=== PATIENT | female | born 1945 | race Caucasian/White ===

== ENCOUNTER 2017-01-30 13:19 | Inpatient (IN) | payer MEDICARE ==
[2017-01-30 13:38] LABS: Oxyhemoglobin 81.9 % (94.0-97.0); Sodium 141 mmol/L (135-148)
[2017-01-30 13:41] LABS: Modified Allen's Test POSITIVE
[2017-01-30 13:42] LABS: Mode 3 LPM N
[2017-01-30 13:54] LABS: #Lymphocytes 1.7 thou/uL (1.20-3.40); #Monocytes 1.7 thou/uL (0.11-0.59); #Neutrophils 11.9 thou/uL (1.40-6.50); %Basophils 0.3 % (0.0-1.0); %Eosinophils 0.1 % (0.0-10.0); %Lymphocytes 10.8 % (21.0-51.0); Hematocrit 39.3 % (36.0-47.0); Mean Platelet Volume 7.9 fL (7.4-10.4); Red Blood Cell (RBC) Count 4.09 mill/uL (4.20-5.40); White Blood Cell (WBC) Count 15.3 thou/uL (4.8-10.8)
[2017-01-30 14:02] LABS: Prothrombin Time 14.5 SEC (12.0-14.7)
[2017-01-30 14:03] LABS: PTT 38.5 SEC (22.9-36.1)
--- NOTE | 2017-01-30 14:06 | RAD ---
PORTABLE CHEST: Date: 01/30/17 HISTORY: Dyspnea. COMPARISON: 05/30/16. FINDINGS: Heart is upper normal size. There is vascular and interstitial prominence which could represent mild edema. No confluent consolidation. No significant effusion. Findings are very similar to 05/30/16 which might indicate some chronic interstitial change. IMPRESSION: Cardiomegaly with evidence of mild vascular and interstitial congestion. POS: [facility]
[2017-01-30] MEDS ORDERED: cefTRIAXone\\ROCEPHIN 2 GM VIAL ONE (14:16)
[2017-01-30] MEDS ORDERED: Sodium Chloride 0.9% 0 ML ONE (14:17)
[2017-01-30 14:19] LABS: ALT (SGPT) 35 U/L (8-55); AST (SGOT) 29 U/L (5-34); Alkaline Phosphatase 274 U/L (40-150); Anion Gap 17 mmol/L (10-20); BUN (Urea Nitrogen) 33 mg/dL (9.8-20.1); Calc. Creatinine Clearance 0 mL/min (70-130); Carbon Dioxide 15 mmol/L (23-31); Chloride 111 mmol/L (98-107); Estimated GFR-MDRD 49; Globulin 3.7 g/dL (2.4-3.5); Protein, Total 7.1 g/dL (6.0-8.3); Troponin I Less than 0.010 ng/mL (< 0.028)
[2017-01-30] MEDS ORDERED: Azithromycin 500 MG VIAL ONE (14:20)
[2017-01-30 14:30] LABS: Lactic Acid - Sepsis 1.4 mmol/L (0.5-2.2)
[2017-01-30] MEDS ORDERED: ISOVUE-370 76%-LOCM 1 ML ONE (14:40)
[2017-01-30] MEDS ORDERED: cefTRIAXone\\ROCEPHIN 2 GM, Admixture Fee 1 EACH in Sodium Chloride 0.9% 100 ML IVPB SCH (14:45)
--- NOTE | 2017-01-30 15:16 | CT ---
CT ANGIOGRAM OF THE CHEST: Date: 01/30/17 HISTORY: Shortness of breath. COPD. COMPARISON: None. CORRELATION: Chest CT dated 09/23/14. TECHNIQUE: CT angiogram of the chest performed in axial plane. Sagittal and coronal three-dimensional reformatt ed images are submitted for interpretation. FINDINGS: No mediastinal mass, lymphadenopathy, or hematoma. Heart size is within normal limits. No significan t pericardial fluid. Coronary artery calcifications are identified. Visualized aorta demonstrates at herosclerosis. There is mild prominence of the suprarenal aorta with peripheral atherosclerotic dise ase. No periaortic fat stranding. Visualized upper solid organs are unremarkable. Trachea and central bronchi are patent. There are ground-glass opacities involving both upper lobes, as well as both lower lobes. Emphysematous change in the right lower lobe is noted. Large calcifica tion in the right upper lobe. There is a focal area of nodularity involving the middle lobe, perihil ar in location, measuring 1.2 x 1.1 cm. No pleural effusion. No pneumothorax. Adequate contrast opacification of the pulmonary arterial system to the level of the segmental arter ies. No filling defect to suggest thromboembolism. There are no osteoblastic or osteolytic lesions. IMPRESSION: 1. Diffuse ground-glass opacities. Correlate for infiltrate or edema. 2. Emphysematous change right lower lobe. 3. Focal nodule in the middle lobe. Nodule is not appreciated on the previous examination. Consider short-term follow-up imaging once current ground-glass opacities resolve. 4. No evidence of pulmonary artery embolism to the level of the segmental arteries. CODE: KHOI POS: [facility]
[2017-01-30] MEDS ORDERED: Magnesium 2 GM/NS 0.9% 50 ML 2 GM in Premix Bag 1 BAG IVPB SCH (15:45)
[2017-01-30] MEDS ORDERED: methylPREDNISolone Sod Succ/PF 125 MG/2 ML VIAL ONE ×2 (16:00→16:15)
[2017-01-30] MEDS ORDERED: Eucerin (Mineral Oil/Petrolatum,White) 30 gm Jar TOP PRN (16:05)
[2017-01-30] MEDS ORDERED: Diabetic Tussin 200 MG/10 ML UDCUP PO PRN (16:05)
[2017-01-30] MEDS ORDERED: Milk Of Magnesia 30 ML UDCUP PO PRN (16:05)
[2017-01-30] MEDS ORDERED: hydrALAZINE 20 MG/ML VIAL SLOW IVP PRN (16:05)
[2017-01-30] MEDS ORDERED: Sodium Chloride 0.65% Nasal 44 ML BOT EA NARE PRN (16:05)
[2017-01-30] MEDS ORDERED: Calcium Carbonate 500 MG ChewTAB PO PRN (16:05)
[2017-01-30] MEDS ORDERED: hydrOXYzine 10 MG TAB PO PRN (16:05)
[2017-01-30] MEDS ORDERED: Senokot 8.6 MG TAB PO PRN (16:05)
[2017-01-30] MEDS ORDERED: Mag-Al 1200 mg/1200 mg/30 ML UDCUP PO PRN (16:05)
[2017-01-30] MEDS ORDERED: Loratadine 10 MG TAB PO PRN (16:05)
[2017-01-30] MEDS ORDERED: Artificial Tear Sol 15 ML BOT EA EYE PRN (16:05)
[2017-01-30] MEDS ORDERED: Ondansetron HCl/PF 4 MG/2 ML Vial IVP PRN (16:05)
[2017-01-30] MEDS ORDERED: Benzonatate 100 MG CAP PO PRN (16:05)
[2017-01-30] MEDS ORDERED: Cyclobenzaprine 10 MG TAB PO PRN (16:05)
[2017-01-30] MEDS ORDERED: Loperamide HCl 2 MG CAP PO PRN (16:05)
[2017-01-30] MEDS ORDERED: Chloraseptic Spray 180 ml Bottle PO PRN (16:05)
[2017-01-30] MEDS ORDERED: CeleCOXIB 100 MG CAP PO PRN (16:05)
[2017-01-30] MEDS ORDERED: Water For Inject, Bacteriostat 30 ML ONE (16:15)
--- NOTE | 2017-01-30 16:25 | HP ---
PRIMARY CARE PHYSICIAN: Jagdeep Palomo M.D. REASON FOR ADMISSION: Acute hypoxic respiratory failure and COPD exacerbation. HISTORY OF PRESENT ILLNESS: A 71-year-old female who has underlying history of COPD as well as ongo ing tobacco abuse disorder who was brought to emergency room by paramedics for evaluation of shortne ss of breath. Patient reports that for the last 2-3 days, she has increasing shortness of breath. Normally, she feels dyspnea on exertion, but for the last 2-3 days, she was getting more and more sh ortness of breath. Even after walking few steps, she was drinking huffy and puffy. During nighttim e, she was not able to sleep because of shortness of breath. She was also hearing her own wheezing. She was also having cough productive of greenish sputum. She denies any fever or chills. Even af ter that, she continued to smoke at home as the patient's condition gotten more worse today and she was not able to catch her breath and that is why she decided to call paramedics. Paramedics, when nataliya cartagena evaluated her at home, her oxygen saturation was 75% on room air. She was given 2 times DuoNeb therapy. After that saturation improved to 90%. Intermittently, her oxygen saturation was going lo w and when she arrived to emergency room, patient was in respiratory distress. She was only saturat ing 81% and that is why she required BiPAP therapy in the emergency room. After a while, BiPAP therapy was weaned off in the emergency room and she was maintaining saturation in the 90s with 2 liter nasal cannula. At this point, patient does not have any accessory muscles of respiration use and she is able to talk in full sentences. This patient reports that she does no t have any home oxygen. She denies any chest pain. She denies any palpitations. She denies any lo wer extremity edema. She denies any UTI symptoms. She denies any constipation, diarrhea, melena or hematochezia. She denies any cough, dizziness or syncope. REVIEW OF SYSTEMS: The following complete review of systems was negative, unless otherwise mentione d in the HPI or below: Constitutional: Weight loss or gain, ability to conduct usual activities. Skin: Rash, itching. Eyes: Double vision, pain. ENT/Mouth: Nose bleeding, neck stiffness, pain, tenderness. Cardiovascular: Palpitations, dyspnea on exertion, orthopnea. Respiratory: Shortness of breath, wheezing, cough, hemoptysis, fever or night sweats. Gastrointestinal: Poor appetite, abdominal pain, heartburn, nausea, vomiting, constipation, or diar rufino. Genitourinary: Urgency, frequency, dysuria, nocturia. Musculoskeletal: Pain, swelling. Neurologic/Psychiatric: Anxiety, depression. Allergy/Immunologic: Skin rash, bleeding tendency. Please see my HPI for pertinent positive and negative. All other review of systems reviewed and neg ative except as mentioned in the HPI. PAST MEDICAL HISTORY: Chronic diastolic heart failure with EF 60%-65%, COPD with active tobacco abu se, chronic pain disorder on chronic pain medication, hypertension, obesity, hypothyroidism, chronic kidney disease stage 2, gastroesophageal reflux disease, dyslipidemia. PAST PSYCHIATRIC HISTORY: Anxiety and depression. PAST SURGICAL HISTORY: Low back surgery, left ankle surgery, appendicectomy, cholecystectomy, parti al hysterectomy, laminectomy, and left hip replacement. ALLERGIES: CLONIDINE. FAMILY HISTORY: No strong family history of premature coronary artery disease, stroke or cancer. SOCIAL HISTORY: The patient lives in [place], [place]. She smokes about half pack per day for last 30 years. She tried to cutdown smoking, but she never able to do that. She denies any alcohol or o ther illicit drug abuse. The patient reports that her two children live in [facility]. CURRENT HOME MEDICATIONS: Gabapentin 100 mg 3 times daily, Flexeril 10 mg daily, Cymbalta 60 mg p.o . daily, Lasix 20 mg p.o. daily, amlodipine 10 mg p.o. daily, multivitamin 1 tablet p.o. daily, Atar ax 10 mg 3 times daily, lisinopril 5 mg p.o. daily, celecoxib 200 mg p.o. daily, Zoloft 50 mg p.o. d aily, Crestor 10 mg p.o. at bedtime, Symbicort 2 puff inhalation b.i.d., potassium chloride 10 mEq p .o. daily. FAMILY HISTORY: No strong family history of premature coronary artery disease, stroke or cancer. EMERGENCY ROOM COURSE: Patient has received magnesium sulfate 2 g, Rocephin 2 g, azithromycin 500 m g, IV fluids 500 mg, and DuoNeb therapy. PHYSICAL EXAMINATION: VITAL SIGNS: On arrival, blood pressure 132/69, pulse 110, respiratory rate 22, temperature 97.7, s aturation 91% on room air, weight 62.6 kilograms. GENERAL: Patient is currently alert, awake, no obvious acute distress, able to talk in full sentenc es. HEAD: Normocephalic, atraumatic. EYES: Pupils round, reactive to light. Extraocular muscle intact. ENT: Oropharynx within normal limits. Moist mucous membranes. No oral lesions. No pharyngeal lima thema, no exudate. NECK: Supple, no JVD, no thyromegaly, no carotid bruit, no meningeal signs of irritation. LUNGS: Air entry reduced both lung harper, but no obvious rhonchi or wheeze heard. No accessory mu scles of respiration in use. CARDIAC: S1 and S2 regular, tachycardia, no murmur, no gallop, no rub. ABDOMEN: Soft, bowel sounds present, nontender, nondistended. No organomegaly, no mass, no suprapu bic tenderness. BACK: Examination unremarkable, no CVA tenderness. EXTREMITIES: Upper extremity passive movements of all joints are normal. Lower extremities: No ed ernesto. Good peripheral pulsation. SKIN: No skin rash. HEMATOLOGICAL SYSTEM: No lymphadenopathy. PSYCHIATRIC: Normal affect. NEUROLOGIC: Nonfocal examination. She is able to move all four limbs. No focal neurological defic it noted. IMAGING AND SIGNIFICANT LABORATORY DATA: 1. EKG showing sinus tachycardia. CT angio reported as diffuse ground glass opacity, emphysematous changes in right lower lobe, focal nodule in the middle lobe. 2. CBC: WBC 15.3, hemoglobin 12.9, platelets 269. INR 1.1. D-dimer 2.22. 3. ABG; pH 7.32, CO2 31.6, O2 50.3, saturation 83.8, bicarbonate 15.9. 4. BMP: Sodium 139, potassium 3.5, chloride 111, carbon dioxide 15, BUN 33, creatinine 1.11, gluco se 131, calcium 10.0, lactic acid 1.4. 5. LFT: AST 29, ALT 35, alkaline phosphatase 274, albumin 3.4. BNP 182.5. CK-MB 10.3, troponin I less than 0.010. 6. Chest x-ray based on my review, cardiomegaly with interstitial congestion. ASSESSMENT AND PLAN/IMPRESSION: 1. Acute hypoxic respiratory failure. This patient has underlying predominantly chronic obstructiv e pulmonary disease exacerbation with ongoing tobacco abuse disorder. She is not using oxygen at [facility]. During this admission, we will assess her daily for requirement for home oxygen therapy. At th e same time, we will treat underlying problems, chronic obstructive pulmonary disease, and diastolic heart failure. 2. Chronic obstructive pulmonary disease exacerbation associated with acute hypoxic respiratory donna lure with ongoing tobacco abuse disorder. Patient is given counseling to avoid smoking. While in h ospital, we will continue to treat her with DuoNeb every 4 hourly and as needed basis, Solu-Medrol 4 0 mg IV q.6 hourly, Dulera 2 puffs inhalation b.i.d., Mucinex 600 mg 3 times daily as well as sympto matic treatment for cough with Tessalon and Robitussin. We will also consider adding empiric antibi otic therapy with Rocephin 1 gram q.24 hours and Levaquin 500 mg IV daily. 3. Tobacco abuse disorder. Smoking cessation counseling. We will offer nicotine patch if needed w hile in hospital. 4. Chronic diastolic heart failure. Currently, patient is euvolemic. We will continue patient's h ome dose of Lasix while in hospital. 5. Chronic pain disorder. Patient will continue gabapentin 100 mg 3 times daily and Flexeril 10 mg daily. Will avoid sedatives. 6. Hypertension. We will continue amlodipine 10 mg p.o. daily and lisinopril 5 mg p.o. daily. 7. Anxiety and depression. We will continue Cymbalta 60 mg p.o. daily and Zoloft 50 mg p.o. daily. 8. Dyslipidemia. We will continue Crestor 10 mg p.o. at bedtime. 9. Elevated CK-MB. We will check total CK to rule out any rhabdomyolysis. 10. Chronic kidney disease, stage III. We will avoid nephrotoxic agents and we will monitor renal function. 11. Deep venous thrombosis prophylaxis, Lovenox 40 mg subcu daily. 12. Gastrointestinal prophylaxis, Protonix 40 mg p.o. daily. CODE STATUS: The patient is FULL CODE. Patient does not have any surrogate decision maker. Disposition and plan based on clinical course. We are expecting patient's stay in hospital more tammy n 2 midnights. Plan of care discussed with the patient and family member at bedside in the emergenc y room.
[2017-01-30] MEDS ORDERED: FLU VACC TS2017-18 (>65YR) 0.5 ML SYRINGE IM ONE (18:00)
[2017-01-30] MEDS: Acetaminophen 325 MG TAB PO PRN (18:07)
[2017-01-30 19:28] LABS: Bilirubin Negative (Negative); Blood, Urine Negative (Negative); Glucose, Urine (Dipstick) Negative (Negative); Ketone, Urine Negative (Negative); Nitrite Negative (Negative); Protein, Urine (Dipstick) Negative (Neg-Trace)
[2017-01-30 19:30] LABS: Bacteria/HPF None Seen HPF (None Seen); Hyaline Casts/LPF 0-3 HYALINE CAST LPF (0-3 Hyaline); RBC/HPF 0-3 HPF (0-3); Squamous Epithelial 0-3 HPF (0-3); WBC/HPF 0-3 HPF (0-3)
[2017-01-30] MEDS: Mometasone/Formoterol 120 PUFF INHALER INH SCH (19:35)
[2017-01-30] MEDS: guaiFENesin ER 600 MG TAB PO SCH (20:36)
[2017-01-30] MEDS: Gabapentin 100 MG CAP PO SCH (20:36)
[2017-01-31] MEDS: Acetaminophen 325 MG TAB PO PRN ×4 (02:38→21:02)
[2017-01-31 05:35] LABS: ALT (SGPT) 41 U/L (8-55); AST (SGOT) 32 U/L (5-34); Alkaline Phosphatase 272 U/L (40-150); Anion Gap 16 mmol/L (10-20); BUN (Urea Nitrogen) 24 mg/dL (9.8-20.1); Bilirubin, Total 0.4 mg/dL (0.2-1.2); Calc. Creatinine Clearance 67 mL/min (70-130); Calcium 9.7 mg/dL (7.8-10.44); Carbon Dioxide 15 mmol/L (23-31); Chloride 113 mmol/L (98-107); Estimated GFR-MDRD 70; Globulin 3.5 g/dL (2.4-3.5); Protein, Total 6.7 g/dL (6.0-8.3)
[2017-01-31 05:43] LABS: Hematocrit 38.6 % (36.0-47.0); Mean Platelet Volume 7.7 fL (7.4-10.4); Red Blood Cell (RBC) Count 4.05 mill/uL (4.20-5.40); White Blood Cell (WBC) Count 13.8 thou/uL (4.8-10.8)
[2017-01-31 05:44] LABS: Band 6 % (5-11); Metamyelocyte 2 % (0-0); Neutrophil 83 % (42-75); Nucleated RBC 1 % (0)
[2017-01-31] MEDS: Mometasone/Formoterol 120 PUFF INHALER INH SCH ×2 (05:58→19:23)
[2017-01-31] MEDS: clonazePAM 0.5 MG TAB PO PRN ×2 (06:16→21:10)
[2017-01-31] MEDS: Nicotine 14 MG PATCH TOP SCH (06:16)
[2017-01-31] MEDS: Gabapentin 100 MG CAP PO SCH ×3 (08:19→21:02)
[2017-01-31] MEDS: guaiFENesin ER 600 MG TAB PO SCH ×3 (08:20→21:02)
[2017-01-31] MEDS: Furosemide 20 MG TAB PO SCH (08:20)
[2017-01-31] MEDS: Enoxaparin Sodium 40 MG/0.4 ML SYRINGE SC SCH (08:22)
[2017-01-31] MEDS: Amlodipine 10 MG TAB PO SCH (08:22)
--- NOTE | 2017-01-31 10:24 | PDOC.PN ---
- Subjective Encounter Start Date: 01/31/17 Encounter Start Time: 10:00 -: old records requested/rev Patient seen and examined. asking for her pain meds. did not require bipap during night, saturation is also stable. No new complaints. No overnight events - Objective MAR Reviewed: Yes Vital Signs & Weight: Vital Signs (12 hours) Temp Pulse Resp BP Pulse Ox 01/31/17 08:22 112 H 01/31/17 08:00 98.9 F 112 H 22 H 138/67 98 01/31/17 05:59 108 H 16 01/31/17 04:00 99.3 F 114 H 20 138/69 94 L 01/31/17 02:42 92 L 01/30/17 23:29 98.3 F 109 H 20 150/72 H 95 01/30/17 23:10 107 H 16 92 L Weight Weight 142 lb 12.8 oz I&O: 01/30/17 01/31/17 02/01/17 06:59 06:59 06:59 Intake Total 590 Output Total 960 Balance -370 Result Diagrams: 01/31/17 04:47 01/31/17 04:47 EKG Reviewed by me: Yes (nsr) Phys Exam - Physical Examination Constitutional: NAD HEENT: PERRLA, moist MMs, sclera anicteric Neck: no JVD, supple Respiratory: no wheezing, no rales, no rhonchi reduced air entry Cardiovascular: RRR, no significant murmur, no rub Gastrointestinal: soft, non-tender, no distention, positive bowel sounds Musculoskeletal: no edema, pulses present Neurological: non-focal, normal sensation, moves all 4 limbs Lymphatic: no nodes Psychiatric: normal affect, A&O x 3 Skin: no rash, normal turgor Dx/Plan (1) Acute respiratory failure with hypoxia Code(s): J96.01 - ACUTE RESPIRATORY FAILURE WITH HYPOXIA Status: Acute (2) COPD exacerbation Code(s): J44.1 - CHRONIC OBSTRUCTIVE PULMONARY DISEASE W (ACUTE) EXACERBATION Status: Acute (3) Anxiety and depression Code(s): F41.8 - OTHER SPECIFIED ANXIETY DISORDERS Status: Chronic (4) CKD (chronic kidney disease), stage III Code(s): N18.3 - CHRONIC KIDNEY DISEASE, STAGE 3 (MODERATE) Status: Chronic (5) Chronic diastolic (congestive) heart failure Code(s): I50.32 - CHRONIC DIASTOLIC (CONGESTIVE) HEART FAILURE Status: Chronic (6) Chronic pain disorder Code(s): G89.4 - CHRONIC PAIN SYNDROME Status: Chronic (7) Dyslipidemia Code(s): E78.5 - HYPERLIPIDEMIA, UNSPECIFIED Status: Chronic (8) HTN (hypertension) Code(s): I10 - ESSENTIAL (PRIMARY) HYPERTENSION Status: Chronic Qualifiers: Hypertension type: essential hypertension Qualified Code(s): I10 - Essential (primary) hypertension (9) Tobacco abuse Code(s): Z72.0 - TOBACCO USE Status: Chronic - Plan cont current plan of care, continue antibiotics, respiratory therapy * continue current optimum medical therapy for COPD * will avoid sedatives * monitor oxygen saturation and continue oxygen * medication reviewed as below * symptomatic treatment * will start PT. * continue rocephin, levaquin, solumedrol, duoneb, dulera Review of Systems - Review of Systems Constitutional: negative: Fever, Chills, Sweats, Weakness, Malaise, Other Eyes: negative: Pain, Vision Change, Conjunctivae Inflammation, Eyelid Inflammation, Redness, Other ENT: negative: Ear Pain, Ear Discharge, Nose Pain, Nose Discharge, Nose Congestion, Mouth Pain, Mouth Swelling, Throat Pain, Throat Swelling, Other Respiratory: Cough, Shortness of Breath. negative: Dry, Hemoptysis, SOB with Excertion, Pleuritic Pain, Sputum, Wheezing Cardiovascular: negative: Chest Pain, Palpitations, Orthopnea, Paroxysmal Noc. Dyspnea, Edema, Light Headedness, Other Gastrointestinal: negative: Nausea, Vomiting, Abdominal Pain, Diarrhea, Constipation, Melena, Hematochezia, Other Genitourinary: negative: Dysuria, Frequency, Incontinence, Hematuria, Retention , Other Musculoskeletal: negative: Neck Pain, Shoulder Pain, Arm Pain, Back Pain, Hand Pain, Leg Pain, Foot Pain, Other Skin: negative: Rash, Lesions, Don, Bruising, Other - Medications/Allergies Allergies/Adverse Reactions: Allergies Allergy/AdvReac Type Severity Reaction Status Date / Time clonidine Allergy Verified 06/04/16 22:10 hydromorphone HCl Allergy Verified 06/04/16 22:10 [From Dilaudid] morphine Allergy Verified 06/04/16 22:10 Medications: Current Medications Acetaminophen (Tylenol) 650 mg PO Q4H PRN PRN Reason: Headache/Fever or Pain Last Admin: 01/31/17 08:19 Dose: 650 mg Al Hydroxide/Mg Hydroxide (Maalox) 30 ml PO Q6H PRN PRN Reason: Heartburn or Indigestion Albuterol/Ipratropium (Duoneb) 3 ml NEB [id number] [facility] Last Admin: 01/31/17 10:26 Dose: 3 ml Albuterol/Ipratropium (Duoneb) 3 ml NEB [id number] PRN PRN Reason: SOB &/or Wheezing Amlodipine Besylate (Norvasc) 10 mg PO DAILY [facility] Last Admin: 01/31/17 08:22 Dose: 10 mg Artificial Tears (Tears Renewed 15ml Bottle) 0 drop EA EYE PRN PRN PRN Reason: Dry Eyes Benzonatate (Tessalon) 100 mg PO Q4H PRN PRN Reason: Cough Calcium Carbonate (Tums) 1,000 mg PO Q4H PRN PRN Reason: Heartburn or Indigestion Celecoxib (Celebrex) 100 mg PO BID PRN PRN Reason: Muscle Pain Clonazepam (Klonopin) 0.5 mg PO Q12H PRN PRN Reason: .ANXIETY Last Admin: 01/31/17 06:16 Dose: 0.5 mg Cyclobenzaprine HCl (Flexeril) 10 mg PO TID PRN PRN Reason: Muscle Spasm Duloxetine HCl (Cymbalta) 60 mg PO DAILY [facility] Last Admin: 01/31/17 08:20 Dose: 60 mg Enoxaparin Sodium (Lovenox) 40 mg SC 0900 [facility] Last Admin: 01/31/17 08:22 Dose: 40 mg Furosemide (Lasix) 20 mg PO DAILY [facility] Last Admin: 01/31/17 08:20 Dose: 20 mg Gabapentin (Neurontin) 100 mg PO TID [facility] Last Admin: 01/31/17 08:19 Dose: 100 mg Guaifenesin (Robitussin Sf) 200 mg PO Q4H PRN PRN Reason: Cough Last Admin: 01/30/17 18:07 Dose: 200 mg Guaifenesin (Mucinex) 600 mg PO TID [facility] Last Admin: 01/31/17 08:20 Dose: 600 mg Hydralazine HCl (Apresoline) 10 mg SLOW IVP Q4H PRN PRN Reason: Systolic BP > 180 Hydroxyzine HCl (Atarax) 10 mg PO Q8H PRN PRN Reason: Itching Levofloxacin 500 mg/ Device 100 mls @ 100 mls/hr IVPB Q24HR [facility] Last Admin: 01/30/17 18:03 Dose: 100 mls Ceftriaxone Sodium 2 gm/Miscellaneous Medication 1 each/ Sodium Chloride 100 mls @ 200 mls/hr IVPB Q24HR [facility] Loperamide HCl (Imodium) 2 mg PO PRN PRN PRN Reason: Diarrhea/Loose Stools Loratadine (Claritin) 10 mg PO DAILYPRN PRN PRN Reason: Sinus Symptoms Magnesium Hydroxide (Milk Of Magnesium) 30 ml PO DAILYPRN PRN PRN Reason: Constipation Methylprednisolone Sodium Succinate (Solu-Medrol) 40 mg IVP Q6HR [facility] Last Admin: 01/31/17 06:16 Dose: 40 mg Mineral Oil/White Petrolatum (Eucerin Cream) 0 gm TOP BIDPRN PRN PRN Reason: Dry Skin Mometasone Furoate/Formoterol Fumar (Dulera 200 Mcg/5 Mcg Inhaler) 2 puff INH BID-RT [facility] Last Admin: 01/31/17 05:58 Dose: 2 puff Nicotine (Nicoderm Patch) 14 mg TOP Q24HR [facility] Last Admin: 01/31/17 06:16 Dose: 14 mg Ondansetron HCl (Zofran Odt) 4 mg PO Q6H PRN PRN Reason: Nausea/Vomiting Ondansetron HCl (Zofran) 4 mg IVP Q6H PRN PRN Reason: Nausea/Vomiting Pantoprazole Sodium (Protonix) 40 mg PO DAILY [facility] Last Admin: 01/31/17 08:19 Dose: 40 mg Phenol (Chloraseptic [place] 180 Ml Bot) 0 ml PO PRN PRN PRN Reason: Sore Throat Rosuvastatin Calcium (Crestor) 10 mg PO HS [facility] Last Admin: 01/30/17 20:36 Dose: 10 mg Senna (Senokot) 2 tab PO HSPRN PRN PRN Reason: Constipation Sertraline HCl (Zoloft) 50 mg PO DAILY [facility] Last Admin: 01/31/17 08:19 Dose: Not Given Sodium Chloride (Gilliam Nasal [place] 0.65%) 0 ml EA NARE QIDPRN PRN PRN Reason: Nasal Congestion Sodium Chloride (Flush - Normal Saline) 10 ml IVF PRN PRN PRN Reason: Saline Flush Last Admin: 01/31/17 06:16 Dose: 10 ml
[2017-01-31] MEDS: cefTRIAXone\\ROCEPHIN 2 GM, Admixture Fee 1 EACH in Sodium Chloride 0.9% 100 ML IVPB SCH (14:43)
[2017-02-01] MEDS: Ketorolac Tromethamine 30 MG/ML VIAL IVP PRN ×3 (01:02→23:46)
[2017-02-01] MEDS: Acetaminophen 325 MG TAB PO PRN ×2 (02:08→16:16)
[2017-02-01 05:25] VITALS: BMI 26.4
[2017-02-01] MEDS: Mometasone/Formoterol 120 PUFF INHALER INH SCH ×2 (06:52→18:54)
[2017-02-01] MEDS: Gabapentin 100 MG CAP PO SCH ×3 (07:50→20:06)
[2017-02-01] MEDS: Amlodipine 10 MG TAB PO SCH (07:50)
[2017-02-01] MEDS: guaiFENesin ER 600 MG TAB PO SCH ×3 (07:51→20:05)
[2017-02-01] MEDS: Enoxaparin Sodium 40 MG/0.4 ML SYRINGE SC SCH (07:51)
[2017-02-01] MEDS: Furosemide 20 MG TAB PO SCH (07:51)
[2017-02-01] MEDS: Nicotine 14 MG PATCH TOP SCH (07:52)
[2017-02-01] MEDS: clonazePAM 0.5 MG TAB PO PRN ×2 (08:35→20:06)
[2017-02-01] MEDS: Acetaminophen/Codeine 30-300mg Tablet PO PRN ×3 (10:39→20:06)
--- NOTE | 2017-02-01 10:56 | PDOC.PN ---
- Subjective Encounter Start Date: 02/01/17 Encounter Start Time: 08:10 Patient seen and examined. c/o chronic pain. No new complaints. No overnight events - Objective MAR Reviewed: Yes Vital Signs & Weight: Vital Signs (12 hours) Temp Pulse Resp BP BP Pulse Ox 02/01/17 10:25 105 H 18 94 L 02/01/17 08:00 98.0 F 114 H 24 H 142/77 H 94 L 02/01/17 07:50 108 H 142/77 H 02/01/17 06:49 100 20 93 L 02/01/17 04:00 98.9 F 112 H 20 143/83 H 93 L 02/01/17 02:09 115 H 20 94 L 02/01/17 00:36 98.9 F 22 H 120/69 92 L Weight Weight 140 lb 1.6 oz I&O: 01/31/17 02/01/17 02/02/17 06:59 06:59 06:59 Intake Total 590 500 Output Total 960 Balance -370 500 Result Diagrams: 01/31/17 04:47 01/31/17 04:47 Phys Exam - Physical Examination Constitutional: NAD HEENT: PERRLA, moist MMs, sclera anicteric Neck: no JVD, supple Respiratory: no rales, wheezing present Cardiovascular: RRR, no significant murmur, no rub Gastrointestinal: soft, non-tender, no distention, positive bowel sounds Musculoskeletal: no edema, pulses present Neurological: non-focal, normal sensation, moves all 4 limbs Psychiatric: normal affect, A&O x 3 Skin: no rash, normal turgor Dx/Plan (1) Acute respiratory failure with hypoxia Code(s): J96.01 - ACUTE RESPIRATORY FAILURE WITH HYPOXIA Status: Acute (2) COPD exacerbation Code(s): J44.1 - CHRONIC OBSTRUCTIVE PULMONARY DISEASE W (ACUTE) EXACERBATION Status: Acute (3) Anxiety and depression Code(s): F41.8 - OTHER SPECIFIED ANXIETY DISORDERS Status: Chronic (4) CKD (chronic kidney disease), stage III Code(s): N18.3 - CHRONIC KIDNEY DISEASE, STAGE 3 (MODERATE) Status: Chronic (5) Chronic diastolic (congestive) heart failure Code(s): I50.32 - CHRONIC DIASTOLIC (CONGESTIVE) HEART FAILURE Status: Chronic (6) Chronic pain disorder Code(s): G89.4 - CHRONIC PAIN SYNDROME Status: Chronic (7) Dyslipidemia Code(s): E78.5 - HYPERLIPIDEMIA, UNSPECIFIED Status: Chronic (8) HTN (hypertension) Code(s): I10 - ESSENTIAL (PRIMARY) HYPERTENSION Status: Chronic Qualifiers: Hypertension type: essential hypertension Qualified Code(s): I10 - Essential (primary) hypertension (9) Tobacco abuse Code(s): Z72.0 - TOBACCO USE Status: Chronic - Plan cont current plan of care, continue antibiotics, respiratory therapy * add flonase nasal spray for nasal stuffiness * add T-3 for pain * medication reviewed as below * symptomatic treatment * continue current optimum medical therapy for COPD * will need home oxygen * not ready for discharge yet. Review of Systems - Review of Systems Constitutional: negative: Fever, Chills, Sweats, Weakness, Malaise, Other ENT: negative: Ear Pain, Ear Discharge, Nose Pain, Nose Discharge, Nose Congestion, Mouth Pain, Mouth Swelling, Throat Pain, Throat Swelling, Other Respiratory: negative: Cough, Dry, Shortness of Breath, Hemoptysis, SOB with Excertion, Pleuritic Pain, Sputum, Wheezing Cardiovascular: negative: Chest Pain, Palpitations, Orthopnea, Paroxysmal Noc. Dyspnea, Edema, Light Headedness, Other Gastrointestinal: negative: Nausea, Vomiting, Abdominal Pain, Diarrhea, Constipation, Melena, Hematochezia, Other Genitourinary: negative: Dysuria, Frequency, Incontinence, Hematuria, Retention , Other Skin: negative: Rash, Lesions, Don, Bruising, Other - Medications/Allergies Allergies/Adverse Reactions: Allergies Allergy/AdvReac Type Severity Reaction Status Date / Time clonidine Allergy Verified 06/04/16 22:10 hydromorphone HCl Allergy Verified 06/04/16 22:10 [From Dilaudid] morphine Allergy Verified 06/04/16 22:10 Medications: Current Medications Acetaminophen (Tylenol) 650 mg PO Q4H PRN PRN Reason: Headache/Fever or Pain Last Admin: 02/01/17 02:08 Dose: 650 mg Acetaminophen/Codeine Phosphate (Tylenol #3) 1 tab PO Q4H PRN PRN Reason: Moderate Pain (4-6) Last Admin: 02/01/17 10:39 Dose: 1 tab Al Hydroxide/Mg Hydroxide (Maalox) 30 ml PO Q6H PRN PRN Reason: Heartburn or Indigestion Albuterol/Ipratropium (Duoneb) 3 ml NEB [id number] [facility] Last Admin: 02/01/17 10:25 Dose: 3 ml Albuterol/Ipratropium (Duoneb) 3 ml NEB [id number] PRN PRN Reason: SOB &/or Wheezing Amlodipine Besylate (Norvasc) 10 mg PO DAILY [facility] Last Admin: 02/01/17 07:50 Dose: 10 mg Artificial Tears (Tears Renewed 15ml Bottle) 0 drop EA EYE PRN PRN PRN Reason: Dry Eyes Benzonatate (Tessalon) 100 mg PO Q4H PRN PRN Reason: Cough Calcium Carbonate (Tums) 1,000 mg PO Q4H PRN PRN Reason: Heartburn or Indigestion Celecoxib (Celebrex) 100 mg PO BID PRN PRN Reason: Muscle Pain Clonazepam (Klonopin) 0.5 mg PO Q12H PRN PRN Reason: .ANXIETY Last Admin: 02/01/17 08:35 Dose: 0.5 mg Cyclobenzaprine HCl (Flexeril) 10 mg PO TID PRN PRN Reason: Muscle Spasm Duloxetine HCl (Cymbalta) 60 mg PO DAILY [facility] Last Admin: 02/01/17 07:50 Dose: 60 mg Enoxaparin Sodium (Lovenox) 40 mg SC 0900 [facility] Last Admin: 02/01/17 07:51 Dose: 40 mg Fluticasone Propionate (Flonase Nasal Thomson) 0 gm NASAL BID [facility] Furosemide (Lasix) 20 mg PO DAILY [facility] Last Admin: 02/01/17 07:51 Dose: 20 mg Gabapentin (Neurontin) 100 mg PO TID [facility] Last Admin: 02/01/17 07:50 Dose: 100 mg Guaifenesin (Robitussin Sf) 200 mg PO Q4H PRN PRN Reason: Cough Last Admin: 01/30/17 18:07 Dose: 200 mg Guaifenesin (Mucinex) 600 mg PO TID [facility] Last Admin: 02/01/17 07:51 Dose: 600 mg Hydralazine HCl (Apresoline) 10 mg SLOW IVP Q4H PRN PRN Reason: Systolic BP > 180 Hydroxyzine HCl (Atarax) 10 mg PO Q8H PRN PRN Reason: Itching Levofloxacin 500 mg/ Device 100 mls @ 100 mls/hr IVPB Q24HR [facility] Last Admin: 01/31/17 15:59 Dose: 100 mls Ceftriaxone Sodium 2 gm/Miscellaneous Medication 1 each/ Sodium Chloride 100 mls @ 200 mls/hr IVPB Q24HR [facility] Last Admin: 01/31/17 14:43 Dose: 100 mls Ketorolac Tromethamine (Toradol) 15 mg IVP Q8H PRN PRN Reason: Headache Stop: 02/06/17 00:34 Last Admin: 02/01/17 01:02 Dose: 15 mg Loperamide HCl (Imodium) 2 mg PO PRN PRN PRN Reason: Diarrhea/Loose Stools Loratadine (Claritin) 10 mg PO DAILYPRN PRN PRN Reason: Sinus Symptoms Magnesium Hydroxide (Milk Of Magnesium) 30 ml PO DAILYPRN PRN PRN Reason: Constipation Methylprednisolone Sodium Succinate (Solu-Medrol) 40 mg IVP Q6HR [facility] Last Admin: 02/01/17 05:16 Dose: 40 mg Mineral Oil/White Petrolatum (Eucerin Cream) 0 gm TOP BIDPRN PRN PRN Reason: Dry Skin Mometasone Furoate/Formoterol Fumar (Dulera 200 Mcg/5 Mcg Inhaler) 2 puff INH BID-RT [facility] Last Admin: 02/01/17 06:52 Dose: 2 puff Nicotine (Nicoderm Patch) 14 mg TOP Q24HR [facility] Last Admin: 02/01/17 07:52 Dose: 14 mg Ondansetron HCl (Zofran Odt) 4 mg PO Q6H PRN PRN Reason: Nausea/Vomiting Ondansetron HCl (Zofran) 4 mg IVP Q6H PRN PRN Reason: Nausea/Vomiting Pantoprazole Sodium (Protonix) 40 mg PO DAILY [facility] Last Admin: 02/01/17 07:50 Dose: 40 mg Phenol (Chloraseptic Thomson 180 Ml Bot) 0 ml PO PRN PRN PRN Reason: Sore Throat Rosuvastatin Calcium (Crestor) 10 mg PO HS [facility] Last Admin: 01/31/17 21:02 Dose: 10 mg Senna (Senokot) 2 tab PO HSPRN PRN PRN Reason: Constipation Sertraline HCl (Zoloft) 50 mg PO DAILY [facility] Last Admin: 02/01/17 07:50 Dose: 50 mg Sodium Chloride ([place] Nasal Thomson 0.65%) 0 ml EA NARE QIDPRN PRN PRN Reason: Nasal Congestion Sodium Chloride (Flush - Normal Saline) 10 ml IVF PRN PRN PRN Reason: Saline Flush Last Admin: 01/31/17 06:16 Dose: 10 ml
[2017-02-01] MEDS: cefTRIAXone\\ROCEPHIN 2 GM, Admixture Fee 1 EACH in Sodium Chloride 0.9% 100 ML IVPB SCH (12:23)
[2017-02-01] MEDS: Ondansetron ODT 4 MG TAB PO PRN (16:16)
[2017-02-01] MEDS: Fluticasone Propionate Nasal Spray 16 gm Bottle NASAL SCH (20:05)
[2017-02-02] MEDS: Mometasone/Formoterol 120 PUFF INHALER INH SCH ×2 (05:52→19:08)
[2017-02-02] MEDS: Nicotine 14 MG PATCH TOP SCH (06:06)
[2017-02-02] MEDS: Acetaminophen/Codeine 30-300mg Tablet PO PRN ×4 (06:11→20:24)
[2017-02-02] MEDS: Furosemide 20 MG TAB PO SCH (07:53)
[2017-02-02] MEDS: Acetaminophen 325 MG TAB PO PRN (07:53)
[2017-02-02] MEDS: Gabapentin 100 MG CAP PO SCH ×3 (07:53→20:23)
[2017-02-02] MEDS: guaiFENesin ER 600 MG TAB PO SCH ×3 (07:53→20:23)
[2017-02-02] MEDS: clonazePAM 0.5 MG TAB PO PRN ×2 (07:54→22:42)
[2017-02-02] MEDS: Enoxaparin Sodium 40 MG/0.4 ML SYRINGE SC SCH (07:54)
[2017-02-02] MEDS: Amlodipine 10 MG TAB PO SCH (07:54)
[2017-02-02] MEDS: Fluticasone Propionate Nasal Spray 16 gm Bottle NASAL SCH ×2 (07:56→22:44)
[2017-02-02 08:10] LABS: Hematocrit 37.2 % (36.0-47.0); Mean Platelet Volume 7.7 fL (7.4-10.4); Red Blood Cell (RBC) Count 3.94 mill/uL (4.20-5.40); White Blood Cell (WBC) Count 14.5 thou/uL (4.8-10.8)
[2017-02-02 08:25] LABS: Anion Gap 15 mmol/L (10-20); BUN (Urea Nitrogen) 21 mg/dL (9.8-20.1); Calc. Creatinine Clearance 69 mL/min (70-130); Calcium 9.5 mg/dL (7.8-10.44); Carbon Dioxide 20 mmol/L (23-31); Chloride 109 mmol/L (98-107); Estimated GFR-MDRD 73
[2017-02-02 08:51] LABS: Band 5 % (5-11); Metamyelocyte 2 % (0-0); Neutrophil 77 % (42-75); Reactive Lymphocytes 1 % (0-10)
[2017-02-02 09:22] LABS: Magnesium 1.9 mg/dL (1.6-2.6); Phosphorus 3.2 mg/dL (2.3-4.7)
[2017-02-02] MEDS: cefTRIAXone\\ROCEPHIN 2 GM, Admixture Fee 1 EACH in Sodium Chloride 0.9% 100 ML IVPB SCH (14:00)
--- NOTE | 2017-02-02 14:21 | PDOC.PN ---
- Subjective Encounter Start Date: 02/02/17 Encounter Start Time: 08:15 Patient seen and examined. No new complaints. No overnight events - Objective MAR Reviewed: Yes Vital Signs & Weight: Vital Signs (12 hours) Temp Pulse Resp BP Pulse Ox 02/02/17 13:45 97 16 96 02/02/17 11:17 98.4 F 91 18 144/68 H 93 L 02/02/17 09:37 100 16 93 L 02/02/17 08:00 98.9 F 113 H 20 02/02/17 07:54 113 H 02/02/17 07:24 98.9 F 113 H 20 124/53 L 100 02/02/17 05:52 103 H 16 93 L 02/02/17 05:51 103 H 16 93 L 02/02/17 04:00 98.7 F 103 H 20 137/67 100 02/02/17 02:38 108 H 16 Weight Weight 142 lb 5.146 oz I&O: 02/01/17 02/02/17 02/03/17 06:59 06:59 06:59 Intake Total 500 Balance 500 Result Diagrams: 02/02/17 07:57 02/02/17 07:57 Phys Exam - Physical Examination Constitutional: NAD HEENT: PERRLA, moist MMs, sclera anicteric Neck: no JVD, supple Respiratory: no rales, wheezing present Cardiovascular: RRR, no significant murmur, no rub Gastrointestinal: soft, non-tender, no distention, positive bowel sounds Musculoskeletal: no edema, pulses present Neurological: non-focal, normal sensation Psychiatric: normal affect, A&O x 3 Skin: no rash, normal turgor Dx/Plan (1) Acute respiratory failure with hypoxia Code(s): J96.01 - ACUTE RESPIRATORY FAILURE WITH HYPOXIA Status: Acute (2) COPD exacerbation Code(s): J44.1 - CHRONIC OBSTRUCTIVE PULMONARY DISEASE W (ACUTE) EXACERBATION Status: Acute (3) Anxiety and depression Code(s): F41.8 - OTHER SPECIFIED ANXIETY DISORDERS Status: Chronic (4) CKD (chronic kidney disease), stage III Code(s): N18.3 - CHRONIC KIDNEY DISEASE, STAGE 3 (MODERATE) Status: Chronic (5) Chronic diastolic (congestive) heart failure Code(s): I50.32 - CHRONIC DIASTOLIC (CONGESTIVE) HEART FAILURE Status: Chronic (6) Chronic pain disorder Code(s): G89.4 - CHRONIC PAIN SYNDROME Status: Chronic (7) Dyslipidemia Code(s): E78.5 - HYPERLIPIDEMIA, UNSPECIFIED Status: Chronic (8) HTN (hypertension) Code(s): I10 - ESSENTIAL (PRIMARY) HYPERTENSION Status: Chronic Qualifiers: Hypertension type: essential hypertension Qualified Code(s): I10 - Essential (primary) hypertension (9) Tobacco abuse Code(s): Z72.0 - TOBACCO USE Status: Chronic - Plan cont current plan of care, continue antibiotics, respiratory therapy * will continue current optimum medical therapy for COPD * will reduce dose of IV steroid today * will need home oxygen on discharge * still not ready for discharge yet * medication reviewed as below * symptomatic treatment. Review of Systems - Review of Systems Constitutional: negative: Fever, Chills, Sweats, Weakness, Malaise, Other ENT: negative: Ear Pain, Ear Discharge, Nose Pain, Nose Discharge, Nose Congestion, Mouth Pain, Mouth Swelling, Throat Pain, Throat Swelling, Other Respiratory: Cough, Shortness of Breath, SOB with Excertion. negative: Dry, Hemoptysis, Pleuritic Pain, Sputum, Wheezing Cardiovascular: negative: Chest Pain, Palpitations, Orthopnea, Paroxysmal Noc. Dyspnea, Edema, Light Headedness, Other Gastrointestinal: negative: Nausea, Vomiting, Abdominal Pain, Diarrhea, Constipation, Melena, Hematochezia, Other Genitourinary: negative: Dysuria, Frequency, Incontinence, Hematuria, Retention , Other Musculoskeletal: negative: Neck Pain, Shoulder Pain, Arm Pain, Back Pain, Hand Pain, Leg Pain, Foot Pain, Other - Medications/Allergies Allergies/Adverse Reactions: Allergies Allergy/AdvReac Type Severity Reaction Status Date / Time clonidine Allergy Verified 06/04/16 22:10 hydromorphone HCl Allergy Verified 06/04/16 22:10 [From Dilaudid] morphine Allergy Verified 06/04/16 22:10 Medications: Current Medications Acetaminophen (Tylenol) 650 mg PO Q4H PRN PRN Reason: Headache/Fever or Pain Last Admin: 02/02/17 07:53 Dose: 650 mg Acetaminophen/Codeine Phosphate (Tylenol #3) 1 tab PO Q4H PRN PRN Reason: Moderate Pain (4-6) Last Admin: 02/02/17 10:45 Dose: 1 tab Al Hydroxide/Mg Hydroxide (Maalox) 30 ml PO Q6H PRN PRN Reason: Heartburn or Indigestion Albuterol/Ipratropium (Duoneb) 3 ml NEB [id number] [facility] Last Admin: 02/02/17 13:45 Dose: 3 ml Albuterol/Ipratropium (Duoneb) 3 ml NEB [id number] PRN PRN Reason: SOB &/or Wheezing Amlodipine Besylate (Norvasc) 10 mg PO DAILY [facility] Last Admin: 02/02/17 07:54 Dose: Not Given Artificial Tears (Tears Renewed 15ml Bottle) 0 drop EA EYE PRN PRN PRN Reason: Dry Eyes Benzonatate (Tessalon) 100 mg PO Q4H PRN PRN Reason: Cough Calcium Carbonate (Tums) 1,000 mg PO Q4H PRN PRN Reason: Heartburn or Indigestion Celecoxib (Celebrex) 100 mg PO BID PRN PRN Reason: Muscle Pain Clonazepam (Klonopin) 0.5 mg PO Q12H PRN PRN Reason: .ANXIETY Last Admin: 02/02/17 07:54 Dose: 0.5 mg Cyclobenzaprine HCl (Flexeril) 10 mg PO TID PRN PRN Reason: Muscle Spasm Duloxetine HCl (Cymbalta) 60 mg PO DAILY [facility] Last Admin: 02/02/17 07:53 Dose: 60 mg Enoxaparin Sodium (Lovenox) 40 mg SC 0900 [facility] Last Admin: 02/02/17 07:54 Dose: 40 mg Fluticasone Propionate (Flonase Nasal [place]) 0 gm NASAL BID [facility] Last Admin: 02/02/17 07:56 Dose: 2 spr Furosemide (Lasix) 20 mg PO DAILY [facility] Last Admin: 02/02/17 07:53 Dose: 20 mg Gabapentin (Neurontin) 100 mg PO TID [facility] Last Admin: 02/02/17 07:53 Dose: 100 mg Guaifenesin (Robitussin Sf) 200 mg PO Q4H PRN PRN Reason: Cough Last Admin: 01/30/17 18:07 Dose: 200 mg Guaifenesin (Mucinex) 600 mg PO TID [facility] Last Admin: 02/02/17 07:53 Dose: 600 mg Hydralazine HCl (Apresoline) 10 mg SLOW IVP Q4H PRN PRN Reason: Systolic BP > 180 Hydroxyzine HCl (Atarax) 10 mg PO Q8H PRN PRN Reason: Itching Levofloxacin 500 mg/ Device 100 mls @ 100 mls/hr IVPB Q24HR [facility] Last Admin: 02/01/17 16:14 Dose: 100 mls Ceftriaxone Sodium 2 gm/Miscellaneous Medication 1 each/ Sodium Chloride 100 mls @ 200 mls/hr IVPB Q24HR [facility] Last Admin: 02/02/17 14:00 Dose: 100 mls Ketorolac Tromethamine (Toradol) 15 mg IVP Q8H PRN PRN Reason: Headache Stop: 02/06/17 00:34 Last Admin: 02/01/17 23:46 Dose: 15 mg Loperamide HCl (Imodium) 2 mg PO PRN PRN PRN Reason: Diarrhea/Loose Stools Loratadine (Claritin) 10 mg PO DAILYPRN PRN PRN Reason: Sinus Symptoms Magnesium Hydroxide (Milk Of Magnesium) 30 ml PO DAILYPRN PRN PRN Reason: Constipation Methylprednisolone Sodium Succinate (Solu-Medrol) 20 mg IVP Q8HR [facility] Last Admin: 02/02/17 14:00 Dose: 20 mg Mineral Oil/White Petrolatum (Eucerin Cream) 0 gm TOP BIDPRN PRN PRN Reason: Dry Skin Mometasone Furoate/Formoterol Fumar (Dulera 200 Mcg/5 Mcg Inhaler) 2 puff INH BID-RT [facility] Last Admin: 02/02/17 05:52 Dose: 2 puff Nicotine (Nicoderm Patch) 14 mg TOP Q24HR [facility] Last Admin: 02/02/17 06:06 Dose: 14 mg Ondansetron HCl (Zofran Odt) 4 mg PO Q6H PRN PRN Reason: Nausea/Vomiting Last Admin: 02/01/17 16:16 Dose: 4 mg Ondansetron HCl (Zofran) 4 mg IVP Q6H PRN PRN Reason: Nausea/Vomiting Pantoprazole Sodium (Protonix) 40 mg PO DAILY [facility] Last Admin: 02/02/17 07:53 Dose: 40 mg Phenol (Chloraseptic [place] 180 Ml Bot) 0 ml PO PRN PRN PRN Reason: Sore Throat Potassium Chloride (K-Dur) 40 meq PO BID-WM [facility] Stop: 02/03/17 08:01 Rosuvastatin Calcium (Crestor) 10 mg PO HS [facility] Last Admin: 02/01/17 20:05 Dose: 10 mg Senna (Senokot) 2 tab PO HSPRN PRN PRN Reason: Constipation Sertraline HCl (Zoloft) 50 mg PO DAILY [facility] Last Admin: 02/02/17 07:53 Dose: 50 mg Sodium Chloride ([place] Nasal [place] 0.65%) 0 ml EA NARE QIDPRN PRN PRN Reason: Nasal Congestion Sodium Chloride (Flush - Normal Saline) 10 ml IVF PRN PRN PRN Reason: Saline Flush Last Admin: 01/31/17 06:16 Dose: 10 ml
[2017-02-02] MEDS: Potassium Chloride 20 MEQ TAB PO SCH (15:59)
[2017-02-02] MEDS: Ondansetron ODT 4 MG TAB PO PRN (22:42)
[2017-02-03] MEDS: Acetaminophen/Codeine 30-300mg Tablet PO PRN ×3 (01:43→10:39)
[2017-02-03] MEDS: Mometasone/Formoterol 120 PUFF INHALER INH SCH (05:50)
[2017-02-03] MEDS: Nicotine 14 MG PATCH TOP SCH (05:54)
[2017-02-03 06:00] LABS: Anion Gap 14 mmol/L (10-20); BUN (Urea Nitrogen) 20 mg/dL (9.8-20.1); Calc. Creatinine Clearance 76 mL/min (70-130); Calcium 9.1 mg/dL (7.8-10.44); Carbon Dioxide 20 mmol/L (23-31); Chloride 111 mmol/L (98-107); Estimated GFR-MDRD 82
[2017-02-03 06:40] LABS: Band 4 % (5-11); Hematocrit 38.1 % (36.0-47.0); Mean Platelet Volume 7.9 fL (7.4-10.4); Metamyelocyte 1 % (0-0); Myelocyte 4 % (0-0); Neutrophil 82 % (42-75); Red Blood Cell (RBC) Count 4.05 mill/uL (4.20-5.40); White Blood Cell (WBC) Count 15.8 thou/uL (4.8-10.8)
[2017-02-03] MEDS: Potassium Chloride 20 MEQ TAB PO SCH (09:12)
[2017-02-03] MEDS: Amlodipine 10 MG TAB PO SCH (09:13)
[2017-02-03] MEDS: Gabapentin 100 MG CAP PO SCH (09:13)
[2017-02-03] MEDS: Enoxaparin Sodium 40 MG/0.4 ML SYRINGE SC SCH (09:13)
[2017-02-03] MEDS: Furosemide 20 MG TAB PO SCH (09:13)
[2017-02-03] MEDS: guaiFENesin ER 600 MG TAB PO SCH (09:13)
[2017-02-03] MEDS: Fluticasone Propionate Nasal Spray 16 gm Bottle NASAL SCH (10:40)
--- NOTE | 2017-02-03 12:29 | DIS ---
PRIMARY CARE PHYSICIAN: Dr. Jagdeep Palomo DATE OF ADMISSION: 01/30/2017 DATE OF DISCHARGE: 02/03/2017 DISCHARGE DISPOSITION: Home with home oxygen. PRIMARY DISCHARGE DIAGNOSES: 1. Acute respiratory failure with hypoxia. 2. Chronic obstructive pulmonary disease exacerbation. SECONDARY DISCHARGE DIAGNOSES: Tobacco abuse disorder, hypertension, dyslipidemia, chronic kidney disease stage 3, chronic pain disorder, chronic diastolic heart failure, anxiety and depression, COPD. PRIMARY PROCEDURE/OPERATION: None. RADIOLOGICAL INVESTIGATION: CT angio was negative for PE. Chest x-ray was negative for any acute process. SIGNIFICANT LABORATORY DATA: WBC 15.8, hemoglobin 12.4, platelets 302. INR 1.1 , D-dimer 2.22, sodium 141, potassium 3.5, BUN 20, creatinine 0.71, calcium 9.1. LFT normal. Urinalysis normal. Blood culture negative. DISCHARGE MEDICATIONS: The patient will continue all her previous medications. The patient is on following medications: Tylenol No. 3 one to two tablets q.6 hourly p.r.n., amlodipine 10 mg p.o. daily, Tessalon 100 mg q.4 hourly p.r.n., Symbicort 2 puffs inhalation b.i.d., Omnicef 300 mg p.o. b.i.d. for 7 days, Celebrex 200 mg p.o. t.i.d. p.r.n., Flexeril 10 mg p.o. daily p.r.n., Cymbalta 40 mg p.o. daily, Nexium 40 mg p.o. daily, ferrous sulfate 324 mg p.o. b.i.d., Lasix 20 mg p.o. daily, gabapentin 200 mg p.o. t.i.d., DuoNeb q.6 hourly and p.r.n., lisinopril 5 mg p.o. daily, multivitamin 1 tablet p.o. daily , potassium chloride 10 mEq p.o. daily, Crestor 10 mg p.o. every day, clonazepam 1 mg p.o. t.i.d. p.r.n., prednisone 40 mg p.o. daily for 1 week, followed by 20 mg p.o. daily for 1 week, then 10 mg p.o. daily for 1 week, then stop, tramadol 100 mg q.6 hourly p.r.n. CONTRAINDICATIONS: None. CODE STATUS: Full code. INPATIENT CONSULTANTS: None. ALLERGIES: CLONIDINE, HYDROMORPHONE, MORPHINE. TEST RESULTS PENDING ON DISCHARGE: None. DISCHARGE PLAN: Post hospital, the patient is advised to follow up with Dr. Jagdeep Palomo in 1 week. The patient is also advised to follow up with vp packaging after discharge. HOSPITAL COURSE: A 71-year-old female with above-mentioned medical problem who was admitted by me on 01/30/2017. This patient has history of COPD and she has ongoing tobacco abuse disorder. She was having worsening shortness of breath. She was found with acute hypoxic respiratory failure and COPD exacerbation on admission. She initially required BiPAP, but subsequently BiPAP was weaned off. She was admitted initially to [facility] where she was continued with optimum treatment for chronic obstructive pulmonary disease with DuoNeb, Dulera, Solu- Medrol, and empiric antibiotic therapy and symptomatic treatment. This patient did not require any BiPAP and at that point, we transferred her to the medical floor where we continued optimal medical therapy for COPD. With that, the patient's condition significantly improved, but by the time of discharge, the patient was still requiring oxygen and that is why with help of trimming caser, we arranged home oxygen. During this admission, we provided patient education about smoking cessation, healthy lifestyle measures discussed with the patient. This patient has chronic pain disorder and that is why we advised to follow up with primary care physician and pain doctor. I prescribed Tylenol #3, 30 pills per her request. The patient is seen and examined at bedside today. VITAL SIGNS: Currently, temperature 99.1, pulse 89, respiratory rate 16, saturation 94% on 3 liters of oxygen, weight 142 pounds, blood pressure 144/83. GENERAL: The patient is currently alert, awake, no obvious acute distress. HEAD: Normocephalic, atraumatic. LUNGS: No rhonchi, no wheeze. Air entry is improving. CARDIAC: S1, S2 regular, tachycardia, no murmur, no gallop, no rub. ABDOMEN: Soft, benign without any tenderness. EXTREMITIES: No edema. NEUROLOGIC: Nonfocal examination. By the time of discharge, the patient was able to talk in full sentences. She was not having any respiratory distress. We are arranging home oxygen therapy before discharge with the help of trimming caser. Overall, the patient is medically stable for discharge with the above-mentioned medications. Smoking cessation counseling given while in hospital. Total time spent on discharge day 32 minutes MTDD
[2017-02-03 13:22] VITALS: BP 126/80; TEMP 98.5
== END 2017-02-03 14:09 | disposition home or self-care (01) | DRG 189 ==
LOC: ERS 13:19 → IMCU/EMU 16:11 → T4-A 01-31 11:11
PROVIDERS: ADMIT Internal Medicine; ATTEND Internal Medicine
DX: J96.01 Acute respiratory failure with hypoxia (principal); I13.0 Hypertensive heart and chronic kidney disease with heart failure and stage 1 through stage 4 chronic kidney disease, or unspecified chronic kidney disease; I50.32 Chronic diastolic (congestive) heart failure; N18.3 Chronic kidney disease, stage 3 (moderate); J44.1 Chronic obstructive pulmonary disease with (acute) exacerbation; E78.5 Hyperlipidemia, unspecified; E03.9 Hypothyroidism, unspecified; K21.9 Gastro-esophageal reflux disease without esophagitis; F41.9 Anxiety disorder, unspecified; F32.9 Major depressive disorder, single episode, unspecified; F17.210 Nicotine dependence, cigarettes, uncomplicated; G89.4 Chronic pain syndrome
CPT/HCPCS: 36415; 71010; 71275; 80048; 80053; 81001; 82553; 82805; 83605; 83735; 83880; 84100; 84484; 85025; 85379; 85610; 85730; 87040; 90471; 90682; 93005; 94640; 94660; 94664; 96361; 96365; 96367; 96375; G0008; J0456; J0696; J1650; J1885; J1956; J2920; J2930; J3475; J7050; J7620; Q0162; Q2036

== ENCOUNTER 2017-06-10 12:33 | Outpatient (CLI) | payer MEDICARE ==
--- NOTE | 2017-06-10 14:18 | RAD ---
PA AND LATERAL CHEST: HISTORY: Dyspnea. COMPARISON: 01/30/2017 FINDINGS: Heart size is within normal limits. There are atherosclerotic changes of the aorta. The lungs show some chronic interstitial change. The interstitial change is actually less prominent than on the anmol or examination, compatible with resolved edema. There is a granuloma in the right middle lobe. IMPRESSION: Mild chronic lung change. POS: [facility]
== END 2017-06-10 12:34 | disposition home or self-care (01) ==
LOC: RAD 12:33
PROVIDERS: ATTEND Internal Medicine
DX: R06.00 Dyspnea, unspecified (principal)
CPT/HCPCS: 71046

== ENCOUNTER 2017-07-23 13:36 | Outpatient (CLI) | payer MEDICARE ==
[~2017-07-23 13:36] MED LIST: Iopamidol 370 76% 100 ML VIAL ONE
--- NOTE | 2017-07-23 15:40 | CT ---
CHEST CT SCAN WITH IV CONTRAST: 07/23/17 HISTORY: 72-year-old female with history of followup pulmonary nodule. COMPARISON: 01/30/17 CT angiogram chest. The previously noted small soft tissue nodular focus in the right perihilar region has resolved and p robably represents an enlarged lymph node. There were several other enlarged right hilar lymph nodes which have also resolved. There is marked improvement/resolution in the extensive bilateral intersti tial opacity changes from the prior study. There are some persistent bilateral emphysema changes as w ell as some patchy interstitial and reticulonodular parenchymal changes in the right upper lobe and r ight lower lobe and right middle lobe with stable large right middle lobe calcified granuloma. There is some scarring in the right base with some associated bronchiectasis. IMPRESSION: Marked improvement in the previously noted interstitial and alveolar ground glass opacity changes thr oughout both lungs. There is some persistent bullous changes and some persistent interstitial and safia ear and reticulonodular parenchymal changes mostly in the right upper lobe which may well represent r esidual chronic disease. Stable scarring in the right base with some associated bronchiectasis. Stabl e emphysema changes. Resolution of the previously noted right hilar and perihilar nodular densities w hich probably represents some enlarged lymph nodes which are no longer demonstrated by CT. Small hia hortencia hernia. POS: [facility]
== END 2017-07-23 13:37 | disposition home or self-care (01) ==
LOC: CT 13:36
PROVIDERS: ATTEND Internal Medicine
DX: R91.1 Solitary pulmonary nodule (principal); J98.4 Other disorders of lung; J47.9 Bronchiectasis, uncomplicated
CPT/HCPCS: 71260; 82565; 94060; 94727

== ENCOUNTER 2017-12-22 14:42 | Inpatient (IN) | payer MEDICARE ==
[~2017-12-22 14:42] MED LIST changes: +Heparin 10,000 UNITS/ 10 ML VIAL ONE; +Iopamidol 370 76% 50 ML VIAL FS ONE
[2017-12-22] MEDS ORDERED: Nitroglycerin 2% Ointment 1 INCH/1 GM Packet ONE (15:03)
[2017-12-22 15:22] LABS: #Lymphocytes 1.8 thou/uL (1.20-3.40); #Monocytes 1.3 thou/uL (0.11-0.59); #Neutrophils 14.3 thou/uL (1.40-6.50); %Eosinophils 0.1 % (0.0-10.0); %Lymphocytes 10.1 % (21.0-51.0); %Monocytes 7.6 % (0.0-10.0); %Neutrophils 82.2 % (42.0-75.0); Hemoglobin 11.3 g/dL (12.0-16.0); Mean Corpuscular HGB CONC 31.4 g/dL (32.0-36.0); Mean Corpuscular Hemoglobin 29.3 pg (27.0-31.0); Mean Corpuscular Volume 93.5 fL (78.0-98.0); Platelet Count 279 thou/uL (130-400); RBC Distribution Width 15.7 % (11.5-14.5); Red Blood Cell (RBC) Count 3.85 mill/uL (4.20-5.40); White Blood Cell (WBC) Count 17.4 thou/uL (4.8-10.8)
[2017-12-22] MEDS ORDERED: Lidocaine 1% (PF) 30 ML VIAL ONE (15:30)
[2017-12-22 15:32] LABS: INR-International Normal Ratio 1.1; PTT 24.3 SEC (22.9-36.1); Prothrombin Time 14.6 SEC (12.0-14.7)
[2017-12-22 15:37] LABS: ALT (SGPT) 26 U/L (8-55); AST (SGOT) 67 U/L (5-34); Albumin 3.7 g/dL (3.4-4.8); Alkaline Phosphatase 176 U/L (40-150); Anion Gap 19 mmol/L (10-20); BUN (Urea Nitrogen) 39 mg/dL (9.8-20.1); Bilirubin, Total 0.5 mg/dL (0.2-1.2); CK (CPK) 699 U/L (29-168); Calc. Creatinine Clearance 0 mL/min (70-130); Calcium 9.3 mg/dL (7.8-10.44); Carbon Dioxide 12 mmol/L (23-31); Chloride 117 mmol/L (98-107); Estimated GFR-MDRD 61; Globulin 2.9 g/dL (2.4-3.5); Glucose 164 mg/dL (80-115); Potassium 3.8 mmol/L (3.5-5.1); Protein, Total 6.6 g/dL (6.0-8.3); Sodium 144 mmol/L (136-145)
[2017-12-22 15:42] LABS: CKMB 93.8 ng/mL (0-6.6); Troponin I 10.181 ng/mL (< 0.028)
[2017-12-22] MEDS ORDERED: Verapamil 5 MG/2 ML VIAL ONE (15:46)
[2017-12-22] MEDS ORDERED: Clopidogrel Bisulfate 300 MG TAB ONE (15:46)
[2017-12-22] MEDS ORDERED: Adenosine 6 MG/2 ML VIAL ONE (15:46)
[2017-12-22] MEDS ORDERED: Nitroglycerin 100MG/250ML BOT 250 ML ONE (15:46)
[2017-12-22] MEDS ORDERED: Heparin 10,000 UNITS/1 ML VIAL ONE (16:05)
[2017-12-22] MEDS ORDERED: Furosemide 40 MG/4 ML VIAL ONE (16:14)
[2017-12-22] MEDS ORDERED: Mag-Al 1200 mg/1200 mg/30 ML UDCUP PO PRN (16:18)
[2017-12-22] MEDS ORDERED: Zolpidem Tartrate 5 MG TAB PO PRN (16:18)
[2017-12-22] MEDS ORDERED: Milk Of Magnesia 30 ML UDCUP PO PRN (16:18)
[2017-12-22] MEDS ORDERED: Sodium Chloride 0.9% 1,000 ML IV SCH (16:30)
[2017-12-22] MEDS ORDERED: Amiodarone HCl 150 MG, Admixture Fee 1 EACH in Dextrose 5% in Water 100 ML IVPB SCH (18:00)
[2017-12-22] MEDS: Amiodarone HCl 450 MG, Admixture Fee 1 EACH in Dextrose 5% in Water 250 ML IVPB SCH (18:04)
[2017-12-22 19:07] VITALS: BMI 25.9
[2017-12-22] MEDS: Gabapentin 100 MG CAP PO SCH (21:28)
[2017-12-22] MEDS: HYDROcodone/Acetaminophen 10/325 mg Tablet PO PRN (21:28)
[2017-12-22] MEDS: Cyclobenzaprine 10 MG TAB PO SCH (21:28)
[2017-12-22] MEDS: Atorvastatin Calcium 40 MG TAB PO SCH (21:30)
[2017-12-22] MEDS: Carvedilol 3.125 MG TAB PO SCH (21:30)
[2017-12-23] MEDS: HYDROcodone/Acetaminophen 10/325 mg Tablet PO PRN ×3 (03:11→15:18)
[2017-12-23] MEDS: Amiodarone HCl 450 MG, Admixture Fee 1 EACH in Dextrose 5% in Water 250 ML IVPB SCH ×2 (03:11→19:28)
[2017-12-23 05:15] LABS: #Lymphocytes 1.2 thou/uL (1.20-3.40); #Monocytes 1.3 thou/uL (0.11-0.59); #Neutrophils 10.6 thou/uL (1.40-6.50); %Basophils 0.1 % (0.0-1.0); %Eosinophils 0.1 % (0.0-10.0); %Lymphocytes 8.8 % (21.0-51.0); Hemoglobin 10.3 g/dL (12.0-16.0); Mean Corpuscular HGB CONC 31.8 g/dL (32.0-36.0); Mean Corpuscular Hemoglobin 29.7 pg (27.0-31.0); Mean Corpuscular Volume 93.4 fL (78.0-98.0); Mean Platelet Volume 9.3 fL (7.4-10.4); Platelet Count 251 thou/uL (130-400); RBC Distribution Width 15.4 % (11.5-14.5); Red Blood Cell (RBC) Count 3.46 mill/uL (4.20-5.40)
[2017-12-23 05:27] LABS: ALT (SGPT) 26 U/L (8-55); AST (SGOT) 73 U/L (5-34); Albumin 3.3 g/dL (3.4-4.8); Alkaline Phosphatase 139 U/L (40-150); Anion Gap 14 mmol/L (10-20); BUN (Urea Nitrogen) 36 mg/dL (9.8-20.1); Bilirubin, Total 0.4 mg/dL (0.2-1.2); Calc. Creatinine Clearance 62 mL/min (70-130); Carbon Dioxide 17 mmol/L (23-31); Chloride 116 mmol/L (98-107); Estimated GFR-MDRD 68; Globulin 2.9 g/dL (2.4-3.5); Glucose 145 mg/dL (80-115); Potassium 3.5 mmol/L (3.5-5.1); Protein, Total 6.2 g/dL (6.0-8.3); Sodium 143 mmol/L (136-145)
--- NOTE | 2017-12-23 07:08 | HP ---
CHIEF COMPLAINT: Acute myocardial infarction. HISTORY OF PRESENT ILLNESS: Ms. Soria is a pleasant 72-year-old woman I have seen and evaluated in the past. She recently presented with shortness of breath, noted to the office. She underwent a noninvasive stress study that was felt to be negative for ischemia. She states she developed acute onset of chest pain several hours prior to presentation. She was foun d to have ST segment elevation IL. PAST MEDICAL HISTORY: Diastolic dysfunction, COPD with continued tobacco abuse, chronic back pain, c hronic kidney disease, acid reflux, hypothyroidism, obesity, hyperlipidemia. PAST SURGICAL HISTORY: Ankle surgery, appendectomy, hip surgery, back surgery, laminectomy, hysterec armand, cholecystectomy. ALLERGIES: CLONIDINE and MORPHINE. FAMILY HISTORY: Negative for CAD. SOCIAL HISTORY: Positive tobacco use. HOME MEDICATIONS: Gabapentin, amlodipine, multivitamin, Flexeril, Lasix, lisinopril, Crestor, Symbic ort, potassium, Zoloft, and Cymbalta. REVIEW OF SYSTEMS: Ten point review of systems is reviewed and as above, otherwise negative. PHYSICAL EXAMINATION: VITAL SIGNS: Blood pressure 102/86, pulse 84, respirations 20. GENERAL: Patient is a pleasant female who is in no acute distress. The patient appears her stated ag e. NEUROLOGIC: The patient is alert and oriented times 3 with no focal neurologic deficits. HEENT: Sclerae without icterus. Mouth has moist mucous membranes with normal pallor. NECK: No JVD. Carotid upstroke brisk. No bruits bilaterally. LUNGS: Clear to auscultation with unlabored respirations. BACK: No scoliosis or kyphosis. CARDIAC: Regular rate and rhythm with normal S1 and S2. No S3 or S4 noted. No significant rubs, mur murs, thrills, or gallops noted throughout the precordium. PMI is not displaced. There is no parast ernal heave. ABDOMEN: Soft, nontender, nondistended. No peritoneal signs present. No hepatosplenomegaly. No abn ormal striae. EXTREMITIES: 2+ femoral and 2+ dorsalis pedis pulses. No cyanosis, clubbing, or edema. SKIN: No gross abnormalities. PERTINENT LABS: Hemoglobin 11.3. Initial troponin 10. CK-MB of 93. EKG shows normal sinus rhythm and ST segment elevation inferiorly. IMPRESSION: Acute myocardial infarction. RECOMMENDATIONS: At this point, I recommend urgent coronary angiography with possible PCI. The vito ent continued to have chest pain with elevated troponin and CK-MB. At this point, she is unsure if s he can take Plavix long-term. I would therefore recommend a bare metal stent. I discussed the proce dure in full detail with Ms. Soria. The risks included, but not limited to the following: , stroke, IL, need for emergency surgery, loss of limb, bleeding, and infection, as well as a reactio n to the dye causing kidney failure and needing long-term dialysis. I also discussed the risks of PC I to include all of the above including coronary dissection and perforation in addition to acute sten t thrombosis and restenosis. All questions about the procedure were answered. Given the above, the patient agreed to proceed with coronary angiography and possible PCI. All questions were answered. Given the above, the patient agreed to proceed with the procedure.
[2017-12-23] MEDS: Cyclobenzaprine 10 MG TAB PO SCH ×3 (08:08→20:34)
[2017-12-23] MEDS: Gabapentin 100 MG CAP PO SCH ×3 (08:08→20:34)
[2017-12-23] MEDS: Clopidogrel Bisulfate 75 MG TAB PO SCH (08:08)
[2017-12-23] MEDS: Carvedilol 3.125 MG TAB PO SCH ×2 (08:08→20:33)
[2017-12-23] MEDS ORDERED: Furosemide 20 MG TAB PO SCH (09:00)
[2017-12-23] MEDS ORDERED: DULoxetine 60 MG CAP PO SCH (09:00)
--- NOTE | 2017-12-23 09:09 | PDOC.CTH ---
Cardiology Progress Note - Subjective PT complaining of pleuritic pain and back pain. No CP noted. Still inafib. - Objective Vital Signs Temp Pulse Ox 12/23/17 07:40 98 F 12/23/17 04:00 97.6 F 12/23/17 02:46 92 L 12/23/17 00:00 97.8 F Weight 137 lb 9.095 oz 12/22/17 12/23/17 12/24/17 06:59 06:59 06:59 Intake Total 2014 120 Output Total 1380 90 Balance 635 30 - Physical Examination Neck: carotid US brisk, no JVD present Lungs: unlabored respirations Heart: other: (IRR) - Labs Result Diagrams: 12/23/17 04:45 12/23/17 04:45 Troponin/CKMB CK-MB (CK-2) 93.8 ng/mL (0-6.6) H* 12/22/17 15:10 Troponin I 10.181 ng/mL (< 0.028) H* 12/22/17 15:10 - Assessment/Plan AMI COPD Afib Chronic back pain Doing well from CV standpoint EF on echo 40-45% Pt with PAF noted; on IV amiodarone Add lovenox for now in case she does not convert Pt in SR yesterday in er at 3:30 pulmonary consult
[2017-12-23] MEDS ORDERED: Potassium Chloride 10 MEQ TAB PO SCH (09:15)
[2017-12-23] MEDS ORDERED: Furosemide 40 MG/4 ML VIAL SLOW IVP SCH (09:15)
[2017-12-23] MEDS ORDERED: Ferrous Gluconate 324 MG TAB PO SCH (09:15)
[2017-12-23] MEDS: Multivitamin W/ Minerals 1 TAB PO SCH (09:31)
--- NOTE | 2017-12-23 10:37 | CON ---
DATE OF CONSULTATION: 12/23/2017 This encompassed 70 minutes of time, of that time, greater than 50% was spent with the patient and/or on the patient's unit in the hospital. REASON FOR CONSULTATION: ICU management. HISTORY OF PRESENT ILLNESS: Ms. Soria is a 72-year-old female who presented to the [facility] with shortness of breath and chest pain. She was found to have an acute ST segment elevation M I, was taken to the [facility] and had a stent placed in the RCA. She is a patient of Dr. Bardales an d has seen him in the past for chronic obstructive pulmonary disease. She smokes about 1.5 packs per day. She uses inhalers, nebulization therapy at home, but does not use oxygen. PAST MEDICAL HISTORY: 1. Diastolic cardiac dysfunction. 2. Chronic obstructive pulmonary disease. 3. Chronic back pain. 4. Chronic pleuritic chest pain. 5. Chronic kidney disease. 6. Gastroesophageal reflux. 7. Hypothyroidism. 8. Hyperlipidemia. PAST SURGICAL HISTORY: 1. Ankle surgery. 2. Appendectomy. 3. Hip surgery. 4. Back surgery. 5. Laminectomy. 6. Hysterectomy. 7. Cholecystectomy. ALLERGIES: CLONIDINE and MORPHINE. FAMILY MEDICAL HISTORY: Unremarkable. SOCIAL HISTORY: Smokes a pack and a half per day. Does not consume alcohol, does not use illicit dr uglove. OUTPATIENT MEDICATIONS: Gabapentin 100 mg t.i.d., Flexeril 10 mg t.i.d., duloxetine 60 mg daily, Las ix 20 mg daily, amlodipine 10 mg daily, multivitamin 1 daily, hydroxyzine 10 mg t.i.d., lisinopril 5 mg daily, Zoloft 50 mg daily, Crestor 10 mg daily, Symbicort 160/4.5 two puffs twice daily, potassium chloride 10 mEq daily, Tylenol #4 one daily, clonazepam 1 mg t.i.d., DuoNebs every 6 hours as needed , iron sulfate 324 mg b.i.d., Nexium 40 mg daily, Celebrex 200 mg t.i.d. and Tessalon Perles 100 mg e very 4 hours as needed for cough. REVIEW OF SYSTEMS: Twelve point review of systems otherwise negative. PHYSICAL EXAMINATION: VITAL SIGNS: Temperature 98, pulse 97, blood pressure 117/78. She is currently on an amiodarone dri p. Total intake since admission 2014, output 1380. HEENT: Pupils react. Sclerae icteric. Oropharynx clear. NECK: No adenopathy or JVD. LUNGS: She had inspiratory crackles bilaterally, more prominently on the left. CARDIOVASCULAR: S1, S2 irregularly irregular without murmur. ABDOMEN: Soft, obese, nontender, nondistended. EXTREMITIES: No clubbing, cyanosis, or edema. NEUROLOGIC: Moves all 4 extremities without difficulty. LABORATORY AND X-RAY FINDINGS: Sodium 143, potassium 3.5, chloride 116, CO2 17, BUN 36, creatinine 0 .8, glucose 145. Troponin 10.1. White blood cell count 13, hematocrit 32.3, platelet count 251. Chest x-ray shows perihilar edema, cephalization of flow consistent with congestive failure. ASSESSMENT: 1. Myocardial infarction. 2. Underlying chronic obstructive pulmonary disease. 3. Congestive heart failure with pulmonary edema. 4. Multiple other medical problems. PLAN: 1. The patient will be started back on her diuretic. 2. Restart her psychiatric medications. 3. Restart her inhalers. 4. Monitor in the ICU today.
--- NOTE | 2017-12-23 10:53 | RAD ---
CHEST ONE VIEW: HISTORY: Shortness of breath. COMPARISON: Multiple prior examinations, with most recent a CT chest from 07/23/2017. FINDINGS: There are abnormal increased interstitial markings, as well as alveolar opacities within the central aspect of the hilum, bilaterally, worse on the left. There is an abnormal nodule in the right lower lobe. No pneumothorax or large effusion. The cardiac silhouette and mediastinal contour are similar . IMPRESSION: 1. Interval increase in reticulonodular opacities along the hilum bilaterally. Findings are most king ggestive of an atypical viral infectious process, most likely a bacterial pneumonia. 2. Abnormal increase in size of nodule in right lung base. This can be seen with a malignant proces s. Nonemergent follow-up CT chest recommended. POS: [facility]
[2017-12-23] MEDS: Ferrous Gluconate 324 MG TAB PO SCH (18:15)
[2017-12-23] MEDS: Mometasone/Formoterol 120 PUFF INHALER INH SCH (18:28)
[2017-12-23] MEDS: Atorvastatin Calcium 40 MG TAB PO SCH (20:33)
[2017-12-24] MEDS: HYDROcodone/Acetaminophen 10/325 mg Tablet PO PRN ×4 (02:01→23:00)
[2017-12-24 04:54] LABS: Anion Gap 14 mmol/L (10-20); BUN (Urea Nitrogen) 31 mg/dL (9.8-20.1); Calc. Creatinine Clearance 71 mL/min (70-130); Calcium 8.9 mg/dL (7.8-10.44); Carbon Dioxide 17 mmol/L (23-31); Chloride 113 mmol/L (98-107); Estimated GFR-MDRD 79; Glucose 138 mg/dL (80-115); Potassium 3.4 mmol/L (3.5-5.1); Sodium 141 mmol/L (136-145)
[2017-12-24] MEDS: Mometasone/Formoterol 120 PUFF INHALER INH SCH ×2 (06:48→20:04)
[2017-12-24] MEDS ORDERED: Diltiazem HCl SR 60 mg Capsule PO SCH (08:45)
[2017-12-24] MEDS: Gabapentin 100 MG CAP PO SCH ×3 (08:58→20:12)
[2017-12-24] MEDS: Cyclobenzaprine 10 MG TAB PO SCH ×3 (08:58→20:12)
[2017-12-24] MEDS: Enoxaparin Sodium 60 MG/0.6 ML SYRINGE SC SCH ×2 (08:58→20:12)
[2017-12-24] MEDS: Clopidogrel Bisulfate 75 MG TAB PO SCH (08:59)
[2017-12-24] MEDS: Multivitamin W/ Minerals 1 TAB PO SCH (08:59)
[2017-12-24] MEDS: Ferrous Gluconate 324 MG TAB PO SCH ×2 (08:59→17:12)
[2017-12-24] MEDS: Carvedilol 3.125 MG TAB PO SCH (08:59)
[2017-12-24] MEDS: Potassium Chloride 10 MEQ TAB PO SCH (08:59)
--- NOTE | 2017-12-24 09:10 | PRG ---
DATE OF SERVICE: 12/24/2017. HISTORY OF PRESENT ILLNESS: Ms. Rothman is doing better today. She continues to complain of abdom inal pain. Overall, she has multiple complaints given back pain, pain worse with deep breath. No sp ecific angina. She continues to be in atrial fibrillation. She is currently on IV amiodarone. PHYSICAL EXAMINATION: VITAL SIGNS: 100/59, pulse 116, temperature 98.6. LUNGS: Clear to auscultation. CARDIAC: Irregularly irregular. ABDOMEN: Soft. Pain to palpation in the right upper quadrant. EXTREMITIES: No edema. PERTINENT LABORATORY DATA: Hemoglobin 10.3, creatinine 0.73. IMPRESSION AND PLAN: 1. Acute myocardial infarction. Continue aspirin and Plavix. She is also on low dose beta lenard therapy. 2. Abdominal pain. Etiology is currently unknown. She continues to complain of abdominal discomfor t. This may be pleuritic in nature. We will ask GI to consult. 3. Atrial fibrillation. Unsure whether this is paroxysmal atrial fibrillation or new onset. She di d have sinus rhythm upon admission, then converted to atrial fibrillation. She has had multiple epis odes of paroxysmal atrial fibrillation. At this point, I do not feel comfortable with cardioversion. She will need amiodarone therapy p.o. l oanick given recent MT. I would like to get her rate controlled and place her on anticoagulation the rapy. We will ask rehab to consult given the significant weakness.
[2017-12-24] MEDS ORDERED: Sodium Chloride 0.9% 500 ML IVPB SCH (13:45)
--- NOTE | 2017-12-24 15:48 | PRG ---
DATE OF SERVICE: 12/24/2017 SERVICE: Pulmonary Medicine. INTERVAL HISTORY: The patient is doing great from a respiratory standpoint. She continues to have t he right upper quadrant discomfort. Otherwise, there are no fevers, chills, shortness of breath, rodr[place] or vomiting. She has been out of bed today. She is tolerating p.o. and is requesting food. Oth erwise, there has been no interval change to her condition. PHYSICAL EXAMINATION: VITAL SIGNS: Afebrile, pulse 103, blood pressure 99/60, respirations 27, saturation 94% on 3 liters nasal cannula. GENERAL: The patient is awake, alert, no apparent distress. LUNGS: Decent air entry. There is no prolonged expiratory phase or wheezing present. HEART: Normal rate, regular. ABDOMEN: Soft, nontender, nondistended. Bowel sounds are positive. MUSCULOSKELETAL: No cyanosis or clubbing. There is no pitting in the bilateral lower extremities. NEUROLOGIC: Grossly nonfocal. IMAGING DATA: Echocardiogram demonstrates a 45% ejection fraction with moderate MR and AR. Atrial f ibrillation either diastolic dysfunction. ASSESSMENT: 1. Acute myocardial infarction, status post percutaneous coronary intervention to right coronary art lima. 2. Chronic systolic and diastolic heart failure. 3. Chronic obstructive pulmonary disease without acute exacerbation. DISCUSSION AND PLAN: The patient is doing fine from a respiratory standpoint. We will get LFTs, an ultrasound of the right upper quadrant to make certain that we do not have any issue there. We will get out of bed into a chair 3 times daily. I will give her some simethicone, sometimes passing gas, slightly improves her belly discomfort which is still present. I will continue to follow in this loc ation, but from my perspective, she is stable for transition to the telemetry unit.
[2017-12-24] MEDS ORDERED: Polyethylene Glycol 3350 17 GM Packet PO SCH (16:00)
[2017-12-24] MEDS: Potassium Chloride 20 MEQ TAB PO SCH ×2 (16:01→20:12)
[2017-12-24] MEDS ORDERED: Digoxin 0.5 MG/2 ML AMP SLOW IVP SCH (17:00)
--- NOTE | 2017-12-24 17:04 | ULT ---
RIGHT UPPER QUADRANT ULTRASOUND: 12/24/17 HISTORY: Right upper quadrant pain. The patient is status post cholecystectomy. The common bile duct is measured at 6 mm which is normal for post cholecystectomy status. Liver is unremarkable. The pancreas is mostly obscured but appears u nremarkable as visualized. The right kidney is imaged and appears unremarkable. IMPRESSION: Status post cholecystectomy. Right upper quadrant ultrasound is otherwise unremarkable. POS: [facility]
--- NOTE | 2017-12-24 17:08 | RAD ---
KUB: 12/24/17 HISTORY: Abdominal pain. The bowel gas pattern appears nonobstructed. Postop cholecystectomy changes are seen. Bilateral pedic le screws are seen at L5-S1. Left hip prosthesis is noted. Extensive vascular calcifications are pres ent. Chronic lung changes in the basis. IMPRESSION: No acute findings. POS: [facility]
[2017-12-24] MEDS: Simethicone Chewable 80 MG TAB PO SCH ×2 (18:21→23:01)
[2017-12-24] MEDS: Atorvastatin Calcium 40 MG TAB PO SCH (20:12)
--- NOTE | 2017-12-24 21:25 | CON ---
DATE OF CONSULTATION: 12/24/2017 GASTROENTEROLOGY CONSULTATION CHIEF COMPLAINT: Abdominal pain. HISTORY OF PRESENT ILLNESS: Ms. Soria is a 72-year-old woman who was admitted yesterday with ST elevation myocardial infarction. She underwent cardiac catheterization with a stent to the RCA. Thi s was apparently a bare metal stent. She also reports abdominal pain. She has had this same type of pain on and off over the last 10 years. The pain occurs about once per week and can last up to a da y at a time. She has felt nauseated with this episode, but has not been vomiting. She has had chron ic intermittent nausea in the past and underwent upper endoscopy by Dr. Alicia peña in 2012. A pyloric channel ulcer was noted at that time. She has had no vomiting. She has also had chronic back pain and takes Tylenol #4 for that. She has associated chronic constipation. Her last bowel movement was 3-4 days ago and she had 1 runny bowel movement at that time. Before that was about 6 days before. She has had no significant bowel movement in the last week and a half or so. She has had no blood i n the stool. She had a colonoscopy in 2002 with just a fair prep at that time that showed some sigmo id diverticulosis. She has no fever. PAST MEDICAL HISTORY: COPD, chronic back pain, chronic kidney disease, hypothyroidism, hyperlipidemi a, peptic ulcer by endoscopy in 2012, diastolic dysfunction, coronary artery disease with TN this adm ission. PAST SURGICAL HISTORY: Appendectomy, cholecystectomy, hysterectomy, hip surgery, back surgery. FAMILY HISTORY: Negative for GI malignancy. SOCIAL HISTORY: She smokes a pack and a half per day. No alcohol, no drugs. ALLERGIES: MORPHINE, HYDROMORPHONE, CLONIDINE. MEDICATIONS PRIOR TO ADMISSION: Acetaminophen with codeine, Tylenol #4, multiple inhalers, Nexium 40 mg daily, Celebrex, ferrous gluconate, multiple vitamin, sertraline, amlodipine, cyclobenzaprine, li sinopril, gabapentin, furosemide, Rosuvastatin, potassium. PHYSICAL EXAMINATION: VITAL SIGNS: Temperature 98.3, pulse 106, blood pressure 99/60, oxygen saturation 96% on 3 liters. GENERAL: She is in no acute distress, alert and oriented x3. HEENT: Eyes have no scleral icterus. Oropharynx is clear without lesions. NECK: No cervical or supraclavicular lymphadenopathy. LUNGS: Clear to auscultation bilaterally. HEART: Regular rate. Tachycardic S1, S2. ABDOMEN: Soft. She has mild tenderness in the right lower quadrant without guarding. She does not have significant right upper quadrant tenderness at this time. Bowel sounds are present. EXTREMITIES: No lower extremity edema. RECTAL: Just revealed a soft stool in the rectal vault. There is no impaction. LABORATORY DATA: White blood cell count 13.0 down from 17 yesterday, hemoglobin 10.3, MCV 93.4 and p latelets 251. INR 1.1. Creatinine 0.73, bilirubin 0.4, AST 73, ALT 26, alkaline phosphatase 139. IMPRESSION: 1. Abdominal pain. She has primarily right lower quadrant pain currently, but this is vague and she has had chronic atrial similar pain for 10 years. She gets similar exacerbations of this pain aroun d once per week. She states this pain again is same pain that has been going on in the past. She cortes s been nauseated with that. She underwent endoscopy for similar pain by Dr. Alicia peña in 2012 and wa s noted to have a pyloric channel ulcer at that time. She has been taking Celebrex, but also takes N exium and has had no signs of overt bleeding. She has had her gallbladder removed previously. Her l ast bowel movement was 3-4 days ago at which point she just passed some runny stool. Prior to that t he last bowel movement was 6 days ago. She takes codeine chronically and constipation might be the s ource of her current abdominal pain. 2. Anemia, normocytic. Again, no signs of overt bleeding. 3. Abnormal liver tests. Her AST is elevated with normal ALT, normal bilirubin and normal alkaline phosphatase. This could be related to the myocardial infarction. Her symptoms did not suggest casa docholithiasis at this point. RECOMMENDATIONS: 1. We will obtain an x-ray of her abdomen to evaluate for significant stool retention and constipati on. Given that she does not have an impaction by rectal exam. If she is constipated, there is highe r up. 2. Check iron studies, B12, folate. 3. Continue proton pump inhibitor. Given her history of peptic ulcer and now need for Plavix in the setting of acute TN and ongoing tobacco abuse, I will bump her proton pump inhibitor up to twice reji ly. Since she has had a prior peptic ulcer, we will also check an H. pylori stool antigen. 4. She did have extensive workup for elevated liver test back in 2014, at which point her viral hepa titis panel was negative. Her liver tests were significantly more elevated than they are now. We wi ll follow the trend of her liver tests at this time without further workup as these are likely second rashel to her myocardial infarction. 5. Start MiraLax daily.
[2017-12-25 03:47] LABS: #Eosinphils 0.1 thou/uL (0.0-0.7); #Lymphocytes 1.4 thou/uL (1.20-3.40); #Neutrophils 8.8 thou/uL (1.40-6.50); %Basophils 0.1 % (0.0-1.0); %Eosinophils 0.5 % (0.0-10.0); %Lymphocytes 12.3 % (21.0-51.0); %Monocytes 8.9 % (0.0-10.0); %Neutrophils 78.2 % (42.0-75.0); Hemoglobin 9.6 g/dL (12.0-16.0); Mean Corpuscular Hemoglobin 29.6 pg (27.0-31.0); Mean Corpuscular Volume 92.2 fL (78.0-98.0); Mean Platelet Volume 8.5 fL (7.4-10.4); Platelet Count 274 thou/uL (130-400); RBC Distribution Width 15.4 % (11.5-14.5); Red Blood Cell (RBC) Count 3.25 mill/uL (4.20-5.40); White Blood Cell (WBC) Count 11.3 thou/uL (4.8-10.8)
[2017-12-25 04:13] LABS: Iron 24 ug/dL (50-170); Iron Binding Capacity, Total 275 mcg/dL (265-497)
[2017-12-25] MEDS: Mometasone/Formoterol 120 PUFF INHALER INH SCH ×2 (06:38→18:32)
[2017-12-25 06:46] LABS: Folate (Folic Acid) 12.4 ng/mL (7.0-31.4)
[2017-12-25] MEDS: Cyclobenzaprine 10 MG TAB PO SCH ×3 (09:01→21:35)
[2017-12-25] MEDS: Clopidogrel Bisulfate 75 MG TAB PO SCH (09:02)
[2017-12-25] MEDS: Gabapentin 100 MG CAP PO SCH ×3 (09:02→21:35)
[2017-12-25] MEDS: Potassium Chloride 10 MEQ TAB PO SCH (09:02)
[2017-12-25] MEDS: Multivitamin W/ Minerals 1 TAB PO SCH (09:02)
[2017-12-25] MEDS: Enoxaparin Sodium 60 MG/0.6 ML SYRINGE SC SCH ×2 (09:03→21:35)
[2017-12-25] MEDS: Ferrous Gluconate 324 MG TAB PO SCH ×2 (09:03→16:22)
[2017-12-25] MEDS: Simethicone Chewable 80 MG TAB PO SCH ×3 (09:03→21:35)
[2017-12-25] MEDS: Polyethylene Glycol 3350 17 GM Packet PO SCH (09:03)
[2017-12-25 09:46] LABS: Bilirubin Negative (Negative); Blood, Urine Negative (Negative); Clarity CLOUDY (Clear); Glucose, Urine (Dipstick) Negative (Negative); Leukocyte Large (Negative); Nitrite Positive (Negative); Protein, Urine (Dipstick) Negative (Neg-Trace); Specific Gravity, Urine 1.016 (1.002-1.036); pH, Urine 6.5 (5.0-9.0)
[2017-12-25 09:48] LABS: Bacteria/HPF 4+ HPF (None Seen); Hyaline Casts/LPF 0-3 HYALINE CAST LPF (0-3 Hyaline); RBC/HPF 0-3 HPF (0-3); Squamous Epithelial None Seen HPF (0-3)
--- NOTE | 2017-12-25 10:26 | RAD ---
AP VIEW CHEST: HISTORY: Shortness of breath. FINDINGS: AP view chest is obtained on 12/25/17. Comparison is made to exam from 12/23/17. AP view chest demonstrates EKG leads seen over the chest. Calcification of the aorta is seen. Pulmo nary vascular congestion is seen. There are extensive diffuse interstitial markings throughout the lungs compatible with possible inter stitial fibrotic changes. No evidence of effusions seen. IMPRESSION: Diffuse interstitial changes most compatible with interstitial fibrosis or interstitial edema. Radio graphic appearance of the chest has not significantly changed since the exam from 2 days earlier. POS: [facility]
[2017-12-25] MEDS ORDERED: Furosemide 40 MG/4 ML VIAL SLOW IVP SCH (11:30)
--- NOTE | 2017-12-25 11:34 | PRG ---
DATE OF SERVICE: 12/25/2017 SERVICE: Pulmonary Medicine INTERVAL HISTORY: The patient is doing fine from a respiratory standpoint, breathing comfortably. S he has been working with physical therapy. She is short-winded when she moves around. She does not have any chest discomfort. She continues to have intermittent right upper quadrant discomfort. Othe rwise, there has been no change to her condition. PHYSICAL EXAMINATION: VITAL SIGNS: Afebrile, pulse 84, blood pressure 129/69, respirations 17, saturation 100% on 3 liters nasal cannula. GENERAL: The patient is awake, alert, in no apparent distress. LUNGS: Excellent air entry. There is no prolonged expiratory phase, wheezing, rhonchi or crackles. HEART: Normal rate, regular. ABDOMEN: Soft. Tender to palpation in the right upper quadrant without rebound or guarding. Bowel sounds are positive. MUSCULOSKELETAL: No cyanosis or clubbing. There is no pitting in the bilateral lower extremities. NEUROLOGIC: Grossly nonfocal. LABORATORY DATA: WBC 11.3, hemoglobin 9.6, platelets 274,000. Potassium 3.4. Basic metabolic profi le is otherwise unremarkable. Chloride is down trending to 113. BNP is down trending to 464. Vitam in B12 and folate fall within normal limits. IMAGIN. Chest x-ray demonstrates diffuse interstitial changes compatible with interstitial edema. 2. Ultrasound of the abdomen demonstrates no acute abnormality. 3. X-ray of the abdomen demonstrates no acute findings. There is a nonobstructive bowel gas pattern s. ASSESSMENT: 1. Acute myocardial infarction, status post percutaneous coronary intervention to the right coronary artery. 2. Acute on chronic systolic and diastolic heart failure. 3. Chronic obstructive pulmonary disease without acute exacerbation. PLAN: We will transition the patient to the ICU. Potassium will be replaced. We will give her a si ngle dose of Lasix. We will watch for increasing signs of systemic inflammatory response. If they a re present, empiric antibiotics and/or advanced imaging may be considered. Pulmonary Critical Care w ill continue to follow along while she remains in house for now.
[2017-12-25] MEDS ORDERED: Potassium Chloride 20 MEQ TAB PO SCH (12:00)
[2017-12-25] MEDS: HYDROcodone/Acetaminophen 10/325 mg Tablet PO PRN (12:50)
--- NOTE | 2017-12-25 15:24 | PRG ---
DATE OF SERVICE: 12/25/2017 SUBJECTIVE: Ms. Soria today appears better. She is requiring less oxygen. No current complaint s. She appears more lucid. Her daughter is present. She is now amenable to inpatient rehab or swin g bed. She did have fever overnight with highest of 100.5. She has no urinary or lung complaints pr esent. Her chest x-ray today suggested diffuse interstitial changes with interstitial fibrosis or ed ernesto. No significant traveler changer the last 2 days present. UA appears cloudy, negative for blood, pos itive for nitrites, large leukocyte esterase. OBJECTIVE: VITAL SIGNS: Blood pressure 115/58, pulse 83, temperature 99.8. LUNGS: Minimal rhonchi and rales. CARDIAC: Regular rate and rhythm. ABDOMEN: Soft, nontender, nondistended. EXTREMITIES: No edema. IMPRESSION: 1. Acute myocardial infarction. 2. Chronic obstructive pulmonary disease. 3. Recent fever. RECOMMENDATIONS: Fever, likely urinary tract infection related. We will add antibiotic treatment. I have involved social work, who will try and work on placement. Otherwise, I have no further recomm endations.
--- NOTE | 2017-12-25 17:38 | PRG ---
DATE OF SERVICE: 12/25/2017 SUBJECTIVE: Ms. Soria had a bowel movement a couple of hours ago and she feels much better from an abdominal pain standpoint. She has no nausea or vomiting. She is tolerating a solid diet. Still has some abdominal distention and discomfort. OBJECTIVE: VITAL SIGNS: Temperature 99.1, pulse 82, blood pressure 96/53. GENERAL: She is in no acute distress, awake and alert. Her daughter is at bedside with her. LUNGS: Clear to auscultation bilaterally. HEART: Regular rate and rhythm without murmur. ABDOMEN: Soft, minimal tenderness, without guarding. Bowel sounds are present. EXTREMITIES: No lower extremity edema. LABORATORY DATA: White blood cell count 11.3, hemoglobin 9.6, platelets 274. Creatinine 0.73. IMPRESSION: Chronic recurrent epigastric to right upper quadrant to right lower quadrant abdominal p ain. She feels better after having had a bowel movement this afternoon. She had had been a few days since last bowel movement prior to that. Her daughter reports that she has been treated for diverti culitis a few times over the last year. This appears to have been empiric treatment. The last abdom inal CT scan I can find was from 08/2015. Overall, this seems to be a chronic pain most likely funct ional in nature. She did previously have an ulcer which was identified by endoscopy in 2012 and she will be treated empirically for this with proton pump inhibitor. She had a CT scan back in 2015 that did show some thickening of the sigmoid colon around an area of diverticulosis. RECOMMENDATIONS: 1. MiraLax 17 grams daily. 2. Follow up EGD and colonoscopy should be considered as an outpatient in 4-6 weeks. Overall, the s ymptoms are chronic and there is no need to undergo more urgent endoscopy. We should allow her to co nvalesce from her acute myocardial infarction at this point. She does have COPD and significant hear t disease which potentially increase her risk for anesthesia. We can follow up in the office [facility] a [facility] and revaluate this. For now, we will start the MiraLax daily and continue proton pump inhibitor and follow clinically.
[2017-12-25] MEDS: Atorvastatin Calcium 40 MG TAB PO SCH (21:35)
[2017-12-26] MEDS: HYDROcodone/Acetaminophen 10/325 mg Tablet PO PRN ×2 (02:59→23:42)
[2017-12-26] MEDS: Mometasone/Formoterol 120 PUFF INHALER INH SCH ×2 (07:40→18:33)
[2017-12-26] MEDS: Potassium Chloride 10 MEQ TAB PO SCH (08:52)
[2017-12-26] MEDS: Clopidogrel Bisulfate 75 MG TAB PO SCH (08:53)
[2017-12-26] MEDS: Ferrous Gluconate 324 MG TAB PO SCH ×2 (08:53→17:09)
[2017-12-26] MEDS: Enoxaparin Sodium 60 MG/0.6 ML SYRINGE SC SCH ×2 (08:53→20:14)
[2017-12-26] MEDS: Polyethylene Glycol 3350 17 GM Packet PO SCH (08:53)
[2017-12-26] MEDS: Multivitamin W/ Minerals 1 TAB PO SCH (08:53)
[2017-12-26] MEDS: Gabapentin 100 MG CAP PO SCH ×3 (08:53→20:13)
[2017-12-26] MEDS: Cyclobenzaprine 10 MG TAB PO SCH ×3 (08:53→20:13)
[2017-12-26] MEDS: clonazePAM 1 MG TAB PO PRN ×2 (09:01→15:42)
--- NOTE | 2017-12-26 10:51 | PRG ---
DATE OF SERVICE: 12/26/2017 SUBJECTIVE: Ms. Soria continues to be weak. She is requiring less oxygen. No chest pain or pre ssure noted. She did have one blood culture positive for gram positive cocci in clusters. OBJECTIVE: VITAL SIGNS: Blood pressure , pulse 94, temperature 99. LUNGS: Clear to auscultation. HEART: Regular rate and rhythm. ABDOMEN: Soft, nontender, nondistended. EXTREMITIES: No edema. IMPRESSION: 1. Acute myocardial infarction. 2. Chronic obstructive pulmonary disease. 3. Sepsis. RECOMMENDATIONS: Ms. Soria has been accepted to a swing bed. Unfortunately, she had a positive blood culture for gram positive cocci. She is currently on Levaquin. We will ask Dr. Rebel Costa to rina bonds sure coverage is adequate. Plan on keeping until Thursday until she defervesces. Continue aspirin , Plavix, low-dose beta lenard therapy and statin therapy.
--- NOTE | 2017-12-26 11:21 | PRG ---
DATE OF SERVICE: 12/26/2017 SUBJECTIVE: Beth Soria is a 72-year-old female having difficulty breathing, cough, but n o fever or chills. PHYSICAL EXAMINATION: VITAL SIGNS: Temperature is 99, sat is 94% on 9.3 liters, blood pressure , respiratory rate 18. CHEST: Bilateral rhonchi and crackles. CARDIAC: Normal S1 and S2. No gallops. ABDOMEN: Soft. No masses. IMAGING DATA: Last chest x-ray shows diffuse pulmonary infiltrates. IMPRESSION: 1. Coronary artery disease, status post myocardial infarction. Abnormal x-ray. 2. Congestive heart failure versus pneumonia. 3. Gram positive cocci in blood culture. PLAN: Start Zyvox 600 twice a day until we have final identification. Otherwise, continue the treat ment and supportive care. I will follow.
--- NOTE | 2017-12-26 12:14 | PRG ---
DATE OF SERVICE: 12/26/2017 SUBJECTIVE: Ms. Soria has had some painful swallowing today. She was taking Klonopin from her p urse in her room, self-medicating. She has again had a bowel movement today. She has had some right upper quadrant pain today. OBJECTIVE: VITAL SIGNS: Temperature 98.4, pulse 92, blood pressure 129/62. GENERAL: She is in no acute distress. LUNGS: Clear to auscultation bilaterally. HEART: Regular rate and rhythm. ABDOMEN: Soft, mild tenderness in the upper abdomen without guarding. Bowel sounds are present. EXTREMITIES: No lower extremity edema. IMPRESSION: 1. Mild odynophagia. She has been taking potassium supplementation and has been lying in bed. I wo uld add a proton pump inhibitor daily. 2. Right upper quadrant to right lower quadrant to left upper quadrant abdominal pain intermittently . This appears to have been on long-term chronic symptom. We will continue to monitor this clinical ly. 3. Chronic constipation, on chronic opioid use. RECOMMENDATIONS: 1. Pantoprazole 40 mg daily. 2. MiraLax 17 grams daily. 3. I will sign off for now. Please call if GI can be of assistance.
[2017-12-26] MEDS: Linezolid 600 MG in Premix Bag 1 BAG IVPB SCH ×2 (12:18→23:43)
--- NOTE | 2017-12-26 13:27 | EKG ---
Test Reason : CHEST PAIN Blood Pressure : / mmHG Vent. Rate : 117 BPM Atrial Rate : 117 BPM P-R Int : 164 ms QRS Dur : 088 ms QT Int : 332 ms P-R-T Axes : 060 038 -70 degrees QTc Int : 463 ms Sinus tachycardia Low voltage QRS Cannot rule out Anterior infarct , age undetermined Inferior injury pattern ACUTE CT / STEMI Consider right ventricular involvement in acute inferior infarct Abnormal ECG ST elevation-myocardial infacrction activated at 2:58 Confirmed by ZA CRUZ ([id number]), deputy editor in chief PHIL SANCHEZ ([id number]) on 12/26/2017 1:26:38 PM Referred By: NANCY Confirmed By:ZA CRUZ
[2017-12-26] MEDS: Atorvastatin Calcium 40 MG TAB PO SCH (20:13)
[2017-12-27] MEDS: Mometasone/Formoterol 120 PUFF INHALER INH SCH (06:29)
[2017-12-27] MEDS ORDERED: Clopidogrel Bisulfate 75 MG TAB ONE (08:23)
[2017-12-27] MEDS: HYDROcodone/Acetaminophen 10/325 mg Tablet PO PRN (08:30)
[2017-12-27] MEDS: Ferrous Gluconate 324 MG TAB PO SCH (08:30)
[2017-12-27] MEDS: Cyclobenzaprine 10 MG TAB PO SCH ×2 (08:31→14:33)
[2017-12-27] MEDS: Clopidogrel Bisulfate 75 MG TAB PO SCH (08:31)
[2017-12-27] MEDS: Potassium Chloride 10 MEQ TAB PO SCH (08:31)
[2017-12-27] MEDS: Polyethylene Glycol 3350 17 GM Packet PO SCH (08:32)
[2017-12-27] MEDS: Gabapentin 100 MG CAP PO SCH ×2 (08:32→14:33)
[2017-12-27] MEDS: Multivitamin W/ Minerals 1 TAB PO SCH (08:32)
[2017-12-27] MEDS: Enoxaparin Sodium 60 MG/0.6 ML SYRINGE SC SCH (08:32)
[2017-12-27] MEDS: clonazePAM 1 MG TAB PO PRN (10:01)
--- NOTE | 2017-12-27 11:11 | PRG ---
DATE OF SERVICE: 12/27/2017 SUBJECTIVE: Derrek is a 72-year-old female who this morning she is having some vague chest pain. OBJECTIVE: VITAL SIGNS: Sats are 96 on 2 liters, temperature 99, blood pressure is 122/60. CHEST: Chest reveals bilateral rhonchi and crackles. CARDIAC: Normal S1, S2. No gallops. ABDOMEN: No masses. Urine is growing E. coli, sensitive to Levaquin. Blood cultures coagulase-negative Staph, which is c ontamination. I stopped the Zyvox. IMPRESSION: 1. Chronic obstructive pulmonary disease bronchitis. 2. Urinary tract infection. 3. Coronary artery disease. PLAN: Continue neb treatments, p.o. antibiotics, Dulera. May be brief course of prednisone would be appropriate.
[2017-12-27 11:31] VITALS: BP 133/66; TEMP 99.5
--- NOTE | 2017-12-27 16:54 | EKG ---
Test Reason : Blood Pressure : / mmHG Vent. Rate : 127 BPM Atrial Rate : 125 BPM P-R Int : 000 ms QRS Dur : 098 ms QT Int : 328 ms P-R-T Axes : 000 070 -85 degrees QTc Int : 476 ms Atrial fibrillation with rapid ventricular response with premature ventricular or aberrantly conducte d complexes Inferior infarct , possibly acute Cannot rule out Anterior infarct (cited on or before 30-JAN-2017) ACUTE HI / STEMI Consider right ventricular involvement in acute inferior infarct Abnormal ECG When compared with ECG of 30-JAN-2017 13:46, Atrial fibrillation has replaced Sinus rhythm Questionable change in initial forces of Anterior leads ST elevation now present in Inferior leads ST more depressed in Anterior leads Confirmed by DEE ALMAGUER ([id number]) on 12/27/2017 4:53:30 PM Referred By: Confirmed By:DEE ALMAGUER
--- NOTE | 2017-12-27 17:07 | EKG ---
Test Reason : Blood Pressure : / mmHG Vent. Rate : 091 BPM Atrial Rate : 107 BPM P-R Int : 000 ms QRS Dur : 100 ms QT Int : 388 ms P-R-T Axes : 000 056 -80 degrees QTc Int : 477 ms Atrial fibrillation Cannot rule out Inferior infarct (cited on or before 22-DEC-2017) Abnormal ECG When compared with ECG of 22-DEC-2017 16:51, (Unconfirmed) Serial changes of evolving Inferior infarct Present Confirmed by DEE ALMAGUER ([id number]) on 12/27/2017 5:07:28 PM Referred By: CRISTOFER Confirmed By:DEE ALMAGUER
--- NOTE | 2017-12-27 18:06 | DIS ---
DATE OF ADMISSION: 12/22/2017 DATE OF DISCHARGE: 12/27/2017 DISCHARGE DIAGNOSES: 1. Acute myocardial infarction. 2. Chronic obstructive pulmonary disease. 3. Urinary tract infection. PROCEDURES PERFORMED: Coronary angiography with stent placement to the right coronary artery. CONSULTATION: With Dr. Rebel Costa. HOSPITAL COURSE: Ms. Soria is a 72-year-old woman, who recently presented with right-sided chest pain. She was found to have ST-segment elevation myocardial infarction. She underwent urgent coron rashel angiography and underwent successful stent placement to the right coronary artery. She was place d in the ICU in stable condition. She continued to complain of chest pain after the procedure. This was felt to be pleuritic and may have been secondary to recent myocardial infarction. After one day , GI was consulted to assess for an abdominal source. This was negative. Also, consulted with pulmo clay[place] to assess her lung status. She continues to smoke and has underlying COPD. She also has a mild wheezing. Beta lenard therapy was contraindicated due to mild wheezing. She was placed on steroid therapy by Dr. Rebel Costa. She also had fever on day 4. Blood cultures x2 were drawn in addition to a chest x-ray and UA. Blood culture x1 was positive for coag-negative staph. She was placed on Lev aquin for UTI, positive for E. coli. She continued to be weak during her hospitalization and it was decided to transfer her to [facility]. She was transferred in stable condition. DISCHARGE MEDICATIONS: Lexapro 10 mg t.i.d., Nexium 40 q.a.m., lisinopril 5 daily, Lasix 20 daily, a mlodipine 10 mg daily, gabapentin 100 mg t.i.d., Crestor 10 mg daily, iron sulfate 324 b.i.d., multiv itamin, potassium. Discontinue Celebrex. Clonazepam 1 mg t.i.d., sertraline 50 mg daily, Plavix 75 daily, levofloxacin 500 mg daily x5 days, aspirin 81 q.a.m., prednisone 20 mg q.a.m., diltiazem 120 q .a.m. CONDITION AT DISCHARGE: Stable.
[2017-12-28] MEDS ORDERED: predniSONE 20 MG TAB PO SCH (08:00)
== END 2017-12-27 15:13 | disposition swing bed (61) | DRG 248 ==
LOC: ERS 14:42 → CCU 15:19 → IMCU/EMU 12-23 17:41
PROVIDERS: ADMIT Internal Medicine Cardiovascular Disease; ATTEND Internal Medicine Cardiovascular Disease
PROC: 02703DZ Dilation of Coronary Artery, One Artery with Intraluminal Device, Percutaneous Approach (ICD-10-PCS; principal; 2017-12-22)
PROC: 4A023N7 Measurement of Cardiac Sampling and Pressure, Left Heart, Percutaneous Approach (ICD-10-PCS; 2017-12-22)
PROC: B2111ZZ Fluoroscopy of Multiple Coronary Arteries using Low Osmolar Contrast (ICD-10-PCS; 2017-12-22)
PROC: B2151ZZ Fluoroscopy of Left Heart using Low Osmolar Contrast (ICD-10-PCS; 2017-12-22)
DX: I21.3 ST elevation (STEMI) myocardial infarction of unspecified site (principal); I50.23 Acute on chronic systolic (congestive) heart failure; I13.0 Hypertensive heart and chronic kidney disease with heart failure and stage 1 through stage 4 chronic kidney disease, or unspecified chronic kidney disease; N39.0 Urinary tract infection, site not specified; F17.210 Nicotine dependence, cigarettes, uncomplicated; J44.9 Chronic obstructive pulmonary disease, unspecified; G89.29 Other chronic pain; M54.9 Dorsalgia, unspecified; E66.9 Obesity, unspecified; E03.9 Hypothyroidism, unspecified; E78.5 Hyperlipidemia, unspecified; Z68.26 Body mass index [BMI] 26.0-26.9, adult; K21.9 Gastro-esophageal reflux disease without esophagitis; Z88.8 Allergy status to other drugs, medicaments and biological substances; Z88.5 Allergy status to narcotic agent; Z79.899 Other long term (current) drug therapy; B96.20 Unspecified Escherichia coli [E. coli] as the cause of diseases classified elsewhere; I25.10 Atherosclerotic heart disease of native coronary artery without angina pectoris; R13.10 Dysphagia, unspecified; K59.03 Drug induced constipation
CPT/HCPCS: 36415; 71045; 74018; 76705; 76942; 80048; 80053; 81001; 82553; 82607; 82728; 82746; 83540; 83550; 83880; 84484; 85025; 85347; 85610; 86850; 86900; 86901; 87040; 87077; 87086; 87149; 87186; 87338; 92928; 93005; 93010; 93306; 93458; 93798; 94640; 96374; C1725; C1769; C1876; C1887; G8978-GP-CM; G8979-GP-CK; G8987-GO-CJ; G8988-GO-CI; J0153; J0282; J1160; J1644; J1650; J1940; J2001; J2020; J7070; J7620

== ENCOUNTER 2018-01-04 11:39 | Emergency (ER) | payer MEDICARE, OTHER ==
[2018-01-04 12:05] LABS: Hemoglobin 11.8 g/dL (12.0-16.0); Mean Corpuscular HGB CONC 30.3 g/dL (32.0-36.0); Mean Corpuscular Hemoglobin 29.7 pg (27.0-31.0); Mean Corpuscular Volume 98.1 fL (78.0-98.0); Mean Platelet Volume 7.6 fL (7.4-10.4); Platelet Count 467 thou/uL (130-400); RBC Distribution Width 16.4 % (11.5-14.5); Red Blood Cell (RBC) Count 3.96 mill/uL (4.20-5.40); White Blood Cell (WBC) Count 29.4 thou/uL (4.8-10.8)
[2018-01-04 12:23] LABS: Band 30 % (5-11); Lymphocytes 5 % (21-51); MDiff Complete? YES; Metamyelocyte 1 % (0-0); Monocytes 3 % (0-10); Neutrophil 61 % (42-75); PLT Morphology Comment Appears Increased; RBC Morphology Normal; Troponin I 0.118 ng/mL (< 0.028); Vacuoles SLIGHT
[2018-01-04 12:25] LABS: CKMB 75.7 ng/mL (0-6.6)
[2018-01-04 12:34] LABS: ALT (SGPT) 90 U/L (8-55); AST (SGOT) 59 U/L (5-34); Albumin 3.4 g/dL (3.4-4.8); Alkaline Phosphatase 197 U/L (40-150); Anion Gap 22 mmol/L (10-20); BUN (Urea Nitrogen) 53 mg/dL (9.8-20.1); Bilirubin, Total 0.4 mg/dL (0.2-1.2); Calc. Creatinine Clearance 0 mL/min (70-130); Calcium 8.8 mg/dL (7.8-10.44); Carbon Dioxide 15 mmol/L (23-31); Chloride 101 mmol/L (98-107); Estimated GFR-MDRD 9; Globulin 3.3 g/dL (2.4-3.5); Glucose 114 mg/dL (80-115); Potassium 6.4 mmol/L (3.5-5.1); Protein, Total 6.7 g/dL (6.0-8.3); Sodium 132 mmol/L (136-145)
[2018-01-04] MEDS ORDERED: Lorazepam 2 MG/ML VIAL ONE (15:29)
[2018-01-04] MEDS ORDERED: Fentanyl 100 MCG/2 ML VIAL ONE (17:35)
== END 2018-01-04 20:08 | disposition home or self-care (01) ==
LOC: ERS 11:39
DX: I95.9 Hypotension, unspecified (principal); R09.02 Hypoxemia; R41.82 Altered mental status, unspecified; G43.909 Migraine, unspecified, not intractable, without status migrainosus; J44.9 Chronic obstructive pulmonary disease, unspecified; E78.5 Hyperlipidemia, unspecified; I10 Essential (primary) hypertension; E03.9 Hypothyroidism, unspecified; K21.9 Gastro-esophageal reflux disease without esophagitis; F41.9 Anxiety disorder, unspecified; F32.9 Major depressive disorder, single episode, unspecified; F17.210 Nicotine dependence, cigarettes, uncomplicated
CPT/HCPCS: 80053; 82553; 83605; 84484; 85025; 93005; 94660; J2060; J3010

== ENCOUNTER 2018-01-05 17:24 | Inpatient (IN) | payer MEDICARE ==
[2018-01-05] MEDS ORDERED: RENALLY ADJUST ABX IVPB PRN (17:51)
[2018-01-05] MEDS ORDERED: Sodium Chloride 0.9% 1,000 ML IV SCH ×2 (18:00→20:00)
[2018-01-05 18:54] LABS: Hemoglobin 9.4 g/dL (12.0-16.0); Mean Corpuscular HGB CONC 29.8 g/dL (32.0-36.0); Mean Corpuscular Hemoglobin 29.3 pg (27.0-31.0); Mean Corpuscular Volume 98.4 fL (78.0-98.0); Mean Platelet Volume 7.8 fL (7.4-10.4); Platelet Count 308 thou/uL (130-400); RBC Distribution Width 16.3 % (11.5-14.5); Red Blood Cell (RBC) Count 3.19 mill/uL (4.20-5.40)
[2018-01-05 18:57] LABS: Anisocytosis SLIGHT = 6-15 cells (100X) (0-5/hpf); Band 41 % (5-11); Hypochromia SLIGHT = 6-15 cells (100X) (0-5/hpf); Lymphocytes 12 % (21-51); MDiff Complete? YES; Metamyelocyte 1 % (0-0); Monocytes 5 % (0-10); Neutrophil 41 % (42-75); PLT Morphology Comment Appears Adequate; Poikilocytosis SLIGHT = 6-15 cells (100X) (0-5/hpf)
[2018-01-05 18:58] LABS: ALT (SGPT) 75 U/L (8-55); AST (SGOT) 70 U/L (5-34); Albumin 2.8 g/dL (3.4-4.8); Alkaline Phosphatase 162 U/L (40-150); Anion Gap 15 mmol/L (10-20); BUN (Urea Nitrogen) 62 mg/dL (9.8-20.1); Bilirubin, Total 0.3 mg/dL (0.2-1.2); CK (CPK) 1306 U/L (29-168); CRP (Inflammatory) Greater than 32.00 mg/dL (= or < 0.5); Calc. Creatinine Clearance 20 mL/min (70-130); Calcium 8.9 mg/dL (7.8-10.44); Carbon Dioxide 14 mmol/L (23-31); Chloride 111 mmol/L (98-107); Estimated GFR-MDRD 21; Globulin 2.9 g/dL (2.4-3.5); Glucose 112 mg/dL (80-115); Magnesium 2.3 mg/dL (1.6-2.6); Potassium 4.4 mmol/L (3.5-5.1); Protein, Total 5.7 g/dL (6.0-8.3); Sodium 136 mmol/L (136-145)
[2018-01-05 19:00] LABS: Troponin I 0.062 ng/mL (< 0.028)
[2018-01-05 19:03] LABS: CKMB 23.9 ng/mL (0-6.6)
[2018-01-05] MEDS ORDERED: Dextrose 5 % And 0.9 % NaCl 1,000 ML IV SCH (19:15)
--- NOTE | 2018-01-05 19:17 | RAD ---
ABDOMEN 1 VIEW: Date: 01/05/18 COMPARISON: 12/24/17. HISTORY: Pain. FINDINGS: Stable postoperative changes. Bowel gas pattern is nonspecific. No evidence of pneumoperitoneum on th is supine projection. IMPRESSION: Nonspecific bowel gas pattern. POS: MARISA
--- NOTE | 2018-01-05 19:18 | RAD ---
CHEST 1 VIEW: Date: 01/05/18 COMPARISON: 12/25/17. HISTORY: Shortness of breath. FINDINGS: There appears to be an infiltrate superimposed upon fibrotic/chronic changes of the lung parenchyma. Small right-sided pleural effusion. Stable cardiomegaly. No pneumothorax. IMPRESSION: Infiltrate superimposed upon chronic change. POS: MARISA
[2018-01-05 19:32] LABS: Analyzer IN Cardio OR; Base Excess (BEa) -9.6 mEq/L (-2.0 to +3.0); CO2 Tension 33.4 mmHg (35.0-45.0); Carboxyhemoglobin (COHb) 1.1 gm% (0.0-3.0); Hemoglobin (Hb) 9.7 g/dL (12.0-16.0); O2 Tension (PaO2) 94.8 mmHg (> 70.0); Potassium - ABG Lab 4.29 mmol/L (3.70-5.30)
[2018-01-05 19:33] LABS: Puncture Site RBA
[2018-01-05] MEDS ORDERED: Vancomycin HCl 1 GM in Premix Bag 1 BAG IVPB SCH (20:00)
[2018-01-05] MEDS ORDERED: Calcium Carbonate 500 MG ChewTAB PO PRN (20:46)
[2018-01-05] MEDS ORDERED: Acetaminophen 650 MG Suppository PR PRN (20:46)
--- NOTE | 2018-01-05 21:06 | HP ---
DATE OF ADMISSION: 01/05/2018 PRIMARY CARE PHYSICIAN: Jagdeep Palomo M.D. CHIEF COMPLAINT: Generalized weakness. HISTORY OF PRESENT ILLNESS: The patient is a 72-year-old female with COPD, recent ST-elevation myocardial infarction status post stent placement, congestive heart failure with ongoing tobacco abuse, who presented to the hospital yesterday with increasing respiratory distress. Her blood pressure was in systolic 40s to 60s. Her creatinine was 4.75 with a potassium of 6.4. Lactic acid was 2.7. She was discharged to Inpatient Hospice at [facility]. The patient was admitted as a direct admit from [facility]. She was sent to the hospital by Dr. Hanna. The patient's mentation improved at the [facility]. Her blood pressure was also slightly better. She was still hypoxic and was brought in on nonrebreather. She has been having diarrhea recently per family. Her mentation has been progressively getting worse. Note, she has not been eating and drinking well recently. She is compliant with all of her home medications. No fever or chills were reported. PAST MEDICAL HISTORY: 1. Hospitalization for ST-elevation [place] approximately 2 weeks ago. The patient underwent cardiac catheterization on 12/22/[address] Goodman with a bare- metal stent placement to the mid RCA. Echocardiogram showed ejection fraction of 45%-50% with moderate tricuspid regurgitation and moderately elevated pulmonary artery pressure. 2. Recent urinary tract infection, completed Levaquin. 3. Recent hospitalization at alf facility under Dr. Palomo from to 01/01/2018. She currently lives at home with her daughter who is visiting. 4. Chronic pain syndrome. 5. Hypertension. 6. Anxiety. 7. Chronic obstructive pulmonary disease. 8. Chronic respiratory failure, on home oxygen. 9. Chronic diastolic heart failure. 10. Chronic kidney disease stage 2. 11. Hypothyroidism. 12. Hyperlipidemia. 13. Coronary artery disease. PAST SURGICAL HISTORY: 1. Recent cardiac catheterization. 2. Appendectomy. 3. Cholecystectomy. 4. Hysterectomy. 5. Hip surgery. 6. Multiple back surgeries. ALLERGIES: The patient is allergic to MORPHINE, HYDROMORPHONE and CLONIDINE. CURRENT HOME MEDICATIONS: The patient does not recall any of her home medications. The family to get accurate list of medications. CODE STATUS: Do not resuscitate, confirmed with the patient and the family. She also has out of hospital DNR. Her DPOA is her son. SOCIAL HISTORY: She continues to smoke. She denies any alcohol or drug use. She is fairly independent of activities of daily living. REVIEW OF SYSTEMS: Cannot be reliably obtained from the patient due to current cognitive status. FAMILY HISTORY: Negative for heart disease. PHYSICAL EXAMINATION: CURRENT VITAL SIGNS: Temperature 100.3 with a heart rate of 114, respirations 16, blood pressure of 86/53 with O2 saturation of 95% on nonrebreather. GENERAL: A 72-year-old female with altered mentation. Feels generally weak. HEENT: Head, atraumatic, normocephalic. Sclerae are anicteric. Dry mucous membrane. No oral lesion. NECK: Supple, no JVD, no carotid bruit. LUNGS: Showed bibasilar rhonchi with scattered rales. Lungs were symmetrical. No wheezing appreciated. ABDOMEN: Soft, nontender. Bowel sounds present. HEART: S1, S2 present. Regular rate and rhythm. A 2/6 systolic murmur over the left lateral sternal border. No heaves or pulsation. EXTREMITIES: Trace edema in bilateral lower extremities. No calf tenderness. SKIN: Warm and dry. LYMPH NODES: No palpable lymph nodes in the neck. PERIPHERAL VASCULAR: Radial pulses palpable bilaterally. MUSCULOSKELETAL: No joint swelling or tenderness. NEUROLOGIC: Grossly nonfocal. Moves all four extremities. Power was 5/5 in all extremities. PSYCHIATRY: The patient is alert and awake with intermittent confusion. LABORATORY FINDINGS: 1. WBC 29.4 yesterday with 9.0 today. The patient has 41% bandemia compared to 30% bandemia yesterday. 2. Hemoglobin 9.4. 3. ABG showed pH 7.3 with bicarbonate 16, pCO2 33.4, pO2 94.8. Chemistry showed sodium 136, potassium 4.4, chloride 111, bicarbonate 14, BUN 62, creatinine 2.34. CK was 1306 with troponin of 0.062. Her CK-MB yesterday was 75.7. Troponin was 0.118. BNP 411. CRP 32. Cortisol 24, albumin 2.8. Beta hydroxybutyrate 0.3. IMAGING: Chest x-ray by my review showed infiltrate at bilateral bases. KUB by my review was negative. EKG by my review showed sinus tachycardia with nonspecific ST-T wave changes. IMPRESSION: 1. Severe sepsis with acute organ dysfunction secondary to Aspiration pneumonia , rule out Clostridium difficile colitis. 2. Acute kidney injury secondary to dehydration/sepsis. 3. Rhabdomyolysis. 4. Elevated troponins, probably secondary to demand ischemia. 5. Moderate protein calorie malnutrition. 6. Metabolic acidosis secondary to lactic acidosis as well as starvation ketosis. Her lactic acid yesterday was 2.7. 7. Chronic anemia with normal vitamin B12 and folic acid. 8. Chronic obstructive pulmonary disease with ongoing tobacco abuse. 9. Chronic respiratory failure on home oxygen. 10. Chronic pain syndrome. 11. Hypothyroidism. 12. Hyperlipidemia. 13. Coronary artery disease, status post recent ST-elevation myocardial infarction requiring RCA bare-metal stent. 14. Peptic ulcer disease. PLAN: The patient will be initially monitored on the telemetry unit. We will continue nonrebreather. We will start her on bicarbonate drip. We will start her on stress dose steroids. We will rule out Clostridium difficile. We will start her on vancomycin, Zosyn and Flagyl. Add probiotics. We will start clear liquid diet. Nephrology has already been consulted. We will get EKG. Repeat troponins in a.m. Continue aspirin and Plavix based on recent discharge summary. We will hold lisinopril and Lasix. Confirm other home medications. Repeat CK in a.m. Nebulizer treatment. Hold Statins due to Rhabdomyolysis. Plan of care was discussed with the patient and the family in detail. They stated understanding. MTDD
[2018-01-05] MEDS: Hydrocortisone Sod Succ/PF 100 mg/2 ml Vial IVP SCH (21:23)
[2018-01-05] MEDS ORDERED: metroNIDAZOLE 500 MG in Premix Bag 1 BAG IVPB SCH (22:00)
[2018-01-05] MEDS: Sodium Bicarbonate 150 MEQ in Dextrose 5% in Water 1,000 ML IV SCH (22:26)
[2018-01-05] MEDS: Heparin 5,000 UNITS/ML VIAL SC SCH (22:38)
[2018-01-05] MEDS: Famotidine 20 MG TAB PO SCH (22:38)
[2018-01-05] MEDS: Acetaminophen 325 MG TAB PO PRN (22:39)
[2018-01-06] MEDS: Piperacillin/Tazobactam 2.25 GM in Sodium Chloride 0.9% 100 ML IVPB SCH ×5 (00:07→21:06)
--- NOTE | 2018-01-06 02:52 | CON ---
DATE OF CONSULTATION: 01/05/2018 CONSULTING PHYSICIAN: . REASON FOR CONSULTATION: Acute kidney injury. REASON FOR ADMISSION: Altered mentation, weakness. HISTORY OF PRESENT ILLNESS: A 72-year-old female with history of COPD, CKD, hypothyroidism, hyperlip idemia, and coronary artery disease came to the hospital with above complaint. Nephrology consulted for acute kidney injury. Her creatinine was found to be 4.7 with a potassium of 6.4 yesterday and th is morning it was 4.4 and 2.3. The patient is not able to give a good history. No chest pain, no sh ortness of breath, no fever, no chills reported, but she does have fever. No skin rash. PAST MEDICAL HISTORY: Positive for COPD, chronic back pain, chronic kidney disease, hypothyroidism, hyperlipidemia, coronary artery disease, peptic ulcer disease. PAST SURGICAL HISTORY: Appendectomy, cholecystectomy, hysterectomy, hip surgery, multiple back surge janett. HOME MEDICATIONS: Codeine No. 4, Nexium, Celebrex, iron, multivitamin, sertraline, amlodipine, cyclo benzaprine, clonazepam, lisinopril, gabapentin, furosemide, Crestor, potassium. ALLERGIES: MORPHINE, HYDROMORPHONE, CLONIDINE. SOCIAL HISTORY: No smoking, alcohol, or illicit drug abuse. FAMILY HISTORY: No history of kidney disease. REVIEW OF SYSTEMS: Could not be obtained due to slight confusion. PHYSICAL EXAMINATION: GENERAL: This is a well-built female in no apparent distress. VITAL SIGNS: Temperature 100.3, pulse 114, respirations 16, blood pressure 86/53. HEENT: Atraumatic, normocephalic. Oral mucosa is moist. NECK: Supple. . CARDIOVASCULAR: S1, S2 heard. Rate and rhythm regular. RESPIRATORY: Clear. GASTROINTESTINAL: Abdomen is soft. MUSCULOSKELETAL: 1+ edema. DERMATOLOGIC: No skin rash. NEUROLOGIC: Alert, awake. PSYCHIATRIC: Mood and affect normal. LABORATORY DATA: Hemoglobin is 9.4, potassium is 4.4, BUN is 62, creatinine is 2.3. CK is 13. ASSESSMENT AND PLAN: 1. Acute kidney injury. Continue hydration as tolerated. 2. Elevated CK. Continue hydration. 3. Anemia, mild. 4. Edema, controlled. 5. Hypertension, stable. 6. Metabolic acidosis. Continue IV fluids. 7. Hypoalbuminemia. Increase protein intake. 8. Sepsis per primary team. 9. Hypotension. 10. Fever with leukocytosis. 11. Continue supportive care. We will continue to follow. Thank you for the consult. Avoid nephrotoxins. Renally dose all the medications.
[2018-01-06] MEDS: Hydrocortisone Sod Succ/PF 100 mg/2 ml Vial IVP SCH ×3 (03:56→21:06)
[2018-01-06 05:29] LABS: Anion Gap 13 mmol/L (10-20); BUN (Urea Nitrogen) 48 mg/dL (9.8-20.1); CK (CPK) 725 U/L (29-168); Calc. Creatinine Clearance 35 mL/min (70-130); Calcium 8.5 mg/dL (7.8-10.44); Carbon Dioxide 17 mmol/L (23-31); Chloride 113 mmol/L (98-107); Estimated GFR-MDRD 39; Glucose 207 mg/dL (80-115); Potassium 3.7 mmol/L (3.5-5.1); Sodium 139 mmol/L (136-145)
[2018-01-06 05:30] LABS: Troponin I 0.051 ng/mL (< 0.028)
[2018-01-06] MEDS: Heparin 5,000 UNITS/ML VIAL SC SCH ×2 (08:27→21:06)
[2018-01-06] MEDS: Clopidogrel Bisulfate 75 MG TAB PO SCH (08:27)
[2018-01-06] MEDS: Aspirin 81 mg Enteric Coated Tablet PO SCH (08:27)
[2018-01-06 09:13] LABS: Band 57 % (5-11); Hemoglobin 8.5 g/dL (12.0-16.0); Lymphocytes 4 % (21-51); MDiff Complete? YES; Mean Corpuscular HGB CONC 31.5 g/dL (32.0-36.0); Mean Corpuscular Hemoglobin 30.2 pg (27.0-31.0); Mean Corpuscular Volume 95.7 fL (78.0-98.0); Mean Platelet Volume 7.9 fL (7.4-10.4); Metamyelocyte 2 % (0-0); Monocytes 2 % (0-10); Neutrophil 35 % (42-75); Platelet Count 269 thou/uL (130-400); RBC Distribution Width 16.1 % (11.5-14.5); Red Blood Cell (RBC) Count 2.81 mill/uL (4.20-5.40); White Blood Cell (WBC) Count 9.2 thou/uL (4.8-10.8)
[2018-01-06] MEDS: Sodium Bicarbonate 150 MEQ in Dextrose 5% in Water 1,000 ML IV SCH ×3 (09:33→20:58)
[2018-01-06] MEDS: Nicotine 14 MG PATCH TD SCH (17:22)
[2018-01-06] MEDS: Acetaminophen 325 MG TAB PO PRN (18:07)
--- NOTE | 2018-01-06 18:24 | PRG ---
DATE OF SERVICE: 01/06/2018 SUBJECTIVE: Patient was seen and examined at bedside and overnight events noted. Patient denies any shortness of breath or chest pain or palpitation. No history of nausea or vomiting or diarrhea or f ever or chills or cramps. OBJECTIVE: GENERAL: This is an elderly female in no apparent distress. VITAL SIGNS: Temperature 98.1, pulse 100, respiratory rate 18, blood pressure 122/61. HEENT: Atraumatic, normocephalic. Oral mucosa is moist. NECK: Supple. CARDIOVASCULAR: S1, S2 heard. Rate and rhythm regular. RESPIRATORY: Clear to auscultation. GASTROINTESTINAL: Abdomen is soft. MUSCULOSKELETAL: No tenderness. No edema. DERMATOLOGIC: No skin rash. NEUROLOGIC: Alert and awake and oriented x3. No focal neurologic deficits. Moving all the extremiti es. PSYCHIATRIC: Mood and affect normal. LABORATORY DATA: Potassium is 3.7, BUN 40, creatinine is 1.3. ASSESSMENT AND PLAN: 1. Acute kidney injury, much better. 2. Elevated . 3. Hypertension. 4. Metabolic acidosis. 5. Hypotension. 6. Fever. Overall, labs are much better. No acute indication for dialysis. We will follow.
[2018-01-06] MEDS ORDERED: Acetaminophen/Codeine 30-300mg Tablet PO PRN (21:03)
[2018-01-06] MEDS: Ondansetron HCl/PF 4 MG/2 ML Vial IVP PRN (21:06)
[2018-01-06] MEDS: Famotidine 20 MG TAB PO SCH (21:06)
[2018-01-06] MEDS: Acetaminophen/Codeine 30-300mg Tablet PO PRN (21:20)
[2018-01-06 21:58] LABS: Vancomycin, Random 6.3 ug/mL (See Comment)
--- NOTE | 2018-01-06 22:36 | PDOC.PN ---
- Subjective Encounter Start Date: 01/06/18 Encounter Start Time: 08:30 Patient seen and examined for Sepsis. No significant change in mentation. No fever/chills. No new complaints. No overnight events - Objective Resuscitation Status: Resuscitation Status DNR:Do Not Resuscitate MAR Reviewed: Yes Vital Signs & Weight: Vital Signs (12 hours) Temp Pulse Pulse Pulse Resp BP BP 01/06/18 22:24 92 18 01/06/18 19:55 99.1 F 100 20 01/06/18 18:31 92 18 01/06/18 15:45 98.1 F 109 H 17 01/06/18 14:40 100 104 H 108/57 L 118/66 01/06/18 14:00 97 18 01/06/18 12:10 97.7 F 94 18 01/06/18 10:39 98 20 BP Pulse Ox Pulse Ox Pulse Ox 01/06/18 22:24 100 01/06/18 19:55 128/58 L 96 01/06/18 18:31 96 01/06/18 15:45 122/61 96 01/06/18 14:40 95 96 01/06/18 14:00 98 01/06/18 12:10 138/64 95 01/06/18 10:39 99 Weight Admit Weight 126 lb 2 oz Weight 128 lb 2 oz I&O: 01/05/18 01/06/18 01/07/18 06:59 06:59 06:59 Intake Total 990 2020 Output Total 900 800 Balance 90 1220 Result Diagrams: 01/06/18 05:00 01/06/18 05:00 Phys Exam - Physical Examination Constitutional: NAD Neck: no JVD Respiratory: no wheezing B/L rhonchi/ bibasilar rales, No accessory muscle use Cardiovascular: RRR, no rub No heaves/pulsations Gastrointestinal: soft, non-tender, no distention, positive bowel sounds Musculoskeletal: no edema, pulses present Neurological: non-focal, moves all 4 limbs Dx/Plan - Plan DVT proph w/heparin, DVT proph w/SCDs IMPRESSION: 1. Severe sepsis with acute organ dysfunction secondary to Aspiration pneumonia. 2. Acute kidney injury secondary to dehydration/sepsis. improving 3. Rhabdomyolysis. CK improving 4. Elevated troponins, probably secondary to demand ischemia. 5. Moderate protein calorie malnutrition. 6. Metabolic acidosis secondary to lactic acidosis as well as starvation ketosis. Her lactic acid yesterday was 2.7. 7. Chronic anemia with normal vitamin B12 and folic acid. 8. Chronic obstructive pulmonary disease with ongoing tobacco abuse. 9. Chronic respiratory failure on home oxygen. 10. Chronic pain syndrome. 11. Hypothyroidism. 12. Hyperlipidemia. 13. Coronary artery disease, status post recent ST-elevation myocardial infarction requiring RCA bare-metal stent. 14. Peptic ulcer disease. PLAN: Reduce IVF to 100 ml/hr Cont ASA/Plavix Cont Hydrocortisone Monitor Vancomycin level Cont Vancomycin and Zosyn Repeat CXR in AM Review of Systems - Review of Systems Respiratory: Cough, Dry. negative: Shortness of Breath, Hemoptysis, SOB with Excertion, Pleuritic Pain, Sputum, Wheezing Cardiovascular: negative: chest pain, palpitations, orthopnea, paroxysmal nocturnal dyspnea, edema, light headedness, other - Medications/Allergies Allergies/Adverse Reactions: Allergies Allergy/AdvReac Type Severity Reaction Status Date / Time clonidine Allergy Verified 06/04/16 22:10 hydromorphone HCl Allergy Verified 06/04/16 22:10 [From Dilaudid] morphine Allergy Verified 06/04/16 22:10 Medications: Current Medications Acetaminophen (Tylenol) 650 mg PO Q4H PRN PRN Reason: Headache/Fever/Mild Pain (1-3) Last Admin: 01/06/18 18:07 Dose: 650 mg Acetaminophen (Tylenol) 650 mg RI Q4H PRN PRN Reason: Headache/Fever/Mild Pain (1-3) Acetaminophen/Codeine Phosphate (Tylenol #3) 1 tab PO Q6H PRN PRN Reason: Moderate Pain (4-6) Last Admin: 01/06/18 21:20 Dose: 1 tab Acetaminophen/Codeine Phosphate (Tylenol #3) 2 tab PO Q6H PRN PRN Reason: Severe Pain (7-10) Albuterol/Ipratropium (Duoneb) 3 ml NEB [id number] [facility] Last Admin: 01/06/18 22:24 Dose: 3 ml Albuterol/Ipratropium (Duoneb) 3 ml NEB [id number] PRN PRN Reason: SOB &/or Wheezing Aspirin (Ecotrin) 81 mg PO DAILY [facility] Last Admin: 01/06/18 08:27 Dose: 81 mg Calcium Carbonate (Tums) 1,000 mg PO Q4H PRN PRN Reason: Heartburn or Indigestion Clopidogrel Bisulfate (Plavix) 75 mg PO DAILY [facility] Last Admin: 01/06/18 08:27 Dose: 75 mg Famotidine (Pepcid) 20 mg PO QPM [facility] Last Admin: 01/06/18 21:06 Dose: 20 mg Heparin Sodium (Porcine) (Heparin) 5,000 units SC BID [facility] Last Admin: 01/06/18 21:06 Dose: 5,000 units Hydrocortisone Sodium Succinate (Solu-Cortef) 100 mg IVP 0400,1200,2000 [facility] Last Admin: 01/06/18 21:06 Dose: 100 mg Piperacillin Sod/Tazobactam (Sod 2.25 gm/ Sodium Chloride) 100 mls @ 200 mls/ hr IVPB 0300,0900,1500,2100 [facility] Last Admin: 01/06/18 21:06 Dose: 100 mls Sodium Bicarbonate 150 meq/ (Dextrose/Water) 1,150 mls @ 100 mls/hr IV .[id number] [facility] Last Admin: 01/06/18 20:58 Dose: 1,150 mls Vancomycin HCl 1 gm/ Device 200 mls @ 200 mls/hr IVPB 2200 [facility] Miscellaneous Medication (Pharmacy To Dose) 1 each IVPB PRN PRN PRN Reason: Pharmacy to dose Nicotine (Nicoderm Patch) 14 mg TD Q24HR [facility] Last Admin: 01/06/18 17:22 Dose: 14 mg Ondansetron HCl (Zofran Odt) 4 mg PO Q6H PRN PRN Reason: Nausea/Vomiting Ondansetron HCl (Zofran) 4 mg IVP Q6H PRN PRN Reason: Nausea/Vomiting Last Admin: 01/06/18 21:06 Dose: 4 mg Sodium Chloride (Flush - Normal Saline) 10 ml IVF Q12HR [facility] Last Admin: 01/06/18 21:07 Dose: Not Given Sodium Chloride (Flush - Normal Saline) 10 ml IVF PRN PRN PRN Reason: Saline Flush
[2018-01-06] MEDS ORDERED: Vancomycin HCl 1 GM in Premix Bag 1 BAG IVPB SCH (23:59)
[2018-01-07] MEDS: Piperacillin/Tazobactam 2.25 GM in Sodium Chloride 0.9% 100 ML IVPB SCH ×2 (03:02→09:07)
[2018-01-07] MEDS: Hydrocortisone Sod Succ/PF 100 mg/2 ml Vial IVP SCH ×2 (03:02→12:02)
[2018-01-07 05:41] LABS: #Lymphocytes 0.6 thou/uL (1.20-3.40); #Monocytes 0.4 thou/uL (0.11-0.59); #Neutrophils 8.1 thou/uL (1.40-6.50); %Basophils 0.1 % (0.0-1.0); %Eosinophils 0.1 % (0.0-10.0); %Lymphocytes 6.7 % (21.0-51.0); %Monocytes 4.4 % (0.0-10.0); %Neutrophils 88.7 % (42.0-75.0); Hemoglobin 8.3 g/dL (12.0-16.0); Mean Corpuscular HGB CONC 32.1 g/dL (32.0-36.0); Mean Corpuscular Hemoglobin 30.4 pg (27.0-31.0); Mean Corpuscular Volume 94.8 fL (78.0-98.0); Platelet Count 260 thou/uL (130-400); RBC Distribution Width 15.9 % (11.5-14.5); Red Blood Cell (RBC) Count 2.73 mill/uL (4.20-5.40); White Blood Cell (WBC) Count 9.1 thou/uL (4.8-10.8)
[2018-01-07 05:49] LABS: Anion Gap 10 mmol/L (10-20); BUN (Urea Nitrogen) 29 mg/dL (9.8-20.1); CK (CPK) 223 U/L (29-168); Calc. Creatinine Clearance 61 mL/min (70-130); Calcium 8.5 mg/dL (7.8-10.44); Carbon Dioxide 27 mmol/L (23-31); Chloride 109 mmol/L (98-107); Estimated GFR-MDRD 72; Glucose 161 mg/dL (80-115); Magnesium 2.1 mg/dL (1.6-2.6); Sodium 143 mmol/L (136-145)
[2018-01-07 05:54] LABS: Phosphorus 1.8 mg/dL (2.3-4.7); Potassium 2.9 mmol/L (3.5-5.1)
[2018-01-07] MEDS ORDERED: D5 1/2 NS w/20 mEq KCL 1,000 ML IV SCH (06:45)
[2018-01-07] MEDS ORDERED: Potassium Phosphate 30 MMOL in Sodium Chloride 0.9% 500 ML IVPB SCH (07:00)
[2018-01-07] MEDS: Aspirin 81 mg Enteric Coated Tablet PO SCH (08:06)
[2018-01-07] MEDS: Heparin 5,000 UNITS/ML VIAL SC SCH (08:06)
[2018-01-07] MEDS: Clopidogrel Bisulfate 75 MG TAB PO SCH (08:07)
--- NOTE | 2018-01-07 08:52 | RAD ---
RADIOGRAPH CHEST 1 VIEW: Date: 01/07/2018. Time: 7:20 a.m. HISTORY: A 72-year-old female with dyspnea. COMPARISON: 01/05/2018. FINDINGS: Pulmonary vascular engorgement. Mild interstitial densities which may represent pulmonary interstiti al edema. No consolidation or pneumothorax. The cardiac size is slightly enlarged. No major interv al change. IMPRESSION: Probable congestive heart failure. MICHAELLE [] POS: ALLISON
[2018-01-07] MEDS: Azelastine 137 MCG/Spray 30 ML NS SCH (14:12)
[2018-01-07] MEDS: Ondansetron ODT 4 MG TAB PO PRN (14:12)
[2018-01-07] MEDS: Piperacillin/Tazobactam 3.375 GM in Sodium Chloride 0.9% 100 ML IVPB SCH ×2 (14:13→21:21)
[2018-01-07] MEDS ORDERED: Amoxicillin/Potassium Clav 600 mg/5 ml Oral Suspension PO SCH (15:00)
[2018-01-07] MEDS: Acetaminophen/Codeine 30-300mg Tablet PO PRN ×2 (15:00→21:22)
[2018-01-07] MEDS: clonazePAM 0.5 MG TAB PO PRN (16:18)
[2018-01-07] MEDS: predniSONE 20 MG TAB PO SCH (16:28)
[2018-01-07] MEDS: Nicotine 14 MG PATCH TD SCH (16:28)
[2018-01-07] MEDS: Acetaminophen 325 MG TAB PO PRN (17:55)
--- NOTE | 2018-01-07 18:39 | PRG ---
DATE OF SERVICE: 01/07/2019. OBJECTIVE: GENERAL: This is a well-built female in no apparent distress. VITAL SIGNS: Weight 98.2, pulse 87, respiratory rate 17, blood pressure 139/70. LABORATORY DATA: Potassium is 2.9, BUN is 29, creatinine 0.7. ASSESSMENT AND PLAN: 1. Acute kidney injury. Renal function is much better. 2. Hypokalemia, severe. Monitor. 3. Hypophosphatemia. Monitor and replace. 4. Hypertension. 5. Metabolic acidosis. Replace electrolytes and monitor closely. Increase p.o. intake if tolerated. MTDD
[2018-01-07] MEDS: Doxycycline 100 MG CAP PO SCH (21:21)
[2018-01-07] MEDS: Famotidine 20 MG TAB PO SCH (21:25)
[2018-01-07] MEDS: D5 1/2 NS w/20 mEq KCL 1,000 ML IV SCH (21:26)
--- NOTE | 2018-01-07 22:54 | PDOC.PN ---
- Subjective Encounter Start Date: 01/07/18 Encounter Start Time: 09:00 Patient seen and examined for Sepsis. No new complaints. No overnight events - Objective Resuscitation Status: Resuscitation Status DNR:Do Not Resuscitate MAR Reviewed: Yes Vital Signs & Weight: Vital Signs (12 hours) Temp Pulse Pulse Pulse Resp BP BP 01/07/18 22:32 93 18 01/07/18 21:10 98.4 F 96 16 01/07/18 18:27 88 20 01/07/18 15:05 98.2 F 87 17 01/07/18 13:12 92 96 141/76 H 143/68 H 01/07/18 12:05 98.0 F 87 16 BP Pulse Ox Pulse Ox Pulse Ox Pulse Ox 01/07/18 22:32 97 01/07/18 21:10 127/73 100 01/07/18 18:27 97 01/07/18 15:05 129/70 96 01/07/18 13:12 100 99 89 L 01/07/18 12:05 133/69 97 Weight Admit Weight 126 lb 2 oz Weight 128 lb 9 oz I&O: 01/06/18 01/07/18 01/08/18 06:59 06:59 06:59 Intake Total 990 3380 1300 Output Total 900 1225 300 Balance 90 2155 1000 Result Diagrams: 01/07/18 04:55 01/07/18 04:55 Radiology Reviewed by me: Yes (CXR - PV congestion, No new infiltrate) EKG Reviewed by me: Yes (Tele SR) Phys Exam - Physical Examination Constitutional: NAD Neck: no JVD Respiratory: no wheezing, no rhonchi Bibasilar rales, Symmetrical Cardiovascular: RRR, no rub No heaves/pulsations Gastrointestinal: soft, non-tender, no distention, positive bowel sounds Musculoskeletal: no edema Neurological: non-focal, normal sensation, moves all 4 limbs Psychiatric: normal affect, A&O x 3 Dx/Plan - Plan DVT proph w/heparin, DVT proph w/SCDs IMPRESSION: 1. Severe sepsis with acute organ dysfunction secondary to Aspiration pneumonia. 2. Acute kidney injury secondary to dehydration/sepsis. improving 3. Rhabdomyolysis. CK improving 4. Elevated troponins, probably secondary to demand ischemia. 5. Hypophosphatemia/Hypokalemia 6. Metabolic acidosis secondary to lactic acidosis as well as starvation ketosis. Her lactic acid yesterday was 2.7. 7. Chronic anemia with normal vitamin B12 and folic acid. 8. Chronic obstructive pulmonary disease with ongoing tobacco abuse. 9. Chronic respiratory failure on home oxygen. 10. Chronic pain syndrome. 11. Hypothyroidism. 12. Hyperlipidemia. 13. Coronary artery disease, status post recent ST-elevation myocardial infarction requiring RCA bare-metal stent. 14. Peptic ulcer disease/Moderate protein calorie malnutrition. PLAN: Reduce IVF to 50 ml/ hr - DC Bicarb drip Change IV Hydrocortisone to PO Prednisone Replace electrolytes DC Vancomycin Cont Zosyn Cont current meds Cont to monitor SNF eval AM labs Add PO Doxycycline Review of Systems - Review of Systems Respiratory: negative: Cough, Dry, Shortness of Breath, Hemoptysis, SOB with Excertion, Pleuritic Pain, Sputum, Wheezing Cardiovascular: negative: chest pain, palpitations, orthopnea, paroxysmal nocturnal dyspnea, edema, light headedness, other - Medications/Allergies Allergies/Adverse Reactions: Allergies Allergy/AdvReac Type Severity Reaction Status Date / Time clonidine Allergy Verified 06/04/16 22:10 hydromorphone HCl Allergy Verified 06/04/16 22:10 [From Dilaudid] morphine Allergy Verified 06/04/16 22:10 Medications: Current Medications Acetaminophen (Tylenol) 650 mg PO Q4H PRN PRN Reason: Headache/Fever/Mild Pain (1-3) Last Admin: 01/07/18 17:55 Dose: 650 mg Acetaminophen (Tylenol) 650 mg [place] Q4H PRN PRN Reason: Headache/Fever/Mild Pain (1-3) Acetaminophen/Codeine Phosphate (Tylenol #3) 1 tab PO Q6H PRN PRN Reason: Moderate Pain (4-6) Last Admin: 01/07/18 21:22 Dose: 1 tab Albuterol/Ipratropium (Duoneb) 3 ml NEB [id number] [facility] Last Admin: 01/07/18 22:32 Dose: 3 ml Albuterol/Ipratropium (Duoneb) 3 ml NEB [id number] PRN PRN Reason: SOB &/or Wheezing Aspirin (Ecotrin) 81 mg PO DAILY [facility] Last Admin: 01/07/18 08:06 Dose: 81 mg Azelastine HCl (Azelastine) 30 ml NS Q24H [facility] Last Admin: 01/07/18 14:12 Dose: 1 spray Calcium Carbonate (Tums) 1,000 mg PO Q4H PRN PRN Reason: Heartburn or Indigestion Clonazepam (Klonopin) 0.5 mg PO BIDPRN PRN PRN Reason: Anxiety/Agitation Last Admin: 01/07/18 16:18 Dose: 0.5 mg Clopidogrel Bisulfate (Plavix) 75 mg PO DAILY [facility] Last Admin: 01/07/18 08:07 Dose: 75 mg Doxycycline Hyclate (Vibramycin) 100 mg PO BID [facility] Last Admin: 01/07/18 21:21 Dose: 100 mg Famotidine (Pepcid) 20 mg PO QPM [facility] Last Admin: 01/07/18 21:25 Dose: 20 mg Potassium Chloride/Dextrose/Sod Cl (D5 1/2 Ns W/20 Meq Kcl) 1,000 mls @ 50 mls/ hr IV .Q20H [facility] Last Admin: 01/07/18 21:26 Dose: 1,000 mls Piperacillin Sod/Tazobactam (Sod 3.375 gm/ Sodium Chloride) 100 mls @ 200 mls/ hr IVPB 0200,0800,1400,2000 [facility] Last Admin: 01/07/18 21:21 Dose: 100 mls Miscellaneous Medication (Pharmacy To Dose) 1 each IVPB PRN PRN PRN Reason: Pharmacy to dose Multivitamins (Theragran) 1 tab PO DAILY [facility] Nicotine (Nicoderm Patch) 14 mg TD Q24HR [facility] Last Admin: 01/07/18 16:28 Dose: 14 mg Ondansetron HCl (Zofran Odt) 4 mg PO Q6H PRN PRN Reason: Nausea/Vomiting Last Admin: 01/07/18 14:12 Dose: 4 mg Ondansetron HCl (Zofran) 4 mg IVP Q6H PRN PRN Reason: Nausea/Vomiting Last Admin: 01/06/18 21:06 Dose: 4 mg Prednisone (Prednisone) 20 mg PO BID[facility] Last Admin: 01/07/18 16:28 Dose: 20 mg Sodium Chloride (Flush - Normal Saline) 10 ml IVF Q12HR [facility] Last Admin: 01/07/18 21:26 Dose: Not Given Sodium Chloride (Flush - Normal Saline) 10 ml IVF PRN PRN PRN Reason: Saline Flush
[2018-01-08] MEDS: Acetaminophen 325 MG TAB PO PRN ×2 (02:29→08:39)
[2018-01-08] MEDS: clonazePAM 0.5 MG TAB PO PRN ×2 (02:36→08:39)
[2018-01-08] MEDS: Ondansetron ODT 4 MG TAB PO PRN ×2 (02:46→08:38)
[2018-01-08] MEDS: Piperacillin/Tazobactam 3.375 GM in Sodium Chloride 0.9% 100 ML IVPB SCH ×4 (02:49→20:40)
[2018-01-08] MEDS: Acetaminophen/Codeine 30-300mg Tablet PO PRN ×3 (04:49→20:44)
[2018-01-08 05:48] LABS: Anion Gap 12 mmol/L (10-20); BUN (Urea Nitrogen) 23 mg/dL (9.8-20.1); Calc. Creatinine Clearance 67 mL/min (70-130); Calcium 8.4 mg/dL (7.8-10.44); Carbon Dioxide 26 mmol/L (23-31); Chloride 107 mmol/L (98-107); Estimated GFR-MDRD 80; Glucose 148 mg/dL (80-115); Magnesium 1.9 mg/dL (1.6-2.6); Phosphorus 2.2 mg/dL (2.3-4.7); Sodium 142 mmol/L (136-145)
[2018-01-08 05:50] LABS: Potassium 2.7 mmol/L (3.5-5.1)
[2018-01-08] MEDS ORDERED: Magnesium 2 GM/50 ML 2 GM in Premix Bag 1 BAG IVPB SCH (06:00)
[2018-01-08 06:06] LABS: Band 1 % (5-11); Hemoglobin 8.2 g/dL (12.0-16.0); Hypochromia SLIGHT = 6-15 cells (100X) (0-5/hpf); Lymphocytes 8 % (21-51); MDiff Complete? YES; Mean Corpuscular HGB CONC 31.9 g/dL (32.0-36.0); Mean Corpuscular Hemoglobin 30.2 pg (27.0-31.0); Mean Corpuscular Volume 94.8 fL (78.0-98.0); Monocytes 4 % (0-10); Neutrophil 87 % (42-75); PLT Morphology Comment Appears Adequate; Platelet Count 248 thou/uL (130-400); RBC Distribution Width 16.2 % (11.5-14.5); Red Blood Cell (RBC) Count 2.71 mill/uL (4.20-5.40); White Blood Cell (WBC) Count 8.7 thou/uL (4.8-10.8)
[2018-01-08] MEDS ORDERED: Potassium Chloride 40 MEQ in Sodium Chloride 0.9% 250 ML 250 ML IVPB SCH (07:00)
[2018-01-08] MEDS: Doxycycline 100 MG CAP PO SCH ×2 (08:41→20:40)
[2018-01-08] MEDS: Clopidogrel Bisulfate 75 MG TAB PO SCH (08:41)
[2018-01-08] MEDS: Multivit, Therapeutic 1 TAB PO SCH (08:41)
[2018-01-08] MEDS: Aspirin 81 mg Enteric Coated Tablet PO SCH (08:41)
[2018-01-08] MEDS: predniSONE 20 MG TAB PO SCH ×2 (08:41→17:30)
[2018-01-08] MEDS: D5 1/2 NS w/20 mEq KCL 1,000 ML IV SCH (08:44)
[2018-01-08] MEDS: Magnesium Chloride 64 MG TAB PO SCH ×2 (12:08→20:40)
[2018-01-08 12:59] VITALS: BMI 24.9
[2018-01-08] MEDS: Azelastine 137 MCG/Spray 30 ML NS SCH (13:38)
--- NOTE | 2018-01-08 17:29 | PRG ---
DATE OF SERVICE: 01/08/2018 SUBJECTIVE: Patient was seen and examined at bedside and overnight events noted. Patient denies any shortness of breath or chest pain or palpitation. No history of nausea or vomiting or diarrhea or f ever or chills or cramps. OBJECTIVE: GENERAL: Well-developed female in no apparent distress. VITAL SIGNS: Temperature 97.2, pulse 90, respiratory rate 18, blood pressure 116/77. HEENT: Atraumatic, normocephalic. Oral mucosa is moist. NECK: Supple. CARDIOVASCULAR: S1, S2 heard. Rate and rhythm regular. RESPIRATORY: Clear to auscultation. GASTROINTESTINAL: Abdomen is soft. MUSCULOSKELETAL: No tenderness. No edema. DERMATOLOGIC: No skin rash. NEUROLOGIC: Alert and awake and oriented x3. No focal neurologic deficits. Moving all the extremiti es. PSYCHIATRIC: Mood and affect normal. LABORATORY DATA: Potassium is 2.7, BUN 23, creatinine 0.7. ASSESSMENT AND PLAN: 1. Acute kidney injury on chronic kidney disease. Renal function is stable. 2. Cardiorenal syndrome. 3. Edema, controlled. 4. Hypokalemia, replace and monitor. 5. Metabolic acidosis and renal function is stable. I will sign off. Please call back with any questions.
[2018-01-08] MEDS: Nicotine 14 MG PATCH TD SCH (17:52)
[2018-01-08] MEDS: Famotidine 20 MG TAB PO SCH (20:40)
--- NOTE | 2018-01-08 20:40 | PDOC.PN ---
- Subjective Encounter Start Date: 01/08/18 Encounter Start Time: 09:00 Patient seen and examined for Sepsis. Feels better. No new complaints. No overnight events - Objective Resuscitation Status: Resuscitation Status DNR:Do Not Resuscitate MAR Reviewed: Yes Vital Signs & Weight: Vital Signs (12 hours) Temp Pulse Pulse Pulse Resp BP BP 01/08/18 19:26 01/08/18 19:24 01/08/18 15:23 97.2 F L 98 18 01/08/18 14:15 87 18 01/08/18 13:46 99 100 161/77 H 135/86 01/08/18 12:00 97.8 F 100 19 01/08/18 09:48 95 18 BP Pulse Ox Pulse Ox Pulse Ox 01/08/18 19:26 94 L 01/08/18 19:24 94 L 01/08/18 15:23 161/77 H 96 01/08/18 14:15 93 L 01/08/18 13:46 98 96 01/08/18 12:00 132/76 94 L 01/08/18 09:48 93 L Weight Admit Weight 126 lb 2 oz Weight 127 lb 10 oz I&O: 01/07/18 01/08/18 01/09/18 06:59 06:59 06:59 Intake Total 3380 3290 1030 Output Total 1225 825 650 Balance 2155 2465 380 Result Diagrams: 01/08/18 05:06 01/08/18 20:54 Additional Labs: Laboratory Tests 01/06/18 01/06/18 01/07/18 05:00 05:00 04:55 Potassium Phosphorus Creatine Kinase 725 H 223 H Troponin I 0.051 H 01/08/18 05:06 Potassium 2.7 L* Phosphorus 2.2 L Creatine Kinase Troponin I EKG Reviewed by me: Yes (Tele SR) Phys Exam - Physical Examination Constitutional: NAD Respiratory: no wheezing, no rhonchi Bibasilar rales Cardiovascular: RRR, no rub Gastrointestinal: soft, positive bowel sounds Musculoskeletal: no edema Neurological: moves all 4 limbs Dx/Plan - Plan DVT proph w/SCDs IMPRESSION: 1. Severe sepsis with acute organ dysfunction secondary to Aspiration pneumonia. 2. Acute kidney injury secondary to dehydration/sepsis. improving 3. Rhabdomyolysis. CK improving 4. Elevated troponins, probably secondary to demand ischemia. 5. Hypophosphatemia/Hypokalemia 6. Metabolic acidosis secondary to lactic acidosis as well as starvation ketosis. Her lactic acid yesterday was 2.7. 7. Chronic anemia with normal vitamin B12 and folic acid. 8. Chronic obstructive pulmonary disease with ongoing tobacco abuse. 9. Chronic respiratory failure on home oxygen. 10. Chronic pain syndrome. 11. Hypothyroidism. 12. Hyperlipidemia. 13. Coronary artery disease, status post recent ST-elevation myocardial infarction requiring RCA bare-metal stent. 14. Peptic ulcer disease/Moderate protein calorie malnutrition. PLAN: Cont IVF to 50 ml/ hr Cont PO Prednisone - reduce to daily - taper over next 4-6 days Replace electrolytes Change Zosyn to Augmentin Cont current meds Cont to monitor SNF eval - accepted - can take in AM if electrolytes are normal Repeat Potassium later today Cont Doxycycline Review of Systems - Review of Systems Respiratory: negative: Cough, Dry, Shortness of Breath, Hemoptysis, SOB with Excertion, Pleuritic Pain, Sputum, Wheezing Cardiovascular: negative: chest pain, palpitations, orthopnea, paroxysmal nocturnal dyspnea, edema, light headedness, other - Medications/Allergies Allergies/Adverse Reactions: Allergies Allergy/AdvReac Type Severity Reaction Status Date / Time clonidine Allergy Verified 06/04/16 22:10 hydromorphone HCl Allergy Verified 06/04/16 22:10 [From Dilaudid] morphine Allergy Verified 06/04/16 22:10 Medications: Current Medications Acetaminophen (Tylenol) 650 mg PO Q4H PRN PRN Reason: Headache/Fever/Mild Pain (1-3) Last Admin: 01/08/18 08:39 Dose: 650 mg Acetaminophen (Tylenol) 650 mg [place] Q4H PRN PRN Reason: Headache/Fever/Mild Pain (1-3) Acetaminophen/Codeine Phosphate (Tylenol #3) 1 tab PO Q6H PRN PRN Reason: Moderate Pain (4-6) Last Admin: 01/08/18 13:39 Dose: 1 tab Albuterol/Ipratropium (Duoneb) 3 ml NEB [id number] [facility] Last Admin: 01/08/18 19:24 Dose: 3 ml Albuterol/Ipratropium (Duoneb) 3 ml NEB [id number] PRN PRN Reason: SOB &/or Wheezing Aspirin (Ecotrin) 81 mg PO DAILY [facility] Last Admin: 01/08/18 08:41 Dose: 81 mg Azelastine HCl (Azelastine) 30 ml NS Q24H [facility] Last Admin: 01/08/18 13:38 Dose: 1 spray Calcium Carbonate (Tums) 1,000 mg PO Q4H PRN PRN Reason: Heartburn or Indigestion Clonazepam (Klonopin) 0.5 mg PO BIDPRN PRN PRN Reason: Anxiety/Agitation Last Admin: 01/08/18 08:39 Dose: 0.5 mg Clopidogrel Bisulfate (Plavix) 75 mg PO DAILY [facility] Last Admin: 01/08/18 08:41 Dose: 75 mg Doxycycline Hyclate (Vibramycin) 100 mg PO BID [facility] Last Admin: 01/08/18 08:41 Dose: 100 mg Famotidine (Pepcid) 20 mg PO QPM [facility] Last Admin: 01/07/18 21:25 Dose: 20 mg Potassium Chloride/Dextrose/Sod Cl (D5 1/2 Ns W/20 Meq Kcl) 1,000 mls @ 50 mls/ hr IV .Q20H [facility] Last Admin: 01/08/18 08:44 Dose: 1,000 mls Piperacillin Sod/Tazobactam (Sod 3.375 gm/ Sodium Chloride) 100 mls @ 200 mls/ hr IVPB 0200,0800,1400,2000 [facility] Last Admin: 01/08/18 13:38 Dose: 100 mls Magnesium Chloride (Slow-Mag) 64 mg PO BID [facility] Last Admin: 01/08/18 12:08 Dose: 64 mg Miscellaneous Medication (Pharmacy To Dose) 1 each IVPB PRN PRN PRN Reason: Pharmacy to dose Multivitamins (Theragran) 1 tab PO DAILY [facility] Last Admin: 01/08/18 08:41 Dose: 1 tab Nicotine (Nicoderm Patch) 14 mg TD Q24HR [facility] Last Admin: 01/08/18 17:52 Dose: 14 mg Ondansetron HCl (Zofran Odt) 4 mg PO Q6H PRN PRN Reason: Nausea/Vomiting Last Admin: 01/08/18 08:38 Dose: 4 mg Ondansetron HCl (Zofran) 4 mg IVP Q6H PRN PRN Reason: Nausea/Vomiting Last Admin: 01/06/18 21:06 Dose: 4 mg Potassium Chloride (Klor-Con) 20 meq PO TID-WM [facility] Last Admin: 01/08/18 17:30 Dose: 20 meq Prednisone (Prednisone) 20 mg PO BID-WM [facility] Last Admin: 01/08/18 17:30 Dose: 20 mg Sodium Chloride (Flush - Normal Saline) 10 ml IVF Q12HR [facility] Last Admin: 01/08/18 08:42 Dose: Not Given Sodium Chloride (Flush - Normal Saline) 10 ml IVF PRN PRN PRN Reason: Saline Flush
[2018-01-08 21:19] LABS: Potassium 3.9 mmol/L (3.5-5.1)
[2018-01-09] MEDS: clonazePAM 0.5 MG TAB PO PRN ×3 (00:09→19:02)
[2018-01-09] MEDS: D5 1/2 NS w/20 mEq KCL 1,000 ML IV SCH ×2 (00:09→04:07)
[2018-01-09] MEDS: Acetaminophen/Codeine 30-300mg Tablet PO PRN ×2 (02:33→11:55)
[2018-01-09] MEDS ORDERED: Furosemide 40 MG/4 ML VIAL SLOW IVP SCH ×2 (03:45→15:30)
[2018-01-09 08:52] LABS: Potassium 3.5 mmol/L (3.5-5.1)
[2018-01-09] MEDS: predniSONE 20 MG TAB PO SCH (09:17)
[2018-01-09] MEDS: Clopidogrel Bisulfate 75 MG TAB PO SCH (09:17)
[2018-01-09] MEDS: Multivit, Therapeutic 1 TAB PO SCH (09:17)
[2018-01-09] MEDS: Doxycycline 100 MG CAP PO SCH (09:17)
[2018-01-09] MEDS: Aspirin 81 mg Enteric Coated Tablet PO SCH (09:17)
[2018-01-09] MEDS: Saccharomyces boulardii 250 MG CAP PO SCH (09:17)
[2018-01-09] MEDS: Amoxicillin/Potassium Clav 400 mg/5 ml Oral Suspension PO SCH ×3 (10:07→20:49)
[2018-01-09] MEDS: Magnesium Chloride 64 MG TAB PO SCH ×2 (10:07→20:49)
[2018-01-09] MEDS ORDERED: Furosemide 40 MG/4 ML VIAL ONE (13:28)
--- NOTE | 2018-01-09 13:35 | PDOC.PN ---
- Subjective Encounter Start Date: 01/09/18 Encounter Start Time: 13:33 Ms. Soria was seen today in follow-up of acute respiratory failure. She says that she "can't breath". She appears anxious. Her oxygen saturations are 95 % on 2 Liters. She also complains of some chest pain as well. - Objective Resuscitation Status: Resuscitation Status DNR:Do Not Resuscitate MAR Reviewed: Yes Vital Signs & Weight: Vital Signs (12 hours) Temp Pulse Resp BP Pulse Ox 01/09/18 11:52 98.5 F 112 H 24 H 160/91 H 98 01/09/18 11:15 120 H 38 H 99 01/09/18 07:13 98.2 F 98 24 H 166/82 H 98 01/09/18 06:49 90 L 01/09/18 06:46 90 24 H 01/09/18 06:15 98.3 F 97 14 166/83 H 93 L 01/09/18 04:25 98.3 F 102 H 27 H 161/86 H 89 L 01/09/18 03:44 92 L 01/09/18 03:43 93 L Weight Admit Weight 126 lb 2 oz Weight 150 lb I&O: 01/08/18 01/09/18 01/10/18 06:59 06:59 06:59 Intake Total 3290 1030 1030 Output Total 825 650 950 Balance 2465 380 80 Result Diagrams: 01/08/18 05:06 01/09/18 08:13 Phys Exam - Physical Examination HEENT: PERRLA Respiratory: no wheezing, no rhonchi + rales at both bases, good air movement Cardiovascular: RRR, no significant murmur, no rub tachycardic Gastrointestinal: soft, non-tender, no distention, positive bowel sounds Musculoskeletal: edema present + non-pitting edema Neurological: non-focal Dx/Plan (1) Aspiration pneumonia Code(s): J69.0 - PNEUMONITIS DUE TO INHALATION OF FOOD AND VOMIT Status: Acute (2) Acute respiratory failure with hypoxia Code(s): J96.01 - ACUTE RESPIRATORY FAILURE WITH HYPOXIA Status: Acute (3) CAD (coronary artery disease) Code(s): I25.10 - ATHSCL HEART DISEASE OF [place] CORONARY ARTERY W/O ANG PCTRS Status: Acute (4) COPD (chronic obstructive pulmonary disease) Status: Chronic (5) HTN (hypertension) Code(s): I10 - ESSENTIAL (PRIMARY) HYPERTENSION Status: Chronic Qualifiers: Hypertension type: essential hypertension Qualified Code(s): I10 - Essential (primary) hypertension - Plan * Ms. Soria has become acutely short of breath- I suspect this may be due to volume overload- will give a dose of Lasix now, and re-assess * Chest pain- it is reproducible, and I doubt this is related to an acute coronary event- will check a serial troponins * Aspiration pneumonia- continue Augmentin * Acute renal failure- resolved * Hypokalemia, and hypophosphatemia- improved.
[2018-01-09] MEDS: Nitroglycerin 2% Ointment 1 INCH/1 GM Packet TOP SCH ×2 (15:22→22:00)
[2018-01-09 15:49] LABS: Troponin I 0.032 ng/mL (< 0.028)
[2018-01-09] MEDS ORDERED: Metoprolol Tartrate 5 MG/5 ML VIAL IVP SCH (16:45)
[2018-01-09] MEDS: Azelastine 137 MCG/Spray 30 ML NS SCH (16:55)
[2018-01-09] MEDS: Nicotine 14 MG PATCH TD SCH (16:56)
[2018-01-09] MEDS: Nystatin 500,000 UNITS/5 ML UDCUP SSW SCH ×2 (17:00→20:55)
[2018-01-09 18:31] LABS: Troponin I 0.081 ng/mL (< 0.028)
--- NOTE | 2018-01-09 18:50 | PDOC.EVN ---
Event Note - Event Note Event Note: Patient was re-assessed, and is breathing much easier. She feels less short of breath. Lungs are clear. will re-start her long acting beta-agonist, and cardizem. Re-check her electrolytes in the AM.
[2018-01-09] MEDS ORDERED: Non-Formulary Item 1 EACH (Budesonide-Formoterol [Symbicort 160-4.5] 2 PUFF) INH SCH (20:30)
[2018-01-09] MEDS ORDERED: Mometasone/Formoterol 120 PUFF INHALER INH SCH (20:30)
[2018-01-09] MEDS: Famotidine 20 MG TAB PO SCH (20:49)
[2018-01-09] MEDS ORDERED: clonazePAM 1 MG TAB PO SCH (21:00)
[2018-01-09] MEDS: Ondansetron HCl/PF 4 MG/2 ML Vial IVP PRN (23:23)
[2018-01-10] MEDS: Nitroglycerin 2% Ointment 1 INCH/1 GM Packet TOP SCH (05:53)
[2018-01-10 05:54] LABS: Anion Gap 13 mmol/L (10-20); BUN (Urea Nitrogen) 13 mg/dL (9.8-20.1); Calc. Creatinine Clearance 90 mL/min (70-130); Calcium 8.5 mg/dL (7.8-10.44); Carbon Dioxide 21 mmol/L (23-31); Chloride 106 mmol/L (98-107); Estimated GFR-MDRD Greater than 90; Glucose 85 mg/dL (80-115); Sodium 136 mmol/L (136-145)
[2018-01-10] MEDS ORDERED: Mometasone/Formoterol 120 PUFF INHALER INH SCH (06:30)
[2018-01-10] MEDS ORDERED: Ferrous Gluconate 324 MG TAB PO SCH (08:00)
[2018-01-10] MEDS: Clopidogrel Bisulfate 75 MG TAB PO SCH (08:13)
[2018-01-10] MEDS: predniSONE 20 MG TAB PO SCH (08:13)
[2018-01-10] MEDS: Aspirin 81 mg Enteric Coated Tablet PO SCH (08:13)
[2018-01-10] MEDS: Nystatin 500,000 UNITS/5 ML UDCUP SSW SCH ×2 (08:14→13:59)
[2018-01-10] MEDS: Saccharomyces boulardii 250 MG CAP PO SCH (08:14)
[2018-01-10] MEDS: Multivit, Therapeutic 1 TAB PO SCH (08:14)
[2018-01-10] MEDS: clonazePAM 0.5 MG TAB PO PRN (08:16)
[2018-01-10] MEDS ORDERED: Potassium Chloride 10 MEQ TAB PO SCH (09:00)
[2018-01-10] MEDS ORDERED: Fluticasone Propionate Nasal Spray 16 gm Bottle NASAL SCH (09:00)
[2018-01-10] MEDS ORDERED: Rosuvastatin 10 MG TAB PO SCH (09:00)
[2018-01-10] MEDS ORDERED: Amlodipine 10 MG TAB PO SCH (09:00)
[2018-01-10] MEDS ORDERED: Lisinopril 5 MG TAB PO SCH (09:00)
[2018-01-10] MEDS ORDERED: Furosemide 20 MG TAB PO SCH (09:00)
--- NOTE | 2018-01-10 10:55 | PDOC.PN ---
- Subjective Encounter Start Date: 01/10/18 Encounter Start Time: 10:53 Ms. Soria was seen today in follow-up of acute respiratory failure. She is doing better this morning. She is breathing easier, and denies any chest pain. She is still very anxious, and is requesting " her Klonopin". She had just received a dose this morning. She is not complaining of pain this morning. - Objective Resuscitation Status: Resuscitation Status DNR:Do Not Resuscitate MAR Reviewed: Yes Vital Signs & Weight: Vital Signs (12 hours) Temp Pulse Resp BP Pulse Ox 01/10/18 08:16 106 H 01/10/18 08:14 106 H 01/10/18 08:13 106 H 01/10/18 08:09 98.0 F 106 H 19 138/84 92 L 01/10/18 07:30 90 L 01/10/18 07:24 93 18 90 L 01/10/18 04:00 98.1 F 102 H 19 138/83 92 L 01/10/18 03:00 98 01/10/18 00:00 98.0 F 103 H 20 138/77 92 L 01/09/18 23:00 98 Weight Admit Weight 126 lb 2 oz Weight 139 lb I&O: 01/09/18 01/10/18 01/11/18 06:59 06:59 06:59 Intake Total 1030 1270 Output Total 650 2250 Balance 380 -980 Result Diagrams: 01/08/18 05:06 01/10/18 05:13 Phys Exam - Physical Examination HEENT: PERRLA Respiratory: no rales, no rhonchi, wheezing present, clear to auscultation bilateral + occasional wheeze, no rales Cardiovascular: RRR, no significant murmur, no rub no gallop, heart rate is slightly tachycardic Gastrointestinal: soft, non-tender, no distention, positive bowel sounds Musculoskeletal: edema present + generalized edema Psychiatric: A&O x 3 Deviation from normal: anxious Skin: no rash Deviation from normal: + bruising on both upper and lower extremities Dx/Plan (1) Aspiration pneumonia Code(s): J69.0 - PNEUMONITIS DUE TO INHALATION OF FOOD AND VOMIT Status: Acute (2) Acute and chronic respiratory failure with hypoxia Code(s): J96.21 - ACUTE AND CHRONIC RESPIRATORY FAILURE WITH HYPOXIA Status: Acute (3) CAD (coronary artery disease) Code(s): I25.10 - ATHSCL HEART DISEASE OF [place] CORONARY ARTERY W/O ANG PCTRS Status: Acute (4) COPD (chronic obstructive pulmonary disease) Status: Chronic (5) HTN (hypertension) Code(s): I10 - ESSENTIAL (PRIMARY) HYPERTENSION Status: Chronic Qualifiers: Hypertension type: essential hypertension Qualified Code(s): I10 - Essential (primary) hypertension - Plan * Aspiration pneumonia- slowly improving, continue Augmentin * COPD with exacerbation- Dulera was started, and continue Duonebs as needed * HTN- blood pressure is better * CAD- stable.
[2018-01-10] MEDS: Magnesium Chloride 64 MG TAB PO SCH (11:22)
[2018-01-10] MEDS: Amoxicillin/Potassium Clav 400 mg/5 ml Oral Suspension PO SCH (11:22)
[2018-01-10 14:57] VITALS: BP 132/81; TEMP 99.1
--- NOTE | 2018-01-10 19:43 | DIS ---
PRIMARY CARE PROVIDER: Jagdeep Palomo MD DATE OF AMDISSION: 01/05/2018 DATE OF DISCHARGE: 01/10/2018 DISCHARGE DISPOSITION: To the [facility] in [place], [place]. DISCHARGE DIAGNOSES: 1. Aspiration pneumonia. 2. Acute on chronic respiratory failure with hypoxemia. 3. Chronic obstructive pulmonary disease with exacerbation. 4. Hypertension. 5. Chronic respiratory failure on home oxygen. 6. Coronary artery disease. 7. Chronic kidney disease stage 2. 8. Hypothyroidism. DISCHARGE MEDICATIONS: Please note that some of her medications were held due to the sedating effect s and there was some concern that these medications may have contributed to some of her respiratory d epression. Therefore, gabapentin was held, Tylenol No. 4 was held, and hydroxyzine was held. During this hospital course, these can be restarted at the discretion of her at the accepting physician. S he was also placed on Augmentin 400 mg per 5 mL t.i.d. for 5 more days, aspirin 81 mg daily, Tessalon Perles 100 mg q.4 hours as needed, Symbicort 160/4.5 two puffs twice a day, Klonopin was reduced to 0.5 mg q.8 hours as needed, Plavix 75 mg daily, Fergon 324 mg twice a day, Flonase nasal spray daily, Theragran once a day, potassium chloride 20 mEq daily, Florastor 250 mg daily, Zoloft 50 mg daily, C restor 10 mg daily, lisinopril 5 mg daily, Lasix 20 mg daily, Nexium 40 mg daily, Cardizem 120 mg reji ly, and amlodipine 10 mg a day. CODE STATUS: DNR. ALLERGIES: CLONIDINE, HYDROMORPHONE, and MORPHINE. HOSPITAL COURSE: Ms. Soria is a pleasant 72-year-old female, who was recently admitted to our [facility] for a ST segment elevated OR. She was treated, had a stent placed and then was discharged to the swing bed in [place] and transition to home. During her time at home, she apparently had been t o the emergency room and had been placed on hospice; however, she revoked hospice on this admission a nd was admitted due to complaints of shortness of breath. She was found to have probable aspiration pneumonia. She also was found to have hypokalemia and hypophosphatemia. These were corrected and he r aspiration pneumonia was treated. Please note, once again some of the sedating medications were he ld, which could possibly contribute to some of the risk for aspiration. She improved over the course of the next couple of days will be transitioned back to the swing bed in [place] for further treat ment of the aspiration pneumonia and also for continued physical therapy. The patient is at high ris k for readmission due to her multiple chronic medical conditions.
--- NOTE | 2018-01-10 20:21 | EKG ---
Test Reason : Blood Pressure : / mmHG Vent. Rate : 114 BPM Atrial Rate : 114 BPM P-R Int : 160 ms QRS Dur : 090 ms QT Int : 314 ms P-R-T Axes : 041 000 -80 degrees QTc Int : 432 ms Sinus tachycardia Inferior infarct (cited on or before 22-DEC-2017) Anterior infarct , age undetermined Abnormal ECG When compared with ECG of 04-JAN-2018 11:46, (Unconfirmed) Anterior infarct is now Present T wave inversion less evident in Inferior leads Confirmed by Jose De Jesus MEYER ([id number]) on 01/10/2018 8:21:15 PM Referred By: NATALIE Confirmed By:Jose De Jesus MEYER
== END 2018-01-10 15:02 | DRG 871 ==
LOC: 2NO 17:24 → CCU 01-07 08:00 → 2NO 01-07 08:05 → 2SW 01-09 05:57 → 2NO 01-09 16:46
PROVIDERS: ADMIT Internal Medicine; ATTEND Internal Medicine
DX: A41.9 Sepsis, unspecified organism (principal); J69.0 Pneumonitis due to inhalation of food and vomit; J96.21 Acute and chronic respiratory failure with hypoxia; N17.9 Acute kidney failure, unspecified; M62.82 Rhabdomyolysis; I24.8 Other forms of acute ischemic heart disease; E44.0 Moderate protein-calorie malnutrition; E87.2 Acidosis; I50.32 Chronic diastolic (congestive) heart failure; I13.0 Hypertensive heart and chronic kidney disease with heart failure and stage 1 through stage 4 chronic kidney disease, or unspecified chronic kidney disease; Z68.25 Body mass index [BMI] 25.0-25.9, adult; N18.2 Chronic kidney disease, stage 2 (mild); R65.20 Severe sepsis without septic shock; J44.9 Chronic obstructive pulmonary disease, unspecified; I25.10 Atherosclerotic heart disease of native coronary artery without angina pectoris; Z95.5 Presence of coronary angioplasty implant and graft; F17.210 Nicotine dependence, cigarettes, uncomplicated; E78.5 Hyperlipidemia, unspecified; I25.2 Old myocardial infarction; G89.4 Chronic pain syndrome; Z99.81 Dependence on supplemental oxygen; E03.9 Hypothyroidism, unspecified; Z88.5 Allergy status to narcotic agent; Z88.8 Allergy status to other drugs, medicaments and biological substances; Z79.899 Other long term (current) drug therapy; Z66 Do not resuscitate; E86.0 Dehydration; D64.9 Anemia, unspecified; K27.9 Peptic ulcer, site unspecified, unspecified as acute or chronic, without hemorrhage or perforation; E87.6 Hypokalemia; E83.39 Other disorders of phosphorus metabolism
CPT/HCPCS: 36415; 51702; 71045; 74018; 80048; 80053; 80202; 82010; 82533; 82550; 82553; 82805; 83605; 83735; 83880; 84100; 84132; 84484; 85025; 86140; 87040; 87077; 87086; 87186; 87324; 87449; 93005; 93010; 94640; 94660; 94664; 94760; 96374; 96375; A4216; G8978-GP-CM; G8979-GP-CK; G8987-GO-CM; G8988-GO-CJ; G8996-GN-CL; G8997-GN-CJ; J1644; J1720; J1940; J2060; J2405; J2543; J3010; J3370; J3480; J7050; J7070; J7506; J7620; Q0162

== ENCOUNTER 2018-09-16 09:42 | Outpatient (CLI) | payer MEDICARE, OTHER ==
--- NOTE | 2018-09-16 10:32 | MMO ---
Bilateral MAMMO Bilat Screen [facility]. CLINICAL HISTORY: Patient is 73 years old and is seen for screening. The patient has no family history of breast cancer. The patient has no personal history of cancer. VIEWS: The views performed were: bilateral craniocaudal with tomosynthesis and bilateral mediolateral oblique with tomosynthesis. FILMS COMPARED: The present examination has been compared to prior imaging studies performed at [facility] on 05/03/2010 and 05/05/2011. MAMMOGRAM FINDINGS: There are scattered fibroglandular densities. There are no suspicious masses, suspicious calcifications, or new areas of architectural distortion. IMPRESSION: THERE IS NO MAMMOGRAPHIC EVIDENCE OF MALIGNANCY. A ROUTINE FOLLOW-UP MAMMOGRAM IN 1 YEAR IS RECOMMENDED. THE RESULTS OF THIS EXAM WERE SENT TO THE PATIENT. ACR BI-RADS Category 1 - Negative MAMMOGRAPHY NOTE: 1. A negative mammogram report should not delay a biopsy if a dominant of clinically suspicious mass is present. 2. Approximately 10% to 15% of breast cancers are not detected by mammography. 3. Adenosis and dense breasts may obscure an underlying neoplasm.
== END 2018-09-16 09:43 | disposition home or self-care (01) ==
LOC: BICMAMMO 09:42
PROVIDERS: ATTEND Family Medicine
DX: Z12.31 Encounter for screening mammogram for malignant neoplasm of breast (principal)
CPT/HCPCS: 77063; 77067

== ENCOUNTER 2018-10-26 14:04 | Observation (INO) | payer MEDICARE ==
[2018-10-26 15:14] LABS: #Eosinphils 0.1 thou/uL (0.0-0.7); #Monocytes 0.5 thou/uL (0.11-0.59); #Neutrophils 3.7 thou/uL (1.40-6.50); %Basophils 0.4 % (0.0-1.0); %Eosinophils 1.4 % (0.0-10.0); %Lymphocytes 31.3 % (21.0-51.0); %Monocytes 7.7 % (0.0-10.0); %Neutrophils 59.3 % (42.0-75.0); Hemoglobin 13.5 g/dL (12.0-16.0); Mean Corpuscular HGB CONC 33.1 g/dL (32.0-36.0); Mean Corpuscular Hemoglobin 32.1 pg (27.0-31.0); Mean Corpuscular Volume 96.9 fL (78.0-98.0); Mean Platelet Volume 9.6 fL (7.4-10.4); Platelet Count 162 thou/uL (130-400); RBC Distribution Width 12.5 % (11.5-14.5); White Blood Cell (WBC) Count 6.2 thou/uL (4.8-10.8)
[2018-10-26] MEDS ORDERED: Fentanyl 100 MCG/2 ML VIAL ONE ×3 (15:18→16:49)
[2018-10-26 15:37] LABS: ALT (SGPT) 170 U/L (8-55); AST (SGOT) 280 U/L (5-34); Albumin 4.2 g/dL (3.4-4.8); Alkaline Phosphatase 194 U/L (40-150); Anion Gap 12 mmol/L (10-20); BUN (Urea Nitrogen) 18 mg/dL (9.8-20.1); Bilirubin, Total 0.4 mg/dL (0.2-1.2); Calc. Creatinine Clearance 0 mL/min (70-130); Calcium 9.9 mg/dL (7.8-10.44); Carbon Dioxide 22 mmol/L (23-31); Chloride 101 mmol/L (98-107); Estimated GFR-MDRD 66; Globulin 3.4 g/dL (2.4-3.5); Glucose 96 mg/dL (83-110); Potassium 5.2 mmol/L (3.5-5.1); Protein, Total 7.6 g/dL (6.0-8.3); Sodium 130 mmol/L (136-145)
--- NOTE | 2018-10-26 15:41 | RAD ---
EXAM: LEFT KNEE TWO VIEWS: 10/26/18 HISTORY: Trip and fall in hospital with injury. Irregular, possibly slightly comminuted mostly transverse fracture of the patella with evidence for j oint effusion. IMPRESSION: Patellar fracture, minimally displaced without significant malalignment. Evidence for knee joint effu laura. POS: RRE
--- NOTE | 2018-10-26 15:42 | RAD ---
LEFT KNEE TWO VIEWS: 10/26/18 HISTORY: Injury following a fall. Comminuted fracture of the patella with minimal displacement but without significant malalignment. De generative and osteoarthrosis changes. IMPRESSION: Comminuted fracture of the patella. POS: RRE
--- NOTE | 2018-10-26 15:45 | RAD ---
RADIOGRAPH LEFT HIP TWO VIEWS: 10/26/18 HISTORY: 73-year-old female with acute traumatic left hip pain due to fall. FINDINGS: Metallic acetabular cup articulates with metallic femoral head prosthesis with stem that reaches junc tion between the proximal and middle thirds of proximal femoral diaphysis. No hardware loosening. No dislocation. No acute fracture identified. IMPRESSION: 1. Status post total left hip replacement arthroplasty. 2. No evidence of acute complications. POS: CET
--- NOTE | 2018-10-26 15:46 | RAD ---
AP PELVIS ONE VIEW: 10/26/18 HISTORY: Injury following a trip and fall. Left total hip replacement. No evidence for acute fracture or dislocation. Postop changes at L5-S1. B one demineralization. IMPRESSION: No evidence for acute pelvic fracture. Total left hip replacement. Postop changes at L5-S1. No acute pelvic fracture. POS: RRE
[2018-10-26 17:05] LABS: Bilirubin Negative (Negative); Blood, Urine Negative (Negative); Clarity Clear (Clear); Glucose, Urine (Dipstick) Normal (Negative); Leukocyte Negative Leu/uL (Negative); Nitrite Negative (Negative); Protein, Urine (Dipstick) Negative (Neg-Trace); Urobilinogen Normal mg/dL (Less than 2)
[2018-10-26] MEDS ORDERED: HYDROcodone/Acetaminophen 10/325 mg Tablet ONE (18:22)
--- NOTE | 2018-10-26 18:30 | RAD ---
PORTABLE CHEST: 10/26/18 HISTORY: Fall. Chest pain. COMPARISON: 01/07/18. Lungs show no evidence of infiltrate or effusion. Large calcified nodule in the right mid lung again noted. Heart size is upper normal and stable. Vascular markings are within normal limits. Osseous st ructures appear intact. IMPRESSION: No acute process. POS: H
[2018-10-26] MEDS ORDERED: clonazePAM 1 MG TAB ONE (19:32)
[2018-10-26] MEDS ORDERED: Nicotine 14 MG PATCH TOP SCH (21:00)
[2018-10-26] MEDS ORDERED: Ketorolac Tromethamine 30 MG/ML VIAL ONE (21:39)
[2018-10-26] MEDS ORDERED: Dextrose 50% Abboject 50 ML SYRINGE SLOW IVP PRN (22:53)
[2018-10-26] MEDS ORDERED: Ondansetron ODT 4 MG TAB PO PRN (22:53)
[2018-10-26] MEDS ORDERED: Ondansetron PF 4 MG/2 ML Vial IVP PRN (22:53)
[2018-10-26] MEDS ORDERED: Cyclobenzaprine 10 MG TAB PO PRN (22:53)
[2018-10-26] MEDS ORDERED: hydrALAZINE 20 MG/ML VIAL SLOW IVP PRN (22:53)
[2018-10-26] MEDS ORDERED: Dextrose 5% in Water 1,000 ML IV PRN (22:53)
[2018-10-26] MEDS ORDERED: Sodium Chloride 0.9% 1,000 ML IV SCH (22:53)
[2018-10-26] MEDS ORDERED: traMADol HCl 50 MG TAB PO PRN ×2 (22:53)
[2018-10-26] MEDS ORDERED: Famotidine 20 MG TAB PO SCH (23:00)
[2018-10-26] MEDS ORDERED: Acetaminophen/Codeine 30-300mg Tablet PO PRN ×2 (23:10→23:33)
[2018-10-26] MEDS ORDERED: Furosemide 20 MG TAB PO PRN (23:10)
[2018-10-26] MEDS ORDERED: ACETAMINOPHEN WITH CODEINE PO PRN (23:20)
[2018-10-26] MEDS: Ibuprofen 200 MG TAB PO SCH (23:38)
--- NOTE | 2018-10-26 23:50 | HP ---
REQUESTING PHYSICIAN: Dr. De Anda. CONSULTATIONS: Orthopedics, Dr. Carnes. HISTORY OF PRESENT ILLNESS: The patient is a 73-year-old woman, who was here in the hospital visiting her son when she tripped, which she believed over her own shoe causing a fall, landing on both of her knees. She was brought to the emergency room, where she underwent evaluation and examination and was noted to have bilateral patella fractures. The patient denied any syncopal episodes before or after her fall. Denies any loss of consciousness. This was a witnessed fall and this was confirmed. The patient's case was discussed with Orthopedics, who stated that these will be treated nonoperatively. The patient was admitted for pain control and placement for ambulation. The patient desires to go to [facility] bed where she has been previously after hip surgery and ankle surgery. ALLERGIES: CLONIDINE, DILAUDID, AND MORPHINE. THE PATIENT DOES NOT REMEMBER WHAT HAPPENS WITH THE CLONIDINE, STATES THAT DILAUDID AND MORPHINE MAKE HER "CRAZY". CURRENT MEDICATIONS: 1. Tylenol #4. 2. Lisinopril. 3. Amlodipine. 4. Crestor. 5. Zoloft. 6. Klonopin. PAST MEDICAL HISTORY: Migraine headaches, COPD, hyperlipidemia, hypertension, diverticulosis, dyspepsia, anxiety, depression, chronic pain. PAST SURGICAL HISTORY: Left hip replacement, left ankle surgery, lower back surgery, appendectomy, cholecystectomy, partial hysterectomy. SOCIAL HISTORY: The patient smokes approximately half pack to a pack of cigarettes per day. She states that she is continuing to cut down. Denies drug or alcohol abuse. She lives independently at home alone. REVIEW OF SYSTEMS: A 10-point review of systems is negative as otherwise stated. PHYSICAL EXAMINATION: VITAL SIGNS: Blood pressure 161/90, heart rate 84, respirations 20, oxygen saturation 97% on room air, and temperature is 97.6. GENERAL: The patient is resting comfortably in the ER bed. She is awake, alert, and oriented x3. Andrei Coma Scale is 15. HEENT. Head is normocephalic, atraumatic. Eyes, extraocular motion intact. PERRLA bilaterally. Ears are atraumatic without discharge. Nose atraumatic without discharge. Oropharynx is clear. NECK: Nontender. Trachea is midline. There is no JVD. CHEST: Clear to auscultation with good inspiratory and expiratory efforts. HEART: Regular rate and rhythm. ABDOMEN: Soft, flat, nontender with active bowel sounds. PELVIS: Stable. EXTREMITIES: Bilateral lower extremities are neurovascularly intact. Both anterior patella show moderate amount of swelling and contusion. Bilateral upper extremities are neurovascularly intact. Left upper extremity has contusion to the olecranon process, but has full range of motion. Strength in all extremities is 5/5. BACK: Atraumatic. LABORATORY FINDINGS: White blood cell count 6.2, hemoglobin 13.5, hematocrit 40.6, platelets 162. Sodium 130, potassium 5.2, chloride 101, CO2 22, BUN 18, creatinine 0.85, glucose 96, total bilirubin 0.4, AST 280, ALT 170, alkaline phosphatase 194. Urinalysis is unremarkable. RADIOGRAPHIC REPORTS: AP chest x-ray shows no acute process. AP pelvis shows no evidence for acute pelvic fractures. Two views of the left knee show patellar fracture minimally displaced without significant malalignment. There is evidence for knee effusion. Two views of the right patella show a comminuted fracture of the patella. Views of the left hip show no evidence of acute fracture or complications, status post left hip replacement. ASSESSMENT: 1. Status post ground level fall. 2. Bilateral patella fractures. 3. Acute on chronic pain. 4. Hyponatremia. 5. History of chronic obstructive pulmonary disease, not oxygen-dependent, rarely uses inhaler. 6. History of hypertension. PLAN: Plan will be to admit the patient to the surgical floor for pain control, physical therapy and occupational therapy, and discussed with Case Management placement to [facility] to continue her care. We will have Orthopedics also see her tomorrow to ensure that the plan has not changed. We will resume her home medications. We will work on pain control in light of her chronic narcotic use. We will work towards getting her comfortable to work with therapy. Evaluation, examination, laboratory, and radiographic findings were discussed with Dr. Nance prior to this dictation. Job ID: [id number]
[2018-10-26] MEDS: Acetaminophen/Codeine 30-300mg Tablet PO PRN (23:52)
[2018-10-26] MEDS ORDERED: Ibuprofen 600 MG TAB PO SCH (23:59)
[2018-10-26] MEDS ORDERED: Acetaminophen 500 MG TAB PO SCH (23:59)
[2018-10-27 00:15] VITALS: BMI 25.1
[2018-10-27 05:22] LABS: #Eosinphils 0.1 thou/uL (0.0-0.7); #Lymphocytes 1.4 thou/uL (1.20-3.40); #Monocytes 0.5 thou/uL (0.11-0.59); #Neutrophils 2.1 thou/uL (1.40-6.50); %Basophils 0.1 % (0.0-1.0); %Eosinophils 2.1 % (0.0-10.0); %Lymphocytes 34.2 % (21.0-51.0); %Monocytes 11.5 % (0.0-10.0); %Neutrophils 52.1 % (42.0-75.0); Hemoglobin 11.5 g/dL (12.0-16.0); Mean Corpuscular HGB CONC 32.7 g/dL (32.0-36.0); Mean Corpuscular Hemoglobin 31.9 pg (27.0-31.0); Mean Corpuscular Volume 97.7 fL (78.0-98.0); Mean Platelet Volume 9.3 fL (7.4-10.4); Platelet Count 134 thou/uL (130-400); RBC Distribution Width 12.4 % (11.5-14.5); Red Blood Cell (RBC) Count 3.61 mill/uL (4.20-5.40)
[2018-10-27] MEDS: Acetaminophen/Codeine 30-300mg Tablet PO PRN (05:34)
[2018-10-27 05:41] LABS: Anion Gap 10 mmol/L (10-20); BUN (Urea Nitrogen) 14 mg/dL (9.8-20.1); Calc. Creatinine Clearance 73 mL/min (70-130); Calcium 8.6 mg/dL (7.8-10.44); Carbon Dioxide 21 mmol/L (23-31); Chloride 109 mmol/L (98-107); Estimated GFR-MDRD 87; Glucose 83 mg/dL (83-110); Magnesium 1.9 mg/dL (1.6-2.6); Potassium 4.3 mmol/L (3.5-5.1); Sodium 136 mmol/L (136-145)
[2018-10-27 05:43] LABS: Phosphorus 4.3 mg/dL (2.3-4.7)
[2018-10-27] MEDS ORDERED: Non-Formulary Item 1 EACH (Budesonide-Formoterol [Symbicort 160-4.5] 2 PUFF) INH SCH (06:30)
[2018-10-27] MEDS: Mometasone/Formoterol 120 PUFF INHALER INH SCH ×2 (07:38→18:43)
[2018-10-27] MEDS ORDERED: Ibuprofen 600 MG TAB PO SCH (07:45)
[2018-10-27] MEDS ORDERED: Acetaminophen/Codeine 30-300mg Tablet PO PRN ×2 (08:06→08:08)
[2018-10-27] MEDS: Aspirin Chewable 81 MG TAB PO SCH ×2 (08:22→21:09)
[2018-10-27] MEDS: Potassium Chloride 10 MEQ TAB PO SCH (08:22)
[2018-10-27] MEDS: Ibuprofen 200 MG TAB PO SCH ×2 (08:22→15:40)
[2018-10-27] MEDS: Famotidine 20 MG TAB PO SCH ×2 (08:22→21:09)
[2018-10-27] MEDS: Amlodipine 10 MG TAB PO SCH (08:23)
[2018-10-27] MEDS: Ferrous Gluconate 324 MG TAB PO SCH ×2 (08:23→18:49)
[2018-10-27] MEDS: Gabapentin 100 MG CAP PO SCH ×3 (08:23→21:09)
[2018-10-27] MEDS: clonazePAM 1 MG TAB PO PRN ×2 (08:29→22:09)
[2018-10-27 08:34] LABS: ALT (SGPT) 443 U/L (8-55); AST (SGOT) 554 U/L (5-34); Albumin 3.3 g/dL (3.4-4.8); Alkaline Phosphatase 222 U/L (40-150); Bilirubin, Direct 0.4 mg/dL (0.1-0.3); Bilirubin, Total 0.7 mg/dL (0.2-1.2); Protein, Total 5.7 g/dL (6.0-8.3)
[2018-10-27] MEDS ORDERED: Acetaminophen/Codeine 30-300mg Tablet PO SCH ×2 (08:45)
[2018-10-27] MEDS ORDERED: Aspirin Chewable 81 MG TAB PO SCH (09:00)
[2018-10-27] MEDS ORDERED: Clopidogrel Bisulfate 75 MG TAB PO SCH (09:00)
[2018-10-27] MEDS ORDERED: oxyCODONE 5 MG TAB PO SCH (10:45)
[2018-10-27] MEDS: oxyCODONE 5 MG TAB PO SCH ×3 (13:44→21:10)
[2018-10-27] MEDS: Fluticasone Propionate Nasal Spray 16 gm Bottle NASAL SCH (15:34)
--- NOTE | 2018-10-27 15:58 | PRG ---
DATE OF SERVICE: 10/27/2018 SUBJECTIVE: This is a 73-year-old female, who came in for evaluation of bilateral knee pain after ground level fall. The patient was diagnosed with bilateral patella fracture. Orthopedic saw her yesterday and decided nonoperative treatment. The patient has a history of chronic jaw pain, back pain, hip pain, knee pain, and chronic Tylenol No. 3 using. On her labs, LFT was elevated. Repeat LFT this morning is fine. Dr. Bauer decided to stop Tylenol and rosuvastatin and replace pain medication by oxycodone and tramadol p.r.n. The patient requests [place] swing bed due to her previous hip and ankle surgery. 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 OBJECTIVE: GENERAL: The patient is alert and oriented x3, in mild distress due to pain. She reports pain during round this morning. VITAL SIGNS: Temperature 97, heart rate is 74, respiratory rate 16, O2 saturations are 97% on room air, blood pressure is 137/76. LUNGS: Clear bilaterally. CARDIAC: Regular rate and rhythm. ABDOMEN: Soft and nondistended. Bowel sounds are normal. EXTREMITIES: Neurovascularly intact. Limited range of motion due to pain to lower extremities. Upper extremities, normal range of motion. ASSESSMENT: 1. Status post ground level fall. 2. Bilateral patella fracture, on nonoperative treatment. 3. Elevated LFT, possibly due to chronic Tylenol use and rosuvastatin. PLAN: Continue to monitor her pain level and pain control. Continue to stop acetaminophen and rosuvastatin. Monitor LFT. ornamental iron worker is working on placement for the patient in [facility] bed. She will be able to discharge after pain was controlled and stable liver function. She is to work with PT/OT. We will continue DVT and gastritis prophylaxis. Job ID: [id number] [facility]
[2018-10-27] MEDS ORDERED: Nicotine 14 MG PATCH TOP SCH (21:00)
[2018-10-27] MEDS ORDERED: Lisinopril 5 MG TAB PO SCH (21:00)
[2018-10-27] MEDS ORDERED: Rosuvastatin 10 MG TAB PO SCH (21:00)
[2018-10-28] MEDS: Ibuprofen 200 MG TAB PO SCH ×3 (00:05→16:38)
[2018-10-28] MEDS: oxyCODONE 5 MG TAB PO SCH ×5 (00:05→16:38)
--- NOTE | 2018-10-28 00:14 | PRG ---
DATE OF SERVICE: 10/27/2018 SUBJECTIVE: The patient remains on the surgical floor. She is hospital day 2, status post ground level fall when she was here in the hospital visiting her son when she fell landing on her both knees and sustained nonoperative patella fractures. Today, she was worked with Physical and Occupational Therapy. She was able to ambulate approximately 75 feet. Her pain is controlled. She is tolerating a diet and she is awaiting placement decision. The patient's preference is to go to swing bed in [place]. OBJECTIVE: VITAL SIGNS: Stable. The patient is afebrile. GENERAL: She is resting comfortably in bed. She appears in no distress and has no complaints. EXTREMITIES: Her exam is unchanged. She has been fitted with hinged knee braces and her knee immobilizers have been removed. ASSESSMENT AND PLAN: 1. Status post ground level fall. 2. Status post bilateral patella fractures, nonoperative management. PLAN: Plan will be to continue physical and occupational therapies and await placement decision along with her supportive care. Job ID: [id number]
[2018-10-28 05:12] LABS: ALT (SGPT) 301 U/L (8-55); AST (SGOT) 181 U/L (5-34); Albumin 3.4 g/dL (3.4-4.8); Alkaline Phosphatase 236 U/L (40-150); Bilirubin, Direct 0.2 mg/dL (0.1-0.3); Bilirubin, Total 0.6 mg/dL (0.2-1.2); Protein, Total 5.9 g/dL (6.0-8.3)
[2018-10-28 05:34] LABS: HBCM Index 0.05 S/CO (0-0.79); HBSAg Index 0.26 S/CO (0-0.99); Hep A IgM AB Non-Reactive (NonReactive); Hep A IgM S/CO 0.25 S/CO (0-0.79); Hep B Surf Ag Non-Reactive S/CO (NonReactive); Hep C IgG Ab Non-Reactive (NonReactive); Hep C Index 0.24 S/CO (0-0.79); Hepatitis B Core IgM Abs Non-Reactive (NonReactive)
[2018-10-28] MEDS: Mometasone/Formoterol 120 PUFF INHALER INH SCH (08:09)
[2018-10-28] MEDS: Aspirin Chewable 81 MG TAB PO SCH (08:42)
[2018-10-28] MEDS: Ferrous Gluconate 324 MG TAB PO SCH ×2 (08:42→16:38)
[2018-10-28] MEDS: Famotidine 20 MG TAB PO SCH (08:43)
[2018-10-28] MEDS: Potassium Chloride 10 MEQ TAB PO SCH (08:43)
[2018-10-28] MEDS: Gabapentin 100 MG CAP PO SCH ×2 (08:43→14:46)
[2018-10-28] MEDS: Amlodipine 10 MG TAB PO SCH (08:43)
[2018-10-28] MEDS: clonazePAM 1 MG TAB PO PRN ×2 (08:51→16:38)
[2018-10-28] MEDS: Fluticasone Propionate Nasal Spray 16 gm Bottle NASAL SCH (08:52)
[2018-10-28] MEDS ORDERED: SUMAtriptan Succinate 50 MG TAB PO PRN (11:00)
[2018-10-28 15:28] VITALS: BP 151/83; TEMP 98.2
[2018-10-29] MEDS ORDERED: Furosemide 20 MG TAB PO SCH (09:00)
--- NOTE | 2018-10-29 14:47 | DIS ---
DATE OF ADMISSION: 10/26/2018 DATE OF DISCHARGE: 10/28/2018 ADMISSION DIAGNOSES: 1. Status post ground-level fall. 2. Bilateral patella fracture. 3. Acute on chronic pain. 4. Hyponatremia. 5. History of chronic obstructive pulmonary disease, not oxygen dependent. 6. History of hypertension. DISCHARGE DIAGNOSES: 1. Status post ground-level fall. 2. Bilateral patella fracture, nonoperation treatment. 3. Acute on chronic pain, stable. 4. Hyponatremia, resolved. 5. History of chronic obstructive pulmonary disease, stable. 6. History of hypertension. HOSPITAL COURSE: This is a 73-year-old female who comes in to the evaluation of bilateral knee pain after ground-level fall. The patient was diagnosed with bilateral patella fracture and history of chronic pain and hypertension, COPD. The patient is treating, supportive care. Bilateral patella fracture, is on nonoperative management. Pain is well controlled. While staying in the hospital, we found that her LFT elevated tremendously. Tylenol and rosuvastatin were discontinued. After discontinuation of Tylenol and rosuvastatin, her LFT decreased, trending down. The patient's status is stable. She developed no respiratory distress. Her pain was well controlled. She is able to tolerate regular diet. She is able to walk in short distance with PT/OT. The patient requests placement with swing bed in [place]. DISCHARGE DISPOSITION: [place] [facility] facility. DISCHARGE CONDITION: Satisfactory. PHYSICAL EXAMINATION: GENERAL: The patient is alert and awake, oriented x3. VITAL SIGNS: Blood pressure 110/60, O2 saturation 96% on room air, respiratory rate 20, heart rate 66, temperature 98. LUNGS: Clear bilaterally. HEART: Regular rate and rhythm. ABDOMEN: Soft, nondistended. Normal bowel sounds. EXTREMITIES: Upper extremity, normal range of motion. Neurovascularly intact. Lower extremity, below knee, mild tender to touch. Limited range of motion due to pain. INSTRUCTIONS DISCHARGE PLAN: The patient to continue to work with PT/OT. The patient to continue to take pain medication as directed. The patient needs to follow up with Dr. Robbie Bauer as needed. The patient needs to follow up with Dr. Ming Brown in 10 days. DISCHARGE MEDICATIONS: 1. Amlodipine. 2. Clonazepam. 3. Furosemide. 4. Lisinopril. 5. Sertraline. 6. Sumatriptan. 7. Aspirin. 8. Symbicort. 9. Flexeril. 10. Famotidine. 11. Ferrous gluconate. 12. Flonase. 13. Gabapentin. 14. Glucagon. 15. Ibuprofen. 16. Nicotine patch. 17. Oxycodone. 18. Tramadol p.r.n. Job ID: [id number] [facility]
--- NOTE | 2018-10-30 10:26 | CON ---
DATE OF CONSULTATION: 10/27/2018 CHIEF COMPLAINT: Bilateral knee pain. HISTORY OF PRESENT ILLNESS: Ms. Soria is a 73-year-old female, who was visiting her son in the hospital. She lost her balance and fell. She landed on a hard floor. She injured both of her knees. X-rays in the Emergency Department demonstrated nondisplaced bilateral patella fractures. She has been admitted to the hospital for placement because she is having great difficulty with mobilization. She has chronic back pain as well. She has been in the immobilizers. She is currently resting comfortably. No loss of consciousness. ALLERGIES: TO CLONIDINE, DILAUDID, AND MORPHINE. MEDICATIONS: Include; 1. Tylenol No. 4. 2. Lisinopril. 3. Amlodipine. 4. Crestor. 5. Zoloft. 6. Klonopin. PAST MEDICAL HISTORY: Includes migraine headaches, COPD, hyperlipidemia, hypertension, diverticulosis, dyspepsia, anxiety, depression, and chronic back pain. PAST SURGICAL HISTORY: Left hip arthroplasty, left ankle fracture surgery, lumbar back surgery, appendectomy, cholecystectomy, and hysterectomy. SOCIAL HISTORY: The patient smokes cigarettes. She denies alcohol or drug use. REVIEW OF SYSTEMS: Positive for bilateral knee pain. IMAGES: X-rays demonstrate bilateral patella fractures. These are minimally displaced, but do have comminution. There is no distraction of the fracture fragments. She has mild osteoarthritis. PHYSICAL EXAMINATION: VITAL SIGNS: Stable. The patient is afebrile. GENERAL: She is alert and oriented, lying supine, in no apparent distress. HEENT: Normocephalic and atraumatic. RESPIRATORY: Breathing comfortably. ABDOMEN: Soft, nontender, and nondistended. CARDIOVASCULAR: Pulses palpable and regular. MUSCULOSKELETAL: The bilateral legs are in lower extremity knee immobilizers. Her skin is intact anteriorly. She is able to flex and extend the feet and ankles. She has palpable dorsalis pedis pulses. Sensation is intact. IMPRESSION: Bilateral patella fractures, nondisplaced. PLAN: At this point, I will order hinged knee braces for the patient. She can be 0 to 30 degrees of range of motion. She can weightbear as tolerated, but will need assistance. She will likely need placement to rehab or a SNF. She will need physical therapy. She will need pain control. I would like to see her back in the clinic in 2 to 3 weeks for repeat x-rays. Job ID: [id number]
== END 2018-10-28 17:04 ==
LOC: ERS 14:04 → SURG A 20:13 → ERS 22:22
PROVIDERS: ADMIT Surgery; ATTEND Surgery
DX: S82.044A Nondisplaced comminuted fracture of right patella, initial encounter for closed fracture (principal); S82.045A Nondisplaced comminuted fracture of left patella, initial encounter for closed fracture; G43.909 Migraine, unspecified, not intractable, without status migrainosus; J44.9 Chronic obstructive pulmonary disease, unspecified; E78.5 Hyperlipidemia, unspecified; I10 Essential (primary) hypertension; F41.9 Anxiety disorder, unspecified; F32.9 Major depressive disorder, single episode, unspecified; G89.29 Other chronic pain; F17.210 Nicotine dependence, cigarettes, uncomplicated; E87.1 Hypo-osmolality and hyponatremia; R79.89 Other specified abnormal findings of blood chemistry; Z79.899 Other long term (current) drug therapy; Z88.5 Allergy status to narcotic agent; Z88.8 Allergy status to other drugs, medicaments and biological substances; Z96.642 Presence of left artificial hip joint; Z98.890 Other specified postprocedural states; W01.0XXA Fall on same level from slipping, tripping and stumbling without subsequent striking against object, initial encounter
CPT/HCPCS: 71045; 72170; 73502; 73560 ×2; 80048; 80053; 80074; 80076 ×2; 81003; 83735; 84100; 85025 ×2; 93005; 94640 ×2; 94664; 96360; 96361 ×2; 96374; 96375; 96376; 97110; 97116 ×2; 97139 ×4; 97535; 99285; G0378 ×3; 36415; G0390; J1885; J3010

== ENCOUNTER 2019-09-19 09:54 | Observation (INO) | payer MEDICARE, OTHER ==
[2019-09-19] MEDS ORDERED: Mag-Al 1200 mg/1200 mg/30 ML UDCUP ONE (10:15)
[2019-09-19] MEDS ORDERED: Lidocaine Viscous Sol 2% 15 ml UD Cup ONE (10:15)
[2019-09-19] MEDS ORDERED: Senokot S 8.6-50 MG TAB PO PRN (11:54)
[2019-09-19] MEDS ORDERED: Ondansetron ODT 4 MG TAB PO PRN (11:54)
[2019-09-19] MEDS ORDERED: Furosemide 20 MG TAB PO PRN (11:56)
[2019-09-19] MEDS ORDERED: Acetaminophen With Codeine [Tylenol With Codeine #4] 1 TABLET PO PRN (12:15)
[2019-09-19 12:50] LABS: Cardiac Risk 3.8 (Less than 4.5)
[2019-09-19 12:53] LABS: Troponin I Less than 0.010 ng/mL (< 0.028)
[2019-09-19 12:59] LABS: Hemoglobin A1c 5.4 % (4.0-6.0)
[2019-09-19 14:04] VITALS: BMI 25.9
[2019-09-19] MEDS: Gabapentin 100 MG CAP PO SCH ×2 (14:21→21:03)
[2019-09-19] MEDS: clonazePAM 1 MG TAB PO SCH ×2 (14:21→21:02)
[2019-09-19] MEDS ORDERED: cefTRIAXone Sodium 1,000 MG in Syringe 0 ML IVPB SCH (14:30)
[2019-09-19 14:38] LABS: INR-International Normal Ratio 0.9; PTT 24.3 sec (22.9-36.1); Prothrombin Time 12.2 sec (12.0-14.7)
[2019-09-19 14:39] LABS: D-Dimer Test 3.01 *mcg/mL (0.27-0.43)
[2019-09-19 14:51] LABS: ALT (SGPT) 35 U/L (8-55); AST (SGOT) 29 U/L (5-34); Albumin 4.1 g/dL (3.4-4.8); Alkaline Phosphatase 228 U/L (40-110); Bilirubin, Direct 0.2 mg/dL (0.1-0.3); Bilirubin, Total 0.4 mg/dL (0.2-1.2); CRP (Inflammatory) Less than 0.50 mg/dL (= or < 0.5)
--- NOTE | 2019-09-19 15:09 | HP ---
CHIEF COMPLAINT: Chest pain. HISTORY OF PRESENT ILLNESS: A 74-year-old female with a history of coronary artery disease, status post stent roughly 3 years ago; hypertension; and hyperlipidemia , presenting with 2-week history of intermittent chest pain. The patient states it is mostly burning sensation. When I stressed again, she said it is ongoing for a month, and she also has a history of anxiety and she needs to know whether she can get some sedative pills and her home regimen includes Klonopin. The patient is not diabetic. No previous history of stroke. She also feels nauseated since . Initial evaluation showed T inversions in lead III and AVF, and troponin was negative. The patient will be brought in for rule out acute coronary syndrome and possible risk stratification. REVIEW OF SYSTEMS: The patient denied any recent fever, night sweats, or chills. She denies any vomiting episode. No abdominal pain, constipation, or diarrhea. Denies any headache, tingling, or numbness in her extremities. No polyuria or polydipsia. Denies any rash in her bodies. She is quite anxious. ALLERGIES: SHE IS ALLERGIC TO CLONIDINE, HYDROMORPHONE, AND MORPHINE. PAST MEDICAL HISTORY: Coronary artery disease, hypertension, anxiety, chronic pain syndrome, chronic diastolic heart failure, and COPD. MEDICATIONS: 1. Home regimen of Tylenol 3. 2. DuoNeb. 3. Norvasc 10 mg daily. 4. Aspirin 81 mg daily. 5. Klonopin 1 mg every 8 hours. 6. Flexeril 5 mg t.i.d. p.r.n. 7. Pepcid 20 mg twice a day. 8. Ferrous sulfate 324 mg twice a day. 9. Lasix 20 mg as needed. 10. Gabapentin 100 mg three times a day. 11. Lisinopril 5 mg bedtime. 12. Dulera two puffs b.i.d. 13. Potassium chloride 20 mEq daily. 14. Crestor 40 mg nightly. 15. Zoloft 50 mg at bedtime. SOCIAL HISTORY: She does smoke half a pack a day. No alcohol use. FAMILY HISTORY: Significant for cardiovascular disease. PHYSICAL EXAMINATION: VITAL SIGNS: Temperature 99.6, pulse 61, blood pressure 163/75, and saturating 94% on room air. GENERAL: She is alert, oriented, but she is quite anxious. She says the chest pain is mostly on the right side and it is burning in quality. CARDIOVASCULAR: Regular rate and rhythm without murmurs, rubs, or gallops. LUNGS: Clear to auscultation bilaterally without wheezing, rales, or rhonchi. ABDOMEN: Soft, nontender, nondistended. Good bowel sounds. EXTREMITIES: Without any pitting edema. No rash in the torso or extremities. LABORATORY DATA: Initial troponin was negative. EKG showed T inversions in the lead II and AVF. LDL 89, triglycerides 119, cholesterol 153. TSH in the normal range. Her A1c is 5.4. Troponin x2 were negative. IMPRESSION AND PLAN: A 74-year-old female with a history of coronary artery disease, presented with intermittent ongoing chest pain. From the history, it sounds like a noncardiac as it is a burning sensation quality, coupled with anxiety. We will switch from her home regimen to IV PPI for now. Next, plan for a stress test tomorrow; however, lately, the floor called concern for COVID. She expressed that she has a loss of taste in her mouth and her temperature came back as low-grade with 99. Concern for possible COVID. Her sats were good. The chest x-ray without any infiltrate. Given her low-grade temp and loss of taste, need to rule out COVID. So, we will wait for the test result. Then, if test negative, we will continue with stress test for risk stratification. Hypertensive urgency. We will continue her home medication, increase her lisinopril dose and hydralazine p.r.n. Rest of the management based on the clinical course. Job ID: [id number] [facility]
[2019-09-19 15:17] LABS: Troponin I Less than 0.010 ng/mL (< 0.028)
[2019-09-19] MEDS ORDERED: Mag-Al Plus 1200 MG/1200 MG/120 MG/30 ML UDCUP PO PRN (16:30)
[2019-09-19] MEDS: cefTRIAXone\\ROCEPHIN 1 GM in Sodium Chloride 0.9% 100 ML IVPB SCH (17:16)
[2019-09-19] MEDS: Mometasone 200 MCG/Formoterol 5 MCG 120 PUFF INHALER INH SCH (18:15)
[2019-09-19 18:21] LABS: Troponin I Less than 0.010 ng/mL (< 0.028)
[2019-09-19] MEDS ORDERED: Lisinopril 5 MG TAB PO SCH (21:00)
[2019-09-19] MEDS ORDERED: Rosuvastatin 20 MG TAB PO SCH (21:00)
[2019-09-19] MEDS ORDERED: Famotidine 20 MG TAB PO SCH (21:00)
[2019-09-19] MEDS: Enoxaparin Sodium 40 MG/0.4 ML SYRINGE SC SCH (21:02)
[2019-09-19] MEDS: Ferrous Gluconate 324 MG TAB PO SCH (21:03)
[2019-09-19] MEDS: Lisinopril 20 MG TAB PO SCH (21:03)
[2019-09-19] MEDS ORDERED: ACETAMINOPHEN WITH CODEINE PO PRN (21:42)
[2019-09-19] MEDS: Nicotine 7 MG PATCH TD SCH (23:32)
[2019-09-20] MEDS: Mometasone 200 MCG/Formoterol 5 MCG 120 PUFF INHALER INH SCH ×2 (05:28→18:56)
[2019-09-20] MEDS: hydrALAZINE 20 MG/ML VIAL SLOW IVP PRN ×2 (05:28→12:31)
[2019-09-20] MEDS: clonazePAM 1 MG TAB PO SCH ×3 (05:28→20:53)
[2019-09-20] MEDS ORDERED: Potassium Chloride 20 MEQ TAB PO SCH (08:00)
[2019-09-20] MEDS: Amlodipine 10 MG TAB PO SCH (08:01)
[2019-09-20] MEDS: Aspirin Chewable 81 MG TAB PO SCH (08:02)
[2019-09-20] MEDS: Gabapentin 100 MG CAP PO SCH ×2 (08:02→14:56)
[2019-09-20] MEDS: Enoxaparin Sodium 40 MG/0.4 ML SYRINGE SC SCH ×2 (08:02→20:30)
[2019-09-20] MEDS: Ferrous Gluconate 324 MG TAB PO SCH ×2 (08:02→20:08)
[2019-09-20] MEDS: Fluticasone Propionate Nasal Spray 16 gm Bottle NASAL SCH (08:02)
[2019-09-20 08:36] LABS: #Basophils 0.1 thou/uL (0.0-0.2); #Eosinphils 0.1 thou/uL (0.0-0.7); #Lymphocytes 1.4 thou/uL (1.20-3.40); #Monocytes 0.7 thou/uL (0.11-0.59); #Neutrophils 4.1 thou/uL (1.40-6.50); %Basophils 1.6 % (0.0-1.0); %Eosinophils 0.8 % (0.0-10.0); %Monocytes 11.4 % (0.0-10.0); %Neutrophils 64.2 % (42.0-75.0); Hemoglobin 14.5 g/dL (12.0-16.0); Mean Corpuscular HGB CONC 34.4 g/dL (32.0-36.0); Mean Corpuscular Hemoglobin 32.4 pg (27.0-31.0); Mean Platelet Volume 9.6 fL (7.4-10.4); Platelet Count 192 thou/uL (130-400); RBC Distribution Width 13.4 % (11.5-14.5); Red Blood Cell (RBC) Count 4.47 mill/uL (4.20-5.40); White Blood Cell (WBC) Count 6.4 thou/uL (4.8-10.8)
[2019-09-20] MEDS: Acetaminophen 325 MG TAB PO PRN ×2 (08:51→20:08)
[2019-09-20 08:55] LABS: Anion Gap 12 mmol/L (10-20); BUN (Urea Nitrogen) 6 mg/dL (9.8-20.1); Calc. Creatinine Clearance 85 mL/min (70-130); Calcium 9.5 mg/dL (7.8-10.44); Carbon Dioxide 22 mmol/L (23-31); Chloride 104 mmol/L (98-107); Estimated GFR-MDRD Greater than 90; Glucose 100 mg/dL (83-110); Potassium 3.6 mmol/L (3.5-5.1); Sodium 134 mmol/L (136-145)
[2019-09-20] MEDS ORDERED: Pantoprazole 40 MG VIAL IVP SCH (09:00)
[2019-09-20] MEDS ORDERED: Prevnar 13-Val Conj/PF 0.5 ML SYRINGE IM ONE (09:00)
[2019-09-20] MEDS ORDERED: Fioricet 325/50/40 mg Tablet PO PRN (09:34)
[2019-09-20] MEDS ORDERED: SUMAtriptan Succinate 50 MG TAB PO PRN (09:34)
[2019-09-20 11:30] LABS: Bacteria/HPF None Seen HPF (None Seen); Bilirubin Negative (Negative); Blood, Urine Negative (Negative); Clarity Clear (Clear); Glucose, Urine (Dipstick) Normal (Negative); Leukocyte Negative Leu/uL (Negative); Nitrite Negative (Negative); Protein, Urine (Dipstick) Negative (Neg-Trace); RBC/HPF 0-3 HPF (0-3); Squamous Epithelial 0-3 HPF (0-3); Urobilinogen Normal mg/dL (Less than 2); WBC/HPF 0-3 HPF (0-3)
[2019-09-20 11:31] LABS: Urine Culture Reflex No No
[2019-09-20 13:15] LABS: SARS-CoV-2 MS2 Positive; SARS-CoV-2 N Gene Negative; SARS-CoV-2 S Gene Negative; SARS-CoV-2 orf1ab Negative
[2019-09-20] MEDS: cefTRIAXone\\ROCEPHIN 1 GM in Sodium Chloride 0.9% 100 ML IVPB SCH (14:55)
[2019-09-20] MEDS: Cyclobenzaprine 10 MG TAB PO PRN (16:31)
--- NOTE | 2019-09-20 16:51 | PDOC.HOSPP ---
- Subjective Encounter Date: 09/20/19 Encounter Time: 13:40 Subjective: pt quite anxious, feels she needs more anxiety pills, says some chest pain but intense as before. - Objective Vital Signs & Weight: Vital Signs (12 hours) Temp Pulse Resp BP Pulse Ox 09/20/19 15:00 97.7 F 73 18 160/69 H 97 09/20/19 13:47 135/79 09/20/19 12:45 179/69 H 09/20/19 12:31 88 09/20/19 12:22 98.4 F 92 18 195/91 H 98 09/20/19 10:34 169/84 H 09/20/19 08:05 98.8 F 88 20 191/93 H 96 09/20/19 05:28 84 Weight Admit Weight 137 lb 4.8 oz Weight 137 lb 4.8 oz I&O: 09/19/19 09/20/19 09/21/19 06:59 06:59 06:59 Intake Total 925 10 Output Total 1300 400 Balance -375 -390 Result Diagrams: 09/20/19 08:05 09/20/19 08:05 Hospitalist ROS - Medication Medications: Active Medications Generic Name Dose Route Start Last Admin Trade Name Freq PRN Reason Stop Dose Admin Acetaminophen 650 mg 09/19/19 11:54 09/20/19 08:51 Tylenol PO 650 mg Q4H PRN Administration Headache/Fever/Mild Pain (1-3) Acetaminophen/Butalbital/Caffeine 1 tab 09/20/19 09:34 09/20/19 12:21 Fioricet PO 09/25/19 09:35 1 tab BID PRN Administration Migraine Headache Amlodipine Besylate 10 mg 09/20/19 09:00 09/20/19 08:01 Norvasc PO 10 mg DAILY NAZARIO Administration Aspirin 81 mg 09/20/19 09:00 09/20/19 08:02 Aspirin Chewable PO 81 mg DAILY NAZARIO Administration Clonazepam 1 mg 09/19/19 14:00 09/20/19 14:55 Klonopin PO 1 mg Q8HR NAZARIO Administration Cyclobenzaprine HCl 5 mg 09/19/19 11:56 09/20/19 16:31 Flexeril PO 5 mg TIDPRN PRN Administration Muscle Spasm Enoxaparin Sodium 40 mg 09/19/19 21:00 09/20/19 08:02 Lovenox SC 40 mg 0900,2100 NAZARIO Administration Ferrous Gluconate 324 mg 09/19/19 21:00 09/20/19 08:02 Fergon PO 324 mg BID NAZARIO Administration Fluticasone Propionate 0 gm 09/20/19 09:00 09/20/19 08:02 Flonase Nasal Brant NASAL Not Given DAILY NAZARIO Gabapentin 100 mg 09/19/19 15:00 09/20/19 14:56 Neurontin PO 100 mg TID NAZARIO Administration Hydralazine HCl 10 mg 09/19/19 14:21 09/20/19 12:31 Apresoline SLOW IVP 10 mg Q4H PRN Administration Blood Pressure Ceftriaxone Sodium 1 gm/ 100 mls @ 200 mls/hr 09/19/19 15:00 09/20/19 14:55 Sodium Chloride IVPB 100 mls 1500 NAZARIO Administration Lisinopril 40 mg 09/19/19 21:00 09/19/19 21:03 Zestril PO 40 mg HS NAZARIO Administration Mometasone Furoate/Formoterol Fumar 2 puff 09/19/19 18:30 09/20/19 05:28 Dulera 200 Mcg/5 Mcg Inhaler INH 2 puff BID-RT NAZARIO Administration Nicotine 7 mg 09/19/19 22:00 09/19/19 23:32 Nicoderm Patch TD 7 mg Q24HR NAAZRIO Administration Sertraline HCl 50 mg 09/19/19 21:00 09/19/19 21:03 Zoloft PO 50 mg HS NAZARIO Administration Sumatriptan Succinate 50 mg 09/20/19 09:34 09/20/19 16:32 Imitrex PO 50 mg BID PRN Administration Migraine Headache - Exam General Appearance: NAD, awake alert, ill appearing Eye: PERRL ENT: normocephalic atraumatic Neck: supple Heart: RRR Respiratory: CTAB, normal chest expansion Gastrointestinal: soft, normal bowel sounds Neurological: no focal deficits Hosp A/P - Plan Intermittent chest pain hx of CAD w.. stent placed 3 yrs ago [completed taking plavix] -asa, toprol and ACEI Nasuea, bodyache -cxr neg --covid rule out pending -seems high likelihood clinically for COVID being +ve HTN urgency - on BB, ACEI and norvasc --still > [id number] --will use prn hydralazine plan for stress test after COVID ruled out.
[2019-09-20] MEDS: Gabapentin 300 MG CAP PO SCH (20:08)
[2019-09-20] MEDS: Lisinopril 20 MG TAB PO SCH (20:09)
[2019-09-20] MEDS: Nicotine 7 MG PATCH TD SCH (20:53)
[2019-09-20] MEDS ORDERED: Gabapentin 400 MG CAP PO SCH (21:00)
[2019-09-21] MEDS: Acetaminophen 325 MG TAB PO PRN (02:19)
[2019-09-21] MEDS: Cyclobenzaprine 10 MG TAB PO PRN ×2 (02:20→09:12)
[2019-09-21] MEDS: clonazePAM 1 MG TAB PO SCH ×2 (05:50→15:51)
[2019-09-21] MEDS: Mometasone 200 MCG/Formoterol 5 MCG 120 PUFF INHALER INH SCH (05:54)
[2019-09-21] MEDS ORDERED: ESOMEPRAZOLE MAGNESIUM 40 MG PO SCH (09:00)
[2019-09-21] MEDS ORDERED: Non-Formulary Item 1 EACH (Potassium Chloride [Potassium Chloride] 20 MEQ) PO SCH (09:00)
[2019-09-21] MEDS ORDERED: Non-Formulary Item 1 EACH (Celecoxib [Celebrex] 200 MG) PO SCH (09:00)
[2019-09-21] MEDS ORDERED: Rosuvastatin 10 MG TAB PO SCH (09:00)
[2019-09-21] MEDS ORDERED: CeleCOXIB 100 MG CAP PO SCH (09:00)
[2019-09-21] MEDS ORDERED: Potassium Chloride 20 MEQ TAB PO SCH (09:00)
[2019-09-21] MEDS: Amlodipine 10 MG TAB PO SCH (09:13)
[2019-09-21] MEDS: Enoxaparin Sodium 40 MG/0.4 ML SYRINGE SC SCH (09:13)
[2019-09-21] MEDS: Ferrous Gluconate 324 MG TAB PO SCH (09:14)
[2019-09-21] MEDS: Aspirin Chewable 81 MG TAB PO SCH (09:14)
[2019-09-21] MEDS: Gabapentin 300 MG CAP PO SCH ×2 (09:14→15:51)
[2019-09-21] MEDS: Fluticasone Propionate Nasal Spray 16 gm Bottle NASAL SCH (09:15)
[2019-09-21 09:48] VITALS: BP 118/69; TEMP 98.5
--- NOTE | 2019-09-21 10:10 | RAD ---
EXAM: Single view of the chest HISTORY: Shortness of breath and chest pain COMPARISON: 09/19/2019 FINDINGS: Single view of the chest shows a normal sized cardiomediastinal silhouette. A calcified gr anuloma projects over the right lung base. There is no evidence of consolidation or pleural effusion. The bones are unremarkable. IMPRESSION: No evidence of acute cardiopulmonary disease
[2019-09-21 12:48] LABS: SARS-CoV-2 MS2 Positive; SARS-CoV-2 N Gene Negative; SARS-CoV-2 S Gene Negative; SARS-CoV-2 orf1ab Negative
[2019-09-21] MEDS: cefTRIAXone\\ROCEPHIN 1 GM in Sodium Chloride 0.9% 100 ML IVPB SCH (15:51)
[2019-09-21] MEDS ORDERED: SUMAtriptan Succinate 25 MG TAB PO SCH (16:00)
--- NOTE | 2019-09-21 16:10 | PDOC.FMACP ---
Advance Care Planning - Problem (1) Palliative care encounter Status: Acute Code(s): Z51.5 - ENCOUNTER FOR PALLIATIVE CARE (2) COPD exacerbation Status: Acute Code(s): J44.1 - CHRONIC OBSTRUCTIVE PULMONARY DISEASE W (ACUTE ) EXACERBATION (3) Chronic diastolic (congestive) heart failure Status: Chronic Code(s): I50.32 - CHRONIC DIASTOLIC (CONGESTIVE) HEART FAILURE (4) Chronic pain disorder Status: Chronic Code(s): G89.4 - CHRONIC PAIN SYNDROME - Note Participants: patient, palliative care Summary: Palliative Care introduced Advanced Care Planning, Mrs Soria was given an opportunity to decline. The diagnosis, prognosis and goals of care were discussed. Confirmed that current MPOA is still accurate, wishes to remain with full resuscitation measures. All questions were answered. The Palliative Care Team will be engaged to assist with completion of any outstanding forms that are needed. Time Spent (mins): 30
--- NOTE | 2019-09-21 17:22 | DIS ---
DATE OF ADMISSION: 09/19/2019 DATE OF DISCHARGE: 09/21/2019 DISCHARGE MEDICATIONS: 1. Toprol-XL 25 mg daily. 2. Fioricet 1 tablet twice a day p.r.n. 3. Nexium 40 mg daily. 4. Celebrex 20 mg daily as needed. 5. Imitrex 50 mg b.i.d. p.r.n. 6. Amlodipine 10 mg daily. 7. Zanaflex 4 mg p.r.n. 8. Symbicort 2 puffs b.i.d. 9. Aspirin 81 mg daily. 10. Gabapentin 400 mg twice a day. 11. Potassium chloride 20 mEq daily. 12. Lasix 20 mg daily as needed. 13. Lisinopril 20 mg daily. 14. Zoloft 50 mg bedtime. 15. Crestor 40 mg daily. 16. Klonopin 1 mg twice a day. DISCHARGE DIAGNOSES: 1. Noncardiac chest pain. 2. Generalized body ache, nausea, concern for COVID and it was ruled out x2. 3. Hypertensive urgency, resolved after initiating her home medications. PHYSICAL EXAMINATION: VITAL SIGNS: On the day of discharge, temperature 98.5, pulse 82, blood pressure 118/69, and saturating 98% on room air. GENERAL: She is alert and oriented. I discussed with her about possible stress test as she had ongoing intermittent chest pain of 2-week duration. The patient wants to do at [place] through her primary care physician and she prefers to go home today. She is quite anxious. CARDIOVASCULAR: Regular rate and rhythm without murmurs, rubs or gallops. LUNGS: Clear to auscultation bilaterally without wheezing, rales or rhonchi. ABDOMEN: Soft, nontender, and nondistended. Good bowel sounds. EXTREMITIES: Without any pitting edema. HOSPITAL COURSE: This 74-year-old female presented with chest pain, intermittent in nature of 2 weeks, but states on further questioning of 2 months duration. It is mostly exertional chest pain. She does have a history of coronary artery disease and status post stent placement roughly [address] Goodman. On further evaluation, she expressed that she had nausea, generalized body ache, so she was isolated for COVID rule out. The test came back negative. A chest x-ray also negative for any infiltrate. Her saturations are good. Her D-dimer is 1.23, yes it was elevated at 3 and it came down to 1.23. Creatinine 0.59. Her troponin x3 were negative. Her LDL level is 89. A1c of 5.4. The patient remained stable during her stay other than occasional headache, which is relieved with the p.r.n. medications. Please note that the patient is on several home medications and she is quite particular about continuing all those medications even though I addressed that she would be at risk for sedation, especially with Fioricet, , , Klonopin, tizanidine, as well as Zoloft. The patient states that she is on this for a quite a bit of time and she prefers to continue that. I suggested that talk to primary doctor primary care physician and see whether it can be weaned off some of these medications over the course of the time. She expressed her understanding. She is also being informed that if she has any recurrent chest pain, she needs to come back to the ER for further evaluation. Otherwise, she needs to follow up with primary care physician to arrange for outpatient stress test, for which she agreed. DISCHARGE INSTRUCTIONS: Activity as tolerated. Healthy heart diet. Follow up with PCP in 1 week. TIME SPENT: Discharge time took over 35 minutes. Job ID: [id number]
--- NOTE | 2019-09-24 12:30 | EKG ---
Test Reason : CHEST PAIN Blood Pressure : / mmHG Vent. Rate : 058 BPM Atrial Rate : 058 BPM P-R Int : 174 ms QRS Dur : 084 ms QT Int : 398 ms P-R-T Axes : 038 008 -09 degrees QTc Int : 390 ms Sinus bradycardia T wave abnormality, consider inferior ischemia Abnormal ECG Confirmed by YEVGENIY CALLAWAY DO ([id number]), editor [employer] photograph PHIL SANCHEZ ([id number]) on 09/24/2019 12:29:27 PM Referred By: Confirmed By:YEVGENIY CALLAWAY DO
== END 2019-09-21 16:59 | disposition home or self-care (01) ==
LOC: ERS 09:54 → 2NO 11:35 → 2SW 15:13
PROVIDERS: ADMIT Internal Medicine; ATTEND Internal Medicine
DX: R07.89 Other chest pain (principal); I25.10 Atherosclerotic heart disease of native coronary artery without angina pectoris; I16.0 Hypertensive urgency; I10 Essential (primary) hypertension; E78.5 Hyperlipidemia, unspecified; F41.9 Anxiety disorder, unspecified; F17.210 Nicotine dependence, cigarettes, uncomplicated; Z79.82 Long term (current) use of aspirin; Z79.899 Other long term (current) drug therapy; Z88.5 Allergy status to narcotic agent; Z95.5 Presence of coronary angioplasty implant and graft
CPT/HCPCS: 71045; 80048; 80061; 80076; 81001; 82728; 83036; 83690; 84443; 84484; 85025; 85379 ×2; 85610; 85730; 86140; 93005; 94640; 96365; 96366; 96372 ×3; 96375; 96376; 99285; G0378 ×4; U0003 ×2; 36415; 87635; C9113; J0360; J0696; J1650; J3490

== ENCOUNTER 2021-07-01 23:58 | Inpatient (IN) | payer MEDICARE, OTHER ==
[2021-07-02] MEDS ORDERED: Sodium Chloride 0.9% 1,000 ML IV SCH ×2 (01:45→04:15)
[2021-07-02] MEDS ORDERED: Acetaminophen 650 MG Suppository PR PRN (03:54)
[2021-07-02] MEDS: Acetaminophen 325 MG TAB PO PRN ×2 (04:18→20:43)
[2021-07-02] MEDS: Ondansetron ODT 4 MG TAB PO PRN (04:19)
[2021-07-02 05:10] LABS: #Eosinphils 0.1 thou/uL (0.0-0.7); #Lymphocytes 1.5 thou/uL (1.20-3.40); #Monocytes 0.7 thou/uL (0.11-0.59); #Neutrophils 4.1 thou/uL (1.40-6.50); %Basophils 0.1 % (0.0-1.0); %Eosinophils 1.6 % (0.0-10.0); %Lymphocytes 23.5 % (21.0-51.0); %Monocytes 10.3 % (0.0-10.0); %Neutrophils 64.4 % (42.0-75.0); Hemoglobin 11.4 g/dL (12.0-16.0); Mean Corpuscular HGB CONC 32.7 g/dL (32.0-36.0); Mean Corpuscular Hemoglobin 34.5 pg (27.0-31.0); Mean Platelet Volume 8.7 fL (7.4-10.4); Platelet Count 172 thou/uL (130-400); RBC Distribution Width 14.1 % (11.5-14.5); White Blood Cell (WBC) Count 6.3 thou/uL (4.8-10.8)
[2021-07-02] MEDS ORDERED: Piperacillin/Tazobactam 3.375 GM in Sodium Chloride 0.9% 100 ML IVPB SCH ×2 (05:15→06:30)
[2021-07-02 05:35] LABS: Anion Gap 12 mmol/L (10-20); BUN (Urea Nitrogen) 7 mg/dL (9.8-20.1); Calc. Creatinine Clearance 0 mL/min (70-130); Calcium 8.6 mg/dL (7.8-10.44); Carbon Dioxide 24 mmol/L (23-31); Chloride 107 mmol/L (98-107); Glucose 90 mg/dL (83-110); Potassium 3.9 mmol/L (3.5-5.1); Sodium 139 mmol/L (136-145)
[2021-07-02 06:14] VITALS: BMI 24.3
[2021-07-02] MEDS: Enoxaparin Sodium 40 MG/0.4 ML SYRINGE SC SCH (07:58)
[2021-07-02] MEDS ORDERED: Sucralfate 1 GM TAB PO SCH (09:00)
[2021-07-02] MEDS ORDERED: Pantoprazole 40 MG VIAL IVP SCH (09:00)
[2021-07-02] MEDS ORDERED: hydrALAZINE 20 MG/ML VIAL SLOW IVP PRN (10:15)
[2021-07-02 11:53] LABS: SARS-CoV-2 PCR by NAA Not Detected (NotDetected)
[2021-07-02] MEDS: Piperacillin/Tazobactam 3.375 GM in Sodium Chloride 0.9% 100 ML IVPB SCH ×2 (12:45→20:44)
[2021-07-02] MEDS: Ondansetron PF 4 MG/2 ML Vial IVP PRN (14:55)
[2021-07-02] MEDS: Sodium Chloride 0.9% 1,000 ML IV SCH ×2 (14:59→20:45)
[2021-07-03] MEDS ORDERED: Ketorolac Tromethamine 30 MG/ML VIAL IVP SCH (00:15)
[2021-07-03] MEDS: Piperacillin/Tazobactam 3.375 GM in Sodium Chloride 0.9% 100 ML IVPB SCH ×3 (04:50→21:20)
[2021-07-03 05:38] LABS: #Eosinphils 0.2 thou/uL (0.0-0.7); #Lymphocytes 1.1 thou/uL (1.20-3.40); #Monocytes 0.5 thou/uL (0.11-0.59); #Neutrophils 2.6 thou/uL (1.40-6.50); %Basophils 0.7 % (0.0-1.0); %Eosinophils 4.3 % (0.0-10.0); %Lymphocytes 24.7 % (21.0-51.0); %Monocytes 11.8 % (0.0-10.0); %Neutrophils 58.5 % (42.0-75.0); Hemoglobin 11.4 g/dL (12.0-16.0); Mean Corpuscular HGB CONC 32.2 g/dL (32.0-36.0); Mean Corpuscular Hemoglobin 33.7 pg (27.0-31.0); Mean Platelet Volume 8.4 fL (7.4-10.4); Platelet Count 196 thou/uL (130-400); RBC Distribution Width 13.9 % (11.5-14.5); Red Blood Cell (RBC) Count 3.38 mill/uL (4.20-5.40); White Blood Cell (WBC) Count 4.4 thou/uL (4.8-10.8)
[2021-07-03 06:01] LABS: ALT (SGPT) 67 U/L (8-55); AST (SGOT) 42 U/L (5-34); Albumin 2.9 g/dL (3.4-4.8); Alkaline Phosphatase 388 U/L (40-110); Anion Gap 16 mmol/L (10-20); BUN (Urea Nitrogen) 5 mg/dL (9.8-20.1); Bilirubin, Total 0.5 mg/dL (0.2-1.2); Calc. Creatinine Clearance 74 mL/min (70-130); Calcium 8.3 mg/dL (7.8-10.44); Carbon Dioxide 20 mmol/L (23-31); Chloride 107 mmol/L (98-107); Globulin 2.4 g/dL (2.4-3.5); Glucose 64 mg/dL (83-110); Iron 50 ug/dL (50-170); Iron Binding Capacity, Total 168 mcg/dL (265-497); Lipase 36 U/L (8-78); Potassium 3.7 mmol/L (3.5-5.1); Protein, Total 5.3 g/dL (5.8-8.1); Sodium 139 mmol/L (136-145)
[2021-07-03 06:02] LABS: ALT (SGPT) 67 U/L (8-55); AST (SGOT) 40 U/L (5-34); Albumin 2.9 g/dL (3.4-4.8); Alkaline Phosphatase 388 U/L (40-110); Bilirubin, Direct 0.3 mg/dL (0.1-0.3); Bilirubin, Total 0.5 mg/dL (0.2-1.2); Protein, Total 5.2 g/dL (5.8-8.1)
[2021-07-03] MEDS: Acetaminophen 325 MG TAB PO PRN ×2 (11:17→23:18)
[2021-07-03] MEDS: Enoxaparin Sodium 40 MG/0.4 ML SYRINGE SC SCH (11:18)
[2021-07-03] MEDS: Pantoprazole 40 MG VIAL IVP SCH ×2 (11:19→21:20)
[2021-07-03] MEDS ORDERED: Nicotine 14 MG PATCH TD SCH (13:00)
[2021-07-03] MEDS: Ondansetron ODT 4 MG TAB PO PRN (15:06)
[2021-07-03] MEDS: traMADol HCl 50 MG TAB PO PRN ×2 (15:06→21:20)
[2021-07-03] MEDS ORDERED: Nicotine 14 MG PATCH TD PRN (15:12)
[2021-07-03] MEDS: Sodium Chloride 0.9% 1,000 ML IV SCH (21:20)
[2021-07-03] MEDS: Ondansetron PF 4 MG/2 ML Vial IVP PRN (21:20)
[2021-07-04] MEDS: Ondansetron PF 4 MG/2 ML Vial IVP PRN ×2 (04:44→11:01)
[2021-07-04] MEDS: Piperacillin/Tazobactam 3.375 GM in Sodium Chloride 0.9% 100 ML IVPB SCH ×3 (04:44→20:12)
[2021-07-04] MEDS: traMADol HCl 50 MG TAB PO PRN ×2 (04:44→16:12)
[2021-07-04 06:23] LABS: #Eosinphils 0.2 thou/uL (0.0-0.7); #Lymphocytes 1.1 thou/uL (1.20-3.40); #Monocytes 0.5 thou/uL (0.11-0.59); #Neutrophils 2.4 thou/uL (1.40-6.50); %Basophils 0.5 % (0.0-1.0); %Eosinophils 3.6 % (0.0-10.0); %Lymphocytes 27.4 % (21.0-51.0); %Neutrophils 56.5 % (42.0-75.0); Mean Corpuscular HGB CONC 32.2 g/dL (32.0-36.0); Mean Corpuscular Hemoglobin 33.7 pg (27.0-31.0); Mean Platelet Volume 7.9 fL (7.4-10.4); Platelet Count 206 thou/uL (130-400); RBC Distribution Width 13.7 % (11.5-14.5); Red Blood Cell (RBC) Count 3.28 mill/uL (4.20-5.40); White Blood Cell (WBC) Count 4.2 thou/uL (4.8-10.8)
[2021-07-04 06:44] LABS: Anion Gap 17 mmol/L (10-20); BUN (Urea Nitrogen) Less than 4 mg/dL (9.8-20.1); Calc. Creatinine Clearance 74 mL/min (70-130); Calcium 8.1 mg/dL (7.8-10.44); Carbon Dioxide 17 mmol/L (23-31); Chloride 108 mmol/L (98-107); Glucose 63 mg/dL (83-110); Potassium 3.1 mmol/L (3.5-5.1); Sodium 139 mmol/L (136-145)
[2021-07-04] MEDS: Folic Acid 1 MG TAB PO SCH (08:32)
[2021-07-04] MEDS: Pantoprazole 40 MG VIAL IVP SCH ×2 (08:32→20:12)
[2021-07-04] MEDS: Enoxaparin Sodium 40 MG/0.4 ML SYRINGE SC SCH (08:33)
[2021-07-04] MEDS: Acetaminophen 325 MG TAB PO PRN (08:37)
[2021-07-04] MEDS ORDERED: tiZANidine HCl 4 MG TAB PO PRN (10:53)
[2021-07-04] MEDS: Sodium Chloride 0.9% 1,000 ML IV SCH (11:30)
[2021-07-04] MEDS: HYDROcodone/Acetaminophen 7.5/325 mg Tablet PO PRN ×2 (13:34→20:12)
[2021-07-04 14:39] LABS: ANA Symphony (Qualitative) Negative (Negative); ANA Symphony (Quantitative) 0.1 Ratio (< 0.7 Negative); EliA Vaculitis New Method **** NEW METHOD ****; Mitochondrial Ab 1.2 U/mL (<4 Negative); dsDNA IgG Antibody 0.6 IU/mL (<10 Negative)
[2021-07-04] MEDS: chlordiazePOXIDE HCl 25 MG CAP PO SCH ×2 (15:09→20:12)
[2021-07-04] MEDS: Mometasone 200 MCG/Formoterol 5 MCG 120 PUFF INHALER INH SCH (18:41)
[2021-07-04] MEDS: buPROPion HCl 100 MG TAB PO SCH (20:12)
[2021-07-04] MEDS: Gabapentin 400 MG CAP PO SCH (20:12)
[2021-07-05] MEDS: Sodium Chloride 0.9% 1,000 ML IV SCH ×2 (01:57→16:35)
[2021-07-05] MEDS ORDERED: Calcium Carbonate 500 MG ChewTAB PO PRN (03:01)
[2021-07-05] MEDS: HYDROcodone/Acetaminophen 7.5/325 mg Tablet PO PRN ×3 (03:28→22:31)
[2021-07-05] MEDS: Piperacillin/Tazobactam 3.375 GM in Sodium Chloride 0.9% 100 ML IVPB SCH ×3 (03:29→20:27)
[2021-07-05] MEDS: Mometasone 200 MCG/Formoterol 5 MCG 120 PUFF INHALER INH SCH ×2 (05:32→19:43)
[2021-07-05] MEDS: Pantoprazole 40 MG VIAL IVP SCH ×2 (09:42→20:27)
[2021-07-05] MEDS: DULoxetine 60 MG CAP PO SCH (09:42)
[2021-07-05] MEDS: Enoxaparin Sodium 40 MG/0.4 ML SYRINGE SC SCH (09:42)
[2021-07-05] MEDS: Gabapentin 400 MG CAP PO SCH ×2 (09:42→20:28)
[2021-07-05] MEDS: chlordiazePOXIDE HCl 25 MG CAP PO SCH ×3 (09:44→20:28)
[2021-07-05] MEDS: Folic Acid 1 MG TAB PO SCH (09:44)
[2021-07-05] MEDS: buPROPion HCl 100 MG TAB PO SCH ×2 (10:05→20:28)
[2021-07-05] MEDS ORDERED: Iopamidol-370 76% 500 ML 1 ML ONE (12:23)
[2021-07-05] MEDS: traMADol HCl 50 MG TAB PO PRN (12:35)
[2021-07-06] MEDS: Piperacillin/Tazobactam 3.375 GM in Sodium Chloride 0.9% 100 ML IVPB SCH ×3 (04:35→20:16)
[2021-07-06] MEDS: Sodium Chloride 0.9% 1,000 ML IV SCH ×2 (04:51→20:18)
[2021-07-06] MEDS: HYDROcodone/Acetaminophen 7.5/325 mg Tablet PO PRN ×2 (05:03→20:15)
[2021-07-06] MEDS: Mometasone 200 MCG/Formoterol 5 MCG 120 PUFF INHALER INH SCH ×2 (07:33→19:21)
[2021-07-06 08:09] LABS: #Eosinphils 0.1 thou/uL (0.0-0.7); #Lymphocytes 1.3 thou/uL (1.20-3.40); #Monocytes 0.6 thou/uL (0.11-0.59); #Neutrophils 2.6 thou/uL (1.40-6.50); %Basophils 0.5 % (0.0-1.0); %Eosinophils 2.7 % (0.0-10.0); %Lymphocytes 28.1 % (21.0-51.0); %Monocytes 12.3 % (0.0-10.0); %Neutrophils 56.5 % (42.0-75.0); Hemoglobin 12.6 g/dL (12.0-16.0); Mean Corpuscular HGB CONC 33.9 g/dL (32.0-36.0); Mean Corpuscular Hemoglobin 35.1 pg (27.0-31.0); Mean Platelet Volume 7.6 fL (7.4-10.4); Platelet Count 224 thou/uL (130-400); RBC Distribution Width 13.5 % (11.5-14.5); Red Blood Cell (RBC) Count 3.58 mill/uL (4.20-5.40); White Blood Cell (WBC) Count 4.5 thou/uL (4.8-10.8)
[2021-07-06] MEDS: Gabapentin 400 MG CAP PO SCH ×2 (08:34→20:17)
[2021-07-06] MEDS: Folic Acid 1 MG TAB PO SCH (08:34)
[2021-07-06] MEDS: Loratadine 10 MG TAB PO SCH (08:34)
[2021-07-06] MEDS: DULoxetine 60 MG CAP PO SCH (08:34)
[2021-07-06] MEDS: buPROPion HCl 100 MG TAB PO SCH ×2 (08:34→20:17)
[2021-07-06] MEDS: chlordiazePOXIDE HCl 25 MG CAP PO SCH ×3 (08:34→20:17)
[2021-07-06] MEDS: Enoxaparin Sodium 40 MG/0.4 ML SYRINGE SC SCH (08:35)
[2021-07-06 08:37] LABS: Anion Gap 15 mmol/L (10-20); BUN (Urea Nitrogen) Less than 4 mg/dL (9.8-20.1); Calc. Creatinine Clearance 75 mL/min (70-130); Calcium 8.4 mg/dL (7.8-10.44); Carbon Dioxide 18 mmol/L (23-31); Chloride 107 mmol/L (98-107); Glucose 76 mg/dL (83-110); Magnesium 1.5 mg/dL (1.6-2.6); Potassium 3.1 mmol/L (3.5-5.1); Sodium 137 mmol/L (136-145)
[2021-07-06] MEDS: Pantoprazole 40 MG VIAL IVP SCH ×2 (08:38→20:17)
[2021-07-06] MEDS: traMADol HCl 50 MG TAB PO PRN ×2 (08:47→23:55)
[2021-07-06] MEDS ORDERED: Potassium Chloride 20 MEQ TAB PO SCH (10:30)
[2021-07-06] MEDS ORDERED: Magnesium Sulfate In Water 4 GM in Premix Bag 1 BAG IVPB SCH (10:30)
[2021-07-06] MEDS: Ondansetron ODT 4 MG TAB PO PRN (20:21)
[2021-07-06] MEDS ORDERED: Rosuvastatin 10 MG TAB PO SCH (21:00)
[2021-07-07 07:26] LABS: Anion Gap 15 mmol/L (10-20); BUN (Urea Nitrogen) Less than 4 mg/dL (9.8-20.1); Calc. Creatinine Clearance 79 mL/min (70-130); Calcium 8.2 mg/dL (7.8-10.44); Carbon Dioxide 18 mmol/L (23-31); Chloride 108 mmol/L (98-107); Glucose 86 mg/dL (83-110); Magnesium 1.6 mg/dL (1.6-2.6); Potassium 3.2 mmol/L (3.5-5.1); Sodium 138 mmol/L (136-145)
[2021-07-07] MEDS ORDERED: Potassium Chloride 20 MEQ TAB PO SCH (08:00)
[2021-07-07] MEDS ORDERED: Magnesium 2 GM/50 ML(in water) 2 GM in Premix Bag 1 BAG IVPB SCH (08:00)
[2021-07-07] MEDS: chlordiazePOXIDE HCl 25 MG CAP PO SCH (08:07)
[2021-07-07] MEDS: buPROPion HCl 100 MG TAB PO SCH (08:07)
[2021-07-07] MEDS: Loratadine 10 MG TAB PO SCH (08:08)
[2021-07-07] MEDS: DULoxetine 60 MG CAP PO SCH (08:08)
[2021-07-07] MEDS: HYDROcodone/Acetaminophen 7.5/325 mg Tablet PO PRN (08:08)
[2021-07-07] MEDS: Folic Acid 1 MG TAB PO SCH (08:08)
[2021-07-07] MEDS: Gabapentin 400 MG CAP PO SCH (08:08)
[2021-07-07] MEDS: Pantoprazole 40 MG VIAL IVP SCH (08:10)
[2021-07-07] MEDS: Mometasone 200 MCG/Formoterol 5 MCG 120 PUFF INHALER INH SCH (08:12)
[2021-07-07] MEDS: Enoxaparin Sodium 40 MG/0.4 ML SYRINGE SC SCH (08:29)
[2021-07-07 12:47] VITALS: BP 138/88; TEMP 97.8
[2021-07-07 15:12] LABS: Smooth Muscle Total ABS 5 Units (0-19)
[2021-07-09 16:16] LABS: Alpha-1-Antitrypsin 200 mg/dL (101-187)
== END 2021-07-07 12:58 | disposition home or self-care (01) | DRG 382 ==
LOC: MSONC 23:58 → OBSVTOIN 07-02 14:30 → T4-B 07-03 21:11
PROVIDERS: ADMIT Student in an Organized Health Care Education/Training Program; ATTEND Family Medicine
DX: K25.5 Chronic or unspecified gastric ulcer with perforation (principal); Z20.822 Contact with and (suspected) exposure to COVID-19; E03.9 Hypothyroidism, unspecified; J44.9 Chronic obstructive pulmonary disease, unspecified; F17.210 Nicotine dependence, cigarettes, uncomplicated; I77.810 Thoracic aortic ectasia; G89.29 Other chronic pain; M54.9 Dorsalgia, unspecified; D52.9 Folate deficiency anemia, unspecified; E87.6 Hypokalemia; N18.30 Chronic kidney disease, stage 3 unspecified; I12.9 Hypertensive chronic kidney disease with stage 1 through stage 4 chronic kidney disease, or unspecified chronic kidney disease; R79.89 Other specified abnormal findings of blood chemistry; E78.5 Hyperlipidemia, unspecified; K29.60 Other gastritis without bleeding; B96.81 Helicobacter pylori [H. pylori] as the cause of diseases classified elsewhere; Z88.5 Allergy status to narcotic agent; Z88.8 Allergy status to other drugs, medicaments and biological substances; Z79.899 Other long term (current) drug therapy; Z79.51 Long term (current) use of inhaled steroids; Z90.49 Acquired absence of other specified parts of digestive tract; Z90.710 Acquired absence of both cervix and uterus; Z71.6 Tobacco abuse counseling; Z79.1 Long term (current) use of non-steroidal anti-inflammatories (NSAID)
CPT/HCPCS: 36415; 74177; 74181; 76705; 80048; 80053; 82103; 82104; 82105; 82390; 82607; 82728; 82746; 83516; 83540; 83550; 83690; 83735; 85025; 86015; 86038; 86225; 87324; 87338; 87449; 96372; 96374; 96375; 96376; C9113; G0378; J1650; J1885; J2405; J2543; J3475; J3490; J7050; Q0162; Q9967; U0003; U0005

== ENCOUNTER 2022-01-10 20:40 | Inpatient (IN) | payer MEDICARE ==
[~2022-01-10 20:40] MED LIST changes: -Heparin 10,000 UNITS/ 10 ML VIAL ONE; -Iopamidol 370 76% 100 ML VIAL ONE; -Iopamidol 370 76% 50 ML VIAL FS ONE; +Iopamidol-370 76% 500 ML 1 ML ONE
[2022-01-10 21:18] LABS: #Lymphocytes 2.6 thou/uL (1.20-3.40); #Monocytes 0.6 thou/uL (0.11-0.59); %Basophils 0.3 % (0.0-1.0); %Eosinophils 0.4 % (0.0-10.0); %Lymphocytes 36.2 % (21.0-51.0); %Neutrophils 55.1 % (42.0-75.0); Hemoglobin 15.7 g/dL (12.0-16.0); Mean Corpuscular HGB CONC 31.7 g/dL (32.0-36.0); Mean Corpuscular Hemoglobin 32.9 pg (27.0-31.0); Mean Platelet Volume 10.3 fL (7.4-10.4); Platelet Count 267 thou/uL (130-400); RBC Distribution Width 13.8 % (11.5-14.5); Red Blood Cell (RBC) Count 4.75 mill/uL (4.20-5.40); White Blood Cell (WBC) Count 7.3 thou/uL (4.8-10.8)
[2022-01-10] MEDS ORDERED: Nitroglycerin 2% Ointment 1 INCH/1 GM Packet ONE (22:07)
[2022-01-10 22:08] LABS: ALT (SGPT) 18 U/L (8-55); AST (SGOT) 20 U/L (5-34); Albumin 4.1 g/dL (3.4-4.8); Alkaline Phosphatase 147 U/L (40-110); Anion Gap 14 mmol/L (10-20); BUN (Urea Nitrogen) 11 mg/dL (9.8-20.1); Bilirubin, Total 0.5 mg/dL (0.2-1.2); Calc. Creatinine Clearance 0 mL/min (70-130); Calcium 11.2 mg/dL (7.8-10.44); Carbon Dioxide 23 mmol/L (23-31); Chloride 96 mmol/L (98-107); Estimated GFR 68; Globulin 3.2 g/dL (2.4-3.5); Glucose 122 mg/dL (83-110); Lipase 43 U/L (8-78); Potassium 3.8 mmol/L (3.5-5.1); Protein, Total 7.3 g/dL (5.8-8.1); Sodium 129 mmol/L (136-145)
[2022-01-10] MEDS ORDERED: Acetaminophen 325 MG TAB PO PRN (22:55)
[2022-01-10] MEDS ORDERED: Zolpidem Tartrate 5 MG TAB PO PRN (22:55)
[2022-01-10] MEDS ORDERED: Sodium Chloride 0.9% 1,000 ML IV SCH (23:00)
[2022-01-10] MEDS ORDERED: Clopidogrel Bisulfate 75 MG TAB PO SCH (23:15)
[2022-01-10] MEDS ORDERED: Enoxaparin Sodium 60 MG/0.6 ML SYRINGE SC SCH (23:59)
[2022-01-11] MEDS: Fentanyl 100 MCG/2 ML VIAL SLOW IVP PRN ×3 (00:10→08:41)
[2022-01-11] MEDS: Nicotine 21 MG PATCH TD SCH (00:12)
[2022-01-11] MEDS ORDERED: Pantoprazole 40 MG VIAL IVP SCH (00:15)
[2022-01-11] MEDS: Ondansetron ODT 8 MG TAB SL PRN (00:20)
[2022-01-11] MEDS: Sodium Chloride 0.9% 1,000 ML IV SCH ×3 (00:21→22:19)
[2022-01-11] MEDS: HYDROcodone/Acetaminophen 5/325 mg Tablet PO PRN ×3 (00:52→10:04)
[2022-01-11 02:35] LABS: Troponin I 0.016 ng/mL (< 0.028)
[2022-01-11] MEDS ORDERED: tiZANidine HCl 4 MG TAB PO SCH (04:15)
[2022-01-11 04:50] LABS: Anion Gap 13 mmol/L (10-20); BUN (Urea Nitrogen) 12 mg/dL (9.8-20.1); Calc. Creatinine Clearance 52 mL/min (70-130); Calcium 10.4 mg/dL (7.8-10.44); Carbon Dioxide 18 mmol/L (23-31); Cardiac Risk 3.1 (Less than 4.5); Chloride 102 mmol/L (98-107); Cholesterol 202 mg/dl (< 200 Desired); Estimated GFR 78; Glucose 155 mg/dL (83-110); HDL Cholesterol 66 mg/dL (>60 Neg Risk); LDL Cholesterol, Calculated 123 mg/dL; Potassium 3.6 mmol/L (3.5-5.1); Sodium 129 mmol/L (136-145); Triglycerides 67 mg/dL (Less than 150)
[2022-01-11 04:55] LABS: Troponin I Less than 0.010 ng/mL (< 0.028)
[2022-01-11 05:02] LABS: Band 28 % (5-11); Hemoglobin 15.6 g/dL (12.0-16.0); Lymphocytes 11 % (21-51); MDiff Complete? YES; Mean Corpuscular HGB CONC 32.3 g/dL (32.0-36.0); Mean Corpuscular Hemoglobin 33.7 pg (27.0-31.0); Mean Platelet Volume 9.9 fL (7.4-10.4); Metamyelocyte 2 % (0-0); Monocytes 6 % (0-10); Neutrophil 53 % (42-75); Platelet Count 304 thou/uL (130-400); RBC Distribution Width 13.9 % (11.5-14.5); Red Blood Cell (RBC) Count 4.62 mill/uL (4.20-5.40); White Blood Cell (WBC) Count 8.4 thou/uL (4.8-10.8)
[2022-01-11] MEDS: Nitroglycerin 2% Ointment 1 INCH/1 GM Packet TOP SCH ×3 (05:46→21:38)
[2022-01-11] MEDS: Ondansetron PF 4 MG/2 ML Vial IVP PRN ×2 (08:33→13:33)
[2022-01-11] MEDS: DULoxetine 30 MG CAP PO SCH (08:34)
[2022-01-11] MEDS ORDERED: Clopidogrel Bisulfate 75 MG TAB PO SCH (09:00)
[2022-01-11] MEDS ORDERED: Aspirin Chewable 81 MG TAB PO SCH (09:00)
[2022-01-11] MEDS ORDERED: FLU VACC QS2022-23(65YR UP)/PF 240 MCG/0.7 ML SYRINGE IM ONE (09:00)
[2022-01-11] MEDS: Enoxaparin Sodium 40 MG/0.4 ML SYRINGE SC SCH (09:06)
[2022-01-11] MEDS ORDERED: Iopamidol-370 76% 500 ML 1 ML ONE (09:57)
[2022-01-11] MEDS ORDERED: GASTROGRAFIN 30 ML BOT ONE (09:57)
[2022-01-11] MEDS ORDERED: Morphine 2 MG/ML VIAL SLOW IVP PRN (12:44)
[2022-01-11] MEDS ORDERED: Ketorolac Tromethamine 30 MG/ML VIAL IVP PRN (13:09)
[2022-01-11] MEDS ORDERED: Fentanyl 100 MCG/2 ML VIAL SLOW IVP PRN ×3 (13:10→13:15)
[2022-01-11] MEDS ORDERED: metroNIDAZOLE 500 MG in Premix Bag 1 BAG IVPB SCH (14:00)
[2022-01-11] MEDS ORDERED: Fentanyl 100 MCG/2 ML VIAL ONE ×2 (16:04→19:04)
[2022-01-11] MEDS ORDERED: metroNIDAZOLE 500 MG/100 ML BAG ONE (16:04)
[2022-01-11] MEDS ORDERED: EPINEPHrine 1 MG/ML AMP ONE (16:26)
[2022-01-11] MEDS ORDERED: Bupivacaine 0.25% HCL 30 ML VIAL ONE (16:26)
[2022-01-11] MEDS ORDERED: fentaNYL PF 100 MCG/2 ML SYRINGE ONE (16:50)
[2022-01-11] MEDS ORDERED: Ondansetron HCl/PF 4 MG/2 ML Vial IVP PRN ×2 (16:51→18:58)
[2022-01-11] MEDS ORDERED: Promethazine HCl 25 MG/ML VIAL IVPB PRN ×2 (16:51→18:58)
[2022-01-11] MEDS ORDERED: Promethazine HCl 25 MG/ML VIAL IM PRN ×3 (16:51→18:58)
[2022-01-11] MEDS ORDERED: Dexamethasone 20 MG/5 ML VIAL ONE (16:56)
[2022-01-11] MEDS ORDERED: Glycopyrrolate 0.2 MG/ML 5 ML SYRINGE ONE (16:56)
[2022-01-11] MEDS ORDERED: PROPOFOL 200 MG/20 ML VIAL ONE (16:56)
[2022-01-11] MEDS ORDERED: ePHEDrine 50 MG/ML VIAL ONE (16:56)
[2022-01-11] MEDS ORDERED: Ondansetron PF 4 MG/2 ML Vial ONE (16:56)
[2022-01-11] MEDS ORDERED: NEOSTIGMINE 3 MG/3 ML SYR 3 MG/3 ML SYRINGE ONE (16:56)
[2022-01-11] MEDS ORDERED: Rocuronium Bromide 10 MG/ML (10ML VIAL) ONE (16:56)
[2022-01-11] MEDS ORDERED: PHENYLEPHRINE-NS 100 MCG/ML 10 ML SYRINGE ONE (16:56)
[2022-01-11] MEDS ORDERED: Metoclopramide HCl 10 MG/2 ML VIAL ONE (16:56)
[2022-01-11] MEDS ORDERED: Piperacillin/Tazobactam 3.375 GM VIAL ONE (17:04)
[2022-01-11] MEDS ORDERED: Naloxone HCl 0.4 mg/ml Vial IV PRN (18:58)
[2022-01-11] MEDS ORDERED: Zolpidem Tartrate 5 MG TAB PO PRN (18:58)
[2022-01-11] MEDS ORDERED: diphenhydrAMINE 50 MG/ML VIAL IM PRN (18:58)
[2022-01-11] MEDS ORDERED: Communication Order-Pharmacy FS SCH (19:00)
[2022-01-11] MEDS ORDERED: Promethazine HCl 25 MG/ML VIAL ONE (19:23)
[2022-01-11] MEDS ORDERED: Piperacillin/Tazobactam 3.375 GM in Sodium Chloride 0.9% 100 ML IVPB SCH (20:00)
[2022-01-11] MEDS: Atorvastatin Calcium 40 MG TAB PO SCH (21:38)
[2022-01-11] MEDS: Pantoprazole 80 MG, Admixture Fee 1 EACH in Sodium Chloride 0.9% 100 ML IVPB SCH (22:18)
[2022-01-12] MEDS: Piperacillin/Tazobactam 3.375 GM in Sodium Chloride 0.9% 100 ML IVPB SCH ×4 (00:10→23:37)
[2022-01-12] MEDS: Nicotine 21 MG PATCH TD SCH ×2 (00:11→23:38)
[2022-01-12] MEDS: Sodium Chloride 0.9% 1,000 ML IV SCH (03:33)
[2022-01-12] MEDS: Nitroglycerin 2% Ointment 1 INCH/1 GM Packet TOP SCH ×3 (05:53→21:14)
[2022-01-12] MEDS: Enoxaparin Sodium 40 MG/0.4 ML SYRINGE SC SCH (09:46)
[2022-01-12] MEDS: Pantoprazole 80 MG, Admixture Fee 1 EACH in Sodium Chloride 0.9% 100 ML IVPB SCH ×2 (09:48→18:32)
[2022-01-12 11:27] LABS: #Lymphocytes 1.1 thou/uL (1.20-3.40); #Monocytes 1.2 thou/uL (0.11-0.59); #Neutrophils 9.3 thou/uL (1.40-6.50); %Basophils 0.2 % (0.0-1.0); %Eosinophils 0.3 % (0.0-10.0); %Lymphocytes 9.3 % (21.0-51.0); %Monocytes 10.4 % (0.0-10.0); %Neutrophils 79.9 % (42.0-75.0); Hemoglobin 12.4 g/dL (12.0-16.0); Mean Corpuscular HGB CONC 28.9 g/dL (32.0-36.0); Mean Corpuscular Hemoglobin 31.4 pg (27.0-31.0); Mean Platelet Volume 10.3 fL (7.4-10.4); Platelet Count 179 thou/uL (130-400); Red Blood Cell (RBC) Count 3.94 mill/uL (4.20-5.40); White Blood Cell (WBC) Count 11.7 thou/uL (4.8-10.8)
[2022-01-12 11:38] LABS: Anion Gap 16 mmol/L (10-20); BUN (Urea Nitrogen) 12 mg/dL (9.8-20.1); Calc. Creatinine Clearance 58 mL/min (70-130); Calcium 8.4 mg/dL (7.8-10.44); Carbon Dioxide 12 mmol/L (23-31); Chloride 110 mmol/L (98-107); Estimated GFR 85; Glucose 80 mg/dL (83-110); Potassium 3.7 mmol/L (3.5-5.1); Sodium 134 mmol/L (136-145)
[2022-01-12] MEDS ORDERED: Dextrose 50% Abboject 50 ML SYRINGE SLOW IVP PRN (13:08)
[2022-01-12] MEDS: DULoxetine 30 MG CAP PO SCH (13:18)
[2022-01-12] MEDS ORDERED: Sodium Bicarbonate 150 MEQ in Dextrose 5% in Water 1,000 ML IV SCH (13:30)
[2022-01-12] MEDS: hydrALAZINE 20 MG/ML VIAL SLOW IVP PRN (15:44)
[2022-01-12] MEDS: Ondansetron PF 4 MG/2 ML Vial IVP PRN (16:08)
[2022-01-12] MEDS: Atorvastatin Calcium 40 MG TAB PO SCH (19:45)
[2022-01-12] MEDS: Labetalol HCl 100 MG/20 ML VIAL SLOW IVP PRN (20:12)
[2022-01-12] MEDS: diphenhydrAMINE 50 MG/ML VIAL IVP PRN (20:12)
[2022-01-12] MEDS: FENTANYL 500 MCG/10 ML VIAL 2,000 MCG in Sodium Chloride 0.9% 60 ML IV PRN (22:52)
[2022-01-13] MEDS: diphenhydrAMINE 50 MG/ML VIAL IVP PRN ×3 (00:54→09:17)
[2022-01-13] MEDS: Labetalol HCl 100 MG/20 ML VIAL SLOW IVP PRN (00:55)
[2022-01-13] MEDS: hydrALAZINE 20 MG/ML VIAL SLOW IVP PRN (05:36)
[2022-01-13] MEDS: Nitroglycerin 2% Ointment 1 INCH/1 GM Packet TOP SCH ×3 (07:35→20:49)
[2022-01-13] MEDS: Piperacillin/Tazobactam 3.375 GM in Sodium Chloride 0.9% 100 ML IVPB SCH ×3 (09:15→23:39)
[2022-01-13] MEDS: Enoxaparin Sodium 40 MG/0.4 ML SYRINGE SC SCH (09:17)
[2022-01-13] MEDS: DULoxetine 30 MG CAP PO SCH (09:17)
[2022-01-13 09:31] LABS: #Eosinphils 0.1 thou/uL (0.0-0.7); #Lymphocytes 1.1 thou/uL (1.20-3.40); #Neutrophils 9.4 thou/uL (1.40-6.50); %Basophils 0.1 % (0.0-1.0); %Eosinophils 0.5 % (0.0-10.0); %Lymphocytes 9.2 % (21.0-51.0); %Monocytes 8.6 % (0.0-10.0); %Neutrophils 81.7 % (42.0-75.0); Hemoglobin 12.4 g/dL (12.0-16.0); Mean Corpuscular HGB CONC 32.2 g/dL (32.0-36.0); Mean Corpuscular Hemoglobin 33.3 pg (27.0-31.0); Mean Platelet Volume 10.2 fL (7.4-10.4); Platelet Count 198 thou/uL (130-400); RBC Distribution Width 13.9 % (11.5-14.5); Red Blood Cell (RBC) Count 3.72 mill/uL (4.20-5.40); White Blood Cell (WBC) Count 11.5 thou/uL (4.8-10.8)
[2022-01-13 09:46] LABS: Anion Gap 16 mmol/L (10-20); BUN (Urea Nitrogen) 8 mg/dL (9.8-20.1); Calc. Creatinine Clearance 73 mL/min (70-130); Calcium 8.7 mg/dL (7.8-10.44); Carbon Dioxide 20 mmol/L (23-31); Chloride 102 mmol/L (98-107); Estimated GFR 95; Glucose 89 mg/dL (83-110); Sodium 135 mmol/L (136-145)
[2022-01-13] MEDS ORDERED: chlordiazePOXIDE HCl 5 MG CAP PO SCH (12:00)
[2022-01-13] MEDS ORDERED: Amino Acids 4.25 %/Dextrose 5% 2,000 ML BAG IV SCH (12:45)
[2022-01-13] MEDS: Acetaminophen 650 MG/20.3 ML UDCUP PER TUBE SCH ×2 (14:54→20:47)
[2022-01-13] MEDS ORDERED: chlordiazePOXIDE HCl 25 MG CAP PO SCH (15:00)
[2022-01-13] MEDS ORDERED: Potassium Chloride 10 MEQ in Premix Bag 1 BAG IVPB SCH (15:15)
[2022-01-13] MEDS: Amino Acids 4.25 %/Dextrose 5% 1,000 ML IV SCH (15:54)
[2022-01-13] MEDS: Losartan 25 MG TAB PO SCH (16:18)
[2022-01-13] MEDS: Pantoprazole 80 MG, Admixture Fee 1 EACH in Sodium Chloride 0.9% 100 ML IVPB SCH (17:40)
[2022-01-13] MEDS: chlordiazePOXIDE HCl 25 MG CAP PO SCH (20:49)
[2022-01-13] MEDS: Atorvastatin Calcium 40 MG TAB PO SCH (20:49)
[2022-01-13] MEDS: FENTANYL 500 MCG/10 ML VIAL 2,000 MCG in Sodium Chloride 0.9% 60 ML IV PRN (21:48)
[2022-01-13] MEDS: Nicotine 21 MG PATCH TD SCH (23:39)
[2022-01-14] MEDS: Ondansetron PF 4 MG/2 ML Vial IVP PRN (01:35)
[2022-01-14] MEDS: Amino Acids 4.25 %/Dextrose 5% 1,000 ML IV SCH ×2 (03:17→15:56)
[2022-01-14] MEDS: Pantoprazole 80 MG, Admixture Fee 1 EACH in Sodium Chloride 0.9% 100 ML IVPB SCH ×3 (03:25→21:51)
[2022-01-14] MEDS: Nitroglycerin 2% Ointment 1 INCH/1 GM Packet TOP SCH ×3 (05:22→23:05)
[2022-01-14 06:13] LABS: Anion Gap 11 mmol/L (10-20); BUN (Urea Nitrogen) 13 mg/dL (9.8-20.1); Calc. Creatinine Clearance 75 mL/min (70-130); Calcium 8.4 mg/dL (7.8-10.44); Carbon Dioxide 24 mmol/L (23-31); Chloride 101 mmol/L (98-107); Estimated GFR 95; Glucose 131 mg/dL (83-110); Sodium 134 mmol/L (136-145)
[2022-01-14 06:16] LABS: Potassium 2.4 mmol/L (3.5-5.1)
[2022-01-14 06:33] LABS: Band 3 % (5-11); Eosinophils 1 % (0-10); Hemoglobin 11.9 g/dL (12.0-16.0); Lymphocytes 6 % (21-51); MDiff Complete? YES; Mean Corpuscular HGB CONC 32.9 g/dL (32.0-36.0); Mean Corpuscular Hemoglobin 34.2 pg (27.0-31.0); Mean Platelet Volume 9.5 fL (7.4-10.4); Monocytes 11 % (0-10); Neutrophil 79 % (42-75); Platelet Count 207 thou/uL (130-400); RBC Distribution Width 13.7 % (11.5-14.5); Red Blood Cell (RBC) Count 3.47 mill/uL (4.20-5.40); White Blood Cell (WBC) Count 10.8 thou/uL (4.8-10.8)
[2022-01-14] MEDS ORDERED: Electrolyte Replacement Protocol FS PRN (06:45)
[2022-01-14 07:47] LABS: Magnesium 1.3 mg/dL (1.6-2.6)
[2022-01-14] MEDS ORDERED: Potassium Chloride 10 MEQ in Premix Bag 1 BAG IVPB SCH (08:00)
[2022-01-14] MEDS ORDERED: Potassium Chloride 20 MEQ in Premix Bag 1 BAG IVPB SCH (09:00)
[2022-01-14] MEDS: DULoxetine 30 MG CAP PO SCH (09:52)
[2022-01-14] MEDS: chlordiazePOXIDE HCl 25 MG CAP PO SCH ×3 (09:52→21:29)
[2022-01-14] MEDS: Enoxaparin Sodium 40 MG/0.4 ML SYRINGE SC SCH (09:53)
[2022-01-14] MEDS: Potassium Bicarbonate/Cit Ac 20 MEQ TAB PO SCH ×3 (09:54→19:48)
[2022-01-14] MEDS: Acetaminophen 650 MG/20.3 ML UDCUP PER TUBE SCH ×4 (09:58→22:29)
[2022-01-14] MEDS: Piperacillin/Tazobactam 3.375 GM in Sodium Chloride 0.9% 100 ML IVPB SCH ×2 (10:10→17:02)
[2022-01-14] MEDS ORDERED: Fluconazole In NaCl,Iso-Osm 200 MG in Premix Bag 1 BAG IVPB SCH (11:00)
[2022-01-14] MEDS: Magnesium 2 GM/50 ML(in water) 2 GM in Premix Bag 1 BAG IVPB SCH ×3 (13:48→15:00)
[2022-01-14] MEDS: Micafungin 100 MG in Sodium Chloride 0.9% 100 ML IVPB SCH (13:55)
[2022-01-14] MEDS: Losartan 25 MG TAB PO SCH (17:14)
[2022-01-14 18:38] LABS: Magnesium 2.4 mg/dL (1.6-2.6)
[2022-01-14 18:53] LABS: Potassium 2.6 mmol/L (3.5-5.1)
[2022-01-14] MEDS: Potassium Chloride 20 MEQ in Premix Bag 1 BAG IVPB SCH ×2 (21:29→23:45)
[2022-01-14] MEDS: Atorvastatin Calcium 40 MG TAB PO SCH (21:29)
[2022-01-14] MEDS: Potassium Chloride 40 MEQ in Dextrose 5%-Lactated Ringers 1,000 ML IV SCH (21:30)
[2022-01-14] MEDS: Nicotine 21 MG PATCH TD SCH (23:06)
[2022-01-15] MEDS: Piperacillin/Tazobactam 3.375 GM in Sodium Chloride 0.9% 100 ML IVPB SCH ×3 (01:21→20:34)
[2022-01-15] MEDS: Amino Acids 4.25 %/Dextrose 5% 1,000 ML IV SCH ×2 (04:12→20:35)
[2022-01-15] MEDS: Ondansetron PF 4 MG/2 ML Vial IVP PRN (04:42)
[2022-01-15 05:26] LABS: #Eosinphils 0.2 thou/uL (0.0-0.7); #Lymphocytes 0.9 thou/uL (1.20-3.40); #Monocytes 0.8 thou/uL (0.11-0.59); #Neutrophils 5.2 thou/uL (1.40-6.50); %Basophils 0.2 % (0.0-1.0); %Eosinophils 2.3 % (0.0-10.0); %Lymphocytes 12.6 % (21.0-51.0); %Monocytes 10.9 % (0.0-10.0); %Neutrophils 73.9 % (42.0-75.0); Hemoglobin 11.4 g/dL (12.0-16.0); Mean Corpuscular Hemoglobin 33.4 pg (27.0-31.0); Mean Platelet Volume 9.5 fL (7.4-10.4); Platelet Count 192 thou/uL (130-400); RBC Distribution Width 13.8 % (11.5-14.5)
[2022-01-15] MEDS: Nitroglycerin 2% Ointment 1 INCH/1 GM Packet TOP SCH ×2 (05:40→15:22)
[2022-01-15 05:42] LABS: Anion Gap 11 mmol/L (10-20); BUN (Urea Nitrogen) 16 mg/dL (9.8-20.1); Calc. Creatinine Clearance 84 mL/min (70-130); Calcium 8.2 mg/dL (7.8-10.44); Carbon Dioxide 21 mmol/L (23-31); Chloride 104 mmol/L (98-107); Estimated GFR 98; Glucose 112 mg/dL (83-110); Potassium 3.4 mmol/L (3.5-5.1); Sodium 133 mmol/L (136-145)
[2022-01-15] MEDS ORDERED: Potassium Chloride 20 MEQ TAB PO SCH (08:00)
[2022-01-15] MEDS: Acetaminophen 650 MG/20.3 ML UDCUP PER TUBE SCH ×3 (11:16→22:14)
[2022-01-15] MEDS: Enoxaparin Sodium 40 MG/0.4 ML SYRINGE SC SCH (11:17)
[2022-01-15] MEDS: chlordiazePOXIDE HCl 25 MG CAP PO SCH ×3 (11:17→22:14)
[2022-01-15] MEDS: DULoxetine 30 MG CAP PO SCH (11:17)
[2022-01-15] MEDS: FENTANYL 500 MCG/10 ML VIAL 2,000 MCG in Sodium Chloride 0.9% 60 ML IV PRN (11:51)
[2022-01-15] MEDS: Potassium Chloride 40 MEQ in Dextrose 5%-Lactated Ringers 1,000 ML IV SCH (13:53)
[2022-01-15] MEDS: Pantoprazole 80 MG, Admixture Fee 1 EACH in Sodium Chloride 0.9% 100 ML IVPB SCH (13:54)
[2022-01-15] MEDS ORDERED: MD-Gastroview 120 ML BOT ONE (14:46)
[2022-01-15] MEDS: Micafungin 100 MG in Sodium Chloride 0.9% 100 ML IVPB SCH (15:06)
[2022-01-15] MEDS: Losartan 25 MG TAB PO SCH (17:20)
[2022-01-15] MEDS: Ondansetron ODT 8 MG TAB SL PRN ×2 (17:55→22:14)
[2022-01-15 19:32] LABS: Potassium 3.1 mmol/L (3.5-5.1)
[2022-01-15] MEDS: Atorvastatin Calcium 40 MG TAB PO SCH (22:14)
[2022-01-15] MEDS: Nicotine 21 MG PATCH TD SCH (22:15)
[2022-01-16] MEDS ORDERED: Potassium Chloride 20 MEQ TAB PO SCH (01:30)
[2022-01-16] MEDS: Pantoprazole 80 MG, Admixture Fee 1 EACH in Sodium Chloride 0.9% 100 ML IVPB SCH ×2 (02:44→15:03)
[2022-01-16] MEDS: Ondansetron PF 4 MG/2 ML Vial IVP PRN ×2 (02:44→16:02)
[2022-01-16] MEDS: Piperacillin/Tazobactam 3.375 GM in Sodium Chloride 0.9% 100 ML IVPB SCH ×3 (04:56→20:09)
[2022-01-16] MEDS: Potassium Chloride 40 MEQ in Dextrose 5%-Lactated Ringers 1,000 ML IV SCH ×3 (05:52→20:04)
[2022-01-16 06:22] LABS: Anion Gap 11 mmol/L (10-20); BUN (Urea Nitrogen) 13 mg/dL (9.8-20.1); Calc. Creatinine Clearance 89 mL/min (70-130); Calcium 8.2 mg/dL (7.8-10.44); Carbon Dioxide 20 mmol/L (23-31); Chloride 105 mmol/L (98-107); Estimated GFR 99; Glucose 131 mg/dL (83-110); Potassium 3.8 mmol/L (3.5-5.1); Sodium 132 mmol/L (136-145)
[2022-01-16 06:53] LABS: Band 3 % (5-11); Hemoglobin 11.3 g/dL (12.0-16.0); Lymphocytes 12 % (21-51); MDiff Complete? YES; Mean Corpuscular HGB CONC 32.1 g/dL (32.0-36.0); Mean Corpuscular Hemoglobin 33.5 pg (27.0-31.0); Mean Platelet Volume 9.3 fL (7.4-10.4); Monocytes 16 % (0-10); Neutrophil 69 % (42-75); Platelet Count 180 thou/uL (130-400); RBC Distribution Width 13.6 % (11.5-14.5); Red Blood Cell (RBC) Count 3.38 mill/uL (4.20-5.40); White Blood Cell (WBC) Count 7.7 thou/uL (4.8-10.8)
[2022-01-16] MEDS: Fluconazole In NaCl,Iso-Osm 400 MG in Premix Bag 1 BAG IVPB SCH (09:37)
[2022-01-16] MEDS: Acetaminophen 650 MG/20.3 ML UDCUP PER TUBE SCH ×3 (09:37→20:09)
[2022-01-16] MEDS: DULoxetine 30 MG CAP PO SCH (09:38)
[2022-01-16] MEDS: Enoxaparin Sodium 40 MG/0.4 ML SYRINGE SC SCH (09:38)
[2022-01-16] MEDS: chlordiazePOXIDE HCl 25 MG CAP PO SCH ×3 (09:38→20:15)
[2022-01-16] MEDS: Losartan 25 MG TAB PO SCH (16:02)
[2022-01-16] MEDS: FENTANYL 500 MCG/10 ML VIAL 2,000 MCG in Sodium Chloride 0.9% 60 ML IV PRN (17:54)
[2022-01-16] MEDS: Amino Acids 4.25 %/Dextrose 5% 1,000 ML IV SCH (20:08)
[2022-01-16] MEDS: Atorvastatin Calcium 40 MG TAB PO SCH (20:10)
[2022-01-16] MEDS: Ondansetron ODT 8 MG TAB SL PRN (20:15)
[2022-01-16] MEDS: Nicotine 21 MG PATCH TD SCH (23:54)
[2022-01-17] MEDS: hydrALAZINE 20 MG/ML VIAL SLOW IVP PRN (00:01)
[2022-01-17] MEDS: Pantoprazole 80 MG, Admixture Fee 1 EACH in Sodium Chloride 0.9% 100 ML IVPB SCH ×3 (00:48→21:25)
[2022-01-17] MEDS ORDERED: Acetaminophen 650 MG Suppository PR PRN (02:33)
[2022-01-17] MEDS: Acetaminophen 325 MG TAB PO PRN ×2 (03:32→21:15)
[2022-01-17] MEDS: Piperacillin/Tazobactam 3.375 GM in Sodium Chloride 0.9% 100 ML IVPB SCH ×3 (03:33→20:21)
[2022-01-17 06:05] LABS: Anion Gap 12 mmol/L (10-20); BUN (Urea Nitrogen) 14 mg/dL (9.8-20.1); Calc. Creatinine Clearance 86 mL/min (70-130); Calcium 8.4 mg/dL (7.8-10.44); Carbon Dioxide 18 mmol/L (23-31); Chloride 104 mmol/L (98-107); Estimated GFR 98; Glucose 157 mg/dL (83-110); Potassium 3.6 mmol/L (3.5-5.1); Sodium 130 mmol/L (136-145)
[2022-01-17 06:36] LABS: Band 4 % (5-11); Hemoglobin 12.1 g/dL (12.0-16.0); Lymphocytes 4 % (21-51); MDiff Complete? YES; Mean Corpuscular HGB CONC 31.6 g/dL (32.0-36.0); Mean Corpuscular Hemoglobin 33.1 pg (27.0-31.0); Mean Platelet Volume 9.4 fL (7.4-10.4); Monocytes 8 % (0-10); Neutrophil 84 % (42-75); Platelet Count 186 thou/uL (130-400); Platelet Morphology Comment Appears Adequate; RBC Distribution Width 13.7 % (11.5-14.5); RBC Morphology Normal; Red Blood Cell (RBC) Count 3.65 mill/uL (4.20-5.40); White Blood Cell (WBC) Count 9.1 thou/uL (4.8-10.8)
[2022-01-17] MEDS: Acetaminophen 650 MG/20.3 ML UDCUP PER TUBE SCH (08:22)
[2022-01-17] MEDS: Amino Acids 4.25 %/Dextrose 5% 1,000 ML IV SCH ×2 (08:22→20:13)
[2022-01-17] MEDS: Enoxaparin Sodium 40 MG/0.4 ML SYRINGE SC SCH (08:23)
[2022-01-17] MEDS: Fluconazole In NaCl,Iso-Osm 400 MG in Premix Bag 1 BAG IVPB SCH (08:23)
[2022-01-17] MEDS: chlordiazePOXIDE HCl 25 MG CAP PO SCH ×3 (08:23→21:07)
[2022-01-17] MEDS: DULoxetine 30 MG CAP PO SCH (08:23)
[2022-01-17] MEDS: Potassium Chloride 40 MEQ in Dextrose 5%-Lactated Ringers 1,000 ML IV SCH ×2 (10:35→23:48)
[2022-01-17] MEDS: Ondansetron PF 4 MG/2 ML Vial IVP PRN (10:40)
[2022-01-17] MEDS: Ondansetron ODT 8 MG TAB SL PRN (16:06)
[2022-01-17] MEDS: HYDROcodone/Acetaminophen 5/325 mg Tablet PO PRN (16:06)
[2022-01-17] MEDS: Losartan 25 MG TAB PO SCH (16:07)
[2022-01-17] MEDS: Atorvastatin Calcium 40 MG TAB PO SCH (20:21)
[2022-01-17] MEDS: Nicotine 21 MG PATCH TD SCH (23:40)
[2022-01-18] MEDS: Acetaminophen 325 MG TAB PO PRN ×2 (02:41→13:26)
[2022-01-18] MEDS: Piperacillin/Tazobactam 3.375 GM in Sodium Chloride 0.9% 100 ML IVPB SCH ×3 (05:15→21:00)
[2022-01-18 05:30] LABS: #Eosinphils 0.1 thou/uL (0.0-0.7); #Lymphocytes 0.9 thou/uL (1.20-3.40); #Monocytes 0.8 thou/uL (0.11-0.59); #Neutrophils 6.9 thou/uL (1.40-6.50); %Basophils 0.3 % (0.0-1.0); %Eosinophils 1.2 % (0.0-10.0); %Lymphocytes 10.1 % (21.0-51.0); %Monocytes 8.9 % (0.0-10.0); %Neutrophils 79.5 % (42.0-75.0); Hemoglobin 11.5 g/dL (12.0-16.0); Mean Corpuscular HGB CONC 32.9 g/dL (32.0-36.0); Mean Corpuscular Hemoglobin 33.9 pg (27.0-31.0); Platelet Count 188 thou/uL (130-400); RBC Distribution Width 13.7 % (11.5-14.5); Red Blood Cell (RBC) Count 3.39 mill/uL (4.20-5.40); White Blood Cell (WBC) Count 8.7 thou/uL (4.8-10.8)
[2022-01-18] MEDS: Ondansetron PF 4 MG/2 ML Vial IVP PRN ×2 (05:39→21:20)
[2022-01-18 05:48] LABS: ALT (SGPT) 35 U/L (8-55); AST (SGOT) 38 U/L (5-34); Albumin 2.8 g/dL (3.4-4.8); Alkaline Phosphatase 269 U/L (40-110); Anion Gap 11 mmol/L (10-20); BUN (Urea Nitrogen) 13 mg/dL (9.8-20.1); Bilirubin, Total 0.6 mg/dL (0.2-1.2); Calc. Creatinine Clearance 91 mL/min (70-130); Calcium 8.1 mg/dL (7.8-10.44); Carbon Dioxide 20 mmol/L (23-31); Chloride 100 mmol/L (98-107); Estimated GFR 100; Globulin 2.4 g/dL (2.4-3.5); Glucose 151 mg/dL (83-110); Potassium 3.7 mmol/L (3.5-5.1); Protein, Total 5.2 g/dL (5.8-8.1); Sodium 127 mmol/L (136-145)
[2022-01-18 05:49] LABS: Phosphorus Less than 1.0 mg/dL (2.3-4.7)
[2022-01-18 05:50] LABS: Magnesium 0.9 mg/dL (1.6-2.6)
[2022-01-18] MEDS ORDERED: Potassium Phosphate 30 MMOL in Sodium Chloride 0.9% 250 ML 250 ML IVPB SCH ×2 (06:45→22:00)
[2022-01-18] MEDS ORDERED: Magnesium Sulfate In Water 4 GM in Premix Bag 1 BAG IVPB SCH (07:00)
[2022-01-18] MEDS ORDERED: Sodium Phosphate 15 MMOL in Sodium Chloride 0.9% 250 ML 250 ML IVPB STA (07:27)
[2022-01-18] MEDS ORDERED: Electrolyte Replacement Protocol 1 EACH FS ONE ×2 (07:28→14:06)
[2022-01-18] MEDS ORDERED: Magnesium Sulfate 4 GM in Sodium Chloride 0.9% 250 ML 250 ML IVPB SCH (07:30)
[2022-01-18] MEDS: Potassium Chloride 40 MEQ in Dextrose 5%-Lactated Ringers 1,000 ML IV SCH (07:35)
[2022-01-18] MEDS: Pantoprazole 80 MG, Admixture Fee 1 EACH in Sodium Chloride 0.9% 100 ML IVPB SCH (07:46)
[2022-01-18] MEDS: Fluconazole In NaCl,Iso-Osm 400 MG in Premix Bag 1 BAG IVPB SCH (07:58)
[2022-01-18] MEDS: Enoxaparin Sodium 40 MG/0.4 ML SYRINGE SC SCH (07:58)
[2022-01-18] MEDS: HYDROcodone/Acetaminophen 5/325 mg Tablet PO PRN ×3 (07:59→21:17)
[2022-01-18] MEDS: chlordiazePOXIDE HCl 25 MG CAP PO SCH ×3 (07:59→21:14)
[2022-01-18] MEDS: DULoxetine 30 MG CAP PO SCH (08:00)
[2022-01-18] MEDS: Amino Acids 4.25 %/Dextrose 5% 1,000 ML IV SCH (09:25)
[2022-01-18] MEDS: Losartan 25 MG TAB PO SCH (16:14)
[2022-01-18] MEDS ORDERED: Sodium Phosphate 30 MMOL in Sodium Chloride 0.9% 250 ML 250 ML IVPB SCH (20:15)
[2022-01-18] MEDS: Atorvastatin Calcium 40 MG TAB PO SCH (21:14)
[2022-01-18] MEDS: Pantoprazole 40 MG VIAL IVP SCH (21:15)
[2022-01-18 21:30] LABS: Anion Gap 13 mmol/L (10-20); BUN (Urea Nitrogen) 15 mg/dL (9.8-20.1); Calc. Creatinine Clearance 89 mL/min (70-130); Calcium 7.8 mg/dL (7.8-10.44); Carbon Dioxide 16 mmol/L (23-31); Chloride 99 mmol/L (98-107); Estimated GFR 99; Glucose 117 mg/dL (83-110); Phosphorus 1.4 mg/dL (2.3-4.7); Potassium 3.9 mmol/L (3.5-5.1); Sodium 124 mmol/L (136-145)
[2022-01-18 21:31] LABS: Magnesium 1.7 mg/dL (1.6-2.6)
[2022-01-18] MEDS ORDERED: Magnesium 2 GM/50 ML(in water) 2 GM in Premix Bag 1 BAG IVPB SCH (22:00)
[2022-01-18] MEDS: Nicotine 21 MG PATCH TD SCH (23:50)
[2022-01-19] MEDS: Amino Acids 4.25 %/Dextrose 5% 1,000 ML IV SCH ×2 (01:00→14:07)
[2022-01-19] MEDS: Piperacillin/Tazobactam 3.375 GM in Sodium Chloride 0.9% 100 ML IVPB SCH ×3 (03:29→20:45)
[2022-01-19 04:07] LABS: #Eosinphils 0.1 thou/uL (0.0-0.7); #Lymphocytes 1.1 thou/uL (1.20-3.40); #Monocytes 0.7 thou/uL (0.11-0.59); #Neutrophils 4.9 thou/uL (1.40-6.50); %Basophils 0.2 % (0.0-1.0); %Eosinophils 1.2 % (0.0-10.0); %Lymphocytes 16.5 % (21.0-51.0); %Monocytes 10.7 % (0.0-10.0); %Neutrophils 71.3 % (42.0-75.0); Hemoglobin 10.6 g/dL (12.0-16.0); Mean Corpuscular Hemoglobin 33.9 pg (27.0-31.0); Mean Platelet Volume 8.7 fL (7.4-10.4); Platelet Count 198 thou/uL (130-400); Red Blood Cell (RBC) Count 3.11 mill/uL (4.20-5.40); White Blood Cell (WBC) Count 6.8 thou/uL (4.8-10.8)
[2022-01-19 04:22] LABS: Anion Gap 14 mmol/L (10-20); BUN (Urea Nitrogen) 14 mg/dL (9.8-20.1); Calc. Creatinine Clearance 86 mL/min (70-130); Calcium 7.7 mg/dL (7.8-10.44); Carbon Dioxide 19 mmol/L (23-31); Chloride 99 mmol/L (98-107); Estimated GFR 98; Glucose 115 mg/dL (83-110); Potassium 3.6 mmol/L (3.5-5.1); Sodium 128 mmol/L (136-145)
[2022-01-19] MEDS ORDERED: PHOS-NAK 1 PKT PACK PO SCH (09:00)
[2022-01-19 09:08] LABS: Magnesium 2.2 mg/dL (1.6-2.6); Phosphorus 4.4 mg/dL (2.3-4.7)
[2022-01-19] MEDS: HYDROcodone/Acetaminophen 5/325 mg Tablet PO PRN ×3 (09:20→20:49)
[2022-01-19] MEDS: Enoxaparin Sodium 40 MG/0.4 ML SYRINGE SC SCH (09:20)
[2022-01-19] MEDS: DULoxetine 30 MG CAP PO SCH (09:20)
[2022-01-19] MEDS: Fluconazole In NaCl,Iso-Osm 400 MG in Premix Bag 1 BAG IVPB SCH (09:20)
[2022-01-19] MEDS: chlordiazePOXIDE HCl 25 MG CAP PO SCH ×3 (09:20→20:45)
[2022-01-19] MEDS: Pantoprazole 40 MG VIAL IVP SCH ×2 (09:21→20:46)
[2022-01-19] MEDS: Losartan 25 MG TAB PO SCH (15:49)
[2022-01-19] MEDS: Atorvastatin Calcium 40 MG TAB PO SCH (20:45)
[2022-01-19] MEDS: Ondansetron ODT 8 MG TAB SL PRN (21:24)
[2022-01-20] MEDS: Nicotine 21 MG PATCH TD SCH ×2 (00:37→20:39)
[2022-01-20] MEDS: Acetaminophen 325 MG TAB PO PRN (00:51)
[2022-01-20] MEDS: Amino Acids 4.25 %/Dextrose 5% 1,000 ML IV SCH ×2 (02:00→21:27)
[2022-01-20 05:26] LABS: Platelet Count 196 thou/uL (130-400)
[2022-01-20 05:27] LABS: #Eosinphils 0.1 thou/uL (0.0-0.7); #Lymphocytes 0.8 thou/uL (1.20-3.40); #Monocytes 0.7 thou/uL (0.11-0.59); #Neutrophils 4.3 thou/uL (1.40-6.50); %Basophils 0.6 % (0.0-1.0); %Lymphocytes 14.1 % (21.0-51.0); %Monocytes 11.7 % (0.0-10.0); %Neutrophils 72.6 % (42.0-75.0); Hemoglobin 9.7 g/dL (12.0-16.0); Mean Corpuscular HGB CONC 33.1 g/dL (32.0-36.0); Mean Corpuscular Hemoglobin 34.3 pg (27.0-31.0); Mean Platelet Volume 8.1 fL (7.4-10.4); RBC Distribution Width 13.9 % (11.5-14.5); Red Blood Cell (RBC) Count 2.82 mill/uL (4.20-5.40); White Blood Cell (WBC) Count 5.9 thou/uL (4.8-10.8)
[2022-01-20 05:39] LABS: ALT (SGPT) 30 U/L (8-55); AST (SGOT) 29 U/L (5-34); Albumin 2.6 g/dL (3.4-4.8); Alkaline Phosphatase 272 U/L (40-110); Anion Gap 8 mmol/L (10-20); BUN (Urea Nitrogen) 18 mg/dL (9.8-20.1); Bilirubin, Total 0.5 mg/dL (0.2-1.2); Calc. Creatinine Clearance 81 mL/min (70-130); Calcium 8.4 mg/dL (7.8-10.44); Carbon Dioxide 22 mmol/L (23-31); Chloride 103 mmol/L (98-107); Estimated GFR 97; Globulin 2.9 g/dL (2.4-3.5); Glucose 121 mg/dL (83-110); Magnesium 1.6 mg/dL (1.6-2.6); Potassium 3.8 mmol/L (3.5-5.1); Protein, Total 5.5 g/dL (5.8-8.1); Sodium 129 mmol/L (136-145)
[2022-01-20 05:43] LABS: Phosphorus 1.5 mg/dL (2.3-4.7)
[2022-01-20] MEDS ORDERED: PHOS-NAK 1 PKT PACK PO SCH ×2 (06:00→08:00)
[2022-01-20] MEDS: HYDROcodone/Acetaminophen 5/325 mg Tablet PO PRN ×3 (06:03→17:07)
[2022-01-20] MEDS: Piperacillin/Tazobactam 3.375 GM in Sodium Chloride 0.9% 100 ML IVPB SCH ×3 (06:17→20:39)
[2022-01-20] MEDS ORDERED: Potassium Phosphate 22 MMOL in Sodium Chloride 0.9% 250 ML 250 ML IVPB SCH (07:30)
[2022-01-20] MEDS ORDERED: Magnesium 2 GM/50 ML(in water) 2 GM in Premix Bag 1 BAG IVPB SCH (08:00)
[2022-01-20] MEDS: Pantoprazole 40 MG VIAL IVP SCH ×2 (08:32→20:39)
[2022-01-20] MEDS: Enoxaparin Sodium 40 MG/0.4 ML SYRINGE SC SCH (08:33)
[2022-01-20] MEDS: chlordiazePOXIDE HCl 25 MG CAP PO SCH ×3 (08:33→20:38)
[2022-01-20] MEDS: DULoxetine 30 MG CAP PO SCH (08:33)
[2022-01-20] MEDS: Fluconazole In NaCl,Iso-Osm 400 MG in Premix Bag 1 BAG IVPB SCH (10:10)
[2022-01-20] MEDS: Losartan 25 MG TAB PO SCH (16:22)
[2022-01-20] MEDS: Atorvastatin Calcium 40 MG TAB PO SCH (20:38)
[2022-01-21] MEDS: HYDROcodone/Acetaminophen 5/325 mg Tablet PO PRN ×3 (00:09→15:53)
[2022-01-21] MEDS: Piperacillin/Tazobactam 3.375 GM in Sodium Chloride 0.9% 100 ML IVPB SCH ×3 (04:05→21:25)
[2022-01-21 06:13] LABS: #Eosinphils 0.1 thou/uL (0.0-0.7); #Monocytes 0.7 thou/uL (0.11-0.59); #Neutrophils 4.6 thou/uL (1.40-6.50); %Basophils 0.4 % (0.0-1.0); %Eosinophils 1.2 % (0.0-10.0); %Lymphocytes 16.1 % (21.0-51.0); %Monocytes 10.4 % (0.0-10.0); %Neutrophils 71.9 % (42.0-75.0); Hemoglobin 9.8 g/dL (12.0-16.0); Mean Corpuscular HGB CONC 31.9 g/dL (32.0-36.0); Mean Corpuscular Hemoglobin 33.4 pg (27.0-31.0); Mean Platelet Volume 8.1 fL (7.4-10.4); Platelet Count 251 thou/uL (130-400); RBC Distribution Width 13.9 % (11.5-14.5); Red Blood Cell (RBC) Count 2.94 mill/uL (4.20-5.40); White Blood Cell (WBC) Count 6.4 thou/uL (4.8-10.8)
[2022-01-21 06:18] LABS: ALT (SGPT) 27 U/L (8-55); AST (SGOT) 29 U/L (5-34); Albumin 2.7 g/dL (3.4-4.8); Alkaline Phosphatase 326 U/L (40-110); Anion Gap 12 mmol/L (10-20); BUN (Urea Nitrogen) 13 mg/dL (9.8-20.1); Bilirubin, Total 0.6 mg/dL (0.2-1.2); Calc. Creatinine Clearance 82 mL/min (70-130); Calcium 8.4 mg/dL (7.8-10.44); Carbon Dioxide 19 mmol/L (23-31); Chloride 103 mmol/L (98-107); Estimated GFR 97; Globulin 3.1 g/dL (2.4-3.5); Glucose 117 mg/dL (83-110); Magnesium 1.5 mg/dL (1.6-2.6); Potassium 4.2 mmol/L (3.5-5.1); Protein, Total 5.8 g/dL (5.8-8.1); Sodium 130 mmol/L (136-145)
[2022-01-21 06:43] LABS: Phosphorus 2.1 mg/dL (2.3-4.7)
[2022-01-21] MEDS ORDERED: Magnesium 2 GM/50 ML(in water) 2 GM in Premix Bag 1 BAG IVPB SCH (08:00)
[2022-01-21] MEDS ORDERED: Magnesium Sulfate 3 GM in Sodium Chloride 0.9% 100 ML IVPB SCH (08:30)
[2022-01-21] MEDS: DULoxetine 30 MG CAP PO SCH (08:50)
[2022-01-21] MEDS: Enoxaparin Sodium 40 MG/0.4 ML SYRINGE SC SCH (08:50)
[2022-01-21] MEDS: chlordiazePOXIDE HCl 25 MG CAP PO SCH ×3 (08:50→21:27)
[2022-01-21] MEDS: Pantoprazole 40 MG VIAL IVP SCH (08:53)
[2022-01-21] MEDS: Amino Acids 4.25 %/Dextrose 5% 1,000 ML IV SCH ×2 (09:25→21:20)
[2022-01-21] MEDS: Fluconazole In NaCl,Iso-Osm 400 MG in Premix Bag 1 BAG IVPB SCH (11:35)
[2022-01-21 13:24] LABS: #Eosinphils 0.1 thou/uL (0.0-0.7); #Lymphocytes 0.8 thou/uL (1.20-3.40); #Monocytes 0.7 thou/uL (0.11-0.59); #Neutrophils 5.2 thou/uL (1.40-6.50); %Basophils 0.2 % (0.0-1.0); %Eosinophils 0.8 % (0.0-10.0); %Lymphocytes 11.7 % (21.0-51.0); %Neutrophils 77.3 % (42.0-75.0); Hemoglobin 10.3 g/dL (12.0-16.0); Mean Corpuscular HGB CONC 32.4 g/dL (32.0-36.0); Mean Corpuscular Hemoglobin 33.7 pg (27.0-31.0); Mean Platelet Volume 7.8 fL (7.4-10.4); Platelet Count 268 thou/uL (130-400); RBC Distribution Width 13.9 % (11.5-14.5); Red Blood Cell (RBC) Count 3.07 mill/uL (4.20-5.40); White Blood Cell (WBC) Count 6.7 thou/uL (4.8-10.8)
[2022-01-21 13:42] LABS: Anion Gap 11 mmol/L (10-20); BUN (Urea Nitrogen) 16 mg/dL (9.8-20.1); Calc. Creatinine Clearance 82 mL/min (70-130); Calcium 8.7 mg/dL (7.8-10.44); Carbon Dioxide 20 mmol/L (23-31); Chloride 102 mmol/L (98-107); Estimated GFR 97; Glucose 131 mg/dL (83-110); Potassium 3.8 mmol/L (3.5-5.1); Sodium 129 mmol/L (136-145)
[2022-01-21] MEDS: Losartan 25 MG TAB PO SCH (17:01)
[2022-01-21] MEDS: Atorvastatin Calcium 40 MG TAB PO SCH (21:26)
[2022-01-21] MEDS: Acetaminophen 325 MG TAB PO PRN (21:27)
[2022-01-21] MEDS: Nicotine 21 MG PATCH TD SCH (21:33)
[2022-01-22] MEDS: HYDROcodone/Acetaminophen 5/325 mg Tablet PO PRN ×2 (02:27→13:56)
[2022-01-22] MEDS: Piperacillin/Tazobactam 3.375 GM in Sodium Chloride 0.9% 100 ML IVPB SCH ×2 (04:45→14:18)
[2022-01-22 06:15] LABS: #Lymphocytes 0.9 thou/uL (1.20-3.40); #Monocytes 0.7 thou/uL (0.11-0.59); %Basophils 0.1 % (0.0-1.0); %Eosinophils 0.6 % (0.0-10.0); %Lymphocytes 11.5 % (21.0-51.0); %Monocytes 9.4 % (0.0-10.0); %Neutrophils 78.4 % (42.0-75.0); Hemoglobin 10.2 g/dL (12.0-16.0); Mean Corpuscular HGB CONC 32.4 g/dL (32.0-36.0); Mean Corpuscular Hemoglobin 33.4 pg (27.0-31.0); Mean Platelet Volume 7.8 fL (7.4-10.4); Platelet Count 299 thou/uL (130-400); RBC Distribution Width 13.8 % (11.5-14.5); Red Blood Cell (RBC) Count 3.05 mill/uL (4.20-5.40); White Blood Cell (WBC) Count 7.7 thou/uL (4.8-10.8)
[2022-01-22 06:53] LABS: ALT (SGPT) 22 U/L (8-55); AST (SGOT) 23 U/L (5-34); Albumin 2.9 g/dL (3.4-4.8); Alkaline Phosphatase 332 U/L (40-110); Anion Gap 12 mmol/L (10-20); BUN (Urea Nitrogen) 15 mg/dL (9.8-20.1); Bilirubin, Total 0.5 mg/dL (0.2-1.2); Calc. Creatinine Clearance 86 mL/min (70-130); Calcium 9.1 mg/dL (7.8-10.44); Carbon Dioxide 20 mmol/L (23-31); Chloride 102 mmol/L (98-107); Estimated GFR 98; Globulin 3.4 g/dL (2.4-3.5); Glucose 141 mg/dL (83-110); Magnesium 1.5 mg/dL (1.6-2.6); Potassium 3.5 mmol/L (3.5-5.1); Protein, Total 6.3 g/dL (5.8-8.1); Sodium 130 mmol/L (136-145)
[2022-01-22 06:54] LABS: Phosphorus 1.9 mg/dL (2.3-4.7)
[2022-01-22] MEDS ORDERED: Magnesium 2 GM/50 ML(in water) 2 GM in Premix Bag 1 BAG IVPB SCH (08:00)
[2022-01-22] MEDS ORDERED: Potassium Chloride 20 MEQ TAB PO SCH (08:00)
[2022-01-22] MEDS: hydrALAZINE 20 MG/ML VIAL SLOW IVP PRN (10:06)
[2022-01-22] MEDS: PHOS-NAK 1 PKT PACK PO SCH ×2 (10:13→14:19)
[2022-01-22] MEDS: chlordiazePOXIDE HCl 25 MG CAP PO SCH ×3 (10:13→20:10)
[2022-01-22] MEDS: DULoxetine 30 MG CAP PO SCH (10:14)
[2022-01-22] MEDS: Fluconazole In NaCl,Iso-Osm 400 MG in Premix Bag 1 BAG IVPB SCH (10:14)
[2022-01-22] MEDS: Enoxaparin Sodium 40 MG/0.4 ML SYRINGE SC SCH (10:14)
[2022-01-22] MEDS: Ondansetron PF 4 MG/2 ML Vial IVP PRN (13:56)
[2022-01-22] MEDS: Losartan 25 MG TAB PO SCH (17:20)
[2022-01-22] MEDS: Atorvastatin Calcium 40 MG TAB PO SCH (20:10)
[2022-01-22] MEDS: Nicotine 21 MG PATCH TD SCH (20:10)
[2022-01-22] MEDS: Acetaminophen 325 MG TAB PO PRN (20:14)
[2022-01-22] MEDS: Amino Acids 4.25 %/Dextrose 5% 1,000 ML IV SCH (22:34)
[2022-01-23] MEDS: HYDROcodone/Acetaminophen 5/325 mg Tablet PO PRN (03:11)
[2022-01-23 07:00] LABS: #Eosinphils 0.1 thou/uL (0.0-0.7); #Monocytes 0.7 thou/uL (0.11-0.59); #Neutrophils 4.1 thou/uL (1.40-6.50); %Basophils 0.3 % (0.0-1.0); %Eosinophils 2.1 % (0.0-10.0); %Lymphocytes 17.4 % (21.0-51.0); %Monocytes 11.9 % (0.0-10.0); %Neutrophils 68.3 % (42.0-75.0); Hemoglobin 9.9 g/dL (12.0-16.0); Mean Corpuscular HGB CONC 33.7 g/dL (32.0-36.0); Mean Corpuscular Hemoglobin 34.9 pg (27.0-31.0); Mean Platelet Volume 7.5 fL (7.4-10.4); Platelet Count 314 thou/uL (130-400); RBC Distribution Width 13.7 % (11.5-14.5); Red Blood Cell (RBC) Count 2.84 mill/uL (4.20-5.40); White Blood Cell (WBC) Count 5.9 thou/uL (4.8-10.8)
[2022-01-23 07:29] LABS: ALT (SGPT) 29 U/L (8-55); AST (SGOT) 30 U/L (5-34); Albumin 2.9 g/dL (3.4-4.8); Alkaline Phosphatase 293 U/L (40-110); Anion Gap 12 mmol/L (10-20); BUN (Urea Nitrogen) 17 mg/dL (9.8-20.1); Bilirubin, Total 0.4 mg/dL (0.2-1.2); Calc. Creatinine Clearance 86 mL/min (70-130); Calcium 9.2 mg/dL (7.8-10.44); Carbon Dioxide 21 mmol/L (23-31); Chloride 101 mmol/L (98-107); Estimated GFR 98; Globulin 3.3 g/dL (2.4-3.5); Glucose 128 mg/dL (83-110); Magnesium 1.5 mg/dL (1.6-2.6); Phosphorus 3.2 mg/dL (2.3-4.7); Potassium 3.6 mmol/L (3.5-5.1); Protein, Total 6.2 g/dL (5.8-8.1); Sodium 130 mmol/L (136-145)
[2022-01-23] MEDS ORDERED: Magnesium 2 GM/50 ML(in water) 2 GM in Premix Bag 1 BAG IVPB SCH (08:00)
[2022-01-23] MEDS: chlordiazePOXIDE HCl 25 MG CAP PO SCH ×3 (08:58→20:43)
[2022-01-23] MEDS: Enoxaparin Sodium 40 MG/0.4 ML SYRINGE SC SCH (08:58)
[2022-01-23] MEDS: DULoxetine 30 MG CAP PO SCH (08:59)
[2022-01-23] MEDS: Losartan 25 MG TAB PO SCH (16:05)
[2022-01-23] MEDS: Atorvastatin Calcium 40 MG TAB PO SCH (20:43)
[2022-01-23] MEDS: Nicotine 21 MG PATCH TD SCH (20:43)
[2022-01-23] MEDS: Amino Acids 4.25 %/Dextrose 5% 1,000 ML IV SCH (23:52)
[2022-01-24] MEDS: HYDROcodone/Acetaminophen 5/325 mg Tablet PO PRN (03:53)
[2022-01-24 07:13] LABS: Anion Gap 13 mmol/L (10-20); BUN (Urea Nitrogen) 17 mg/dL (9.8-20.1); Calc. Creatinine Clearance 81 mL/min (70-130); Calcium 9.2 mg/dL (7.8-10.44); Carbon Dioxide 20 mmol/L (23-31); Chloride 99 mmol/L (98-107); Estimated GFR 97; Glucose 135 mg/dL (83-110); Potassium 3.6 mmol/L (3.5-5.1); Sodium 128 mmol/L (136-145)
[2022-01-24] MEDS: DULoxetine 30 MG CAP PO SCH (09:19)
[2022-01-24] MEDS: Enoxaparin Sodium 40 MG/0.4 ML SYRINGE SC SCH (09:19)
[2022-01-24] MEDS: chlordiazePOXIDE HCl 25 MG CAP PO SCH ×3 (09:20→20:50)
[2022-01-24] MEDS: Ondansetron PF 4 MG/2 ML Vial IVP PRN (16:17)
[2022-01-24] MEDS: Losartan 25 MG TAB PO SCH (16:18)
[2022-01-24] MEDS: Nicotine 21 MG PATCH TD SCH (20:50)
[2022-01-24] MEDS: diphenhydrAMINE 25 MG CAP PO PRN (20:50)
[2022-01-24] MEDS: Atorvastatin Calcium 40 MG TAB PO SCH (20:50)
[2022-01-25] MEDS: Amino Acids 4.25 %/Dextrose 5% 1,000 ML IV SCH (02:04)
[2022-01-25] MEDS: HYDROcodone/Acetaminophen 5/325 mg Tablet PO PRN ×4 (04:27→20:53)
[2022-01-25] MEDS: DULoxetine 30 MG CAP PO SCH (08:41)
[2022-01-25] MEDS: chlordiazePOXIDE HCl 25 MG CAP PO SCH (08:41)
[2022-01-25] MEDS: Enoxaparin Sodium 40 MG/0.4 ML SYRINGE SC SCH (08:42)
[2022-01-25] MEDS: Ondansetron PF 4 MG/2 ML Vial IVP PRN (08:53)
[2022-01-25] MEDS ORDERED: Furosemide 20 MG/2 ML VIAL SLOW IVP SCH (10:30)
[2022-01-25] MEDS: D5W-AA 4.25% with LYTES 1,000 ML IV SCH ×2 (11:15→20:54)
[2022-01-25] MEDS: Losartan 25 MG TAB PO SCH (17:25)
[2022-01-25] MEDS: Mometasone 200 MCG/Formoterol 5 MCG 120 PUFF INHALER INH SCH (19:29)
[2022-01-25] MEDS: Atorvastatin Calcium 40 MG TAB PO SCH (20:53)
[2022-01-25] MEDS: diphenhydrAMINE 25 MG CAP PO PRN (20:53)
[2022-01-25] MEDS: Nicotine 21 MG PATCH TD SCH (20:54)
[2022-01-26] MEDS: Mometasone 200 MCG/Formoterol 5 MCG 120 PUFF INHALER INH SCH ×2 (06:49→18:43)
[2022-01-26 07:46] LABS: Anion Gap 16 mmol/L (10-20); BUN (Urea Nitrogen) 19 mg/dL (9.8-20.1); Calc. Creatinine Clearance 80 mL/min (70-130); Carbon Dioxide 16 mmol/L (23-31); Chloride 99 mmol/L (98-107); Estimated GFR 96; Glucose 146 mg/dL (83-110); Potassium 4.2 mmol/L (3.5-5.1); Sodium 127 mmol/L (136-145)
[2022-01-26 08:09] LABS: Band 9 % (5-11); Hemoglobin 10.6 g/dL (12.0-16.0); Lymphocytes 1 % (21-51); MDiff Complete? YES; Macrocytosis SLIGHT = 6-15 cells (100X) (0-5/hpf); Mean Corpuscular Hemoglobin 32.8 pg (27.0-31.0); Mean Platelet Volume 8.9 fL (7.4-10.4); Monocytes 5 % (0-10); Neutrophil 85 % (42-75); Platelet Count 250 thou/uL (130-400); Platelet Morphology Comment Appears Adequate; RBC Distribution Width 13.9 % (11.5-14.5); Red Blood Cell (RBC) Count 3.23 mill/uL (4.20-5.40); White Blood Cell (WBC) Count 17.2 thou/uL (4.8-10.8)
[2022-01-26] MEDS: DULoxetine 30 MG CAP PO SCH ×2 (08:28→08:51)
[2022-01-26] MEDS: Enoxaparin Sodium 40 MG/0.4 ML SYRINGE SC SCH (08:28)
[2022-01-26] MEDS: Furosemide 20 MG TAB PO SCH ×2 (08:28→08:51)
[2022-01-26] MEDS: Acetaminophen 325 MG TAB PO PRN ×2 (08:28→20:56)
[2022-01-26 08:51] LABS: Actual Bicarbonate (HCO3a) 21.2 mEq/L (22-28); Base Excess (BEa) -2.1 mEq/L (-2.0 to +3.0); CO2 Tension 31.5 mmHg (35.0-45.0); Calcium, Ionized (arterial) 1.31 mmol/L (1.12-1.30); Carboxyhemoglobin (COHb) 0.5 gm% (0.0-3.0); Hemoglobin (Hb) 11.5 g/dL (12.0-16.0); O2 Tension (PaO2), arterial 73.9 mmHg (> 70.0); Potassium - ABG Lab 4.01 mmol/L (3.70-5.30); pH, Arterial 7.45 (7.35-7.45)
[2022-01-26 08:52] LABS: Puncture Site RRA
[2022-01-26] MEDS: Vancomycin 1 GM in Premix Bag 1 BAG IVPB SCH ×2 (09:04→20:58)
[2022-01-26] MEDS: D5W-AA 4.25% with LYTES 1,000 ML IV SCH (10:08)
[2022-01-26] MEDS ORDERED: VANC IVPB PRN (12:13)
[2022-01-26] MEDS ORDERED: Meropenem 1 GM in Sodium Chloride 0.9% 100 ML IVPB SCH (14:00)
[2022-01-26] MEDS: Diltiazem HCl 125 MG, Admixture Fee 1 EACH in Sodium Chloride 0.9% 100 ML IVPB SCH (16:57)
[2022-01-26] MEDS: Losartan 25 MG TAB PO SCH (17:06)
[2022-01-26 19:40] LABS: Bacteria/HPF None Seen HPF (None Seen); Bilirubin Negative (Negative); Blood, Urine Negative (Negative); Clarity Clear (Clear); Glucose, Urine (Dipstick) Normal (Negative); Ketone, Urine Negative (Negative); Leukocyte Negative Leu/uL (Negative); Nitrite Negative (Negative); Protein, Urine (Dipstick) 30 mg/dL (Neg-Trace); RBC/HPF 0-3 HPF (0-3); Specific Gravity, Urine 1.017 (1.002-1.036); Squamous Epithelial 0-3 HPF (0-3); WBC/HPF 0-3 HPF (0-3)
[2022-01-26 19:42] LABS: Urine Culture Reflex No No
[2022-01-26] MEDS: Atorvastatin Calcium 40 MG TAB PO SCH (20:56)
[2022-01-26] MEDS: Ondansetron PF 4 MG/2 ML Vial IVP PRN (21:02)
[2022-01-26] MEDS: Meropenem 1 GM in Sodium Chloride 0.9% 100 ML IVPB SCH (23:34)
[2022-01-27] MEDS: D5W-AA 4.25% with LYTES 1,000 ML IV SCH ×2 (00:08→09:07)
[2022-01-27] MEDS: Nicotine 21 MG PATCH TD SCH ×2 (00:10→23:00)
[2022-01-27 04:49] LABS: #Lymphocytes 0.8 thou/uL (1.20-3.40); #Monocytes 1.2 thou/uL (0.11-0.59); #Neutrophils 9.6 thou/uL (1.40-6.50); %Basophils 0.2 % (0.0-1.0); %Eosinophils 0.2 % (0.0-10.0); %Lymphocytes 6.7 % (21.0-51.0); %Monocytes 10.7 % (0.0-10.0); %Neutrophils 82.2 % (42.0-75.0); Hemoglobin 10.2 g/dL (12.0-16.0); Mean Corpuscular HGB CONC 33.8 g/dL (32.0-36.0); Mean Corpuscular Hemoglobin 34.7 pg (27.0-31.0); Mean Platelet Volume 8.4 fL (7.4-10.4); Platelet Count 204 thou/uL (130-400); RBC Distribution Width 13.7 % (11.5-14.5); Red Blood Cell (RBC) Count 2.94 mill/uL (4.20-5.40); White Blood Cell (WBC) Count 11.7 thou/uL (4.8-10.8)
[2022-01-27 05:12] LABS: Anion Gap 13 mmol/L (10-20); BUN (Urea Nitrogen) 25 mg/dL (9.8-20.1); Calc. Creatinine Clearance 81 mL/min (70-130); Calcium 10.3 mg/dL (7.8-10.44); Carbon Dioxide 21 mmol/L (23-31); Chloride 99 mmol/L (98-107); Estimated GFR 97; Glucose 132 mg/dL (83-110); Potassium 4.5 mmol/L (3.5-5.1); Sodium 128 mmol/L (136-145)
[2022-01-27] MEDS: Meropenem 1 GM in Sodium Chloride 0.9% 100 ML IVPB SCH ×3 (06:16→23:00)
[2022-01-27] MEDS: Mometasone 200 MCG/Formoterol 5 MCG 120 PUFF INHALER INH SCH ×2 (07:05→18:58)
[2022-01-27] MEDS: DULoxetine 30 MG CAP PO SCH ×2 (08:27→09:38)
[2022-01-27] MEDS: Enoxaparin Sodium 40 MG/0.4 ML SYRINGE SC SCH (09:07)
[2022-01-27 09:15] LABS: Vancomycin, Trough 9.6 ug/mL
[2022-01-27] MEDS: Vancomycin 1 GM in Premix Bag 1 BAG IVPB SCH (09:41)
[2022-01-27] MEDS ORDERED: Vancomycin HCl 500 MG in Sodium Chloride 0.9% 100 ML IVPB SCH ×2 (11:00→15:00)
[2022-01-27] MEDS: chlordiazePOXIDE HCl 25 MG CAP PO SCH ×2 (14:10→21:04)
[2022-01-27] MEDS: Losartan 25 MG TAB PO SCH (17:39)
[2022-01-27] MEDS: Diltiazem HCl 125 MG, Admixture Fee 1 EACH in Sodium Chloride 0.9% 100 ML IVPB SCH (19:46)
[2022-01-27] MEDS: Enoxaparin Sodium 60 MG/0.6 ML SYRINGE SC SCH (21:04)
[2022-01-27] MEDS: Atorvastatin Calcium 40 MG TAB PO SCH (21:04)
[2022-01-27] MEDS: Vancomycin 1.5 GRAM/300 ML BAG 1.5 GM in Premix Bag 1 BAG IVPB SCH (21:05)
[2022-01-27] MEDS: Acetaminophen 325 MG TAB PO PRN (21:11)
[2022-01-28] MEDS: Meropenem 1 GM in Sodium Chloride 0.9% 100 ML IVPB SCH ×2 (05:56→15:03)
[2022-01-28] MEDS: D5W-AA 4.25% with LYTES 1,000 ML IV SCH ×2 (05:57→17:12)
[2022-01-28 07:06] LABS: Anion Gap 12 mmol/L (10-20); BUN (Urea Nitrogen) 31 mg/dL (9.8-20.1); Calc. Creatinine Clearance 79 mL/min (70-130); Calcium 9.5 mg/dL (7.8-10.44); Carbon Dioxide 21 mmol/L (23-31); Chloride 101 mmol/L (98-107); Estimated GFR 95; Glucose 136 mg/dL (83-110); Potassium 5.5 mmol/L (3.5-5.1); Sodium 128 mmol/L (136-145)
[2022-01-28] MEDS: Mometasone 200 MCG/Formoterol 5 MCG 120 PUFF INHALER INH SCH ×2 (08:01→19:16)
[2022-01-28 08:25] LABS: #Eosinphils 0.1 thou/uL (0.0-0.7); #Lymphocytes 0.5 thou/uL (1.20-3.40); #Monocytes 0.8 thou/uL (0.11-0.59); #Neutrophils 6.4 thou/uL (1.40-6.50); %Eosinophils 1.6 % (0.0-10.0); %Lymphocytes 6.8 % (21.0-51.0); %Monocytes 10.2 % (0.0-10.0); %Neutrophils 81.5 % (42.0-75.0); Hemoglobin 8.8 g/dL (12.0-16.0); Mean Corpuscular HGB CONC 32.5 g/dL (32.0-36.0); Mean Corpuscular Hemoglobin 33.4 pg (27.0-31.0); Mean Platelet Volume 9.2 fL (7.4-10.4); Platelet Count 181 thou/uL (130-400); RBC Distribution Width 13.9 % (11.5-14.5); Red Blood Cell (RBC) Count 2.63 mill/uL (4.20-5.40); White Blood Cell (WBC) Count 7.9 thou/uL (4.8-10.8)
[2022-01-28] MEDS: chlordiazePOXIDE HCl 25 MG CAP PO SCH ×3 (09:24→20:37)
[2022-01-28] MEDS: DULoxetine 30 MG CAP PO SCH (09:24)
[2022-01-28] MEDS: Enoxaparin Sodium 60 MG/0.6 ML SYRINGE SC SCH ×2 (09:24→20:37)
[2022-01-28] MEDS: Vancomycin 1.5 GRAM/300 ML BAG 1.5 GM in Premix Bag 1 BAG IVPB SCH (09:27)
[2022-01-28] MEDS: Acetaminophen 325 MG TAB PO PRN ×2 (09:29→18:17)
[2022-01-28] MEDS: HYDROcodone/Acetaminophen 5/325 mg Tablet PO PRN ×2 (11:56→20:38)
[2022-01-28] MEDS ORDERED: Ketorolac Tromethamine 30 MG/ML VIAL IVP PRN (16:07)
[2022-01-28] MEDS ORDERED: Lidocaine 5% Patch TD SCH (16:15)
[2022-01-28] MEDS: Lidocaine 5% Patch TD SCH (17:12)
[2022-01-28 20:37] LABS: Vancomycin, Trough 25.5 ug/mL
[2022-01-28] MEDS: Amoxicillin/Potassium Clav 875 MG TAB PO SCH (20:37)
[2022-01-28] MEDS: Atorvastatin Calcium 40 MG TAB PO SCH (20:37)
[2022-01-28] MEDS: Nicotine 21 MG PATCH TD SCH (22:56)
[2022-01-29] MEDS: Acetaminophen 325 MG TAB PO PRN (03:40)
[2022-01-29 04:53] LABS: #Lymphocytes 0.7 thou/uL (1.20-3.40); #Monocytes 0.7 thou/uL (0.11-0.59); #Neutrophils 3.4 thou/uL (1.40-6.50); %Basophils 0.3 % (0.0-1.0); %Eosinophils 0.8 % (0.0-10.0); %Lymphocytes 13.8 % (21.0-51.0); %Monocytes 14.8 % (0.0-10.0); %Neutrophils 70.2 % (42.0-75.0); Hemoglobin 9.7 g/dL (12.0-16.0); Mean Corpuscular HGB CONC 32.9 g/dL (32.0-36.0); Mean Corpuscular Hemoglobin 34.1 pg (27.0-31.0); Mean Platelet Volume 8.6 fL (7.4-10.4); Platelet Count 191 thou/uL (130-400); RBC Distribution Width 13.9 % (11.5-14.5); Red Blood Cell (RBC) Count 2.84 mill/uL (4.20-5.40); White Blood Cell (WBC) Count 4.9 thou/uL (4.8-10.8)
[2022-01-29 06:05] LABS: Anion Gap 10 mmol/L (10-20); BUN (Urea Nitrogen) 25 mg/dL (9.8-20.1); Calc. Creatinine Clearance 83 mL/min (70-130); Carbon Dioxide 23 mmol/L (23-31); Chloride 102 mmol/L (98-107); Estimated GFR 97; Glucose 113 mg/dL (83-110); Potassium 4.2 mmol/L (3.5-5.1); Sodium 131 mmol/L (136-145)
[2022-01-29] MEDS: Mometasone 200 MCG/Formoterol 5 MCG 120 PUFF INHALER INH SCH ×2 (07:16→18:54)
[2022-01-29] MEDS: Amoxicillin/Potassium Clav 875 MG TAB PO SCH ×2 (10:09→20:16)
[2022-01-29] MEDS: DULoxetine 30 MG CAP PO SCH (10:09)
[2022-01-29] MEDS: chlordiazePOXIDE HCl 25 MG CAP PO SCH ×3 (10:09→20:17)
[2022-01-29] MEDS: Enoxaparin Sodium 60 MG/0.6 ML SYRINGE SC SCH ×2 (10:10→20:33)
[2022-01-29] MEDS: HYDROcodone/Acetaminophen 5/325 mg Tablet PO PRN (10:10)
[2022-01-29] MEDS: Ondansetron PF 4 MG/2 ML Vial IVP PRN (12:08)
[2022-01-29] MEDS: D5W-AA 4.25% with LYTES 1,000 ML IV SCH (15:16)
[2022-01-29] MEDS: Lidocaine 5% Patch TD SCH (17:13)
[2022-01-29] MEDS: Atorvastatin Calcium 40 MG TAB PO SCH (20:16)
[2022-01-29] MEDS: Nicotine 21 MG PATCH TD SCH (23:41)
[2022-01-30 04:09] LABS: #Eosinphils 0.1 thou/uL (0.0-0.7); #Lymphocytes 0.7 thou/uL (1.20-3.40); #Monocytes 0.7 thou/uL (0.11-0.59); #Neutrophils 3.2 thou/uL (1.40-6.50); %Basophils 0.4 % (0.0-1.0); %Eosinophils 1.2 % (0.0-10.0); %Monocytes 14.1 % (0.0-10.0); %Neutrophils 69.3 % (42.0-75.0); Hemoglobin 8.8 g/dL (12.0-16.0); Mean Corpuscular HGB CONC 32.8 g/dL (32.0-36.0); Mean Platelet Volume 8.8 fL (7.4-10.4); Platelet Count 223 thou/uL (130-400); RBC Distribution Width 13.7 % (11.5-14.5); White Blood Cell (WBC) Count 4.7 thou/uL (4.8-10.8)
[2022-01-30 04:21] LABS: Anion Gap 10 mmol/L (10-20); BUN (Urea Nitrogen) 21 mg/dL (9.8-20.1); Calc. Creatinine Clearance 84 mL/min (70-130); Calcium 9.7 mg/dL (7.8-10.44); Carbon Dioxide 26 mmol/L (23-31); Chloride 99 mmol/L (98-107); Estimated GFR 97; Glucose 125 mg/dL (83-110); Potassium 4.4 mmol/L (3.5-5.1); Sodium 131 mmol/L (136-145)
[2022-01-30] MEDS: Mometasone 200 MCG/Formoterol 5 MCG 120 PUFF INHALER INH SCH ×2 (07:00→19:37)
[2022-01-30] MEDS: Amoxicillin/Potassium Clav 875 MG TAB PO SCH ×2 (09:30→20:58)
[2022-01-30] MEDS: D5W-AA 4.25% with LYTES 1,000 ML IV SCH (09:30)
[2022-01-30] MEDS: DULoxetine 30 MG CAP PO SCH (09:30)
[2022-01-30] MEDS: Enoxaparin Sodium 60 MG/0.6 ML SYRINGE SC SCH ×2 (09:30→21:00)
[2022-01-30] MEDS: chlordiazePOXIDE HCl 25 MG CAP PO SCH ×3 (09:30→20:58)
[2022-01-30] MEDS: Lidocaine 5% Patch TD SCH (16:17)
[2022-01-30] MEDS: Atorvastatin Calcium 40 MG TAB PO SCH (20:58)
[2022-01-30] MEDS: Acetaminophen 325 MG TAB PO PRN (20:59)
[2022-01-30] MEDS: Nicotine 21 MG PATCH TD SCH (21:00)
[2022-01-30] MEDS: HYDROcodone/Acetaminophen 5/325 mg Tablet PO PRN (23:24)
[2022-01-31] MEDS: HYDROcodone/Acetaminophen 5/325 mg Tablet PO PRN (03:08)
[2022-01-31] MEDS: D5W-AA 4.25% with LYTES 1,000 ML IV SCH ×2 (03:31→21:40)
[2022-01-31 04:28] LABS: Anion Gap 13 mmol/L (10-20); BUN (Urea Nitrogen) 23 mg/dL (9.8-20.1); Calc. Creatinine Clearance 83 mL/min (70-130); Calcium 9.8 mg/dL (7.8-10.44); Carbon Dioxide 24 mmol/L (23-31); Chloride 98 mmol/L (98-107); Estimated GFR 97; Glucose 115 mg/dL (83-110); Sodium 131 mmol/L (136-145)
[2022-01-31] MEDS: Ondansetron PF 4 MG/2 ML Vial IVP PRN ×2 (05:23→16:51)
[2022-01-31 05:25] LABS: Hemoglobin 8.9 g/dL (12.0-16.0); Lymphocytes 13 % (21-51); MDiff Complete? YES; Macrocytosis SLIGHT = 6-15 cells (100X) (0-5/hpf); Mean Corpuscular HGB CONC 33.2 g/dL (32.0-36.0); Mean Corpuscular Hemoglobin 33.9 pg (27.0-31.0); Mean Platelet Volume 8.6 fL (7.4-10.4); Monocytes 13 % (0-10); Neutrophil 74 % (42-75); Ovalocytes SLIGHT = 2-5 cells (100X) (0-1/hpf); Platelet Count 222 thou/uL (130-400); Platelet Morphology Comment Appears Adequate; RBC Distribution Width 13.8 % (11.5-14.5); Red Blood Cell (RBC) Count 2.63 mill/uL (4.20-5.40); White Blood Cell (WBC) Count 3.8 thou/uL (4.8-10.8)
[2022-01-31] MEDS: Mometasone 200 MCG/Formoterol 5 MCG 120 PUFF INHALER INH SCH ×2 (06:44→18:29)
[2022-01-31] MEDS: DULoxetine 30 MG CAP PO SCH (09:05)
[2022-01-31] MEDS: chlordiazePOXIDE HCl 25 MG CAP PO SCH ×3 (09:05→20:42)
[2022-01-31] MEDS: Amoxicillin/Potassium Clav 875 MG TAB PO SCH ×2 (09:05→20:42)
[2022-01-31] MEDS: Enoxaparin Sodium 60 MG/0.6 ML SYRINGE SC SCH ×2 (09:05→20:42)
[2022-01-31] MEDS: Lidocaine 5% Patch TD SCH (16:37)
[2022-01-31] MEDS: Nicotine 21 MG PATCH TD SCH (20:42)
[2022-01-31] MEDS: Atorvastatin Calcium 40 MG TAB PO SCH (20:42)
[2022-01-31 21:06] VITALS: BMI 23.4
[2022-02-01] MEDS: Mometasone 200 MCG/Formoterol 5 MCG 120 PUFF INHALER INH SCH ×2 (07:12→19:58)
[2022-02-01] MEDS: Acetaminophen 325 MG TAB PO PRN ×2 (07:45→21:08)
[2022-02-01] MEDS: chlordiazePOXIDE HCl 25 MG CAP PO SCH ×3 (10:01→21:08)
[2022-02-01] MEDS: Enoxaparin Sodium 60 MG/0.6 ML SYRINGE SC SCH ×2 (10:01→21:08)
[2022-02-01] MEDS: DULoxetine 30 MG CAP PO SCH (10:01)
[2022-02-01] MEDS: Amoxicillin/Potassium Clav 875 MG TAB PO SCH ×2 (10:02→21:08)
[2022-02-01] MEDS: HYDROcodone/Acetaminophen 5/325 mg Tablet PO PRN ×3 (12:55→22:58)
[2022-02-01] MEDS: D5W-AA 4.25% with LYTES 1,000 ML IV SCH (16:24)
[2022-02-01] MEDS: Lidocaine 5% Patch TD SCH (16:24)
[2022-02-01] MEDS: Nicotine 21 MG PATCH TD SCH (21:08)
[2022-02-01] MEDS: Atorvastatin Calcium 40 MG TAB PO SCH (21:08)
[2022-02-01] MEDS: Ondansetron PF 4 MG/2 ML Vial IVP PRN (23:00)
[2022-02-02] MEDS ORDERED: Melatonin 3 MG TAB PO PRN ×2 (00:39→00:47)
[2022-02-02] MEDS ORDERED: Morphine 4 MG/ML VIAL SLOW IVP PRN (00:50)
[2022-02-02] MEDS: Amoxicillin/Potassium Clav 875 MG TAB PO SCH (10:30)
[2022-02-02] MEDS: DULoxetine 30 MG CAP PO SCH (10:31)
[2022-02-02] MEDS: chlordiazePOXIDE HCl 25 MG CAP PO SCH ×2 (10:32→15:00)
[2022-02-02] MEDS: Enoxaparin Sodium 60 MG/0.6 ML SYRINGE SC SCH (10:32)
[2022-02-02] MEDS: Mometasone 200 MCG/Formoterol 5 MCG 120 PUFF INHALER INH SCH ×2 (10:33→19:17)
[2022-02-02] MEDS: D5W-AA 4.25% with LYTES 1,000 ML IV SCH (11:00)
[2022-02-02] MEDS: HYDROcodone/Acetaminophen 5/325 mg Tablet PO PRN (15:03)
[2022-02-02 16:43] VITALS: BP 118/72; TEMP 98.4
[2022-02-02] MEDS: Lidocaine 5% Patch TD SCH (16:47)
[2022-02-02 16:49] LABS: Campy jejuni + coli by PCR Negative (Negative); STEC Shiga Toxin 1+2 Negative (Negative); Salmonella spp. by PCR Negative (Negative); Shigella spp + EIEC by PCR Negative (Negative)
[2022-02-02] MEDS: Ondansetron PF 4 MG/2 ML Vial IVP PRN (16:59)
== END 2022-02-02 20:10 | disposition swing bed (61) | DRG 326 ==
LOC: ERS 20:40 → 2SW 22:32 → OBSVTOIN 01-11 16:28 → SURG A 01-15 20:10 → IMCU/EMU 01-18 10:57 → T4-A 01-20 16:51 → CCU 01-26 09:30 → IMCU/EMU 01-27 01:42 → 2NO 01-28 15:06
PROVIDERS: ADMIT Internal Medicine; ATTEND Internal Medicine
PROC: 0DU647Z Supplement Stomach with Autologous Tissue Substitute, Percutaneous Endoscopic Approach (ICD-10-PCS; principal; 2022-01-11)
PROC: 0D9670Z Drainage of Stomach with Drainage Device, Via Natural or Artificial Opening (ICD-10-PCS; 2022-01-12)
PROC: 02HV33Z Insertion of Infusion Device into Superior Vena Cava, Percutaneous Approach (ICD-10-PCS; 2022-01-12)
PROC: B5181ZA Fluoroscopy of Superior Vena Cava using Low Osmolar Contrast, Guidance (ICD-10-PCS; 2022-01-12)
DX: K25.5 Chronic or unspecified gastric ulcer with perforation (principal); A41.9 Sepsis, unspecified organism; J69.0 Pneumonitis due to inhalation of food and vomit; K65.8 Other peritonitis; J96.01 Acute respiratory failure with hypoxia; J18.9 Pneumonia, unspecified organism; J44.0 Chronic obstructive pulmonary disease with (acute) lower respiratory infection; E87.1 Hypo-osmolality and hyponatremia; B37.89 Other sites of candidiasis; J98.11 Atelectasis; I48.92 Unspecified atrial flutter; E87.20 Acidosis, unspecified; Z20.822 Contact with and (suspected) exposure to COVID-19; B96.20 Unspecified Escherichia coli [E. coli] as the cause of diseases classified elsewhere; I25.10 Atherosclerotic heart disease of native coronary artery without angina pectoris; J44.9 Chronic obstructive pulmonary disease, unspecified; E03.9 Hypothyroidism, unspecified; F41.9 Anxiety disorder, unspecified; F32.A Depression, unspecified; I48.0 Paroxysmal atrial fibrillation; Z60.2 Problems related to living alone; F17.210 Nicotine dependence, cigarettes, uncomplicated; F12.10 Cannabis abuse, uncomplicated; I71.23 Aneurysm of the descending thoracic aorta, without rupture; M79.7 Fibromyalgia; R07.89 Other chest pain; K21.9 Gastro-esophageal reflux disease without esophagitis; G89.29 Other chronic pain; K76.0 Fatty (change of) liver, not elsewhere classified; N18.9 Chronic kidney disease, unspecified; I12.9 Hypertensive chronic kidney disease with stage 1 through stage 4 chronic kidney disease, or unspecified chronic kidney disease; Y95 Nosocomial condition; R19.7 Diarrhea, unspecified; E87.6 Hypokalemia; E87.8 Other disorders of electrolyte and fluid balance, not elsewhere classified; E87.5 Hyperkalemia; R00.1 Bradycardia, unspecified; Z88.5 Allergy status to narcotic agent; Z95.5 Presence of coronary angioplasty implant and graft; Z88.8 Allergy status to other drugs, medicaments and biological substances; Z79.899 Other long term (current) drug therapy; Z28.21 Immunization not carried out because of patient refusal; Z87.11 Personal history of peptic ulcer disease; Z79.51 Long term (current) use of inhaled steroids; Z90.49 Acquired absence of other specified parts of digestive tract; Z90.710 Acquired absence of both cervix and uterus; I25.2 Old myocardial infarction; Z71.6 Tobacco abuse counseling
CPT/HCPCS: 36415; 36416; 36569; 36600; 71045; 71275; 74174; 74176; 74177; 74230; 74240; 80048; 80053; 80061; 80202; 81001; 82805; 83690; 83735; 84100; 84145; 84484; 85025; 87040; 87070; 87077; 87186; 87205; 87324; 87449; 87505; 87811; 93005; 93010; 94640; 94760; 96372; 96374; 96375; 96376; C1751; C9113; G0378; J0171; J0360; J1100; J1200; J1450; J1650; J1940; J2185; J2248; J2270; J2405; J2543; J2550; J2704; J2765; J3010; J3370; J3475; J3480; J3490; J7050; J7070; J7620; Q0162; Q9963; Q9967; S0020; U0003; U0005

== ENCOUNTER 2022-06-17 08:35 | Outpatient (CLI) | payer MEDICARE | END 2022-06-17 08:36 | disposition home or self-care (01) | LOC: BICCT 08:35 | PROVIDERS: ATTEND Physician Assistant Medical | DX: K59.00 Constipation, unspecified (principal); R10.32 Left lower quadrant pain; B02.9 Zoster without complications; I71.40 Abdominal aortic aneurysm, without rupture, unspecified; Z90.49 Acquired absence of other specified parts of digestive tract | CPT/HCPCS: 74177; 82565 ==

== ENCOUNTER 2022-10-28 16:43 | Observation (INO) | payer MEDICARE ==
[2022-10-28] MEDS ORDERED: Ipratropium/Albuterol 3 ML NEB NEB PRN (22:16)
[2022-10-28 22:20] VITALS: BMI 18.4
[2022-10-28] MEDS ORDERED: Acetaminophen/Codeine 30-300mg Tablet PO PRN (22:27)
[2022-10-28] MEDS ORDERED: Ondansetron ODT 8 MG TAB PO PRN (23:09)
[2022-10-28] MEDS ORDERED: DULoxetine 20 MG CAP PO SCH (23:15)
[2022-10-28] MEDS ORDERED: Acetaminophen/Codeine 30-300mg Tablet PO SCH (23:15)
[2022-10-28] MEDS ORDERED: Cyclobenzaprine 10 MG TAB PO SCH (23:15)
[2022-10-28] MEDS ORDERED: busPIRone HCl 5 MG TAB PO SCH (23:16)
[2022-10-29 06:12] LABS: #Monocytes 0.7 thou/uL (0.11-0.59); %Basophils 0.3 % (0.0-1.0); %Eosinophils 0.3 % (0.0-10.0); %Lymphocytes 34.7 % (21.0-51.0); %Monocytes 12.5 % (0.0-10.0); %Neutrophils 50.7 % (42.0-75.0); Hemoglobin 11.7 g/dL (12.0-16.0); Mean Corpuscular HGB CONC 32.3 g/dL (32.0-36.0); Mean Platelet Volume 10.6 fL (7.4-10.4); Platelet Count 234 10x3/uL (130-400); RBC Distribution Width 15.9 % (11.5-14.5); Red Blood Cell (RBC) Count 3.55 mill/uL (4.20-5.40); White Blood Cell (WBC) Count 5.9 10x3/uL (4.8-10.8)
[2022-10-29] MEDS: Cyclobenzaprine 10 MG TAB PO SCH ×2 (06:12→14:54)
[2022-10-29 06:41] LABS: ALT (SGPT) 13 U/L (8-55); AST (SGOT) 21 U/L (5-34); Albumin 3.3 g/dL (3.4-4.8); Alkaline Phosphatase 214 U/L (40-110); Anion Gap 12 mmol/L (10-20); BUN (Urea Nitrogen) 12 mg/dL (9.8-20.1); Bilirubin, Total 0.3 mg/dL (0.2-1.2); Calc. Creatinine Clearance 46 mL/min (70-130); Calcium 8.9 mg/dL (7.8-10.44); Carbon Dioxide 24 mmol/L (23-31); Chloride 106 mmol/L (98-107); Estimated GFR 89; Globulin 3.3 g/dL (2.4-3.5); Glucose 88 mg/dL (83-110); Potassium 3.4 mmol/L (3.5-5.1); Protein, Total 6.6 g/dL (5.8-8.1); Sodium 139 mmol/L (136-145)
[2022-10-29] MEDS ORDERED: DULoxetine 20 MG CAP PO SCH (09:00)
[2022-10-29] MEDS ORDERED: Lorazepam 0.5 MG TAB PO SCH ×4 (09:00→23:16)
[2022-10-29] MEDS ORDERED: Famotidine 20 MG TAB PO SCH (09:00)
[2022-10-29] MEDS ORDERED: hydrOXYzine 25 MG TAB PO SCH ×4 (09:00→23:16)
[2022-10-29] MEDS ORDERED: Apixaban 5 MG TAB PO SCH (09:00)
[2022-10-29] MEDS ORDERED: dilTIAZem CD 300 MG CAP PO SCH (09:00)
[2022-10-29] MEDS ORDERED: Metoprolol Tartrate 50 MG TAB PO SCH (09:00)
[2022-10-29] MEDS ORDERED: busPIRone HCl 5 MG TAB PO SCH (09:00)
[2022-10-29 12:20] VITALS: TEMP 97.8
[2022-10-29 15:25] VITALS: BP 105/57
[2022-10-29] MEDS ORDERED: Rosuvastatin 10 MG TAB PO SCH (21:00)
== END 2022-10-29 15:45 | disposition home or self-care (01) ==
LOC: 2SW 16:43
PROVIDERS: ADMIT Emergency Medicine; ATTEND Emergency Medicine
DX: I11.0 Hypertensive heart disease with heart failure (principal); I50.9 Heart failure, unspecified; R07.9 Chest pain, unspecified; R00.2 Palpitations; H53.9 Unspecified visual disturbance; I48.91 Unspecified atrial fibrillation; I08.8 Other rheumatic multiple valve diseases; E03.9 Hypothyroidism, unspecified; F41.9 Anxiety disorder, unspecified; M79.10 Myalgia, unspecified site; G89.29 Other chronic pain; J44.9 Chronic obstructive pulmonary disease, unspecified; I25.10 Atherosclerotic heart disease of native coronary artery without angina pectoris; F17.200 Nicotine dependence, unspecified, uncomplicated; Z79.899 Other long term (current) drug therapy; Z79.01 Long term (current) use of anticoagulants; Z88.6 Allergy status to analgesic agent
CPT/HCPCS: 93306; G0378 ×2; 36415; 80053; 84443; 85025

== ENCOUNTER 2022-11-25 13:49 | Observation (INO) | payer MEDICARE ==
[2022-11-25 14:48] LABS: #Monocytes 0.7 thou/uL (0.11-0.59); #Neutrophils 3.5 thou/uL (1.40-6.50); %Basophils 0.4 % (0.0-1.0); %Eosinophils 0.2 % (0.0-10.0); %Lymphocytes 16.6 % (21.0-51.0); %Monocytes 13.5 % (0.0-10.0); %Neutrophils 68.3 % (42.0-75.0); Hematocrit 36.4 % (36.0-47.0); Hemoglobin 12.2 g/dL (12.0-16.0); Mean Corpuscular HGB CONC 33.5 g/dL (32.0-36.0); Mean Corpuscular Hemoglobin 33.7 pg (27.0-31.0); Mean Corpuscular Volume 100.6 fl (78.0-98.0); Mean Platelet Volume 12.2 fL (7.4-10.4); Platelet Count 142 10x3/uL (130-400); RBC Distribution Width 17.7 % (11.5-14.5); Red Blood Cell (RBC) Count 3.62 mill/uL (4.20-5.40); White Blood Cell (WBC) Count 5.1 10x3/uL (4.8-10.8)
[2022-11-25] MEDS ORDERED: Lorazepam 1 MG TAB ONE (15:02)
[2022-11-25 15:14] LABS: Troponin I Less than 0.010 ng/mL (< 0.028)
[2022-11-25 15:15] LABS: Anion Gap 16 mmol/L (10-20); BUN (Urea Nitrogen) 10 mg/dL (9.8-20.1); Calc. Creatinine Clearance 0 mL/min (70-130); Carbon Dioxide 22 mmol/L (23-31); Chloride 103 mmol/L (98-107); Estimated GFR 83; Potassium 4.5 mmol/L (3.5-5.1); Sodium 136 mmol/L (136-145)
[2022-11-25 15:16] LABS: ALT (SGPT) 55 U/L (8-55); AST (SGOT) 78 U/L (5-34); Albumin 3.8 g/dL (3.4-4.8); Alkaline Phosphatase 368 U/L (40-110); Bilirubin, Total 0.8 mg/dL (0.2-1.2); Calcium 9.6 mg/dL (7.6-10.4); Globulin 3.2 g/dL (2.4-3.5); Glucose 105 mg/dL (83-110); Lipase 23 U/L (8-78)
[2022-11-25] MEDS ORDERED: Famotidine 20 MG TAB ONE (16:08)
[2022-11-25 16:21] LABS: Bacteria/HPF None Seen HPF (None Seen); Bilirubin Negative (Negative); Blood, Urine Negative (Negative); CAUTI Indications for Culture Dysuria,urgency,freq; Clarity Clear (Clear); Glucose, Urine (Dipstick) Normal (Negative); Ketone, Urine Negative (Negative); Leukocyte Negative Leu/uL (Negative); Nitrite Negative (Negative); Protein, Urine (Dipstick) Negative (Neg-Trace); RBC/HPF 0-3 HPF (0-3); Squamous Epithelial None Seen HPF (0-3); Urobilinogen Normal mg/dL (Less than 2); WBC/HPF 0-3 HPF (0-3)
[2022-11-25 16:23] LABS: Urine Culture Reflex No No
[2022-11-25 19:54] LABS: Troponin I Less than 0.010 ng/mL (< 0.028)
[2022-11-25] MEDS ORDERED: Ondansetron ODT 4 MG TAB SL PRN (20:45)
[2022-11-25] MEDS ORDERED: Ondansetron PF 4 MG/2 ML Vial IVP PRN (20:45)
[2022-11-25] MEDS ORDERED: Acetaminophen 325 MG TAB PO PRN (20:45)
[2022-11-25] MEDS ORDERED: Nicotine 14 MG PATCH TD SCH (21:30)
[2022-11-25 22:09] VITALS: BMI 2792.3
[2022-11-25] MEDS ORDERED: Ipratropium/Albuterol 3 ML NEB NEB PRN (22:30)
[2022-11-25] MEDS ORDERED: Lidocaine 2% Viscous Solution 20 ML, Aluminum & Magnesium Hydroxide 30 ML, Donnatal Eli... SSW SCH (22:45)
[2022-11-25] MEDS ORDERED: Furosemide 40 MG/4 ML VIAL SLOW IVP SCH (22:45)
[2022-11-25 22:47] LABS: Troponin I Less than 0.010 ng/mL (< 0.028)
[2022-11-25] MEDS ORDERED: Lidocaine 4% Patch TD SCH (23:00)
[2022-11-25] MEDS ORDERED: hydrOXYzine 25 MG TAB PO SCH (23:33)
[2022-11-25] MEDS ORDERED: Nicotine 14 MG PATCH TD PRN (23:35)
[2022-11-25] MEDS ORDERED: busPIRone HCl 5 MG TAB PO SCH (23:45)
[2022-11-25] MEDS ORDERED: Lorazepam 0.5 MG TAB PO SCH (23:45)
[2022-11-25] MEDS: HYDROcodone/Acetaminophen 5/325 mg Tablet PO PRN (23:52)
[2022-11-26 04:44] LABS: #Monocytes 0.8 thou/uL (0.11-0.59); #Neutrophils 2.8 thou/uL (1.40-6.50); %Basophils 0.6 % (0.0-1.0); %Eosinophils 0.6 % (0.0-10.0); %Lymphocytes 28.8 % (21.0-51.0); %Monocytes 15.1 % (0.0-10.0); %Neutrophils 54.1 % (42.0-75.0); Hematocrit 40.3 % (36.0-47.0); Hemoglobin 13.5 g/dL (12.0-16.0); Mean Corpuscular HGB CONC 33.5 g/dL (32.0-36.0); Mean Corpuscular Hemoglobin 34.3 pg (27.0-31.0); Mean Corpuscular Volume 102.3 fl (78.0-98.0); Mean Platelet Volume 11.9 fL (7.4-10.4); Platelet Count 161 10x3/uL (130-400); RBC Distribution Width 17.8 % (11.5-14.5); Red Blood Cell (RBC) Count 3.94 mill/uL (4.20-5.40); White Blood Cell (WBC) Count 5.1 10x3/uL (4.8-10.8)
[2022-11-26] MEDS: HYDROcodone/Acetaminophen 5/325 mg Tablet PO PRN ×2 (04:55→14:31)
[2022-11-26 05:05] LABS: Anion Gap 14 mmol/L (10-20); BUN (Urea Nitrogen) 12 mg/dL (9.8-20.1); Calc. Creatinine Clearance 43 mL/min (70-130); Calcium 9.6 mg/dL (7.8-10.44); Carbon Dioxide 24 mmol/L (23-31); Chloride 104 mmol/L (98-107); Estimated GFR 76; Glucose 95 mg/dL (83-110); Potassium 3.5 mmol/L (3.5-5.1); Sodium 138 mmol/L (136-145)
[2022-11-26] MEDS ORDERED: Levothyroxine Sodium 25 MCG TAB PO SCH (06:00)
[2022-11-26] MEDS: hydrOXYzine 25 MG TAB PO SCH ×2 (08:56→14:31)
[2022-11-26] MEDS ORDERED: Senokot 8.6 MG TAB PO SCH (09:00)
[2022-11-26] MEDS ORDERED: Apixaban 5 MG TAB PO SCH (09:00)
[2022-11-26] MEDS ORDERED: dilTIAZem CD 300 MG CAP PO SCH (09:00)
[2022-11-26] MEDS ORDERED: Metoprolol Tartrate 50 MG TAB PO SCH (09:00)
[2022-11-26] MEDS ORDERED: busPIRone HCl 5 MG TAB PO SCH (09:00)
[2022-11-26] MEDS ORDERED: Cyclobenzaprine 10 MG TAB PO SCH (09:00)
[2022-11-26] MEDS ORDERED: DULoxetine 20 MG CAP PO SCH (09:00)
[2022-11-26] MEDS ORDERED: Lorazepam 0.5 MG TAB PO SCH (09:00)
[2022-11-26] MEDS ORDERED: Furosemide 20 MG/2 ML VIAL SLOW IVP SCH (09:00)
[2022-11-26] MEDS ORDERED: Transdermal Patch Removal TOP SCH (11:00)
[2022-11-26 11:55] VITALS: BP 109/59; TEMP 97.7
[2022-11-26] MEDS ORDERED: Rosuvastatin 10 MG TAB PO SCH (21:00)
[2022-11-26] MEDS ORDERED: Lidocaine 4% Patch TD SCH (23:00)
== END 2022-11-26 15:49 | disposition home or self-care (01) ==
LOC: ERS 13:49 → 2NO 19:09
PROVIDERS: ADMIT Student in an Organized Health Care Education/Training Program; ATTEND Student in an Organized Health Care Education/Training Program
DX: R07.9 Chest pain, unspecified (principal); F41.9 Anxiety disorder, unspecified; K21.9 Gastro-esophageal reflux disease without esophagitis; I11.0 Hypertensive heart disease with heart failure; I50.9 Heart failure, unspecified; E78.5 Hyperlipidemia, unspecified; J44.9 Chronic obstructive pulmonary disease, unspecified; E03.9 Hypothyroidism, unspecified; I48.91 Unspecified atrial fibrillation; F17.210 Nicotine dependence, cigarettes, uncomplicated; I25.10 Atherosclerotic heart disease of native coronary artery without angina pectoris; Z79.890 Hormone replacement therapy; Z79.01 Long term (current) use of anticoagulants; Z79.899 Other long term (current) drug therapy; Z96.642 Presence of left artificial hip joint; Z90.710 Acquired absence of both cervix and uterus; Z90.49 Acquired absence of other specified parts of digestive tract; Z88.6 Allergy status to analgesic agent
CPT/HCPCS: 71045; 80048; 80053; 81001; 83690; 83735; 83880; 84484 ×2; 85025 ×2; 93005; 96374; 96375; 96376; 99285; G0378 ×3; 36415; J1940; J2405

== ENCOUNTER 2023-01-25 17:27 | Inpatient (IN) | payer MEDICARE ==
[~2023-01-25 17:27] MED LIST changes: -Iopamidol-370 76% 500 ML 1 ML ONE; +Iopamidol-370 76% 500 ML MDV (1 ML CHARGE) ONE
[2023-01-25 18:42] LABS: Bacteria/HPF None Seen HPF (None Seen); Bilirubin Negative (Negative); Blood, Urine Negative (Negative); CAUTI Indications for Culture Pelvic or flank pain; Clarity Clear (Clear); Glucose, Urine (Dipstick) Normal (Negative); Ketone, Urine Negative (Negative); Leukocyte Negative Leu/uL (Negative); Nitrite Negative (Negative); Protein, Urine (Dipstick) Negative (Neg-Trace); RBC/HPF None Seen HPF (0-3); Specific Gravity, Urine 1.006 (1.002-1.036); Squamous Epithelial 0-3 HPF (0-3); Urobilinogen Normal mg/dL (Less than 2); WBC/HPF 0-3 HPF (0-3); pH, Urine 5.5 (5.0-9.0)
[2023-01-25 18:43] LABS: Urine Culture Reflex No No
[2023-01-25 18:56] LABS: Hematocrit 43.3 % (36.0-47.0); Hemoglobin 14.2 g/dL (12.0-16.0); Mean Corpuscular HGB CONC 32.8 g/dL (32.0-36.0); Mean Corpuscular Volume 100.7 fl (78.0-98.0); Mean Platelet Volume 11.3 fL (7.4-10.4); Platelet Count 221 10x3/uL (130-400); RBC Distribution Width 17.3 % (11.5-14.5); White Blood Cell (WBC) Count 6.7 10x3/uL (4.8-10.8)
[2023-01-25 19:04] LABS: Delete Auto Diff?? YES; Manual Diff?? YES
[2023-01-25 19:21] LABS: ALT (SGPT) 19 U/L (8-55); AST (SGOT) 21 U/L (5-34); Albumin 4.4 g/dL (3.4-4.8); Alkaline Phosphatase 169 U/L (40-110); Anion Gap 19 mmol/L (10-20); BUN (Urea Nitrogen) 14 mg/dL (9.8-20.1); Bilirubin, Total 0.5 mg/dL (0.2-1.2); Calc. Creatinine Clearance 0 mL/min (70-130); Calcium 9.1 mg/dL (7.8-10.44); Carbon Dioxide 15 mmol/L (23-31); Chloride 106 mmol/L (98-107); Estimated GFR 80; Globulin 2.9 g/dL (2.4-3.5); Glucose 124 mg/dL (83-110); Lipase 82 U/L (8-78); Potassium 4.3 mmol/L (3.5-5.1); Protein, Total 7.3 g/dL (5.8-8.1); Sodium 136 mmol/L (136-145)
[2023-01-25 19:36] LABS: Anisocytosis SLIGHT = 6-15 cells HPF (0-5); Burr Cells MODERATE= 6-15 cells HPF (0-1); CellaVision Operator ID LAB.KB; Hypersegmented Neutrophil SLIGHT (None Seen); Lymphocytes 12 % (21-51); Macrocytosis SLIGHT = 6-15 cells HPF (0-5); Monocytes 1 % (0-10); Neutrophil 86 % (42-75); Ovalocytes SLIGHT = 2-5 cells HPF (0-1); Platelet Adequacy Comment Platelets Normal; Polychromasia SLIGHT = 2-3 cells HPF (0-2); Total Cell Count 100
[2023-01-25 19:47] LABS: Troponin I Less than 0.010 ng/mL (< 0.028)
[2023-01-25] MEDS ORDERED: diphenhydrAMINE 50 MG/ML VIAL ONE (20:05)
[2023-01-25] MEDS ORDERED: Prochlorperazine 10 MG/2 ML VIAL ONE (20:05)
[2023-01-25] MEDS ORDERED: Lidocaine 4% Patch TD SCH (21:00)
[2023-01-25] MEDS ORDERED: Acetaminophen 500 MG TAB ONE (21:41)
[2023-01-25] MEDS ORDERED: fentaNYL 50 mcg/mL 1 mL Vial ONE (21:41)
[2023-01-25] MEDS ORDERED: Metoprolol Tartrate 5 MG/5 ML VIAL ONE ×2 (21:42→22:05)
[2023-01-25] MEDS ORDERED: Lorazepam 1 MG TAB ONE (22:11)
[2023-01-25] MEDS ORDERED: Metoprolol Tartrate 50 MG TAB ONE ×2 (22:40→22:44)
[2023-01-25] MEDS ORDERED: hydrALAZINE 20 MG/ML VIAL SLOW IVP PRN (23:25)
[2023-01-25] MEDS ORDERED: hydrALAZINE 20 MG/ML VIAL SLOW IVP SCH (23:30)
[2023-01-25] MEDS ORDERED: Ondansetron PF 4 MG/2 ML Vial IVP PRN (23:45)
[2023-01-25] MEDS ORDERED: Ondansetron ODT 4 MG TAB SL PRN (23:45)
[2023-01-25] MEDS ORDERED: Acetaminophen 325 MG TAB PO PRN (23:45)
[2023-01-26] MEDS: Nicotine 14 MG PATCH TD SCH (00:24)
[2023-01-26 00:37] LABS: Magnesium 1.7 mg/dL (1.6-2.6); Phosphorus 3.4 mg/dL (2.3-4.7)
[2023-01-26 00:41] LABS: Troponin I Less than 0.010 ng/mL (< 0.028)
[2023-01-26] MEDS ORDERED: Lisinopril 20 MG TAB PO SCH (01:15)
[2023-01-26] MEDS: HYDROcodone/Acetaminophen 5/325 mg Tablet PO PRN ×4 (02:44→20:16)
[2023-01-26 04:58] LABS: Hematocrit 42.7 % (36.0-47.0); Hemoglobin 14.6 g/dL (12.0-16.0); Mean Corpuscular HGB CONC 34.2 g/dL (32.0-36.0); Mean Corpuscular Hemoglobin 32.6 pg (27.0-31.0); Mean Platelet Volume 11.7 fL (7.4-10.4); Platelet Count 311 10x3/uL (130-400); RBC Distribution Width 17.2 % (11.5-14.5); Red Blood Cell (RBC) Count 4.48 mill/uL (4.20-5.40); White Blood Cell (WBC) Count 11.2 10x3/uL (4.8-10.8)
[2023-01-26 05:11] LABS: Delete Auto Diff?? YES; Manual Diff?? YES; Mean Corpuscular Volume 95.3 fl (78.0-98.0)
[2023-01-26 05:23] LABS: ALT (SGPT) 19 U/L (8-55); AST (SGOT) 19 U/L (5-34); Albumin 4.6 g/dL (3.4-4.8); Alkaline Phosphatase 173 U/L (40-110); Anion Gap 17 mmol/L (10-20); BUN (Urea Nitrogen) 11 mg/dL (9.8-20.1); Bilirubin, Total 0.7 mg/dL (0.2-1.2); Calc. Creatinine Clearance 47 mL/min (70-130); Calcium 10.1 mg/dL (7.8-10.44); Carbon Dioxide 20 mmol/L (23-31); Chloride 104 mmol/L (98-107); Estimated GFR 90; Globulin 2.8 g/dL (2.4-3.5); Glucose 100 mg/dL (83-110); Potassium 3.9 mmol/L (3.5-5.1); Protein, Total 7.4 g/dL (5.8-8.1); Sodium 137 mmol/L (136-145)
[2023-01-26 05:24] LABS: Troponin I Less than 0.010 ng/mL (< 0.028)
[2023-01-26] MEDS: Levothyroxine Sodium 25 MCG TAB PO SCH (05:37)
[2023-01-26 06:10] LABS: CellaVision Operator ID lab.abc; Lymphocytes 12 % (21-51); Monocytes 13 % (0-10); Neutrophil 74 % (42-75); Platelet Adequacy Comment Platelets Normal; RBC Morphology Within Normal Limits; Reactive Lymphocytes 1 % (0-10); Smudge Cells 10.9 %; Total Cell Count 101
[2023-01-26] MEDS ORDERED: Magnesium 2 GM/50 ML(in water) 2 GM in Premix 1 BAG IVPB SCH (08:15)
[2023-01-26] MEDS: Lisinopril 20 MG TAB PO SCH (08:24)
[2023-01-26] MEDS: busPIRone HCl 5 MG TAB PO SCH ×2 (08:24→20:17)
[2023-01-26] MEDS: hydrOXYzine 25 MG TAB PO SCH ×3 (08:24→20:17)
[2023-01-26] MEDS: Cyclobenzaprine 10 MG TAB PO SCH (08:24)
[2023-01-26] MEDS: Senokot 8.6 MG TAB PO SCH ×2 (08:24→20:17)
[2023-01-26] MEDS: DULoxetine 20 MG CAP PO SCH (08:24)
[2023-01-26] MEDS: Metoprolol Tartrate 50 MG TAB PO SCH ×2 (08:24→20:17)
[2023-01-26] MEDS: Apixaban 5 MG TAB PO SCH ×2 (08:24→20:17)
[2023-01-26] MEDS: Lorazepam 0.5 MG TAB PO SCH ×2 (08:24→20:17)
[2023-01-26] MEDS: dilTIAZem CD 300 MG CAP PO SCH (08:24)
[2023-01-26] MEDS ORDERED: Ibuprofen 600 MG TAB PO PRN (08:37)
[2023-01-26] MEDS ORDERED: Transdermal Patch Removal TOP SCH (09:00)
[2023-01-26] MEDS ORDERED: FLU VACC QS2023(65UP)/MF59C/PF 60 MCG/0.5 ML SYRINGE IM ONE (09:00)
[2023-01-26] MEDS ORDERED: Apixaban 5 MG TAB PO SCH (09:00)
[2023-01-26 14:50] VITALS: BMI 15.7
[2023-01-26] MEDS ORDERED: Fluticasone Propionate Nasal Spray 16 gm Bottle NASAL SCH (17:30)
[2023-01-26] MEDS: Ibuprofen 600 MG TAB PO SCH (17:37)
[2023-01-26] MEDS: Mometasone 200 MCG/Formoterol 5 MCG 120 PUFF INHALER INH SCH (19:05)
[2023-01-26] MEDS: Rosuvastatin 10 MG TAB PO SCH (20:17)
[2023-01-27] MEDS: Nicotine 14 MG PATCH TD SCH (00:19)
[2023-01-27] MEDS: Ibuprofen 600 MG TAB PO SCH ×2 (00:19→05:28)
[2023-01-27] MEDS: HYDROcodone/Acetaminophen 5/325 mg Tablet PO PRN ×4 (04:16→18:29)
[2023-01-27 04:27] LABS: #Monocytes 1.6 thou/uL (0.11-0.59); #Neutrophils 4.6 thou/uL (1.40-6.50); %Basophils 0.4 % (0.0-1.0); %Eosinophils 0.2 % (0.0-10.0); %Lymphocytes 32.2 % (21.0-51.0); %Monocytes 16.3 % (0.0-10.0); %Neutrophils 46.5 % (42.0-75.0); Hematocrit 45.8 % (36.0-47.0); Hemoglobin 15.3 g/dL (12.0-16.0); Mean Corpuscular HGB CONC 33.4 g/dL (32.0-36.0); Mean Platelet Volume 11.1 fL (7.4-10.4); Platelet Count 234 10x3/uL (130-400); RBC Distribution Width 17.6 % (11.5-14.5); Red Blood Cell (RBC) Count 4.63 mill/uL (4.20-5.40); White Blood Cell (WBC) Count 9.8 10x3/uL (4.8-10.8)
[2023-01-27 04:56] LABS: ALT (SGPT) 17 U/L (8-55); AST (SGOT) 17 U/L (5-34); Albumin 4.4 g/dL (3.4-4.8); Alkaline Phosphatase 164 U/L (40-110); Anion Gap 16 mmol/L (10-20); BUN (Urea Nitrogen) 24 mg/dL (9.8-20.1); Bilirubin, Total 0.5 mg/dL (0.2-1.2); Calc. Creatinine Clearance 31 mL/min (70-130); Calcium 9.7 mg/dL (7.8-10.44); Carbon Dioxide 19 mmol/L (23-31); Chloride 106 mmol/L (98-107); Estimated GFR 57; Globulin 2.8 g/dL (2.4-3.5); Glucose 94 mg/dL (83-110); Potassium 3.8 mmol/L (3.5-5.1); Protein, Total 7.2 g/dL (5.8-8.1); Sodium 137 mmol/L (136-145)
[2023-01-27 05:17] LABS: Mean Corpuscular Volume 98.9 fl (78.0-98.0)
[2023-01-27] MEDS: Levothyroxine Sodium 25 MCG TAB PO SCH (05:29)
[2023-01-27] MEDS ORDERED: hydrALAZINE 20 MG/ML VIAL SLOW IVP PRN (07:05)
[2023-01-27] MEDS: Mometasone 200 MCG/Formoterol 5 MCG 120 PUFF INHALER INH SCH ×2 (07:11→19:02)
[2023-01-27] MEDS: Senokot 8.6 MG TAB PO SCH ×2 (08:53→20:45)
[2023-01-27] MEDS: Cyclobenzaprine 10 MG TAB PO SCH (08:54)
[2023-01-27] MEDS: dilTIAZem CD 300 MG CAP PO SCH (08:54)
[2023-01-27] MEDS: hydrOXYzine 25 MG TAB PO SCH ×3 (08:54→20:45)
[2023-01-27] MEDS: DULoxetine 20 MG CAP PO SCH (08:54)
[2023-01-27] MEDS: Metoprolol Tartrate 50 MG TAB PO SCH (08:55)
[2023-01-27] MEDS: Apixaban 5 MG TAB PO SCH ×2 (08:55→20:45)
[2023-01-27] MEDS: Lorazepam 0.5 MG TAB PO SCH ×2 (08:55→20:45)
[2023-01-27] MEDS: busPIRone HCl 5 MG TAB PO SCH ×2 (08:55→20:44)
[2023-01-27] MEDS: Lisinopril 20 MG TAB PO SCH (08:56)
[2023-01-27] MEDS ORDERED: Fluticasone Propionate Nasal Spray 16 gm Bottle NASAL SCH (09:00)
[2023-01-27] MEDS ORDERED: Metoprolol Tartrate 50 MG TAB PO SCH ×2 (13:00→21:00)
[2023-01-27] MEDS ORDERED: Acetaminophen/Codeine 30-300mg Tablet PO SCH (13:45)
[2023-01-27 20:42] VITALS: BP 126/82; TEMP 98.5
[2023-01-27] MEDS: Rosuvastatin 10 MG TAB PO SCH (20:45)
== END 2023-01-27 20:53 | disposition home or self-care (01) | DRG 309 ==
LOC: ERS 17:27 → 2NO 22:49
PROVIDERS: ADMIT Student in an Organized Health Care Education/Training Program; ATTEND Student in an Organized Health Care Education/Training Program
DX: I48.19 Other persistent atrial fibrillation (principal); I50.30 Unspecified diastolic (congestive) heart failure; Z88.8 Allergy status to other drugs, medicaments and biological substances; E03.9 Hypothyroidism, unspecified; J44.9 Chronic obstructive pulmonary disease, unspecified; I25.10 Atherosclerotic heart disease of native coronary artery without angina pectoris; E78.5 Hyperlipidemia, unspecified; Z88.5 Allergy status to narcotic agent; Z79.899 Other long term (current) drug therapy; Z79.01 Long term (current) use of anticoagulants; M19.90 Unspecified osteoarthritis, unspecified site; F41.9 Anxiety disorder, unspecified; F32.A Depression, unspecified; Z90.49 Acquired absence of other specified parts of digestive tract; Z90.710 Acquired absence of both cervix and uterus; I16.0 Hypertensive urgency; K21.9 Gastro-esophageal reflux disease without esophagitis; D75.89 Other specified diseases of blood and blood-forming organs; J84.10 Pulmonary fibrosis, unspecified; I71.40 Abdominal aortic aneurysm, without rupture, unspecified
CPT/HCPCS: 36415; 70450; 71045; 71275; 74174; 80053; 81001; 83690; 83735; 84100; 84443; 84484; 85025; 93005; 93010; 94664; 96365; 96375; J0360; J0780; J1200; J3010; J3475; Q9967

== ENCOUNTER 2023-02-26 19:31 | Inpatient (IN) | payer MEDICARE ==
[2023-02-26] MEDS ORDERED: Magnesium 2 GM/50 ML BAG (IN WATER) ONE (20:14)
[2023-02-26] MEDS ORDERED: dilTIAZem 25 MG/5 ML VIAL ONE (20:15)
[2023-02-26] MEDS ORDERED: dilTIAZem 125 MG/25 ML SDV ONE (20:45)
[2023-02-26] MEDS ORDERED: Sodium Chloride 0.9% 100 ML ONE (20:45)
[2023-02-26] MEDS ORDERED: DEXTROSE 5% IV SCH (21:00)
[2023-02-26] MEDS ORDERED: ACETYLCYSTEINE IV SCH (21:00)
[2023-02-26] MEDS ORDERED: WATER IV SCH (21:00)
[2023-02-26 21:02] LABS: ALT (SGPT) 38 U/L (8-55); AST (SGOT) 51 U/L (5-34); Albumin 3.6 g/dL (3.4-4.8); Alkaline Phosphatase 86 U/L (40-110); Anion Gap 17 mmol/L (10-20); BUN (Urea Nitrogen) 10 mg/dL (9.8-20.1); Calc. Creatinine Clearance 0 mL/min (70-130); Calcium 8.6 mg/dL (7.8-10.44); Carbon Dioxide 13 mmol/L (23-31); Chloride 117 mmol/L (98-107); Estimated GFR 87; Globulin 2.6 g/dL (2.4-3.5); Glucose 106 mg/dL (83-110); Magnesium 1.4 mg/dL (1.6-2.6); Potassium 3.1 mmol/L (3.5-5.1); Protein, Total 6.2 g/dL (5.8-8.1); Sodium 144 mmol/L (136-145)
[2023-02-26 21:06] LABS: Actual Bicarbonate (HCO3v) 15.9 mEq/L (22-28); Base Excess -6.5 mEq/L (-2.0 to +3.0); Calcium, Ionized (venous) 1.08 mmol/L (1.16-1.32); Chloride (VBG) 113 mmol/L (98-106); Hematocrit-VBG 37 % (36.0-47.0); Hemoglobin (Hb) 12.7 g/dL (11.7-16.1); Potassium (VBG) 3.44 mmol/L (3.70-5.30); Sodium 146 mmol/L (133-146); pH (venous) 7.436 (7.32-7.43)
[2023-02-26] MEDS ORDERED: Senokot S 8.6-50 MG TAB PO PRN (21:53)
[2023-02-26] MEDS ORDERED: Bisacodyl 5 MG TAB PO PRN (21:53)
[2023-02-26] MEDS ORDERED: Acetaminophen 325 MG TAB PO PRN (21:53)
[2023-02-26] MEDS ORDERED: Ondansetron ODT 4 MG TAB PO PRN (21:53)
[2023-02-26] MEDS ORDERED: Metoprolol Tartrate 50 MG TAB PO SCH (22:15)
[2023-02-26] MEDS ORDERED: cloNIDine 0.1 MG TAB PO PRN (22:21)
[2023-02-26] MEDS ORDERED: hydrALAZINE 20 MG/ML VIAL SLOW IVP PRN (22:26)
[2023-02-26] MEDS ORDERED: Electrolyte Replacement Protocol 1 EACH FS PRN (22:43)
[2023-02-26] MEDS ORDERED: Potassium Chloride 20 MEQ TAB PO SCH (23:00)
[2023-02-26] MEDS ORDERED: Ketorolac Tromethamine 30 MG/ML VIAL IVP PRN (23:01)
[2023-02-26] MEDS ORDERED: Lidocaine 4% Patch TD SCH (23:15)
[2023-02-27] MEDS ORDERED: WATER IV SCH (01:00)
[2023-02-27] MEDS ORDERED: DEXTROSE 5% IV SCH (01:00)
[2023-02-27] MEDS ORDERED: Ipratropium/Albuterol 3 ML NEB NEB PRN (01:00)
[2023-02-27] MEDS ORDERED: ACETYLCYSTEINE IV SCH (01:00)
[2023-02-27 01:57] LABS: Troponin I 0.013 ng/mL (< 0.028)
[2023-02-27 02:48] VITALS: BMI 18.9
[2023-02-27 02:54] LABS: #Neutrophils 4.4 thou/uL (1.40-6.50); %Basophils 0.5 % (0.0-1.0); %Eosinophils 0.1 % (0.0-10.0); %Lymphocytes 24.1 % (21.0-51.0); %Neutrophils 59.7 % (42.0-75.0); Hematocrit 31.2 % (36.0-47.0); Hemoglobin 10.2 g/dL (12.0-16.0); Mean Corpuscular HGB CONC 32.7 g/dL (32.0-36.0); Mean Corpuscular Hemoglobin 33.3 pg (27.0-31.0); Mean Platelet Volume 11.2 fL (7.4-10.4); Platelet Count 187 10x3/uL (130-400); RBC Distribution Width 19.3 % (11.5-14.5); Red Blood Cell (RBC) Count 3.06 mill/uL (4.20-5.40); White Blood Cell (WBC) Count 7.3 10x3/uL (4.8-10.8)
[2023-02-27 03:07] LABS: INR-International Normal Ratio 1.8; PTT 32.6 sec (22.9-36.1)
[2023-02-27] MEDS: Lorazepam 0.5 MG TAB PO PRN ×2 (03:17→11:36)
[2023-02-27 03:20] LABS: Troponin I 0.012 ng/mL (< 0.028)
[2023-02-27] MEDS: dilTIAZem 125 MG, Admixture Fee 1 EACH in Sodium Chloride 0.9% 100 ML IVPB SCH (03:40)
[2023-02-27] MEDS: Levothyroxine Sodium 25 MCG TAB PO SCH (06:03)
[2023-02-27 06:05] LABS: ALT (SGPT) 36 U/L (8-55); AST (SGOT) 48 U/L (5-34); Acetaminophen Less than 10 mcg/mL (10.0-30.0); Albumin 3.4 g/dL (3.4-4.8); Alkaline Phosphatase 84 U/L (40-110); Anion Gap 12 mmol/L (10-20); BUN (Urea Nitrogen) 7 mg/dL (9.8-20.1); Bilirubin, Total 1.1 mg/dL (0.2-1.2); CK (CPK) 1025 U/L (29-168); Calc. Creatinine Clearance 53 mL/min (70-130); Calcium 8.4 mg/dL (7.8-10.44); Carbon Dioxide 19 mmol/L (23-31); Chloride 111 mmol/L (98-107); Estimated GFR 92; Globulin 2.3 g/dL (2.4-3.5); Magnesium 1.7 mg/dL (1.6-2.6); Potassium 3.4 mmol/L (3.5-5.1); Protein, Total 5.7 g/dL (5.8-8.1); Sodium 139 mmol/L (136-145)
[2023-02-27 06:30] LABS: Glucose 92 mg/dL (83-110)
[2023-02-27] MEDS ORDERED: Magnesium 2 GM/50 ML(in water) 2 GM in Premix 1 BAG IVPB SCH (08:00)
[2023-02-27] MEDS: Mometasone 200 MCG/Formoterol 5 MCG 120 PUFF INHALER INH SCH ×2 (08:04→19:46)
[2023-02-27 08:14] LABS: Potassium 3.9 mmol/L (3.5-5.1)
[2023-02-27] MEDS ORDERED: Potassium Chloride 20 MEQ TAB PO SCH (08:15)
[2023-02-27] MEDS: Apixaban 5 MG TAB PO SCH ×2 (08:32→20:09)
[2023-02-27] MEDS: Lisinopril 20 MG TAB PO SCH (08:32)
[2023-02-27] MEDS: Metoprolol Tartrate 100 MG TAB PO SCH ×2 (08:32→20:09)
[2023-02-27] MEDS: busPIRone HCl 5 MG TAB PO SCH ×2 (08:32→20:09)
[2023-02-27] MEDS: Senokot 8.6 MG TAB PO SCH ×2 (08:33→20:09)
[2023-02-27] MEDS: dilTIAZem CD 300 MG CAP PO SCH ×2 (09:15→11:48)
[2023-02-27] MEDS ORDERED: Transdermal Patch Removal TOP SCH (11:15)
[2023-02-27] MEDS: DULoxetine 20 MG CAP PO SCH (11:36)
[2023-02-27] MEDS ORDERED: Ibuprofen 600 MG TAB PO SCH (15:15)
[2023-02-27] MEDS: Ibuprofen 600 MG TAB PO PRN (22:57)
[2023-02-28] MEDS: dilTIAZem 125 MG, Admixture Fee 1 EACH in Sodium Chloride 0.9% 100 ML IVPB SCH (01:56)
[2023-02-28] MEDS: Lorazepam 0.5 MG TAB PO PRN ×2 (03:39→18:46)
[2023-02-28 05:11] LABS: #Basophils 0.1 thou/uL (0.0-0.2); #Monocytes 1.4 thou/uL (0.11-0.59); #Neutrophils 4.4 thou/uL (1.40-6.50); %Basophils 0.6 % (0.0-1.0); %Eosinophils 0.4 % (0.0-10.0); %Lymphocytes 21.5 % (21.0-51.0); %Monocytes 17.5 % (0.0-10.0); %Neutrophils 56.9 % (42.0-75.0); Hematocrit 36.3 % (36.0-47.0); Hemoglobin 12.3 g/dL (12.0-16.0); Mean Corpuscular HGB CONC 33.9 g/dL (32.0-36.0); Mean Corpuscular Hemoglobin 34.3 pg (27.0-31.0); Mean Corpuscular Volume 101.1 fl (78.0-98.0); Mean Platelet Volume 11.2 fL (7.4-10.4); Platelet Count 203 10x3/uL (130-400); RBC Distribution Width 19.4 % (11.5-14.5); Red Blood Cell (RBC) Count 3.59 mill/uL (4.20-5.40); White Blood Cell (WBC) Count 7.8 10x3/uL (4.8-10.8)
[2023-02-28 05:42] LABS: ALT (SGPT) 37 U/L (8-55); AST (SGOT) 40 U/L (5-34); Albumin 3.7 g/dL (3.4-4.8); Alkaline Phosphatase 93 U/L (40-110); Anion Gap 12 mmol/L (10-20); BUN (Urea Nitrogen) 10 mg/dL (9.8-20.1); Bilirubin, Total 1.1 mg/dL (0.2-1.2); Calc. Creatinine Clearance 48 mL/min (70-130); Calcium 9.3 mg/dL (7.8-10.44); Carbon Dioxide 20 mmol/L (23-31); Chloride 113 mmol/L (98-107); Estimated GFR 90; Globulin 2.7 g/dL (2.4-3.5); Glucose 102 mg/dL (83-110); Magnesium 1.9 mg/dL (1.6-2.6); Potassium 4.1 mmol/L (3.5-5.1); Protein, Total 6.4 g/dL (5.8-8.1); Sodium 141 mmol/L (136-145)
[2023-02-28] MEDS: Ibuprofen 600 MG TAB PO PRN ×3 (06:58→23:19)
[2023-02-28] MEDS: Levothyroxine Sodium 25 MCG TAB PO SCH (06:58)
[2023-02-28] MEDS: Mometasone 200 MCG/Formoterol 5 MCG 120 PUFF INHALER INH SCH ×2 (07:31→19:43)
[2023-02-28] MEDS ORDERED: Magnesium 2 GM/50 ML(in water) 2 GM in Premix 1 BAG IVPB SCH (08:00)
[2023-02-28] MEDS: busPIRone HCl 5 MG TAB PO SCH ×2 (08:16→19:35)
[2023-02-28] MEDS: Metoprolol Tartrate 100 MG TAB PO SCH ×2 (08:16→19:34)
[2023-02-28] MEDS: dilTIAZem CD 300 MG CAP PO SCH (08:16)
[2023-02-28] MEDS: Lisinopril 20 MG TAB PO SCH (08:16)
[2023-02-28] MEDS: DULoxetine 20 MG CAP PO SCH (08:16)
[2023-02-28] MEDS: Apixaban 5 MG TAB PO SCH ×2 (08:16→19:34)
[2023-02-28] MEDS: Senokot 8.6 MG TAB PO SCH ×2 (08:16→19:34)
[2023-02-28] MEDS: Acetaminophen/Codeine 30-300mg Tablet PO PRN ×2 (11:12→19:34)
[2023-02-28] MEDS: Nicotine 7 MG PATCH TD SCH (14:48)
[2023-02-28] MEDS: Ondansetron ODT 4 MG TAB PO PRN ×2 (14:48→18:19)
[2023-03-01] MEDS ORDERED: Cyclobenzaprine 10 MG TAB PO SCH ×2 (01:07→20:35)
[2023-03-01] MEDS: Lidocaine 4% Patch TD SCH (01:18)
[2023-03-01] MEDS: Ondansetron ODT 4 MG TAB PO PRN ×2 (02:29→13:42)
[2023-03-01] MEDS: Acetaminophen/Codeine 30-300mg Tablet PO PRN ×3 (03:01→18:40)
[2023-03-01 03:46] LABS: #Basophils 0.1 thou/uL (0.0-0.2); #Neutrophils 4.5 thou/uL (1.40-6.50); %Basophils 0.7 % (0.0-1.0); %Eosinophils 0.6 % (0.0-10.0); %Lymphocytes 18.7 % (21.0-51.0); %Monocytes 13.3 % (0.0-10.0); %Neutrophils 62.8 % (42.0-75.0); Hematocrit 37.5 % (36.0-47.0); Hemoglobin 12.5 g/dL (12.0-16.0); Mean Corpuscular HGB CONC 33.3 g/dL (32.0-36.0); Mean Corpuscular Hemoglobin 33.6 pg (27.0-31.0); Mean Corpuscular Volume 100.8 fl (78.0-98.0); Mean Platelet Volume 11.6 fL (7.4-10.4); Platelet Count 188 10x3/uL (130-400); RBC Distribution Width 19.3 % (11.5-14.5); Red Blood Cell (RBC) Count 3.72 mill/uL (4.20-5.40); White Blood Cell (WBC) Count 7.2 10x3/uL (4.8-10.8)
[2023-03-01 04:11] LABS: ALT (SGPT) 35 U/L (8-55); AST (SGOT) 34 U/L (5-34); Albumin 3.4 g/dL (3.4-4.8); Alkaline Phosphatase 90 U/L (40-110); Anion Gap 14 mmol/L (10-20); BUN (Urea Nitrogen) 19 mg/dL (9.8-20.1); Bilirubin, Total 0.9 mg/dL (0.2-1.2); Calc. Creatinine Clearance 41 mL/min (70-130); Calcium 9.1 mg/dL (7.8-10.44); Carbon Dioxide 19 mmol/L (23-31); Chloride 109 mmol/L (98-107); Estimated GFR 76; Globulin 2.9 g/dL (2.4-3.5); Glucose 126 mg/dL (83-110); Magnesium 1.9 mg/dL (1.6-2.6); Potassium 3.6 mmol/L (3.5-5.1); Protein, Total 6.3 g/dL (5.8-8.1); Sodium 138 mmol/L (136-145)
[2023-03-01] MEDS: Levothyroxine Sodium 25 MCG TAB PO SCH (05:50)
[2023-03-01] MEDS: Lorazepam 0.5 MG TAB PO PRN ×2 (05:50→15:37)
[2023-03-01] MEDS: Mometasone 200 MCG/Formoterol 5 MCG 120 PUFF INHALER INH SCH ×2 (07:40→18:45)
[2023-03-01] MEDS: Apixaban 5 MG TAB PO SCH ×2 (08:45→20:38)
[2023-03-01] MEDS: Lisinopril 20 MG TAB PO SCH (08:45)
[2023-03-01] MEDS: Metoprolol Tartrate 100 MG TAB PO SCH (08:45)
[2023-03-01] MEDS: DULoxetine 20 MG CAP PO SCH (08:45)
[2023-03-01] MEDS: dilTIAZem CD 300 MG CAP PO SCH (08:46)
[2023-03-01] MEDS: busPIRone HCl 5 MG TAB PO SCH ×2 (08:46→20:38)
[2023-03-01] MEDS: Senokot 8.6 MG TAB PO SCH ×2 (08:46→20:38)
[2023-03-01] MEDS: Ibuprofen 600 MG TAB PO PRN ×3 (08:56→23:20)
[2023-03-01] MEDS ORDERED: Potassium Chloride 20 MEQ TAB PO SCH (09:30)
[2023-03-01] MEDS: Digoxin 0.5 MG/2 ML AMP SLOW IVP SCH ×3 (10:49→23:21)
[2023-03-01] MEDS: Transdermal Patch Removal TOP SCH (13:42)
[2023-03-01] MEDS: Nicotine 7 MG PATCH TD SCH (15:39)
[2023-03-01] MEDS: Metoprolol Tartrate 50 MG TAB PO SCH (20:38)
[2023-03-01] MEDS ORDERED: Metoprolol Tartrate 50 MG TAB PO SCH (21:00)
[2023-03-02] MEDS: Lorazepam 0.5 MG TAB PO PRN ×2 (01:27→13:16)
[2023-03-02] MEDS: Lidocaine 4% Patch TD SCH (01:27)
[2023-03-02] MEDS: Acetaminophen/Codeine 30-300mg Tablet PO PRN ×2 (04:39→12:12)
[2023-03-02] MEDS: Levothyroxine Sodium 25 MCG TAB PO SCH (04:39)
[2023-03-02 05:01] LABS: #Monocytes 0.9 thou/uL (0.11-0.59); #Neutrophils 3.3 thou/uL (1.40-6.50); %Basophils 0.5 % (0.0-1.0); %Eosinophils 0.5 % (0.0-10.0); %Lymphocytes 26.6 % (21.0-51.0); %Monocytes 14.9 % (0.0-10.0); %Neutrophils 55.5 % (42.0-75.0); Hematocrit 35.1 % (36.0-47.0); Hemoglobin 11.9 g/dL (12.0-16.0); Mean Corpuscular HGB CONC 33.9 g/dL (32.0-36.0); Mean Corpuscular Hemoglobin 34.3 pg (27.0-31.0); Mean Corpuscular Volume 101.2 fl (78.0-98.0); Mean Platelet Volume 11.6 fL (7.4-10.4); Platelet Count 159 10x3/uL (130-400); RBC Distribution Width 18.8 % (11.5-14.5); Red Blood Cell (RBC) Count 3.47 mill/uL (4.20-5.40)
[2023-03-02] MEDS: Ibuprofen 600 MG TAB PO PRN (05:15)
[2023-03-02 05:26] LABS: ALT (SGPT) 31 U/L (8-55); AST (SGOT) 29 U/L (5-34); Albumin 3.3 g/dL (3.4-4.8); Alkaline Phosphatase 89 U/L (40-110); Anion Gap 13 mmol/L (10-20); BUN (Urea Nitrogen) 16 mg/dL (9.8-20.1); Bilirubin, Total 0.9 mg/dL (0.2-1.2); Calc. Creatinine Clearance 52 mL/min (70-130); Calcium 9.2 mg/dL (7.8-10.44); Carbon Dioxide 21 mmol/L (23-31); Chloride 108 mmol/L (98-107); Estimated GFR 92; Globulin 2.8 g/dL (2.4-3.5); Glucose 95 mg/dL (83-110); Potassium 4.2 mmol/L (3.5-5.1); Protein, Total 6.1 g/dL (5.8-8.1); Sodium 138 mmol/L (136-145)
[2023-03-02] MEDS ORDERED: hydrOXYzine 10 MG TAB PO SCH (05:55)
[2023-03-02] MEDS: Mometasone 200 MCG/Formoterol 5 MCG 120 PUFF INHALER INH SCH ×2 (07:47→18:44)
[2023-03-02] MEDS ORDERED: FLU VACC QS2023(65UP)/MF59C/PF 60 MCG/0.5 ML SYRINGE IM ONE (09:00)
[2023-03-02] MEDS ORDERED: Lidocaine 2% Viscous Solution 10 ML, Aluminum & Magnesium Hydroxide 30 ML SSW SCH (09:15)
[2023-03-02] MEDS: DULoxetine 20 MG CAP PO SCH (09:48)
[2023-03-02] MEDS: Senokot 8.6 MG TAB PO SCH ×2 (09:48→20:05)
[2023-03-02] MEDS: dilTIAZem CD 180 MG CAP PO SCH (09:49)
[2023-03-02] MEDS: Lisinopril 20 MG TAB PO SCH (09:49)
[2023-03-02] MEDS: busPIRone HCl 5 MG TAB PO SCH ×2 (09:49→20:05)
[2023-03-02] MEDS: Apixaban 5 MG TAB PO SCH ×2 (09:51→20:05)
[2023-03-02] MEDS: Metoprolol Tartrate 50 MG TAB PO SCH ×2 (09:54→20:05)
[2023-03-02 11:51] LABS: Troponin I Less than 0.010 ng/mL (< 0.028)
[2023-03-02] MEDS: Transdermal Patch Removal TOP SCH (12:17)
[2023-03-02] MEDS: Ondansetron ODT 4 MG TAB PO PRN (13:13)
[2023-03-02] MEDS ORDERED: Metoprolol Tartrate 50 MG TAB PO SCH (15:30)
[2023-03-02] MEDS: Acetaminophen/Codeine 30-300mg Tablet PO SCH ×2 (15:46→21:31)
[2023-03-02] MEDS: Ibuprofen 600 MG TAB PO SCH ×2 (15:47→21:32)
[2023-03-02] MEDS: Nicotine 7 MG PATCH TD SCH (15:48)
[2023-03-02] MEDS ORDERED: Prochlorperazine Maleate 5 MG TAB PO SCH (16:45)
[2023-03-02] MEDS ORDERED: diphenhydrAMINE 12.5 MG/5 ML UDCUP PO SCH (17:00)
[2023-03-02] MEDS: Calcium Carbonate 500 MG ChewTAB PO PRN (17:53)
[2023-03-03] MEDS ORDERED: Prochlorperazine Maleate 5 MG TAB PO SCH ×2 (00:45→08:45)
[2023-03-03] MEDS ORDERED: diphenhydrAMINE 25 MG CAP PO SCH ×2 (00:45→08:45)
[2023-03-03] MEDS: Lidocaine 4% Patch TD SCH (01:30)
[2023-03-03] MEDS: Lorazepam 0.5 MG TAB PO PRN ×2 (03:51→12:55)
[2023-03-03] MEDS: Acetaminophen/Codeine 30-300mg Tablet PO SCH ×4 (03:52→21:28)
[2023-03-03 04:11] LABS: #Monocytes 1.1 thou/uL (0.11-0.59); #Neutrophils 3.6 thou/uL (1.40-6.50); %Basophils 0.5 % (0.0-1.0); %Eosinophils 0.6 % (0.0-10.0); %Lymphocytes 25.2 % (21.0-51.0); %Monocytes 17.3 % (0.0-10.0); Hematocrit 32.2 % (36.0-47.0); Hemoglobin 10.7 g/dL (12.0-16.0); Mean Corpuscular HGB CONC 33.2 g/dL (32.0-36.0); Mean Corpuscular Volume 102.2 fl (78.0-98.0); Mean Platelet Volume 11.7 fL (7.4-10.4); Platelet Count 160 10x3/uL (130-400); Red Blood Cell (RBC) Count 3.15 mill/uL (4.20-5.40); White Blood Cell (WBC) Count 6.5 10x3/uL (4.8-10.8)
[2023-03-03 04:40] LABS: ALT (SGPT) 29 U/L (8-55); AST (SGOT) 26 U/L (5-34); Albumin 3.1 g/dL (3.4-4.8); Alkaline Phosphatase 83 U/L (40-110); Anion Gap 13 mmol/L (10-20); BUN (Urea Nitrogen) 23 mg/dL (9.8-20.1); Bilirubin, Total 0.7 mg/dL (0.2-1.2); Calc. Creatinine Clearance 47 mL/min (70-130); Calcium 9.3 mg/dL (7.8-10.44); Carbon Dioxide 21 mmol/L (23-31); Chloride 109 mmol/L (98-107); Estimated GFR 87; Globulin 2.7 g/dL (2.4-3.5); Glucose 88 mg/dL (83-110); Magnesium 1.8 mg/dL (1.6-2.6); Potassium 4.8 mmol/L (3.5-5.1); Protein, Total 5.8 g/dL (5.8-8.1); Sodium 138 mmol/L (136-145)
[2023-03-03] MEDS: Ibuprofen 600 MG TAB PO SCH ×3 (05:29→21:29)
[2023-03-03] MEDS: Levothyroxine Sodium 25 MCG TAB PO SCH (05:29)
[2023-03-03] MEDS: Mometasone 200 MCG/Formoterol 5 MCG 120 PUFF INHALER INH SCH ×2 (07:39→19:48)
[2023-03-03] MEDS: dilTIAZem CD 180 MG CAP PO SCH (09:03)
[2023-03-03] MEDS: Apixaban 5 MG TAB PO SCH ×2 (09:04→20:27)
[2023-03-03] MEDS: Lisinopril 20 MG TAB PO SCH (09:04)
[2023-03-03] MEDS: DULoxetine 20 MG CAP PO SCH (09:04)
[2023-03-03] MEDS: busPIRone HCl 5 MG TAB PO SCH ×2 (09:04→20:27)
[2023-03-03] MEDS: Metoprolol Tartrate 50 MG TAB PO SCH ×2 (09:06→20:27)
[2023-03-03] MEDS: Senokot 8.6 MG TAB PO SCH ×2 (09:06→20:27)
[2023-03-03] MEDS: Transdermal Patch Removal TOP SCH (12:56)
[2023-03-03] MEDS: Nicotine 7 MG PATCH TD SCH (15:33)
[2023-03-03] MEDS: Cyclobenzaprine 10 MG TAB PO PRN (20:27)
[2023-03-03] MEDS: Calcium Carbonate 500 MG ChewTAB PO PRN (20:39)
[2023-03-04] MEDS: Lidocaine 4% Patch TD SCH (01:32)
[2023-03-04] MEDS: Acetaminophen/Codeine 30-300mg Tablet PO SCH ×4 (04:17→21:44)
[2023-03-04] MEDS: Lorazepam 0.5 MG TAB PO PRN ×2 (04:17→15:17)
[2023-03-04 04:50] LABS: #Neutrophils 3.1 thou/uL (1.40-6.50); %Basophils 0.7 % (0.0-1.0); %Eosinophils 0.5 % (0.0-10.0); %Lymphocytes 24.2 % (21.0-51.0); %Monocytes 17.4 % (0.0-10.0); %Neutrophils 56.3 % (42.0-75.0); Hematocrit 33.4 % (36.0-47.0); Hemoglobin 10.9 g/dL (12.0-16.0); Mean Corpuscular HGB CONC 32.6 g/dL (32.0-36.0); Mean Corpuscular Hemoglobin 33.7 pg (27.0-31.0); Mean Corpuscular Volume 103.4 fl (78.0-98.0); Platelet Count 182 10x3/uL (130-400); RBC Distribution Width 18.6 % (11.5-14.5); Red Blood Cell (RBC) Count 3.23 mill/uL (4.20-5.40); White Blood Cell (WBC) Count 5.5 10x3/uL (4.8-10.8)
[2023-03-04 05:19] LABS: ALT (SGPT) 28 U/L (8-55); AST (SGOT) 27 U/L (5-34); Albumin 3.4 g/dL (3.4-4.8); Alkaline Phosphatase 97 U/L (40-110); Anion Gap 10 mmol/L (10-20); BUN (Urea Nitrogen) 19 mg/dL (9.8-20.1); Bilirubin, Total 0.8 mg/dL (0.2-1.2); Calc. Creatinine Clearance 48 mL/min (70-130); Calcium 9.3 mg/dL (7.8-10.44); Carbon Dioxide 26 mmol/L (23-31); Chloride 106 mmol/L (98-107); Estimated GFR 87; Globulin 2.6 g/dL (2.4-3.5); Glucose 121 mg/dL (83-110); Magnesium 1.7 mg/dL (1.6-2.6); Potassium 4.2 mmol/L (3.5-5.1); Sodium 138 mmol/L (136-145)
[2023-03-04] MEDS: Ibuprofen 600 MG TAB PO SCH ×3 (05:30→21:45)
[2023-03-04] MEDS: Levothyroxine Sodium 25 MCG TAB PO SCH (05:31)
[2023-03-04] MEDS: Mometasone 200 MCG/Formoterol 5 MCG 120 PUFF INHALER INH SCH ×2 (06:54→19:05)
[2023-03-04] MEDS: Metoprolol Tartrate 50 MG TAB PO SCH ×2 (08:43→20:13)
[2023-03-04] MEDS: Apixaban 5 MG TAB PO SCH ×2 (08:45→20:12)
[2023-03-04] MEDS: dilTIAZem CD 180 MG CAP PO SCH (08:45)
[2023-03-04] MEDS: busPIRone HCl 5 MG TAB PO SCH ×2 (08:45→20:13)
[2023-03-04] MEDS: Senokot 8.6 MG TAB PO SCH ×2 (08:45→20:14)
[2023-03-04] MEDS: Lisinopril 20 MG TAB PO SCH (08:45)
[2023-03-04] MEDS: DULoxetine 20 MG CAP PO SCH (08:45)
[2023-03-04] MEDS: Transdermal Patch Removal TOP SCH (14:16)
[2023-03-04] MEDS: Nicotine 7 MG PATCH TD SCH (15:13)
[2023-03-05] MEDS: Acetaminophen/Codeine 30-300mg Tablet PO SCH ×2 (03:42→11:53)
[2023-03-05] MEDS: Lidocaine 4% Patch TD SCH (03:45)
[2023-03-05 04:48] LABS: %Basophils 0.7 % (0.0-1.0); %Eosinophils 0.4 % (0.0-10.0); %Lymphocytes 23.1 % (21.0-51.0); %Monocytes 18.9 % (0.0-10.0); %Neutrophils 55.4 % (42.0-75.0); Hematocrit 33.9 % (36.0-47.0); Hemoglobin 11.3 g/dL (12.0-16.0); Mean Corpuscular HGB CONC 33.3 g/dL (32.0-36.0); Mean Corpuscular Hemoglobin 33.5 pg (27.0-31.0); Mean Corpuscular Volume 100.6 fl (78.0-98.0); Mean Platelet Volume 12.4 fL (7.4-10.4); Platelet Count 183 10x3/uL (130-400); RBC Distribution Width 18.8 % (11.5-14.5); Red Blood Cell (RBC) Count 3.37 mill/uL (4.20-5.40); White Blood Cell (WBC) Count 5.5 10x3/uL (4.8-10.8)
[2023-03-05 05:14] LABS: ALT (SGPT) 107 U/L (8-55); AST (SGOT) 92 U/L (5-34); Albumin 3.4 g/dL (3.4-4.8); Alkaline Phosphatase 176 U/L (40-110); Anion Gap 13 mmol/L (10-20); BUN (Urea Nitrogen) 32 mg/dL (9.8-20.1); Bilirubin, Total 0.6 mg/dL (0.2-1.2); Calc. Creatinine Clearance 41 mL/min (70-130); Calcium 9.4 mg/dL (7.8-10.44); Carbon Dioxide 22 mmol/L (23-31); Chloride 109 mmol/L (98-107); Estimated GFR 72; Globulin 2.7 g/dL (2.4-3.5); Glucose 122 mg/dL (83-110); Potassium 4.3 mmol/L (3.5-5.1); Protein, Total 6.1 g/dL (5.8-8.1); Sodium 140 mmol/L (136-145)
[2023-03-05] MEDS: Ibuprofen 600 MG TAB PO SCH (05:48)
[2023-03-05] MEDS: Levothyroxine Sodium 25 MCG TAB PO SCH (05:49)
[2023-03-05] MEDS: Mometasone 200 MCG/Formoterol 5 MCG 120 PUFF INHALER INH SCH ×2 (07:21→18:53)
[2023-03-05] MEDS: Lisinopril 20 MG TAB PO SCH (09:31)
[2023-03-05] MEDS: DULoxetine 20 MG CAP PO SCH (09:31)
[2023-03-05] MEDS: Apixaban 5 MG TAB PO SCH ×2 (09:31→20:28)
[2023-03-05] MEDS: Senokot 8.6 MG TAB PO SCH ×2 (09:31→20:28)
[2023-03-05] MEDS: busPIRone HCl 5 MG TAB PO SCH ×2 (09:31→20:28)
[2023-03-05] MEDS: dilTIAZem CD 180 MG CAP PO SCH (09:31)
[2023-03-05] MEDS: Metoprolol Tartrate 50 MG TAB PO SCH ×3 (09:32→20:28)
[2023-03-05] MEDS: traMADol HCl 50 MG TAB PO SCH ×3 (12:14→23:30)
[2023-03-05] MEDS: Ketorolac Tromethamine 30 MG/ML VIAL IVP SCH ×3 (12:15→23:29)
[2023-03-05] MEDS: Ondansetron ODT 4 MG TAB PO PRN ×2 (13:54→20:30)
[2023-03-05] MEDS: Transdermal Patch Removal TOP SCH (13:54)
[2023-03-05] MEDS: Nicotine 7 MG PATCH TD SCH (17:10)
[2023-03-05] MEDS: Lorazepam 0.5 MG TAB PO PRN (18:34)
[2023-03-05] MEDS: Cyclobenzaprine 10 MG TAB PO PRN (20:28)
[2023-03-06] MEDS ORDERED: hydrOXYzine 25 MG TAB PO SCH (02:00)
[2023-03-06] MEDS ORDERED: Acetaminophen/Codeine 30-300mg Tablet PO SCH (02:00)
[2023-03-06] MEDS: Lidocaine 4% Patch TD SCH (02:12)
[2023-03-06] MEDS: Ketorolac Tromethamine 30 MG/ML VIAL IVP SCH ×2 (05:51→12:03)
[2023-03-06] MEDS: traMADol HCl 50 MG TAB PO SCH ×2 (05:52→12:04)
[2023-03-06] MEDS: Levothyroxine Sodium 25 MCG TAB PO SCH (05:52)
[2023-03-06 05:53] LABS: #Monocytes 0.8 thou/uL (0.11-0.59); #Neutrophils 1.8 thou/uL (1.40-6.50); %Basophils 0.5 % (0.0-1.0); %Eosinophils 0.5 % (0.0-10.0); %Lymphocytes 33.7 % (21.0-51.0); %Monocytes 19.8 % (0.0-10.0); %Neutrophils 43.8 % (42.0-75.0); Hematocrit 29.3 % (36.0-47.0); Hemoglobin 9.7 g/dL (12.0-16.0); Mean Corpuscular HGB CONC 33.1 g/dL (32.0-36.0); Mean Corpuscular Hemoglobin 34.2 pg (27.0-31.0); Mean Corpuscular Volume 103.2 fl (78.0-98.0); Mean Platelet Volume 12.4 fL (7.4-10.4); Platelet Count 163 10x3/uL (130-400); RBC Distribution Width 18.6 % (11.5-14.5); Red Blood Cell (RBC) Count 2.84 mill/uL (4.20-5.40); White Blood Cell (WBC) Count 4.2 10x3/uL (4.8-10.8)
[2023-03-06 06:30] LABS: ALT (SGPT) 64 U/L (8-55); AST (SGOT) 36 U/L (5-34); Albumin 3.1 g/dL (3.4-4.8); Alkaline Phosphatase 146 U/L (40-110); Anion Gap 10 mmol/L (10-20); BUN (Urea Nitrogen) 28 mg/dL (9.8-20.1); Bilirubin, Total 0.4 mg/dL (0.2-1.2); Calc. Creatinine Clearance 50 mL/min (70-130); Calcium 8.8 mg/dL (7.8-10.44); Carbon Dioxide 23 mmol/L (23-31); Chloride 106 mmol/L (98-107); Estimated GFR 92; Globulin 2.4 g/dL (2.4-3.5); Glucose 108 mg/dL (83-110); Potassium 3.8 mmol/L (3.5-5.1); Protein, Total 5.5 g/dL (5.8-8.1); Sodium 135 mmol/L (136-145)
[2023-03-06] MEDS: Mometasone 200 MCG/Formoterol 5 MCG 120 PUFF INHALER INH SCH (06:48)
[2023-03-06] MEDS: Metoprolol Tartrate 50 MG TAB PO SCH (09:17)
[2023-03-06] MEDS: Lisinopril 20 MG TAB PO SCH (09:17)
[2023-03-06] MEDS: busPIRone HCl 5 MG TAB PO SCH (09:17)
[2023-03-06] MEDS: Apixaban 5 MG TAB PO SCH (09:17)
[2023-03-06] MEDS: DULoxetine 20 MG CAP PO SCH (09:17)
[2023-03-06] MEDS: dilTIAZem CD 180 MG CAP PO SCH (09:17)
[2023-03-06] MEDS: Senokot 8.6 MG TAB PO SCH (09:18)
[2023-03-06] MEDS: Lorazepam 0.5 MG TAB PO PRN (09:22)
[2023-03-06] MEDS: Ondansetron ODT 4 MG TAB PO PRN (12:04)
[2023-03-06 12:18] VITALS: TEMP 98.2
[2023-03-06] MEDS: Transdermal Patch Removal TOP SCH (13:20)
[2023-03-06 15:03] VITALS: BP 108/66
[2023-03-06] MEDS ORDERED: Ketorolac Tromethamine 30 MG/ML VIAL IM SCH (15:15)
[2023-03-06] MEDS: Nicotine 7 MG PATCH TD SCH (15:25)
== END 2023-03-06 16:46 | disposition home health service (06) | DRG 308 ==
LOC: ERS 19:31 → ERHOLD 21:22 → CCU 02-27 01:43 → IMCU/EMU 02-27 07:38 → 2NO 03-02 00:52 → T4-A 03-05 14:33
PROVIDERS: ADMIT Family Medicine; ATTEND Family Medicine
DX: I48.19 Other persistent atrial fibrillation (principal); G92.8 Other toxic encephalopathy; I50.32 Chronic diastolic (congestive) heart failure; I13.0 Hypertensive heart and chronic kidney disease with heart failure and stage 1 through stage 4 chronic kidney disease, or unspecified chronic kidney disease; E87.6 Hypokalemia; E83.42 Hypomagnesemia; R29.6 Repeated falls; I71.40 Abdominal aortic aneurysm, without rupture, unspecified; E03.9 Hypothyroidism, unspecified; K21.9 Gastro-esophageal reflux disease without esophagitis; J44.9 Chronic obstructive pulmonary disease, unspecified; M19.90 Unspecified osteoarthritis, unspecified site; T42.3X1A Poisoning by barbiturates, accidental (unintentional), initial encounter; I25.10 Atherosclerotic heart disease of native coronary artery without angina pectoris; G89.29 Other chronic pain; N18.9 Chronic kidney disease, unspecified; G43.909 Migraine, unspecified, not intractable, without status migrainosus; F17.210 Nicotine dependence, cigarettes, uncomplicated; S29.9XXA Unspecified injury of thorax, initial encounter; W18.30XA Fall on same level, unspecified, initial encounter; Z79.899 Other long term (current) drug therapy; Z79.01 Long term (current) use of anticoagulants; Z79.891 Long term (current) use of opiate analgesic; I25.2 Old myocardial infarction; Z95.5 Presence of coronary angioplasty implant and graft
CPT/HCPCS: 36415; 36416; 70450; 71045; 72125; 80053; 80143; 82550; 82805; 83735; 84443; 84484; 85025; 85610; 85730; 86850; 86900; 86901; 93005; 93010; 94664; 96374; 96375; 96376; 80307; J0132; J0360; J1160; J1885; J3475; J3490; J7070; Q0162; Q0163; Q0164

== ENCOUNTER 2023-03-25 12:46 | Inpatient (IN) | payer MEDICARE ==
[2023-03-25] MEDS ORDERED: Lorazepam 1 MG TAB ONE ×2 (13:44→21:40)
[2023-03-25 14:11] LABS: #Basophils 0.1 thou/uL (0.0-0.2); #Monocytes 1.2 thou/uL (0.11-0.59); #Neutrophils 7.9 thou/uL (1.40-6.50); %Basophils 0.6 % (0.0-1.0); %Eosinophils 0.1 % (0.0-10.0); %Lymphocytes 7.5 % (21.0-51.0); %Neutrophils 78.5 % (42.0-75.0); Hematocrit 33.8 % (36.0-47.0); Hemoglobin 10.8 g/dL (12.0-16.0); Mean Corpuscular Volume 109.4 fl (78.0-98.0); Mean Platelet Volume 11.6 fL (7.4-10.4); Platelet Count 155 10x3/uL (130-400); RBC Distribution Width 19.7 % (11.5-14.5); Red Blood Cell (RBC) Count 3.09 mill/uL (4.20-5.40)
[2023-03-25 14:29] LABS: ALT (SGPT) 29 U/L (8-55); AST (SGOT) 50 U/L (5-34); Albumin 3.8 g/dL (3.4-4.8); Alkaline Phosphatase 165 U/L (40-110); Anion Gap 15 mmol/L (10-20); BUN (Urea Nitrogen) 12 mg/dL (9.8-20.1); Bilirubin, Total 0.5 mg/dL (0.2-1.2); Calc. Creatinine Clearance 0 mL/min (70-130); Calcium 8.7 mg/dL (7.8-10.44); Carbon Dioxide 15 mmol/L (23-31); Chloride 107 mmol/L (98-107); Estimated GFR 65; Globulin 2.4 g/dL (2.4-3.5); Glucose 89 mg/dL (83-110); Potassium 4.3 mmol/L (3.5-5.1); Protein, Total 6.2 g/dL (5.8-8.1); Sodium 133 mmol/L (136-145)
[2023-03-25 14:37] LABS: Troponin I Less than 0.010 ng/mL (< 0.028)
[2023-03-25] MEDS ORDERED: LORazepam 2 MG/ML SYR.(CARPUJECT) ONE ×2 (15:18→16:31)
[2023-03-25] MEDS ORDERED: dilTIAZem 25 MG/5 ML VIAL ONE ×2 (16:18→16:51)
[2023-03-25] MEDS ORDERED: Furosemide 40 MG (4 mL) VIAL ONE (16:50)
[2023-03-25] MEDS ORDERED: dilTIAZem 125 MG/25 ML SDV ONE (17:28)
[2023-03-25] MEDS ORDERED: Ipratropium/Albuterol 3 ML NEB NEB PRN (17:38)
[2023-03-25] MEDS ORDERED: cloNIDine 0.1 MG TAB PO PRN (18:03)
[2023-03-25 18:15] LABS: Actual Bicarbonate (HCO3v) 18.8 mEq/L (22-28); Base Excess -4.6 mEq/L (-2.0 to +3.0); Calcium, Ionized (venous) 1.15 mmol/L (1.16-1.32); Chloride (VBG) 103 mmol/L (98-106); Hematocrit-VBG 36 % (36.0-47.0); Hemoglobin (Hb) 12.4 g/dL (11.7-16.1); Potassium (VBG) 4.29 mmol/L (3.70-5.30); Sodium 137 mmol/L (133-146); pH (venous) 7.418 (7.32-7.43)
[2023-03-25] MEDS ORDERED: dilTIAZem 125 MG in Sodium Chloride 0.9% 100 ML IVPB SCH (18:15)
[2023-03-25] MEDS ORDERED: predniSONE 20 MG TAB PO SCH (18:30)
[2023-03-25] MEDS ORDERED: Azithromycin 500 MG in Sodium Chloride 0.9% 250 ML 250 ML IVPB SCH (20:00)
[2023-03-25] MEDS ORDERED: predniSONE 20 MG TAB ONE (20:35)
[2023-03-25] MEDS ORDERED: Azithromycin 500 MG VIAL ONE (20:36)
[2023-03-25] MEDS ORDERED: hydrOXYzine 25 MG TAB ONE (21:28)
[2023-03-25] MEDS: hydrOXYzine 25 MG TAB PO SCH (21:35)
[2023-03-25] MEDS: Apixaban 5 MG TAB PO SCH (21:35)
[2023-03-25] MEDS: Rosuvastatin 10 MG TAB PO SCH (21:35)
[2023-03-25] MEDS: busPIRone HCl 5 MG TAB PO SCH (21:35)
[2023-03-25] MEDS: Senokot 8.6 MG TAB PO SCH (21:35)
[2023-03-25] MEDS: Lorazepam 0.5 MG TAB PO PRN (21:44)
[2023-03-26] MEDS: Levothyroxine Sodium 25 MCG TAB PO SCH (05:37)
[2023-03-26] MEDS: Furosemide 40 MG (4 mL) VIAL SLOW IVP SCH ×2 (05:37→16:15)
[2023-03-26] MEDS: Lorazepam 0.5 MG TAB PO PRN ×2 (05:42→21:23)
[2023-03-26] MEDS: Acetaminophen 325 MG TAB PO PRN ×3 (05:42→23:11)
[2023-03-26] MEDS: Mometasone 200 MCG/Formoterol 5 MCG 120 PUFF INHALER INH SCH ×2 (07:04→18:27)
[2023-03-26 07:27] LABS: #Monocytes 0.1 thou/uL (0.11-0.59); #Neutrophils 4.3 thou/uL (1.40-6.50); %Basophils 0.6 % (0.0-1.0); %Lymphocytes 9.1 % (21.0-51.0); %Neutrophils 86.9 % (42.0-75.0); Hemoglobin 11.2 g/dL (12.0-16.0); Mean Corpuscular HGB CONC 32.9 g/dL (32.0-36.0); Mean Corpuscular Hemoglobin 34.5 pg (27.0-31.0); Mean Platelet Volume 11.8 fL (7.4-10.4); Platelet Count 184 10x3/uL (130-400); RBC Distribution Width 19.4 % (11.5-14.5); Red Blood Cell (RBC) Count 3.25 mill/uL (4.20-5.40); White Blood Cell (WBC) Count 4.9 10x3/uL (4.8-10.8)
[2023-03-26 07:37] LABS: Mean Corpuscular Volume 104.6 fl (78.0-98.0)
[2023-03-26 07:54] LABS: ALT (SGPT) 39 U/L (8-55); AST (SGOT) 49 U/L (5-34); Albumin 3.9 g/dL (3.4-4.8); Alkaline Phosphatase 187 U/L (40-110); Anion Gap 15 mmol/L (10-20); BUN (Urea Nitrogen) 14 mg/dL (9.8-20.1); Bilirubin, Total 0.6 mg/dL (0.2-1.2); Calc. Creatinine Clearance 38 mL/min (70-130); Calcium 8.9 mg/dL (7.8-10.44); Carbon Dioxide 19 mmol/L (23-31); Chloride 104 mmol/L (98-107); Estimated GFR 62; Globulin 2.9 g/dL (2.4-3.5); Glucose 127 mg/dL (83-110); Potassium 4.3 mmol/L (3.5-5.1); Protein, Total 6.8 g/dL (5.8-8.1); Sodium 134 mmol/L (136-145)
[2023-03-26] MEDS ORDERED: predniSONE 20 MG TAB PO SCH (08:00)
[2023-03-26] MEDS: hydrOXYzine 25 MG TAB PO SCH ×3 (08:54→21:23)
[2023-03-26] MEDS: Apixaban 5 MG TAB PO SCH ×2 (08:55→21:23)
[2023-03-26] MEDS: Lisinopril 20 MG TAB PO SCH (08:55)
[2023-03-26] MEDS: busPIRone HCl 5 MG TAB PO SCH ×2 (08:55→21:23)
[2023-03-26] MEDS: Cholecalciferol 1,000 UNITS (25 MCG) TAB PO SCH (08:55)
[2023-03-26] MEDS: Senokot 8.6 MG TAB PO SCH ×2 (08:55→21:23)
[2023-03-26] MEDS ORDERED: DULoxetine 20 MG CAP PO SCH ×2 (09:00→12:45)
[2023-03-26] MEDS ORDERED: dilTIAZem 125 MG in Sodium Chloride 0.9% 100 ML IVPB SCH ×2 (12:00→15:30)
[2023-03-26] MEDS ORDERED: SUMAtriptan Succinate 25 MG TAB PO PRN (13:55)
[2023-03-26] MEDS: Rosuvastatin 10 MG TAB PO SCH (21:23)
[2023-03-27 04:42] LABS: #Neutrophils 4.5 thou/uL (1.40-6.50); %Basophils 0.3 % (0.0-1.0); %Lymphocytes 12.7 % (21.0-51.0); %Monocytes 15.2 % (0.0-10.0); %Neutrophils 70.5 % (42.0-75.0); Hemoglobin 10.9 g/dL (12.0-16.0); Mean Corpuscular HGB CONC 31.1 g/dL (32.0-36.0); Mean Corpuscular Hemoglobin 35.5 pg (27.0-31.0); Mean Platelet Volume 11.5 fL (7.4-10.4); Platelet Count 165 10x3/uL (130-400); RBC Distribution Width 18.8 % (11.5-14.5); Red Blood Cell (RBC) Count 3.07 mill/uL (4.20-5.40); White Blood Cell (WBC) Count 6.4 10x3/uL (4.8-10.8)
[2023-03-27 05:10] LABS: ALT (SGPT) 31 U/L (8-55); AST (SGOT) 31 U/L (5-34); Albumin 3.4 g/dL (3.4-4.8); Alkaline Phosphatase 154 U/L (40-110); Anion Gap 13 mmol/L (10-20); BUN (Urea Nitrogen) 24 mg/dL (9.8-20.1); Bilirubin, Total 0.3 mg/dL (0.2-1.2); Calc. Creatinine Clearance 45 mL/min (70-130); Calcium 8.4 mg/dL (7.8-10.44); Carbon Dioxide 19 mmol/L (23-31); Chloride 105 mmol/L (98-107); Estimated GFR 76; Globulin 2.5 g/dL (2.4-3.5); Glucose 123 mg/dL (83-110); Protein, Total 5.9 g/dL (5.8-8.1); Sodium 133 mmol/L (136-145)
[2023-03-27 05:11] LABS: Anisocytosis MODERATE=16-30 cells HPF (0-5); Burr Cells MODERATE= 6-15 cells HPF (0-1); CellaVision Operator ID lab.sh2; Hypochromia SLIGHT = 6-15 cells HPF (0-5); Macrocytosis MODERATE=16-30 cells HPF (0-5); Ovalocytes MODERATE= 6-15 cells HPF (0-1); Platelet Adequacy Comment Platelets Normal; Poikilocytosis MODERATE=16-30 cells HPF (0-5); Tear Drops SLIGHT = 2-5 cells HPF (0-1)
[2023-03-27] MEDS: Furosemide 40 MG (4 mL) VIAL SLOW IVP SCH ×2 (05:42→14:25)
[2023-03-27] MEDS: Levothyroxine Sodium 25 MCG TAB PO SCH (05:42)
[2023-03-27] MEDS: Mometasone 200 MCG/Formoterol 5 MCG 120 PUFF INHALER INH SCH ×2 (07:36→20:35)
[2023-03-27] MEDS: Acetaminophen 325 MG TAB PO PRN ×2 (09:25→20:46)
[2023-03-27] MEDS: Senokot 8.6 MG TAB PO SCH ×2 (09:26→20:47)
[2023-03-27] MEDS: DULoxetine 60 MG CAP PO SCH (09:26)
[2023-03-27] MEDS: Apixaban 5 MG TAB PO SCH ×2 (09:26→20:46)
[2023-03-27] MEDS: hydrOXYzine 25 MG TAB PO SCH ×3 (09:26→20:46)
[2023-03-27] MEDS: busPIRone HCl 5 MG TAB PO SCH ×2 (09:27→20:47)
[2023-03-27] MEDS: Lorazepam 0.5 MG TAB PO PRN ×2 (09:27→20:47)
[2023-03-27] MEDS: Lisinopril 20 MG TAB PO SCH (09:27)
[2023-03-27] MEDS: Cholecalciferol 1,000 UNITS (25 MCG) TAB PO SCH (09:27)
[2023-03-27] MEDS ORDERED: Fluticasone Propionate Nasal Spray 16 gm Bottle NASAL SCH (11:30)
[2023-03-27] MEDS: Ondansetron PF 4 MG/2 ML Vial IVP PRN (11:50)
[2023-03-27] MEDS: dilTIAZem CD 180 MG CAP PO SCH (11:51)
[2023-03-27] MEDS ORDERED: Acetaminophen/Codeine 30-300mg Tablet PO SCH (13:00)
[2023-03-27] MEDS: Nicotine 14 MG PATCH TD SCH (14:28)
[2023-03-27] MEDS: Rosuvastatin 10 MG TAB PO SCH (20:45)
[2023-03-28 05:19] LABS: #Monocytes 1.3 thou/uL (0.11-0.59); #Neutrophils 4.3 thou/uL (1.40-6.50); %Basophils 0.5 % (0.0-1.0); %Eosinophils 0.2 % (0.0-10.0); %Lymphocytes 29.2 % (21.0-51.0); %Monocytes 15.8 % (0.0-10.0); %Neutrophils 53.2 % (42.0-75.0); Hematocrit 39.3 % (36.0-47.0); Hemoglobin 12.8 g/dL (12.0-16.0); Mean Corpuscular HGB CONC 32.6 g/dL (32.0-36.0); Mean Corpuscular Hemoglobin 34.5 pg (27.0-31.0); Mean Corpuscular Volume 105.9 fl (78.0-98.0); Mean Platelet Volume 10.8 fL (7.4-10.4); Platelet Count 216 10x3/uL (130-400); RBC Distribution Width 18.5 % (11.5-14.5); Red Blood Cell (RBC) Count 3.71 mill/uL (4.20-5.40); White Blood Cell (WBC) Count 8.1 10x3/uL (4.8-10.8)
[2023-03-28 05:44] LABS: ALT (SGPT) 31 U/L (8-55); AST (SGOT) 29 U/L (5-34); Albumin 3.5 g/dL (3.4-4.8); Alkaline Phosphatase 154 U/L (40-110); Anion Gap 15 mmol/L (10-20); BUN (Urea Nitrogen) 30 mg/dL (9.8-20.1); Bilirubin, Total 0.5 mg/dL (0.2-1.2); Calc. Creatinine Clearance 33 mL/min (70-130); Calcium 8.8 mg/dL (7.8-10.44); Carbon Dioxide 27 mmol/L (23-31); Chloride 101 mmol/L (98-107); Estimated GFR 55; Globulin 2.8 g/dL (2.4-3.5); Glucose 114 mg/dL (83-110); Potassium 3.7 mmol/L (3.5-5.1); Protein, Total 6.3 g/dL (5.8-8.1); Sodium 139 mmol/L (136-145)
[2023-03-28] MEDS: Acetaminophen 325 MG TAB PO PRN ×2 (06:33→19:58)
[2023-03-28] MEDS: Levothyroxine Sodium 25 MCG TAB PO SCH (06:34)
[2023-03-28] MEDS: Furosemide 40 MG (4 mL) VIAL SLOW IVP SCH (06:34)
[2023-03-28] MEDS: Mometasone 200 MCG/Formoterol 5 MCG 120 PUFF INHALER INH SCH ×2 (07:00→19:40)
[2023-03-28] MEDS: Lisinopril 20 MG TAB PO SCH (08:27)
[2023-03-28] MEDS: DULoxetine 60 MG CAP PO SCH (08:27)
[2023-03-28] MEDS: busPIRone HCl 5 MG TAB PO SCH ×2 (08:27→19:58)
[2023-03-28] MEDS: dilTIAZem CD 180 MG CAP PO SCH (08:28)
[2023-03-28] MEDS: hydrOXYzine 25 MG TAB PO SCH ×3 (08:28→19:58)
[2023-03-28] MEDS: Apixaban 5 MG TAB PO SCH ×2 (08:29→19:59)
[2023-03-28] MEDS: Cholecalciferol 1,000 UNITS (25 MCG) TAB PO SCH (08:29)
[2023-03-28] MEDS: Fluticasone Propionate Nasal Spray 16 gm Bottle NASAL SCH (08:31)
[2023-03-28] MEDS: Senokot 8.6 MG TAB PO SCH ×2 (09:36→19:59)
[2023-03-28] MEDS: SUMAtriptan Succinate 25 MG TAB PO PRN ×2 (09:36→15:41)
[2023-03-28] MEDS ORDERED: Topiramate 25 MG TAB PO SCH (12:00)
[2023-03-28] MEDS: Ondansetron PF 4 MG/2 ML Vial IVP PRN ×2 (12:22→19:58)
[2023-03-28] MEDS: Lorazepam 0.5 MG TAB PO PRN ×2 (12:23→19:58)
[2023-03-28] MEDS ORDERED: Furosemide 80 MG TAB PO SCH (14:00)
[2023-03-28] MEDS: Nicotine 14 MG PATCH TD SCH (15:18)
[2023-03-28] MEDS ORDERED: Metoprolol Tartrate 25 MG TAB PO SCH (19:45)
[2023-03-28] MEDS: Rosuvastatin 10 MG TAB PO SCH (19:58)
[2023-03-28] MEDS ORDERED: Lidocaine 4% Patch TD SCH (20:00)
[2023-03-28 20:34] LABS: Troponin I 0.014 ng/mL (< 0.028)
[2023-03-28] MEDS ORDERED: Polyethylene Glycol 3350 17 GM Packet PO PRN (21:44)
[2023-03-29] MEDS: Acetaminophen 325 MG TAB PO PRN (00:19)
[2023-03-29] MEDS: Levothyroxine Sodium 25 MCG TAB PO SCH (04:47)
[2023-03-29] MEDS: SUMAtriptan Succinate 25 MG TAB PO PRN (04:47)
[2023-03-29 05:23] LABS: #Basophils 0.1 thou/uL (0.0-0.2); #Monocytes 1.3 thou/uL (0.11-0.59); #Neutrophils 5.1 thou/uL (1.40-6.50); %Basophils 0.6 % (0.0-1.0); %Eosinophils 0.2 % (0.0-10.0); %Lymphocytes 23.3 % (21.0-51.0); %Monocytes 14.8 % (0.0-10.0); Hematocrit 44.2 % (36.0-47.0); Hemoglobin 14.7 g/dL (12.0-16.0); Mean Corpuscular HGB CONC 33.3 g/dL (32.0-36.0); Mean Corpuscular Volume 102.3 fl (78.0-98.0); Mean Platelet Volume 11.5 fL (7.4-10.4); Platelet Count 244 10x3/uL (130-400); Red Blood Cell (RBC) Count 4.32 mill/uL (4.20-5.40); White Blood Cell (WBC) Count 8.5 10x3/uL (4.8-10.8)
[2023-03-29 05:48] LABS: ALT (SGPT) 39 U/L (8-55); AST (SGOT) 37 U/L (5-34); Albumin 3.8 g/dL (3.4-4.8); Alkaline Phosphatase 149 U/L (40-110); Anion Gap 17 mmol/L (10-20); BUN (Urea Nitrogen) 35 mg/dL (9.8-20.1); Bilirubin, Total 0.8 mg/dL (0.2-1.2); Calc. Creatinine Clearance 27 mL/min (70-130); Calcium 9.8 mg/dL (7.8-10.44); Carbon Dioxide 26 mmol/L (23-31); Chloride 100 mmol/L (98-107); Estimated GFR 47; Globulin 3.3 g/dL (2.4-3.5); Glucose 119 mg/dL (83-110); Potassium 3.5 mmol/L (3.5-5.1); Protein, Total 7.1 g/dL (5.8-8.1); Sodium 139 mmol/L (136-145)
[2023-03-29] MEDS: Mometasone 200 MCG/Formoterol 5 MCG 120 PUFF INHALER INH SCH ×2 (08:02→19:03)
[2023-03-29] MEDS ORDERED: Lidocaine 4% Patch TD SCH ×2 (09:00)
[2023-03-29] MEDS ORDERED: FLU VACC QS2023(65UP)/MF59C/PF 60 MCG/0.5 ML SYRINGE IM ONE (09:00)
[2023-03-29] MEDS: busPIRone HCl 5 MG TAB PO SCH ×2 (09:05→19:58)
[2023-03-29] MEDS: Lisinopril 20 MG TAB PO SCH (09:05)
[2023-03-29] MEDS: Cholecalciferol 1,000 UNITS (25 MCG) TAB PO SCH (09:05)
[2023-03-29] MEDS: Potassium Chloride 20 MEQ TAB PO SCH (09:05)
[2023-03-29] MEDS: Fluticasone Propionate Nasal Spray 16 gm Bottle NASAL SCH (09:06)
[2023-03-29] MEDS: Apixaban 5 MG TAB PO SCH ×2 (09:06→19:57)
[2023-03-29] MEDS: Furosemide 40 MG TAB PO SCH ×2 (09:06→14:53)
[2023-03-29] MEDS: Senokot 8.6 MG TAB PO SCH ×2 (09:06→19:57)
[2023-03-29] MEDS: Topiramate 25 MG TAB PO SCH (09:06)
[2023-03-29] MEDS: hydrOXYzine 25 MG TAB PO SCH ×3 (09:06→19:57)
[2023-03-29] MEDS: DULoxetine 60 MG CAP PO SCH (09:06)
[2023-03-29] MEDS: dilTIAZem CD 180 MG CAP PO SCH (09:06)
[2023-03-29] MEDS: Transdermal Patch Removal TOP SCH (09:09)
[2023-03-29] MEDS ORDERED: Acetaminophen/Codeine 30-300mg Tablet PO SCH ×2 (09:30→14:00)
[2023-03-29] MEDS: Lorazepam 0.5 MG TAB PO PRN ×2 (10:01→18:23)
[2023-03-29 11:31] LABS: Phosphorus 4.5 mg/dL (2.3-4.7)
[2023-03-29] MEDS: Nicotine 14 MG PATCH TD SCH (14:54)
[2023-03-29] MEDS: Rosuvastatin 10 MG TAB PO SCH (19:57)
[2023-03-29] MEDS: Lidocaine 4% Patch TD SCH (19:57)
[2023-03-30] MEDS ORDERED: Acetaminophen/Codeine 30-300mg Tablet PO SCH (00:31)
[2023-03-30 06:03] LABS: #Monocytes 1.4 thou/uL (0.11-0.59); #Neutrophils 6.4 thou/uL (1.40-6.50); %Basophils 0.3 % (0.0-1.0); %Eosinophils 0.4 % (0.0-10.0); %Lymphocytes 23.3 % (21.0-51.0); %Monocytes 13.1 % (0.0-10.0); %Neutrophils 61.7 % (42.0-75.0); Hematocrit 42.9 % (36.0-47.0); Hemoglobin 14.1 g/dL (12.0-16.0); Mean Corpuscular HGB CONC 32.9 g/dL (32.0-36.0); Mean Corpuscular Hemoglobin 34.2 pg (27.0-31.0); Mean Corpuscular Volume 104.1 fl (78.0-98.0); Mean Platelet Volume 11.6 fL (7.4-10.4); Platelet Count 205 10x3/uL (130-400); RBC Distribution Width 17.6 % (11.5-14.5); Red Blood Cell (RBC) Count 4.12 mill/uL (4.20-5.40); White Blood Cell (WBC) Count 10.4 10x3/uL (4.8-10.8)
[2023-03-30] MEDS: Levothyroxine Sodium 25 MCG TAB PO SCH (06:16)
[2023-03-30] MEDS: Acetaminophen 325 MG TAB PO PRN ×3 (06:17→19:40)
[2023-03-30 06:29] LABS: Phosphorus 4.1 mg/dL (2.3-4.7)
[2023-03-30 06:32] LABS: ALT (SGPT) 50 U/L (8-55); AST (SGOT) 72 U/L (5-34); Albumin 3.7 g/dL (3.4-4.8); Alkaline Phosphatase 145 U/L (40-110); Anion Gap 15 mmol/L (10-20); BUN (Urea Nitrogen) 52 mg/dL (9.8-20.1); Bilirubin, Total 0.8 mg/dL (0.2-1.2); Calc. Creatinine Clearance 21 mL/min (70-130); Calcium 9.4 mg/dL (7.8-10.44); Carbon Dioxide 27 mmol/L (23-31); Chloride 100 mmol/L (98-107); Estimated GFR 34; Globulin 3.2 g/dL (2.4-3.5); Glucose 117 mg/dL (83-110); Potassium 4.5 mmol/L (3.5-5.1); Protein, Total 6.9 g/dL (5.8-8.1); Sodium 137 mmol/L (136-145)
[2023-03-30] MEDS: Mometasone 200 MCG/Formoterol 5 MCG 120 PUFF INHALER INH SCH ×2 (08:42→19:24)
[2023-03-30] MEDS: Fluticasone Propionate Nasal Spray 16 gm Bottle NASAL SCH (09:21)
[2023-03-30] MEDS: Topiramate 25 MG TAB PO SCH (09:23)
[2023-03-30] MEDS: Cholecalciferol 1,000 UNITS (25 MCG) TAB PO SCH (09:23)
[2023-03-30] MEDS: busPIRone HCl 5 MG TAB PO SCH ×2 (09:23→20:15)
[2023-03-30] MEDS: DULoxetine 60 MG CAP PO SCH (09:23)
[2023-03-30] MEDS: Transdermal Patch Removal TOP SCH (09:23)
[2023-03-30] MEDS: hydrOXYzine 25 MG TAB PO SCH ×3 (09:23→20:15)
[2023-03-30] MEDS: Potassium Chloride 20 MEQ TAB PO SCH (09:23)
[2023-03-30] MEDS: Apixaban 5 MG TAB PO SCH (09:24)
[2023-03-30] MEDS: Senokot 8.6 MG TAB PO SCH ×2 (09:24→20:15)
[2023-03-30] MEDS: dilTIAZem CD 180 MG CAP PO SCH (09:24)
[2023-03-30] MEDS: Acetaminophen/Codeine 30-300mg Tablet PO PRN ×3 (09:24→21:49)
[2023-03-30] MEDS: Lisinopril 20 MG TAB PO SCH (09:24)
[2023-03-30] MEDS: Lorazepam 0.5 MG TAB PO PRN ×2 (09:33→20:15)
[2023-03-30] MEDS: SUMAtriptan Succinate 25 MG TAB PO PRN (13:18)
[2023-03-30] MEDS: Nicotine 14 MG PATCH TD SCH (15:38)
[2023-03-30] MEDS: Ondansetron PF 4 MG/2 ML Vial IVP PRN (17:22)
[2023-03-30] MEDS: Apixaban 2.5 MG TAB PO SCH (20:15)
[2023-03-30] MEDS: Rosuvastatin 10 MG TAB PO SCH (20:15)
[2023-03-30] MEDS: Lidocaine 4% Patch TD SCH (20:16)
[2023-03-31] MEDS: Ondansetron PF 4 MG/2 ML Vial IVP PRN ×2 (01:13→19:57)
[2023-03-31] MEDS ORDERED: Acetaminophen/Codeine 30-300mg Tablet PO SCH (03:00)
[2023-03-31 05:12] LABS: #Eosinphils 0.1 thou/uL (0.0-0.7); #Monocytes 1.1 thou/uL (0.11-0.59); %Basophils 0.3 % (0.0-1.0); %Eosinophils 0.8 % (0.0-10.0); %Lymphocytes 29.9 % (21.0-51.0); %Monocytes 14.7 % (0.0-10.0); %Neutrophils 53.4 % (42.0-75.0); Hematocrit 43.7 % (36.0-47.0); Hemoglobin 14.1 g/dL (12.0-16.0); Mean Corpuscular HGB CONC 32.3 g/dL (32.0-36.0); Mean Corpuscular Volume 105.3 fl (78.0-98.0); Mean Platelet Volume 10.9 fL (7.4-10.4); Platelet Count 178 10x3/uL (130-400); RBC Distribution Width 17.6 % (11.5-14.5); Red Blood Cell (RBC) Count 4.15 mill/uL (4.20-5.40); White Blood Cell (WBC) Count 7.6 10x3/uL (4.8-10.8)
[2023-03-31 05:40] LABS: ALT (SGPT) 60 U/L (8-55); AST (SGOT) 74 U/L (5-34); Albumin 3.8 g/dL (3.4-4.8); Alkaline Phosphatase 144 U/L (40-110); Anion Gap 13 mmol/L (10-20); BUN (Urea Nitrogen) 56 mg/dL (9.8-20.1); Bilirubin, Total 0.6 mg/dL (0.2-1.2); Calc. Creatinine Clearance 24 mL/min (70-130); Calcium 9.4 mg/dL (7.8-10.44); Carbon Dioxide 25 mmol/L (23-31); Chloride 103 mmol/L (98-107); Estimated GFR 40; Globulin 2.9 g/dL (2.4-3.5); Glucose 107 mg/dL (83-110); Potassium 5.4 mmol/L (3.5-5.1); Protein, Total 6.7 g/dL (5.8-8.1); Sodium 136 mmol/L (136-145)
[2023-03-31] MEDS: Levothyroxine Sodium 25 MCG TAB PO SCH (05:53)
[2023-03-31] MEDS: SUMAtriptan Succinate 25 MG TAB PO PRN (06:08)
[2023-03-31] MEDS: Mometasone 200 MCG/Formoterol 5 MCG 120 PUFF INHALER INH SCH ×2 (07:43→18:49)
[2023-03-31] MEDS: Cholecalciferol 1,000 UNITS (25 MCG) TAB PO SCH (09:18)
[2023-03-31] MEDS: busPIRone HCl 5 MG TAB PO SCH ×2 (09:18→20:33)
[2023-03-31] MEDS: Lisinopril 20 MG TAB PO SCH (09:18)
[2023-03-31] MEDS: DULoxetine 60 MG CAP PO SCH (09:18)
[2023-03-31] MEDS: Apixaban 2.5 MG TAB PO SCH ×2 (09:18→20:33)
[2023-03-31] MEDS: Topiramate 25 MG TAB PO SCH (09:19)
[2023-03-31] MEDS: dilTIAZem CD 180 MG CAP PO SCH (09:19)
[2023-03-31] MEDS: Fluticasone Propionate Nasal Spray 16 gm Bottle NASAL SCH (09:19)
[2023-03-31] MEDS: Furosemide 20 MG TAB PO SCH (09:19)
[2023-03-31] MEDS: hydrOXYzine 25 MG TAB PO SCH ×3 (09:19→20:32)
[2023-03-31] MEDS: Senokot 8.6 MG TAB PO SCH ×2 (09:20→20:33)
[2023-03-31] MEDS: Transdermal Patch Removal TOP SCH (09:20)
[2023-03-31] MEDS: Acetaminophen/Codeine 30-300mg Tablet PO PRN ×3 (09:39→22:14)
[2023-03-31] MEDS ORDERED: Metoprolol Tartrate 25 MG TAB PO SCH ×2 (11:30→21:00)
[2023-03-31] MEDS ORDERED: methylPREDNISolone 4 mg Tablet PO SCH (12:00)
[2023-03-31] MEDS: methylPREDNISolone 4 mg Tablet PO SCH ×3 (13:17→20:45)
[2023-03-31] MEDS: Nicotine 14 MG PATCH TD SCH (15:21)
[2023-03-31] MEDS: Lorazepam 0.5 MG TAB PO PRN ×2 (15:30→20:32)
[2023-03-31] MEDS: Lidocaine 4% Patch TD SCH (20:32)
[2023-03-31] MEDS: Rosuvastatin 10 MG TAB PO SCH (20:32)
[2023-03-31] MEDS: Acetaminophen 325 MG TAB PO PRN (20:33)
[2023-03-31] MEDS: Metoprolol Tartrate 25 MG TAB PO SCH ×2 (20:47→22:15)
[2023-03-31] MEDS ORDERED: Lidocaine 2% Viscous Solution 10 ML, Aluminum & Magnesium Hydroxide 30 ML SSW SCH (22:00)
[2023-03-31 23:00] LABS: Troponin I 0.011 ng/mL (< 0.028)
[2023-04-01] MEDS: Acetaminophen 325 MG TAB PO PRN (03:28)
[2023-04-01] MEDS ORDERED: Famotidine 20 MG TAB PO SCH (03:30)
[2023-04-01 04:31] LABS: #Monocytes 0.2 thou/uL (0.11-0.59); #Neutrophils 4.7 thou/uL (1.40-6.50); %Basophils 0.7 % (0.0-1.0); %Lymphocytes 15.3 % (21.0-51.0); %Monocytes 2.9 % (0.0-10.0); %Neutrophils 79.9 % (42.0-75.0); Hematocrit 43.6 % (36.0-47.0); Hemoglobin 14.5 g/dL (12.0-16.0); Mean Corpuscular HGB CONC 33.3 g/dL (32.0-36.0); Mean Corpuscular Hemoglobin 33.7 pg (27.0-31.0); Mean Platelet Volume 11.3 fL (7.4-10.4); Platelet Count 175 10x3/uL (130-400); RBC Distribution Width 17.1 % (11.5-14.5); White Blood Cell (WBC) Count 5.9 10x3/uL (4.8-10.8)
[2023-04-01 04:39] LABS: Mean Corpuscular Volume 101.4 fl (78.0-98.0)
[2023-04-01 05:06] LABS: ALT (SGPT) 102 U/L (8-55); AST (SGOT) 95 U/L (5-34); Alkaline Phosphatase 175 U/L (40-110); Anion Gap 14 mmol/L (10-20); BUN (Urea Nitrogen) 64 mg/dL (9.8-20.1); Bilirubin, Total 0.6 mg/dL (0.2-1.2); Calc. Creatinine Clearance 25 mL/min (70-130); Calcium 9.5 mg/dL (7.8-10.44); Carbon Dioxide 23 mmol/L (23-31); Chloride 104 mmol/L (98-107); Estimated GFR 41; Globulin 3.1 g/dL (2.4-3.5); Glucose 159 mg/dL (83-110); Potassium 5.1 mmol/L (3.5-5.1); Protein, Total 7.1 g/dL (5.8-8.1); Sodium 136 mmol/L (136-145)
[2023-04-01] MEDS: Acetaminophen/Codeine 30-300mg Tablet PO PRN ×4 (05:18→22:58)
[2023-04-01] MEDS: Levothyroxine Sodium 25 MCG TAB PO SCH (05:18)
[2023-04-01] MEDS: busPIRone HCl 5 MG TAB PO SCH ×2 (08:22→21:04)
[2023-04-01] MEDS: dilTIAZem CD 180 MG CAP PO SCH (08:22)
[2023-04-01] MEDS: Topiramate 25 MG TAB PO SCH (08:23)
[2023-04-01] MEDS: Senokot 8.6 MG TAB PO SCH ×2 (08:23→21:07)
[2023-04-01] MEDS: Apixaban 5 MG TAB PO SCH ×2 (08:23→21:04)
[2023-04-01] MEDS: hydrOXYzine 25 MG TAB PO SCH ×3 (08:23→21:05)
[2023-04-01] MEDS: Furosemide 20 MG TAB PO SCH (08:23)
[2023-04-01] MEDS: Cholecalciferol 1,000 UNITS (25 MCG) TAB PO SCH (08:23)
[2023-04-01] MEDS: Transdermal Patch Removal TOP SCH (08:23)
[2023-04-01] MEDS: DULoxetine 60 MG CAP PO SCH (08:23)
[2023-04-01] MEDS: Fluticasone Propionate Nasal Spray 16 gm Bottle NASAL SCH (08:24)
[2023-04-01] MEDS: Mometasone 200 MCG/Formoterol 5 MCG 120 PUFF INHALER INH SCH ×2 (08:40→19:41)
[2023-04-01] MEDS: methylPREDNISolone 4 mg Tablet PO SCH ×3 (09:28→21:03)
[2023-04-01] MEDS: Lisinopril 10 MG TAB PO SCH (09:30)
[2023-04-01] MEDS: Metoprolol Tartrate 50 MG TAB PO SCH ×2 (10:23→21:06)
[2023-04-01] MEDS: SUMAtriptan Succinate 25 MG TAB PO PRN ×2 (16:08→21:08)
[2023-04-01] MEDS: Nicotine 14 MG PATCH TD SCH (16:08)
[2023-04-01] MEDS ORDERED: methylPREDNISolone 4 mg Tablet PO SCH (21:00)
[2023-04-01] MEDS: Lidocaine 4% Patch TD SCH (21:03)
[2023-04-01] MEDS: Rosuvastatin 10 MG TAB PO SCH (21:06)
[2023-04-01] MEDS: Lorazepam 0.5 MG TAB PO PRN (21:07)
[2023-04-02] MEDS: Acetaminophen/Codeine 30-300mg Tablet PO PRN ×4 (05:00→23:48)
[2023-04-02] MEDS: SUMAtriptan Succinate 25 MG TAB PO PRN (05:01)
[2023-04-02] MEDS: Levothyroxine Sodium 25 MCG TAB PO SCH (05:01)
[2023-04-02] MEDS: Acetaminophen 325 MG TAB PO PRN ×2 (05:02→20:10)
[2023-04-02 05:08] LABS: #Basophils 0.1 thou/uL (0.0-0.2); #Monocytes 0.5 thou/uL (0.11-0.59); #Neutrophils 6.1 thou/uL (1.40-6.50); %Basophils 0.6 % (0.0-1.0); %Lymphocytes 13.5 % (21.0-51.0); %Monocytes 6.7 % (0.0-10.0); %Neutrophils 78.2 % (42.0-75.0); Hematocrit 45.1 % (36.0-47.0); Hemoglobin 15.2 g/dL (12.0-16.0); Mean Corpuscular HGB CONC 33.7 g/dL (32.0-36.0); Mean Corpuscular Hemoglobin 34.4 pg (27.0-31.0); Mean Platelet Volume 11.8 fL (7.4-10.4); Platelet Count 179 10x3/uL (130-400); RBC Distribution Width 16.6 % (11.5-14.5); Red Blood Cell (RBC) Count 4.42 mill/uL (4.20-5.40); White Blood Cell (WBC) Count 7.8 10x3/uL (4.8-10.8)
[2023-04-02 05:36] LABS: ALT (SGPT) 78 U/L (8-55); AST (SGOT) 50 U/L (5-34); Albumin 3.7 g/dL (3.4-4.8); Alkaline Phosphatase 159 U/L (40-110); Anion Gap 14 mmol/L (10-20); BUN (Urea Nitrogen) 62 mg/dL (9.8-20.1); Bilirubin, Total 0.5 mg/dL (0.2-1.2); Calc. Creatinine Clearance 33 mL/min (70-130); Calcium 9.6 mg/dL (7.8-10.44); Carbon Dioxide 24 mmol/L (23-31); Chloride 103 mmol/L (98-107); Estimated GFR 60; Globulin 3.4 g/dL (2.4-3.5); Glucose 133 mg/dL (83-110); Protein, Total 7.1 g/dL (5.8-8.1); Sodium 136 mmol/L (136-145)
[2023-04-02] MEDS: Mometasone 200 MCG/Formoterol 5 MCG 120 PUFF INHALER INH SCH ×2 (07:26→20:11)
[2023-04-02] MEDS: busPIRone HCl 5 MG TAB PO SCH ×2 (09:11→20:10)
[2023-04-02] MEDS: Senokot 8.6 MG TAB PO SCH ×2 (09:11→20:10)
[2023-04-02] MEDS: Apixaban 5 MG TAB PO SCH ×2 (09:11→20:10)
[2023-04-02] MEDS: Lisinopril 10 MG TAB PO SCH (09:11)
[2023-04-02] MEDS: Furosemide 20 MG TAB PO SCH (09:11)
[2023-04-02] MEDS: DULoxetine 60 MG CAP PO SCH (09:11)
[2023-04-02] MEDS: dilTIAZem CD 180 MG CAP PO SCH (09:11)
[2023-04-02] MEDS: Topiramate 25 MG TAB PO SCH (09:11)
[2023-04-02] MEDS: Cholecalciferol 1,000 UNITS (25 MCG) TAB PO SCH (09:11)
[2023-04-02] MEDS: Metoprolol Tartrate 50 MG TAB PO SCH ×2 (09:11→20:09)
[2023-04-02] MEDS: methylPREDNISolone 4 mg Tablet PO SCH ×4 (09:12→20:22)
[2023-04-02] MEDS: Transdermal Patch Removal TOP SCH (09:12)
[2023-04-02] MEDS: Fluticasone Propionate Nasal Spray 16 gm Bottle NASAL SCH (09:12)
[2023-04-02] MEDS: hydrOXYzine 25 MG TAB PO SCH ×3 (09:12→20:09)
[2023-04-02] MEDS: Nicotine 14 MG PATCH TD SCH (15:24)
[2023-04-02] MEDS: Rosuvastatin 10 MG TAB PO SCH (20:09)
[2023-04-02] MEDS: Lidocaine 4% Patch TD SCH (20:09)
[2023-04-02] MEDS: Lorazepam 0.5 MG TAB PO PRN (20:10)
[2023-04-02] MEDS: Ondansetron PF 4 MG/2 ML Vial IVP PRN (21:45)
[2023-04-02] MEDS ORDERED: Diclofenac 1% 50 GM TOPICAL GEL TP SCH (22:45)
[2023-04-03] MEDS: Acetaminophen/Codeine 30-300mg Tablet PO PRN ×3 (04:45→18:50)
[2023-04-03] MEDS: Levothyroxine Sodium 25 MCG TAB PO SCH (04:45)
[2023-04-03] MEDS: Mometasone 200 MCG/Formoterol 5 MCG 120 PUFF INHALER INH SCH ×2 (04:46→19:52)
[2023-04-03 05:15] LABS: #Basophils 0.1 thou/uL (0.0-0.2); #Monocytes 1.3 thou/uL (0.11-0.59); #Neutrophils 6.6 thou/uL (1.40-6.50); %Basophils 0.5 % (0.0-1.0); %Lymphocytes 16.1 % (21.0-51.0); %Monocytes 13.4 % (0.0-10.0); Hematocrit 43.3 % (36.0-47.0); Hemoglobin 14.4 g/dL (12.0-16.0); Mean Corpuscular HGB CONC 33.3 g/dL (32.0-36.0); Mean Corpuscular Volume 102.1 fl (78.0-98.0); Mean Platelet Volume 12.8 fL (7.4-10.4); Platelet Count 174 10x3/uL (130-400); RBC Distribution Width 16.9 % (11.5-14.5); Red Blood Cell (RBC) Count 4.24 mill/uL (4.20-5.40); White Blood Cell (WBC) Count 9.6 10x3/uL (4.8-10.8)
[2023-04-03 05:45] LABS: ALT (SGPT) 88 U/L (8-55); AST (SGOT) 82 U/L (5-34); Albumin 3.8 g/dL (3.4-4.8); Alkaline Phosphatase 146 U/L (40-110); Anion Gap 13 mmol/L (10-20); BUN (Urea Nitrogen) 74 mg/dL (9.8-20.1); Bilirubin, Total 0.4 mg/dL (0.2-1.2); Calc. Creatinine Clearance 30 mL/min (70-130); Calcium 9.5 mg/dL (7.8-10.44); Carbon Dioxide 22 mmol/L (23-31); Chloride 103 mmol/L (98-107); Estimated GFR 53; Glucose 148 mg/dL (83-110); Potassium 4.4 mmol/L (3.5-5.1); Protein, Total 6.8 g/dL (5.8-8.1); Sodium 134 mmol/L (136-145)
[2023-04-03] MEDS ORDERED: Ibuprofen 800 MG TAB PO SCH (08:30)
[2023-04-03] MEDS: Transdermal Patch Removal TOP SCH (09:51)
[2023-04-03] MEDS: Metoprolol Tartrate 50 MG TAB PO SCH ×2 (09:52→20:52)
[2023-04-03] MEDS: Cholecalciferol 1,000 UNITS (25 MCG) TAB PO SCH (09:53)
[2023-04-03] MEDS: Lisinopril 10 MG TAB PO SCH (09:53)
[2023-04-03] MEDS: dilTIAZem CD 180 MG CAP PO SCH (09:53)
[2023-04-03] MEDS: Lorazepam 0.5 MG TAB PO PRN ×2 (09:53→20:46)
[2023-04-03] MEDS: Apixaban 5 MG TAB PO SCH ×2 (09:54→20:32)
[2023-04-03] MEDS: Topiramate 25 MG TAB PO SCH (09:54)
[2023-04-03] MEDS: Furosemide 20 MG TAB PO SCH (09:54)
[2023-04-03] MEDS: hydrOXYzine 25 MG TAB PO SCH ×3 (09:54→20:32)
[2023-04-03] MEDS: DULoxetine 60 MG CAP PO SCH (09:54)
[2023-04-03] MEDS: Senokot 8.6 MG TAB PO SCH ×2 (09:54→20:32)
[2023-04-03] MEDS: Fluticasone Propionate Nasal Spray 16 gm Bottle NASAL SCH (09:55)
[2023-04-03] MEDS: methylPREDNISolone 4 mg Tablet PO SCH ×3 (10:02→17:45)
[2023-04-03] MEDS: busPIRone HCl 5 MG TAB PO SCH ×2 (12:57→20:32)
[2023-04-03] MEDS: Nicotine 14 MG PATCH TD SCH (14:34)
[2023-04-03] MEDS: Ondansetron PF 4 MG/2 ML Vial IVP PRN ×2 (14:34→20:29)
[2023-04-03] MEDS: Acetaminophen 325 MG TAB PO PRN ×2 (17:45→23:46)
[2023-04-03] MEDS: Rosuvastatin 10 MG TAB PO SCH (20:32)
[2023-04-03] MEDS: Lidocaine 4% Patch TD SCH (20:32)
[2023-04-04] MEDS: Acetaminophen/Codeine 30-300mg Tablet PO PRN ×4 (00:49→23:49)
[2023-04-04] MEDS: Levothyroxine Sodium 25 MCG TAB PO SCH (05:19)
[2023-04-04] MEDS: Mometasone 200 MCG/Formoterol 5 MCG 120 PUFF INHALER INH SCH ×2 (05:21→19:05)
[2023-04-04] MEDS ORDERED: diphenhydrAMINE 50 MG/ML VIAL IVP SCH (08:15)
[2023-04-04] MEDS: Polyethylene Glycol 3350 17 GM Packet PO SCH (09:41)
[2023-04-04] MEDS: busPIRone HCl 5 MG TAB PO SCH ×2 (09:42→20:47)
[2023-04-04] MEDS: Fluticasone Propionate Nasal Spray 16 gm Bottle NASAL SCH (09:43)
[2023-04-04] MEDS: Cholecalciferol 1,000 UNITS (25 MCG) TAB PO SCH (09:43)
[2023-04-04] MEDS: hydrOXYzine 25 MG TAB PO SCH ×3 (09:43→20:47)
[2023-04-04] MEDS: dilTIAZem CD 180 MG CAP PO SCH (09:43)
[2023-04-04] MEDS: Apixaban 5 MG TAB PO SCH ×2 (09:44→20:47)
[2023-04-04] MEDS: Senokot 8.6 MG TAB PO SCH ×2 (09:44→20:48)
[2023-04-04] MEDS: methylPREDNISolone 4 mg Tablet PO SCH ×2 (09:44→17:18)
[2023-04-04] MEDS: Transdermal Patch Removal TOP SCH (09:46)
[2023-04-04] MEDS: DULoxetine 60 MG CAP PO SCH (09:48)
[2023-04-04] MEDS: Topiramate 25 MG TAB PO SCH (09:48)
[2023-04-04] MEDS: Furosemide 20 MG TAB PO SCH (09:49)
[2023-04-04 10:18] LABS: #Basophils 0.1 thou/uL (0.0-0.2); #Monocytes 1.4 thou/uL (0.11-0.59); #Neutrophils 6.4 thou/uL (1.40-6.50); %Basophils 0.7 % (0.0-1.0); %Eosinophils 0.1 % (0.0-10.0); %Lymphocytes 22.9 % (21.0-51.0); %Monocytes 13.1 % (0.0-10.0); %Neutrophils 62.2 % (42.0-75.0); Hematocrit 45.4 % (36.0-47.0); Hemoglobin 14.5 g/dL (12.0-16.0); Mean Corpuscular HGB CONC 31.9 g/dL (32.0-36.0); Mean Corpuscular Hemoglobin 33.5 pg (27.0-31.0); Mean Corpuscular Volume 104.8 fl (78.0-98.0); Mean Platelet Volume 12.7 fL (7.4-10.4); Platelet Count 146 10x3/uL (130-400); RBC Distribution Width 16.6 % (11.5-14.5); Red Blood Cell (RBC) Count 4.33 mill/uL (4.20-5.40); White Blood Cell (WBC) Count 10.3 10x3/uL (4.8-10.8)
[2023-04-04 10:41] LABS: ALT (SGPT) 252 U/L (8-55); AST (SGOT) 244 U/L (5-34); Albumin 3.5 g/dL (3.4-4.8); Alkaline Phosphatase 154 U/L (40-110); Anion Gap 13 mmol/L (10-20); BUN (Urea Nitrogen) 77 mg/dL (9.8-20.1); Bilirubin, Total 0.5 mg/dL (0.2-1.2); Calc. Creatinine Clearance 28 mL/min (70-130); Calcium 9.2 mg/dL (7.8-10.44); Carbon Dioxide 19 mmol/L (23-31); Chloride 105 mmol/L (98-107); Estimated GFR 47; Globulin 3.1 g/dL (2.4-3.5); Glucose 107 mg/dL (83-110); Potassium 4.5 mmol/L (3.5-5.1); Protein, Total 6.6 g/dL (5.8-8.1); Sodium 132 mmol/L (136-145)
[2023-04-04 11:23] LABS: Bacteria/HPF None Seen HPF (None Seen); Bilirubin Negative (Negative); Blood, Urine Negative (Negative); CAUTI Indications for Culture Dysuria,urgency,freq; Clarity Clear (Clear); Glucose, Urine (Dipstick) Normal (Negative); Ketone, Urine Negative (Negative); Leukocyte Negative Leu/uL (Negative); Nitrite Negative (Negative); Protein, Urine (Dipstick) Negative (Neg-Trace); RBC/HPF 0-3 HPF (0-3); Specific Gravity, Urine 1.021 (1.002-1.036); Squamous Epithelial None Seen HPF (0-3); Urobilinogen 3 mg/dL (Less than 2); WBC/HPF 0-3 HPF (0-3)
[2023-04-04 11:26] LABS: Urine Culture Reflex No No
[2023-04-04] MEDS: Metoprolol Tartrate 25 MG TAB PO SCH ×2 (11:51→20:47)
[2023-04-04] MEDS: Lorazepam 0.5 MG TAB PO PRN ×2 (11:51→20:47)
[2023-04-04] MEDS ORDERED: Lactated Ringer's 1,000 ML IV SCH (12:00)
[2023-04-04] MEDS: Metoprolol Tartrate 50 MG TAB PO SCH (13:50)
[2023-04-04] MEDS: Nicotine 14 MG PATCH TD SCH (14:50)
[2023-04-04] MEDS: Ondansetron PF 4 MG/2 ML Vial IVP PRN (17:57)
[2023-04-04] MEDS: Lidocaine 4% Patch TD SCH (20:46)
[2023-04-04] MEDS: SUMAtriptan Succinate 25 MG TAB PO PRN (20:46)
[2023-04-04] MEDS: Rosuvastatin 10 MG TAB PO SCH (20:47)
[2023-04-05 04:35] LABS: #Monocytes 0.7 thou/uL (0.11-0.59); #Neutrophils 4.9 thou/uL (1.40-6.50); %Basophils 0.3 % (0.0-1.0); %Eosinophils 0.1 % (0.0-10.0); %Lymphocytes 19.3 % (21.0-51.0); %Monocytes 10.4 % (0.0-10.0); Hematocrit 40.8 % (36.0-47.0); Hemoglobin 13.4 g/dL (12.0-16.0); Mean Corpuscular HGB CONC 32.8 g/dL (32.0-36.0); Mean Corpuscular Volume 103.6 fl (78.0-98.0); Mean Platelet Volume 13.7 fL (7.4-10.4); Platelet Count 142 10x3/uL (130-400); RBC Distribution Width 16.4 % (11.5-14.5); Red Blood Cell (RBC) Count 3.94 mill/uL (4.20-5.40)
[2023-04-05 05:10] LABS: Albumin 3.1 g/dL (3.4-4.8)
[2023-04-05 05:11] LABS: Chloride 109 mmol/L (98-107); Potassium 5.3 mmol/L (3.5-5.1); Sodium 135 mmol/L (136-145)
[2023-04-05 05:12] LABS: Calcium 8.7 mg/dL (7.8-10.44)
[2023-04-05 05:13] LABS: Globulin 3.3 g/dL (2.4-3.5); Glucose 161 mg/dL (83-110); Protein, Total 6.4 g/dL (5.8-8.1)
[2023-04-05 05:14] LABS: Bilirubin, Total 0.4 mg/dL (0.2-1.2); Carbon Dioxide 15 mmol/L (23-31)
[2023-04-05 05:15] LABS: Alkaline Phosphatase 137 U/L (40-110)
[2023-04-05 05:16] LABS: Calc. Creatinine Clearance 37 mL/min (70-130); Estimated GFR 68
[2023-04-05 05:17] LABS: BUN (Urea Nitrogen) 59 mg/dL (9.8-20.1)
[2023-04-05 05:18] LABS: ALT (SGPT) 184 U/L (8-55); AST (SGOT) 111 U/L (5-34)
[2023-04-05] MEDS: Levothyroxine Sodium 25 MCG TAB PO SCH (05:50)
[2023-04-05] MEDS: Acetaminophen/Codeine 30-300mg Tablet PO PRN ×2 (05:50→12:56)
[2023-04-05 06:44] LABS: Anion Gap 16 mmol/L (10-20)
[2023-04-05] MEDS: Mometasone 200 MCG/Formoterol 5 MCG 120 PUFF INHALER INH SCH ×2 (07:28→19:04)
[2023-04-05] MEDS ORDERED: methylPREDNISolone 4 mg Tablet PO SCH (08:00)
[2023-04-05] MEDS: busPIRone HCl 5 MG TAB PO SCH ×2 (10:01→20:15)
[2023-04-05] MEDS: Apixaban 5 MG TAB PO SCH ×2 (10:01→20:15)
[2023-04-05] MEDS: dilTIAZem CD 180 MG CAP PO SCH (10:02)
[2023-04-05] MEDS: Cholecalciferol 1,000 UNITS (25 MCG) TAB PO SCH (10:02)
[2023-04-05] MEDS: Fluticasone Propionate Nasal Spray 16 gm Bottle NASAL SCH (10:03)
[2023-04-05] MEDS: Furosemide 20 MG TAB PO SCH (10:03)
[2023-04-05] MEDS: DULoxetine 60 MG CAP PO SCH (10:03)
[2023-04-05] MEDS: Senokot 8.6 MG TAB PO SCH ×2 (10:04→20:16)
[2023-04-05] MEDS: Metoprolol Tartrate 25 MG TAB PO SCH ×2 (10:04→20:16)
[2023-04-05] MEDS: Topiramate 25 MG TAB PO SCH (10:04)
[2023-04-05] MEDS: hydrOXYzine 25 MG TAB PO SCH ×3 (10:04→20:15)
[2023-04-05] MEDS: Polyethylene Glycol 3350 17 GM Packet PO SCH (10:05)
[2023-04-05] MEDS: Transdermal Patch Removal TOP SCH (11:12)
[2023-04-05 12:50] LABS: ALT (SGPT) 172 U/L (8-55); AST (SGOT) 76 U/L (5-34); Albumin 3.6 g/dL (3.4-4.8); Alkaline Phosphatase 140 U/L (40-110); Anion Gap 12 mmol/L (10-20); BUN (Urea Nitrogen) 50 mg/dL (9.8-20.1); Bilirubin, Total 0.5 mg/dL (0.2-1.2); Calc. Creatinine Clearance 39 mL/min (70-130); Calcium 9.1 mg/dL (7.8-10.44); Carbon Dioxide 25 mmol/L (23-31); Chloride 106 mmol/L (98-107); Estimated GFR 71; Globulin 2.8 g/dL (2.4-3.5); Glucose 103 mg/dL (83-110); Potassium 4.5 mmol/L (3.5-5.1); Protein, Total 6.4 g/dL (5.8-8.1); Sodium 138 mmol/L (136-145)
[2023-04-05] MEDS: Nicotine 14 MG PATCH TD SCH (15:05)
[2023-04-05] MEDS: Ondansetron PF 4 MG/2 ML Vial IVP PRN (16:12)
[2023-04-05] MEDS: SUMAtriptan Succinate 25 MG TAB PO PRN (20:14)
[2023-04-05] MEDS: Lidocaine 4% Patch TD SCH (20:14)
[2023-04-05] MEDS: Rosuvastatin 10 MG TAB PO SCH (20:15)
[2023-04-05] MEDS: Capsaicin 0.025% Cream 60 gm Tube TOP SCH (20:23)
[2023-04-05] MEDS ORDERED: Gabapentin 300 MG CAP PO SCH (22:45)
[2023-04-06 04:45] LABS: #Neutrophils 3.6 thou/uL (1.40-6.50); %Basophils 0.3 % (0.0-1.0); %Eosinophils 0.4 % (0.0-10.0); %Monocytes 13.3 % (0.0-10.0); %Neutrophils 48.2 % (42.0-75.0); Hematocrit 42.8 % (36.0-47.0); Hemoglobin 14.1 g/dL (12.0-16.0); Mean Corpuscular HGB CONC 32.9 g/dL (32.0-36.0); Mean Corpuscular Hemoglobin 34.1 pg (27.0-31.0); Mean Corpuscular Volume 103.4 fl (78.0-98.0); Mean Platelet Volume 12.1 fL (7.4-10.4); Platelet Count 132 10x3/uL (130-400); RBC Distribution Width 16.3 % (11.5-14.5); Red Blood Cell (RBC) Count 4.14 mill/uL (4.20-5.40); White Blood Cell (WBC) Count 7.4 10x3/uL (4.8-10.8)
[2023-04-06 05:06] LABS: ALT (SGPT) 143 U/L (8-55); AST (SGOT) 59 U/L (5-34); Albumin 3.6 g/dL (3.4-4.8); Alkaline Phosphatase 129 U/L (40-110); Anion Gap 11 mmol/L (10-20); BUN (Urea Nitrogen) 44 mg/dL (9.8-20.1); Bilirubin, Total 0.6 mg/dL (0.2-1.2); Calc. Creatinine Clearance 40 mL/min (70-130); Calcium 9.3 mg/dL (7.8-10.44); Carbon Dioxide 23 mmol/L (23-31); Chloride 107 mmol/L (98-107); Estimated GFR 72; Globulin 2.6 g/dL (2.4-3.5); Glucose 102 mg/dL (83-110); Protein, Total 6.2 g/dL (5.8-8.1); Sodium 137 mmol/L (136-145)
[2023-04-06] MEDS: Levothyroxine Sodium 25 MCG TAB PO SCH (05:53)
[2023-04-06] MEDS: SUMAtriptan Succinate 25 MG TAB PO PRN ×2 (06:20→21:16)
[2023-04-06] MEDS: Mometasone 200 MCG/Formoterol 5 MCG 120 PUFF INHALER INH SCH ×2 (07:19→18:42)
[2023-04-06] MEDS: Capsaicin 0.025% Cream 60 gm Tube TOP SCH ×3 (11:00→21:00)
[2023-04-06] MEDS: Apixaban 5 MG TAB PO SCH ×2 (11:00→20:59)
[2023-04-06] MEDS: Fluticasone Propionate Nasal Spray 16 gm Bottle NASAL SCH (11:00)
[2023-04-06] MEDS: hydrOXYzine 25 MG TAB PO SCH ×3 (11:01→20:59)
[2023-04-06] MEDS: busPIRone HCl 5 MG TAB PO SCH ×2 (11:01→20:59)
[2023-04-06] MEDS: Transdermal Patch Removal TOP SCH (11:01)
[2023-04-06] MEDS: Topiramate 25 MG TAB PO SCH (11:01)
[2023-04-06] MEDS: Senokot 8.6 MG TAB PO SCH ×2 (11:01→20:59)
[2023-04-06] MEDS: Cholecalciferol 1,000 UNITS (25 MCG) TAB PO SCH (11:01)
[2023-04-06] MEDS: DULoxetine 60 MG CAP PO SCH (11:01)
[2023-04-06] MEDS: Furosemide 20 MG TAB PO SCH (11:01)
[2023-04-06] MEDS: Polyethylene Glycol 3350 17 GM Packet PO SCH (11:02)
[2023-04-06] MEDS: Metoprolol Tartrate 25 MG TAB PO SCH ×2 (11:04→20:59)
[2023-04-06] MEDS: dilTIAZem CD 180 MG CAP PO SCH (14:13)
[2023-04-06] MEDS: Nicotine 14 MG PATCH TD SCH (15:20)
[2023-04-06] MEDS: Gabapentin 300 MG CAP PO PRN ×2 (15:20→23:29)
[2023-04-06] MEDS: Ondansetron PF 4 MG/2 ML Vial IVP PRN ×2 (15:21→20:59)
[2023-04-06] MEDS: Lidocaine 4% Patch TD SCH (20:59)
[2023-04-06] MEDS: Rosuvastatin 10 MG TAB PO SCH (20:59)
[2023-04-07] MEDS: Gabapentin 300 MG CAP PO PRN ×3 (06:12→22:36)
[2023-04-07] MEDS: Levothyroxine Sodium 25 MCG TAB PO SCH (06:12)
[2023-04-07 06:41] LABS: ALT (SGPT) 131 U/L (8-55); AST (SGOT) 59 U/L (5-34); Albumin 3.8 g/dL (3.4-4.8); Alkaline Phosphatase 127 U/L (40-110); Anion Gap 15 mmol/L (10-20); BUN (Urea Nitrogen) 42 mg/dL (9.8-20.1); Bilirubin, Total 0.8 mg/dL (0.2-1.2); Calc. Creatinine Clearance 37 mL/min (70-130); Calcium 9.5 mg/dL (7.8-10.44); Carbon Dioxide 21 mmol/L (23-31); Chloride 105 mmol/L (98-107); Estimated GFR 68; Globulin 2.9 g/dL (2.4-3.5); Glucose 122 mg/dL (83-110); Potassium 3.7 mmol/L (3.5-5.1); Protein, Total 6.7 g/dL (5.8-8.1); Sodium 137 mmol/L (136-145)
[2023-04-07] MEDS: Mometasone 200 MCG/Formoterol 5 MCG 120 PUFF INHALER INH SCH ×2 (07:22→19:05)
[2023-04-07] MEDS: Polyethylene Glycol 3350 17 GM Packet PO SCH (08:36)
[2023-04-07] MEDS: Apixaban 5 MG TAB PO SCH ×2 (08:36→20:11)
[2023-04-07] MEDS: Furosemide 20 MG TAB PO SCH (08:36)
[2023-04-07] MEDS: dilTIAZem CD 180 MG CAP PO SCH (08:36)
[2023-04-07] MEDS: Metoprolol Tartrate 25 MG TAB PO SCH ×2 (08:36→20:11)
[2023-04-07] MEDS: Fluticasone Propionate Nasal Spray 16 gm Bottle NASAL SCH (08:37)
[2023-04-07] MEDS: Topiramate 25 MG TAB PO SCH (08:37)
[2023-04-07] MEDS: Capsaicin 0.025% Cream 60 gm Tube TOP SCH ×3 (08:37→20:11)
[2023-04-07] MEDS: Senokot 8.6 MG TAB PO SCH ×2 (08:37→20:11)
[2023-04-07] MEDS: hydrOXYzine 25 MG TAB PO SCH ×3 (08:43→20:11)
[2023-04-07] MEDS: DULoxetine 60 MG CAP PO SCH (08:43)
[2023-04-07] MEDS: busPIRone HCl 5 MG TAB PO SCH ×2 (08:44→20:11)
[2023-04-07] MEDS: Cholecalciferol 1,000 UNITS (25 MCG) TAB PO SCH (08:44)
[2023-04-07] MEDS: Transdermal Patch Removal TOP SCH (08:47)
[2023-04-07] MEDS ORDERED: Bisacodyl 10 MG SUPP PR PRN (13:51)
[2023-04-07] MEDS: Nicotine 14 MG PATCH TD SCH (14:04)
[2023-04-07 19:34] LABS: Bacteria/HPF None Seen HPF (None Seen); Bilirubin Negative (Negative); Blood, Urine 1+ (Negative); CAUTI Indications for Culture Dysuria,urgency,freq; Clarity Clear (Clear); Glucose, Urine (Dipstick) Normal (Negative); Ketone, Urine Negative (Negative); Leukocyte 75 Leu/uL (Negative); Nitrite Negative (Negative); Protein, Urine (Dipstick) Negative (Neg-Trace); RBC/HPF 0-3 HPF (0-3); Specific Gravity, Urine 1.022 (1.002-1.036); Squamous Epithelial 0-3 HPF (0-3); Urobilinogen 3 mg/dL (Less than 2); WBC/HPF 0-3 HPF (0-3)
[2023-04-07 19:35] LABS: Urine Culture Reflex No No
[2023-04-07] MEDS: Lidocaine 4% Patch TD SCH (20:11)
[2023-04-07] MEDS: SUMAtriptan Succinate 25 MG TAB PO PRN (20:11)
[2023-04-07] MEDS: Rosuvastatin 10 MG TAB PO SCH (20:11)
[2023-04-08] MEDS: Ondansetron PF 4 MG/2 ML Vial IVP PRN ×4 (03:55→23:36)
[2023-04-08] MEDS: Levothyroxine Sodium 25 MCG TAB PO SCH (04:06)
[2023-04-08] MEDS: SUMAtriptan Succinate 25 MG TAB PO PRN ×3 (04:06→21:34)
[2023-04-08 05:17] LABS: ALT (SGPT) 107 U/L (8-55); AST (SGOT) 45 U/L (5-34); Albumin 3.6 g/dL (3.4-4.8); Alkaline Phosphatase 113 U/L (40-110); Anion Gap 12 mmol/L (10-20); BUN (Urea Nitrogen) 42 mg/dL (9.8-20.1); Bilirubin, Total 0.9 mg/dL (0.2-1.2); Calc. Creatinine Clearance 38 mL/min (70-130); Calcium 8.9 mg/dL (7.8-10.44); Carbon Dioxide 21 mmol/L (23-31); Chloride 106 mmol/L (98-107); Estimated GFR 69; Globulin 2.5 g/dL (2.4-3.5); Glucose 108 mg/dL (83-110); Potassium 3.9 mmol/L (3.5-5.1); Protein, Total 6.1 g/dL (5.8-8.1); Sodium 135 mmol/L (136-145)
[2023-04-08] MEDS: Gabapentin 300 MG CAP PO PRN (06:32)
[2023-04-08] MEDS: Mometasone 200 MCG/Formoterol 5 MCG 120 PUFF INHALER INH SCH ×2 (07:29→19:30)
[2023-04-08] MEDS: busPIRone HCl 5 MG TAB PO SCH ×2 (08:06→20:20)
[2023-04-08] MEDS: Furosemide 20 MG TAB PO SCH (08:07)
[2023-04-08] MEDS: Metoprolol Tartrate 25 MG TAB PO SCH ×2 (08:07→20:20)
[2023-04-08] MEDS: hydrOXYzine 25 MG TAB PO SCH ×3 (08:07→20:20)
[2023-04-08] MEDS: Apixaban 5 MG TAB PO SCH ×2 (08:10→20:20)
[2023-04-08] MEDS: Fluticasone Propionate Nasal Spray 16 gm Bottle NASAL SCH (08:10)
[2023-04-08] MEDS: Cholecalciferol 1,000 UNITS (25 MCG) TAB PO SCH (08:10)
[2023-04-08] MEDS: Polyethylene Glycol 3350 17 GM Packet PO SCH ×3 (08:10→20:20)
[2023-04-08] MEDS: DULoxetine 60 MG CAP PO SCH (08:10)
[2023-04-08] MEDS: Senokot 8.6 MG TAB PO SCH ×2 (08:10→20:20)
[2023-04-08] MEDS: dilTIAZem CD 180 MG CAP PO SCH (08:10)
[2023-04-08] MEDS: Capsaicin 0.025% Cream 60 gm Tube TOP SCH ×3 (08:12→20:21)
[2023-04-08] MEDS: Transdermal Patch Removal TOP SCH (08:12)
[2023-04-08] MEDS: Acetaminophen/Codeine 30-300mg Tablet PO PRN ×3 (10:55→23:35)
[2023-04-08] MEDS: Nicotine 14 MG PATCH TD SCH (14:28)
[2023-04-08] MEDS: Rosuvastatin 10 MG TAB PO SCH (20:20)
[2023-04-08] MEDS: Lidocaine 4% Patch TD SCH (20:20)
[2023-04-09 05:17] LABS: ALT (SGPT) 211 U/L (8-55); AST (SGOT) 274 U/L (5-34); Albumin 3.2 g/dL (3.4-4.8); Alkaline Phosphatase 160 U/L (40-110); Anion Gap 12 mmol/L (10-20); BUN (Urea Nitrogen) 45 mg/dL (9.8-20.1); Bilirubin, Total 1.1 mg/dL (0.2-1.2); Calc. Creatinine Clearance 33 mL/min (70-130); Calcium 8.6 mg/dL (7.8-10.44); Carbon Dioxide 23 mmol/L (23-31); Chloride 104 mmol/L (98-107); Estimated GFR 57; Globulin 2.6 g/dL (2.4-3.5); Glucose 105 mg/dL (83-110); Potassium 3.6 mmol/L (3.5-5.1); Protein, Total 5.8 g/dL (5.8-8.1); Sodium 135 mmol/L (136-145)
[2023-04-09] MEDS: Acetaminophen/Codeine 30-300mg Tablet PO PRN ×3 (05:44→20:28)
[2023-04-09] MEDS: Levothyroxine Sodium 25 MCG TAB PO SCH (05:44)
[2023-04-09] MEDS: Ondansetron PF 4 MG/2 ML Vial IVP PRN (05:45)
[2023-04-09] MEDS: Mometasone 200 MCG/Formoterol 5 MCG 120 PUFF INHALER INH SCH ×2 (07:03→19:03)
[2023-04-09 09:56] LABS: Acetaminophen Less than 10 mcg/mL (10.0-30.0)
[2023-04-09] MEDS: Polyethylene Glycol 3350 17 GM Packet PO SCH ×2 (10:27→20:23)
[2023-04-09] MEDS: Metoprolol Tartrate 25 MG TAB PO SCH ×2 (10:30→20:23)
[2023-04-09] MEDS: hydrOXYzine 25 MG TAB PO SCH ×3 (10:30→20:22)
[2023-04-09] MEDS: dilTIAZem CD 180 MG CAP PO SCH (10:30)
[2023-04-09] MEDS: Furosemide 20 MG TAB PO SCH (10:31)
[2023-04-09] MEDS: busPIRone HCl 5 MG TAB PO SCH ×2 (10:31→20:28)
[2023-04-09] MEDS: Cholecalciferol 1,000 UNITS (25 MCG) TAB PO SCH (10:31)
[2023-04-09] MEDS: DULoxetine 60 MG CAP PO SCH (10:31)
[2023-04-09] MEDS: Senokot 8.6 MG TAB PO SCH ×2 (10:31→20:22)
[2023-04-09] MEDS: Apixaban 5 MG TAB PO SCH ×2 (10:31→20:22)
[2023-04-09] MEDS: Transdermal Patch Removal TOP SCH (10:33)
[2023-04-09] MEDS: Simethicone Chewable 80 MG TAB PO SCH ×4 (10:46→20:22)
[2023-04-09] MEDS: Capsaicin 0.025% Cream 60 gm Tube TOP SCH ×3 (10:48→20:21)
[2023-04-09] MEDS: Fluticasone Propionate Nasal Spray 16 gm Bottle NASAL SCH (10:48)
[2023-04-09] MEDS ORDERED: Calcium Carbonate 500 MG ChewTAB PO PRN (11:55)
[2023-04-09] MEDS: Nicotine 14 MG PATCH TD SCH (13:08)
[2023-04-09] MEDS: Lorazepam 0.5 MG TAB PO SCH ×2 (16:02→20:25)
[2023-04-09] MEDS: Lidocaine 4% Patch TD SCH (20:21)
[2023-04-09] MEDS: Rosuvastatin 10 MG TAB PO SCH (20:22)
[2023-04-10] MEDS: Lorazepam 0.5 MG TAB PO SCH ×4 (02:01→21:03)
[2023-04-10] MEDS: SUMAtriptan Succinate 25 MG TAB PO PRN (02:01)
[2023-04-10] MEDS: Levothyroxine Sodium 25 MCG TAB PO SCH (05:38)
[2023-04-10 06:18] LABS: ALT (SGPT) 211 U/L (8-55); AST (SGOT) 114 U/L (5-34); Albumin 3.3 g/dL (3.4-4.8); Alkaline Phosphatase 152 U/L (40-110); Anion Gap 11 mmol/L (10-20); BUN (Urea Nitrogen) 33 mg/dL (9.8-20.1); Bilirubin, Total 0.5 mg/dL (0.2-1.2); Calc. Creatinine Clearance 41 mL/min (70-130); Calcium 8.5 mg/dL (7.8-10.44); Carbon Dioxide 21 mmol/L (23-31); Chloride 106 mmol/L (98-107); Estimated GFR 75; Globulin 2.3 g/dL (2.4-3.5); Glucose 98 mg/dL (83-110); Potassium 3.9 mmol/L (3.5-5.1); Protein, Total 5.6 g/dL (5.8-8.1); Sodium 134 mmol/L (136-145)
[2023-04-10] MEDS: Mometasone 200 MCG/Formoterol 5 MCG 120 PUFF INHALER INH SCH ×2 (07:45→19:14)
[2023-04-10] MEDS: Transdermal Patch Removal TOP SCH (08:42)
[2023-04-10] MEDS: Polyethylene Glycol 3350 17 GM Packet PO SCH ×2 (08:43→21:04)
[2023-04-10] MEDS: dilTIAZem CD 180 MG CAP PO SCH ×2 (08:43→08:49)
[2023-04-10] MEDS: Simethicone Chewable 80 MG TAB PO SCH ×4 (08:44→21:04)
[2023-04-10] MEDS: Apixaban 5 MG TAB PO SCH ×2 (08:44→21:04)
[2023-04-10] MEDS: busPIRone HCl 5 MG TAB PO SCH ×2 (08:44→21:03)
[2023-04-10] MEDS: DULoxetine 60 MG CAP PO SCH (08:44)
[2023-04-10] MEDS: hydrOXYzine 25 MG TAB PO SCH ×3 (08:44→21:03)
[2023-04-10] MEDS: Cholecalciferol 1,000 UNITS (25 MCG) TAB PO SCH (08:45)
[2023-04-10] MEDS: Capsaicin 0.025% Cream 60 gm Tube TOP SCH ×2 (08:45→15:21)
[2023-04-10] MEDS: Fluticasone Propionate Nasal Spray 16 gm Bottle NASAL SCH (08:45)
[2023-04-10] MEDS: Furosemide 20 MG TAB PO SCH (08:45)
[2023-04-10] MEDS: Senokot 8.6 MG TAB PO SCH ×2 (08:45→21:04)
[2023-04-10] MEDS: Metoprolol Tartrate 25 MG TAB PO SCH ×3 (08:46→21:03)
[2023-04-10 09:45] LABS: #Monocytes 0.7 thou/uL (0.11-0.59); #Neutrophils 2.7 thou/uL (1.40-6.50); %Basophils 0.4 % (0.0-1.0); %Eosinophils 0.6 % (0.0-10.0); %Lymphocytes 35.3 % (21.0-51.0); %Monocytes 12.7 % (0.0-10.0); %Neutrophils 49.7 % (42.0-75.0); Mean Corpuscular HGB CONC 33.3 g/dL (32.0-36.0); Mean Corpuscular Hemoglobin 34.3 pg (27.0-31.0); Mean Corpuscular Volume 102.9 fl (78.0-98.0); Platelet Count 104 10x3/uL (130-400); RBC Distribution Width 16.1 % (11.5-14.5); White Blood Cell (WBC) Count 5.4 10x3/uL (4.8-10.8)
[2023-04-10] MEDS: Acetaminophen/Codeine 30-300mg Tablet PO PRN (12:09)
[2023-04-10] MEDS: Nicotine 14 MG PATCH TD SCH (14:07)
[2023-04-10] MEDS: Rosuvastatin 10 MG TAB PO SCH (21:03)
[2023-04-10] MEDS: Lidocaine 4% Patch TD SCH (21:04)
[2023-04-11] MEDS: Capsaicin 0.025% Cream 60 gm Tube TOP SCH ×4 (00:58→20:26)
[2023-04-11] MEDS: Levothyroxine Sodium 25 MCG TAB PO SCH (05:41)
[2023-04-11] MEDS: Acetaminophen/Codeine 30-300mg Tablet PO PRN ×3 (06:31→20:27)
[2023-04-11] MEDS: Mometasone 200 MCG/Formoterol 5 MCG 120 PUFF INHALER INH SCH ×2 (08:11→19:20)
[2023-04-11] MEDS: Metoprolol Tartrate 25 MG TAB PO SCH ×2 (08:43→20:25)
[2023-04-11] MEDS: DULoxetine 60 MG CAP PO SCH (08:44)
[2023-04-11] MEDS: Lorazepam 0.5 MG TAB PO SCH ×3 (08:44→20:25)
[2023-04-11] MEDS: dilTIAZem CD 180 MG CAP PO SCH (08:44)
[2023-04-11] MEDS: Fluticasone Propionate Nasal Spray 16 gm Bottle NASAL SCH (08:44)
[2023-04-11] MEDS: Cholecalciferol 1,000 UNITS (25 MCG) TAB PO SCH (08:44)
[2023-04-11] MEDS: Apixaban 5 MG TAB PO SCH ×2 (08:44→20:26)
[2023-04-11] MEDS: Senokot 8.6 MG TAB PO SCH ×2 (08:45→20:26)
[2023-04-11] MEDS: Transdermal Patch Removal TOP SCH (08:45)
[2023-04-11] MEDS: busPIRone HCl 5 MG TAB PO SCH ×2 (08:45→20:25)
[2023-04-11] MEDS: Polyethylene Glycol 3350 17 GM Packet PO SCH ×2 (08:45→20:24)
[2023-04-11] MEDS: Simethicone Chewable 80 MG TAB PO SCH ×4 (08:45→20:25)
[2023-04-11] MEDS: Furosemide 20 MG TAB PO SCH (08:45)
[2023-04-11] MEDS: hydrOXYzine 25 MG TAB PO SCH ×3 (08:45→20:25)
[2023-04-11 09:19] LABS: ALT (SGPT) 139 U/L (8-55); AST (SGOT) 42 U/L (5-34); Albumin 3.4 g/dL (3.4-4.8); Alkaline Phosphatase 141 U/L (40-110); Anion Gap 10 mmol/L (10-20); BUN (Urea Nitrogen) 25 mg/dL (9.8-20.1); Bilirubin, Total 0.6 mg/dL (0.2-1.2); Calc. Creatinine Clearance 47 mL/min (70-130); Calcium 8.8 mg/dL (7.8-10.44); Carbon Dioxide 23 mmol/L (23-31); Chloride 110 mmol/L (98-107); Estimated GFR 89; Globulin 2.5 g/dL (2.4-3.5); Glucose 104 mg/dL (83-110); Potassium 3.9 mmol/L (3.5-5.1); Protein, Total 5.9 g/dL (5.8-8.1); Sodium 139 mmol/L (136-145)
[2023-04-11] MEDS: Nicotine 14 MG PATCH TD SCH (13:22)
[2023-04-11] MEDS: Ondansetron PF 4 MG/2 ML Vial IVP PRN (17:27)
[2023-04-11] MEDS: Lidocaine 4% Patch TD SCH (20:24)
[2023-04-11] MEDS: Rosuvastatin 10 MG TAB PO SCH (20:25)
[2023-04-12] MEDS: Gabapentin 300 MG CAP PO PRN ×2 (01:08→08:56)
[2023-04-12] MEDS: Acetaminophen/Codeine 30-300mg Tablet PO PRN ×3 (05:31→23:50)
[2023-04-12] MEDS: Levothyroxine Sodium 25 MCG TAB PO SCH (05:32)
[2023-04-12] MEDS: Mometasone 200 MCG/Formoterol 5 MCG 120 PUFF INHALER INH SCH ×2 (07:40→20:39)
[2023-04-12] MEDS: dilTIAZem CD 180 MG CAP PO SCH (08:54)
[2023-04-12] MEDS: Transdermal Patch Removal TOP SCH (08:54)
[2023-04-12] MEDS: Capsaicin 0.025% Cream 60 gm Tube TOP SCH ×3 (08:54→20:52)
[2023-04-12] MEDS: Senokot 8.6 MG TAB PO SCH ×2 (08:55→20:52)
[2023-04-12] MEDS: Metoprolol Tartrate 25 MG TAB PO SCH ×3 (08:55→20:51)
[2023-04-12] MEDS: Polyethylene Glycol 3350 17 GM Packet PO SCH ×2 (08:55→20:52)
[2023-04-12] MEDS: Fluticasone Propionate Nasal Spray 16 gm Bottle NASAL SCH (08:55)
[2023-04-12] MEDS: Simethicone Chewable 80 MG TAB PO SCH ×4 (08:56→20:52)
[2023-04-12] MEDS: Cholecalciferol 1,000 UNITS (25 MCG) TAB PO SCH (08:56)
[2023-04-12] MEDS: hydrOXYzine 25 MG TAB PO SCH ×3 (08:56→20:52)
[2023-04-12] MEDS: DULoxetine 60 MG CAP PO SCH (08:56)
[2023-04-12] MEDS: Apixaban 5 MG TAB PO SCH ×2 (08:56→20:49)
[2023-04-12] MEDS: Furosemide 20 MG TAB PO SCH (08:56)
[2023-04-12] MEDS: busPIRone HCl 5 MG TAB PO SCH ×2 (08:56→20:51)
[2023-04-12] MEDS: Lorazepam 0.5 MG TAB PO SCH ×3 (08:56→20:51)
[2023-04-12] MEDS: Nicotine 14 MG PATCH TD SCH (13:08)
[2023-04-12] MEDS: Rosuvastatin 10 MG TAB PO SCH (20:51)
[2023-04-12] MEDS: Lidocaine 4% Patch TD SCH (20:52)
[2023-04-12] MEDS: Ondansetron PF 4 MG/2 ML Vial IVP PRN (22:06)
[2023-04-13] MEDS: Levothyroxine Sodium 25 MCG TAB PO SCH (04:59)
[2023-04-13] MEDS: SUMAtriptan Succinate 25 MG TAB PO PRN ×2 (04:59→21:01)
[2023-04-13 07:09] LABS: ALT (SGPT) 68 U/L (8-55); AST (SGOT) 20 U/L (5-34); Albumin 3.1 g/dL (3.4-4.8); Alkaline Phosphatase 118 U/L (40-110); Anion Gap 8 mmol/L (10-20); BUN (Urea Nitrogen) 32 mg/dL (9.8-20.1); Bilirubin, Total 0.3 mg/dL (0.2-1.2); Calc. Creatinine Clearance 43 mL/min (70-130); Calcium 8.7 mg/dL (7.8-10.44); Carbon Dioxide 27 mmol/L (23-31); Chloride 105 mmol/L (98-107); Estimated GFR 82; Globulin 2.4 g/dL (2.4-3.5); Glucose 109 mg/dL (83-110); Potassium 4.3 mmol/L (3.5-5.1); Protein, Total 5.5 g/dL (5.8-8.1); Sodium 136 mmol/L (136-145)
[2023-04-13] MEDS: Mometasone 200 MCG/Formoterol 5 MCG 120 PUFF INHALER INH SCH ×2 (08:17→20:15)
[2023-04-13] MEDS: DULoxetine 60 MG CAP PO SCH (08:47)
[2023-04-13] MEDS: Senokot 8.6 MG TAB PO SCH ×2 (08:47→20:07)
[2023-04-13] MEDS: dilTIAZem CD 180 MG CAP PO SCH (08:48)
[2023-04-13] MEDS: Polyethylene Glycol 3350 17 GM Packet PO SCH ×2 (08:48→20:07)
[2023-04-13] MEDS: Simethicone Chewable 80 MG TAB PO SCH ×4 (08:48→20:07)
[2023-04-13] MEDS: Acetaminophen/Codeine 30-300mg Tablet PO PRN ×2 (08:48→17:13)
[2023-04-13] MEDS: hydrOXYzine 25 MG TAB PO SCH ×3 (08:49→20:07)
[2023-04-13] MEDS: Apixaban 5 MG TAB PO SCH ×2 (08:50→20:06)
[2023-04-13] MEDS: Cholecalciferol 1,000 UNITS (25 MCG) TAB PO SCH (08:50)
[2023-04-13] MEDS: Metoprolol Tartrate 25 MG TAB PO SCH ×2 (08:50→20:06)
[2023-04-13] MEDS: busPIRone HCl 5 MG TAB PO SCH ×2 (08:51→20:07)
[2023-04-13] MEDS: Capsaicin 0.025% Cream 60 gm Tube TOP SCH ×3 (08:51→20:07)
[2023-04-13] MEDS: Furosemide 20 MG TAB PO SCH (08:51)
[2023-04-13] MEDS: Lorazepam 0.5 MG TAB PO SCH ×3 (08:51→20:07)
[2023-04-13] MEDS: Transdermal Patch Removal TOP SCH (08:52)
[2023-04-13] MEDS: Fluticasone Propionate Nasal Spray 16 gm Bottle NASAL SCH (09:00)
[2023-04-13 10:40] LABS: Troponin I 0.015 ng/mL (< 0.028)
[2023-04-13] MEDS: Ondansetron PF 4 MG/2 ML Vial IVP PRN ×2 (13:25→20:07)
[2023-04-13] MEDS: Nicotine 14 MG PATCH TD SCH (14:25)
[2023-04-13] MEDS: Lidocaine 4% Patch TD SCH (20:07)
[2023-04-13] MEDS: Rosuvastatin 10 MG TAB PO SCH (20:07)
[2023-04-14] MEDS: Acetaminophen/Codeine 30-300mg Tablet PO PRN ×4 (00:08→20:42)
[2023-04-14] MEDS: Ondansetron PF 4 MG/2 ML Vial IVP PRN ×2 (03:42→20:41)
[2023-04-14] MEDS: Levothyroxine Sodium 25 MCG TAB PO SCH (03:44)
[2023-04-14] MEDS: SUMAtriptan Succinate 25 MG TAB PO PRN (04:33)
[2023-04-14] MEDS: Mometasone 200 MCG/Formoterol 5 MCG 120 PUFF INHALER INH SCH ×2 (08:20→19:30)
[2023-04-14 08:27] LABS: Anion Gap 12 mmol/L (10-20); BUN (Urea Nitrogen) 31 mg/dL (9.8-20.1); Calc. Creatinine Clearance 40 mL/min (70-130); Calcium 9.3 mg/dL (7.8-10.44); Carbon Dioxide 29 mmol/L (23-31); Chloride 103 mmol/L (98-107); Estimated GFR 75; Glucose 94 mg/dL (83-110); Magnesium 1.9 mg/dL (1.6-2.6); Potassium 4.6 mmol/L (3.5-5.1); Sodium 139 mmol/L (136-145)
[2023-04-14] MEDS: dilTIAZem CD 180 MG CAP PO SCH (08:56)
[2023-04-14] MEDS: Simethicone Chewable 80 MG TAB PO SCH ×4 (08:56→19:42)
[2023-04-14] MEDS: Apixaban 5 MG TAB PO SCH ×2 (08:56→19:41)
[2023-04-14] MEDS: busPIRone HCl 5 MG TAB PO SCH ×2 (08:56→19:42)
[2023-04-14] MEDS: Furosemide 20 MG TAB PO SCH (08:56)
[2023-04-14] MEDS: DULoxetine 60 MG CAP PO SCH (08:56)
[2023-04-14] MEDS: Cholecalciferol 1,000 UNITS (25 MCG) TAB PO SCH (08:57)
[2023-04-14] MEDS: Lorazepam 0.5 MG TAB PO SCH ×3 (08:57→19:42)
[2023-04-14] MEDS: hydrOXYzine 25 MG TAB PO SCH ×3 (08:57→19:41)
[2023-04-14] MEDS: Senokot 8.6 MG TAB PO SCH ×2 (08:57→19:42)
[2023-04-14] MEDS: Metoprolol Tartrate 25 MG TAB PO SCH ×2 (08:57→19:41)
[2023-04-14] MEDS: Capsaicin 0.025% Cream 60 gm Tube TOP SCH ×4 (08:58→19:43)
[2023-04-14] MEDS: Fluticasone Propionate Nasal Spray 16 gm Bottle NASAL SCH (09:02)
[2023-04-14] MEDS: Polyethylene Glycol 3350 17 GM Packet PO SCH ×2 (09:02→19:43)
[2023-04-14] MEDS: Transdermal Patch Removal TOP SCH (09:03)
[2023-04-14] MEDS: Nicotine 14 MG PATCH TD SCH (15:10)
[2023-04-14] MEDS: Lidocaine 4% Patch TD SCH (19:41)
[2023-04-14] MEDS: Rosuvastatin 10 MG TAB PO SCH (19:42)
[2023-04-15] MEDS: Acetaminophen/Codeine 30-300mg Tablet PO PRN ×4 (02:06→20:58)
[2023-04-15 04:46] VITALS: BMI 18.3
[2023-04-15 05:57] LABS: ALT (SGPT) 43 U/L (8-55); AST (SGOT) 22 U/L (5-34); Albumin 3.1 g/dL (3.4-4.8); Alkaline Phosphatase 108 U/L (40-110); Anion Gap 11 mmol/L (10-20); BUN (Urea Nitrogen) 34 mg/dL (9.8-20.1); Bilirubin, Total 0.2 mg/dL (0.2-1.2); Calc. Creatinine Clearance 40 mL/min (70-130); Calcium 8.8 mg/dL (7.8-10.44); Carbon Dioxide 26 mmol/L (23-31); Chloride 105 mmol/L (98-107); Estimated GFR 76; Globulin 2.5 g/dL (2.4-3.5); Glucose 89 mg/dL (83-110); Protein, Total 5.6 g/dL (5.8-8.1); Sodium 138 mmol/L (136-145)
[2023-04-15] MEDS: Levothyroxine Sodium 25 MCG TAB PO SCH (06:21)
[2023-04-15] MEDS: Mometasone 200 MCG/Formoterol 5 MCG 120 PUFF INHALER INH SCH ×2 (06:52→18:43)
[2023-04-15] MEDS: Lorazepam 0.5 MG TAB PO SCH ×3 (08:01→19:25)
[2023-04-15] MEDS: Ondansetron PF 4 MG/2 ML Vial IVP PRN ×2 (08:02→22:00)
[2023-04-15] MEDS: Fluticasone Propionate Nasal Spray 16 gm Bottle NASAL SCH (08:02)
[2023-04-15] MEDS: Transdermal Patch Removal TOP SCH (08:03)
[2023-04-15] MEDS: Capsaicin 0.025% Cream 60 gm Tube TOP SCH ×3 (08:07→19:26)
[2023-04-15] MEDS: Polyethylene Glycol 3350 17 GM Packet PO SCH ×2 (08:38→19:25)
[2023-04-15] MEDS: busPIRone HCl 5 MG TAB PO SCH ×2 (08:39→19:25)
[2023-04-15] MEDS: dilTIAZem CD 180 MG CAP PO SCH (08:39)
[2023-04-15] MEDS: Simethicone Chewable 80 MG TAB PO SCH ×4 (08:39→19:25)
[2023-04-15] MEDS: Metoprolol Tartrate 25 MG TAB PO SCH ×2 (08:39→19:25)
[2023-04-15] MEDS: Senokot 8.6 MG TAB PO SCH ×2 (08:39→19:25)
[2023-04-15] MEDS: Apixaban 5 MG TAB PO SCH ×2 (08:39→19:25)
[2023-04-15] MEDS: Furosemide 20 MG TAB PO SCH (08:39)
[2023-04-15] MEDS: DULoxetine 60 MG CAP PO SCH (08:39)
[2023-04-15] MEDS: Cholecalciferol 1,000 UNITS (25 MCG) TAB PO SCH (08:39)
[2023-04-15] MEDS: hydrOXYzine 25 MG TAB PO SCH ×3 (08:39→19:25)
[2023-04-15] MEDS: Nicotine 14 MG PATCH TD SCH (13:26)
[2023-04-15] MEDS: Lidocaine 4% Patch TD SCH (19:24)
[2023-04-15] MEDS: Rosuvastatin 10 MG TAB PO SCH (19:25)
[2023-04-16] MEDS: Acetaminophen/Codeine 30-300mg Tablet PO PRN ×3 (03:01→14:30)
[2023-04-16] MEDS: Ondansetron PF 4 MG/2 ML Vial IVP PRN ×2 (03:01→09:15)
[2023-04-16] MEDS: Levothyroxine Sodium 25 MCG TAB PO SCH (05:33)
[2023-04-16] MEDS: Mometasone 200 MCG/Formoterol 5 MCG 120 PUFF INHALER INH SCH (08:29)
[2023-04-16] MEDS: Fluticasone Propionate Nasal Spray 16 gm Bottle NASAL SCH (08:35)
[2023-04-16] MEDS: Capsaicin 0.025% Cream 60 gm Tube TOP SCH ×3 (08:36→14:33)
[2023-04-16] MEDS: Polyethylene Glycol 3350 17 GM Packet PO SCH (08:36)
[2023-04-16] MEDS: Lorazepam 0.5 MG TAB PO SCH ×2 (08:37→14:33)
[2023-04-16] MEDS: dilTIAZem CD 180 MG CAP PO SCH ×2 (08:38→13:13)
[2023-04-16] MEDS: Furosemide 20 MG TAB PO SCH (08:38)
[2023-04-16] MEDS: DULoxetine 60 MG CAP PO SCH (08:38)
[2023-04-16] MEDS: Cholecalciferol 1,000 UNITS (25 MCG) TAB PO SCH (08:38)
[2023-04-16] MEDS: hydrOXYzine 25 MG TAB PO SCH ×2 (08:38→14:33)
[2023-04-16] MEDS: busPIRone HCl 5 MG TAB PO SCH (08:39)
[2023-04-16] MEDS: Metoprolol Tartrate 25 MG TAB PO SCH (08:39)
[2023-04-16] MEDS: Senokot 8.6 MG TAB PO SCH (08:39)
[2023-04-16] MEDS: Apixaban 5 MG TAB PO SCH (08:39)
[2023-04-16] MEDS: Simethicone Chewable 80 MG TAB PO SCH ×2 (08:40→13:14)
[2023-04-16] MEDS: Transdermal Patch Removal TOP SCH (08:48)
[2023-04-16 12:18] VITALS: BP 95/61; TEMP 98.8
[2023-04-16] MEDS: Nicotine 14 MG PATCH TD SCH (14:33)
== END 2023-04-16 14:39 | DRG 291 ==
LOC: ERS 12:46 → SUATTDRO 12:46 → ERHOLD 17:44 → 2NO 03-26 03:26 → SJJU 04-10 01:09
PROVIDERS: ADMIT Internal Medicine; ATTEND Family Medicine
PROC: 4A043R1 Measurement of Venous Saturation, Peripheral, Percutaneous Approach (ICD-10-PCS; principal; 2023-03-25)
DX: I13.0 Hypertensive heart and chronic kidney disease with heart failure and stage 1 through stage 4 chronic kidney disease, or unspecified chronic kidney disease (principal); I50.33 Acute on chronic diastolic (congestive) heart failure; J96.01 Acute respiratory failure with hypoxia; J44.1 Chronic obstructive pulmonary disease with (acute) exacerbation; I48.19 Other persistent atrial fibrillation; N17.9 Acute kidney failure, unspecified; E87.1 Hypo-osmolality and hyponatremia; Z66 Do not resuscitate; Z51.5 Encounter for palliative care; F41.9 Anxiety disorder, unspecified; Z88.8 Allergy status to other drugs, medicaments and biological substances; E03.9 Hypothyroidism, unspecified; G43.909 Migraine, unspecified, not intractable, without status migrainosus; M19.90 Unspecified osteoarthritis, unspecified site; Z96.642 Presence of left artificial hip joint; Z90.49 Acquired absence of other specified parts of digestive tract; Z90.710 Acquired absence of both cervix and uterus; F32.A Depression, unspecified; F17.210 Nicotine dependence, cigarettes, uncomplicated; Z79.01 Long term (current) use of anticoagulants; E78.5 Hyperlipidemia, unspecified; Z95.5 Presence of coronary angioplasty implant and graft; K21.9 Gastro-esophageal reflux disease without esophagitis; I25.2 Old myocardial infarction; N18.9 Chronic kidney disease, unspecified; Z79.899 Other long term (current) drug therapy; E87.5 Hyperkalemia; R04.0 Epistaxis
CPT/HCPCS: 36415; 36416; 71045; 76705; 80048; 80053; 80143; 81001; 82805; 83735; 83880; 84100; 84484; 85025; 90471; 90694; 93005; 93010; 94664; 96374; 96375; 96376; 97139; 80307; G0008; J0456; J0780; J1200; J1940; J2060; J2405; J3490; J7050; J7120; J7509; J7512

== ENCOUNTER 2023-12-15 20:41 | Inpatient (IN) | payer MEDICARE ==
[2023-12-15] MEDS ORDERED: REMDESIVIR 200 MG in Sodium Chloride 0.9% 250 ML 210 ML IV SCH (23:45)
[2023-12-15] MEDS ORDERED: Acetaminophen 650 MG Suppository PR PRN (23:55)
[2023-12-16] MEDS ORDERED: tiZANidine HCl 4 MG TAB PO PRN (00:30)
[2023-12-16] MEDS ORDERED: SUMAtriptan Succinate 25 MG TAB PO PRN (00:31)
[2023-12-16] MEDS: cefTRIAXone\\ROCEPHIN 1 GM in Sodium Chloride 0.9% 100 ML IVPB SCH (01:49)
[2023-12-16] MEDS ORDERED: Acetaminophen 325 MG TAB PO PRN (01:52)
[2023-12-16] MEDS: Acetaminophen/Codeine 30-300mg Tablet PO SCH (02:18)
[2023-12-16] MEDS: Ondansetron ODT 4 MG TAB PO PRN (02:18)
[2023-12-16] MEDS: Doxycycline 100 MG in Sodium Chloride 0.9% 100 ML IVPB SCH (02:39)
[2023-12-16] MEDS: Levothyroxine Sodium 25 MCG TAB PO SCH (05:18)
[2023-12-16] MEDS: SUMAtriptan Succinate 50 MG TAB PO PRN (05:29)
[2023-12-16 06:36] LABS: Hematocrit 37.2 % (36.0-47.0); Hemoglobin 12.5 g/dL (12.0-16.0); Mean Corpuscular HGB CONC 33.6 g/dL (32.0-36.0); Mean Corpuscular Hemoglobin 32.3 pg (27.0-31.0); Mean Corpuscular Volume 96.1 fL (78.0-98.0); Mean Platelet Volume 12.4 fL (7.4-10.4); Platelet Count 92 10x3/uL (130-400); RBC Distribution Width 17.2 % (11.5-14.5); Red Blood Cell (RBC) Count 3.87 mill/uL (4.20-5.40)
[2023-12-16] MEDS: Mometasone 200 MCG/Formoterol 5 MCG 120 PUFF INHALER INH SCH (06:47)
[2023-12-16] MEDS: dilTIAZem CD 180 MG CAP PO SCH (07:33)
[2023-12-16] MEDS: Dexamethasone 10 MG/ML VIAL SLOW IVP SCH (07:33)
[2023-12-16] MEDS: busPIRone HCl 5 MG TAB PO SCH (07:33)
[2023-12-16] MEDS: Ascorbic Acid 500 mg Chewable Tablet PO SCH (07:34)
[2023-12-16] MEDS: tiZANidine HCl 4 MG TAB PO PRN (07:34)
[2023-12-16] MEDS: Acetaminophen 325 MG TAB PO PRN (07:34)
[2023-12-16] MEDS: Metoprolol Tartrate 25 MG TAB PO SCH (07:34)
[2023-12-16] MEDS: Cholecalciferol (Vitamin D3) 400 UNITS TAB PO SCH (07:35)
[2023-12-16] MEDS: Zinc Sulfate 220 MG CAP PO SCH (07:35)
[2023-12-16] MEDS: Apixaban 5 MG TAB PO SCH (07:35)
[2023-12-16] MEDS: Pantoprazole DR 40 MG TAB PO SCH (07:35)
[2023-12-16 07:47] LABS: Band 27 % (5-11); Burr Cells MODERATE= 6-15 cells HPF (0-1); Large Platelets 1.9 % (0-5); Lymphocytes 2 % (21-51); Monocytes 5 % (0-10); Neutrophil 66 % (42-75); Platelet Adequacy Comment Platelets Decreased; Poikilocytosis MODERATE=16-30 cells HPF (0-5); Polychromasia SLIGHT = 2-3 cells HPF (0-2); Schistocytes SLIGHT = 2-5 cells HPF (0-1)
[2023-12-16] MEDS: Ipratropium/Albuterol 3 ML NEB ONE (08:07)
[2023-12-16] MEDS: Ipratropium/Albuterol 3 ML NEB NEB SCH (08:08)
[2023-12-16] MEDS ORDERED: Diazepam 5 MG TAB PO PRN (08:30)
[2023-12-16] MEDS ORDERED: Iopamidol-370 76% 500 ML MDV (1 ML CHARGE) ONE (08:46)
[2023-12-16] MEDS ORDERED: Nortriptyline 10 MG CAP PO SCH (09:00)
[2023-12-16] MEDS ORDERED: REMDESIVIR 200 MG in Sodium Chloride 0.9% 250 ML 210 ML IV SCH (09:00)
[2023-12-16] MEDS ORDERED: Ipratropium/Albuterol 3 ML NEB NEB SCH (11:00)
[2023-12-16] MEDS: DULoxetine 20 MG CAP PO SCH (11:07)
[2023-12-16] MEDS: Senokot 8.6 MG TAB PO SCH (11:07)
[2023-12-16] MEDS: Potassium Chloride 20 MEQ TAB PO SCH (11:07)
[2023-12-16] MEDS: IPRATROPIUM IH SCH (14:11)
[2023-12-16] MEDS: ALBUTEROL SULFATE IH SCH (14:11)
[2023-12-16 16:48] LABS: SARS-CoV-2 E Target Positive; SARS-CoV-2 N2 Target Positive; SARS-CoV-2 NAA Rapid Test DETECTED (NotDetected); SARS-CoV-2 RdRP gene Positive
[2023-12-16] MEDS: Acetaminophen/Codeine 30-300mg Tablet PO PRN (18:05)
[2023-12-16] MEDS ORDERED: REMDESIVIR IVPB PRN (19:29)
[2023-12-16] MEDS: REMDESIVIR 200 MG in Sodium Chloride 0.9% 250 ML 210 ML IV SCH (21:36)
[2023-12-16] MEDS: Nortriptyline 10 MG CAP PO SCH (21:36)
[2023-12-16] MEDS: Atorvastatin Calcium 20 MG TAB PO SCH (21:38)
[2023-12-16] MEDS: Diazepam 5 MG TAB PO PRN (22:20)
[2023-12-16] MEDS ORDERED: REMDESIVIR 100 MG in Sodium Chloride 0.9% 250 ML 230 ML IV SCH (23:45)
[2023-12-17] MEDS ORDERED: REMDESIVIR 100 MG in Sodium Chloride 0.9% 250 ML 230 ML IV SCH (00:45)
[2023-12-17 00:55] LABS: Lactic Acid 1.31 mmol/L (0.5-2.2)
[2023-12-17 02:21] LABS: Actual Bicarbonate (HCO3v) 16.5 mEq/L (22-28); Base Excess -8.2 mEq/L (-2.0 to +3.0); Calcium, Ionized (venous) 1.17 mmol/L (1.16-1.32); Chloride (VBG) 110 mmol/L (98-106); Hematocrit-VBG 36 % (36.0-47.0); Hemoglobin (Hb) 12.3 g/dL (11.7-16.1); Potassium (VBG) 4.53 mmol/L (3.70-5.30); Sodium 140 mmol/L (133-146); pH (venous) 7.334 (7.32-7.43)
[2023-12-17 02:58] LABS: Hematocrit 34.4 % (36.0-47.0); Hemoglobin 11.8 g/dL (12.0-16.0); Mean Corpuscular HGB CONC 34.3 g/dL (32.0-36.0); Mean Corpuscular Hemoglobin 32.2 pg (27.0-31.0); Mean Platelet Volume 12.7 fL (7.4-10.4); Platelet Count 116 10x3/uL (130-400); RBC Distribution Width 17.3 % (11.5-14.5); Red Blood Cell (RBC) Count 3.66 mill/uL (4.20-5.40)
[2023-12-17 03:13] LABS: ALT (SGPT) 110 U/L (8-55); AST (SGOT) 172 U/L (5-34); Albumin 2.8 g/dL (3.4-4.8); Alkaline Phosphatase 355 U/L (40-110); Anion Gap 18 mmol/L (10-20); BUN (Urea Nitrogen) 37 mg/dL (9.8-20.1); Bilirubin, Total 0.7 mg/dL (0.2-1.2); Calc. Creatinine Clearance 43 mL/min (70-130); Calcium 8.9 mg/dL (7.8-10.44); Carbon Dioxide 14 mmol/L (23-31); Chloride 112 mmol/L (98-107); Estimated GFR 56; Globulin 3.5 g/dL (2.4-3.5); Glucose 129 mg/dL (83-110); Potassium 4.5 mmol/L (3.5-5.1); Protein, Total 6.3 g/dL (5.8-8.1); Sodium 139 mmol/L (136-145)
[2023-12-17 04:04] LABS: Anisocytosis SLIGHT = 6-15 cells HPF (0-5); Band 19 % (5-11); Burr Cells SLIGHT = 2-5 cells HPF (0-1); Elliptocytes SLIGHT = 2-5 cells HPF (0-1); Macrocytosis SLIGHT = 6-15 cells HPF (0-5); Monocytes 4 % (0-10); Neutrophil 77 % (42-75); Platelet Adequacy Comment Platelets Decreased; Poikilocytosis MODERATE=16-30 cells HPF (0-5); Polychromasia SLIGHT = 2-3 cells HPF (0-2)
[2023-12-17 04:18] LABS: Bilirubin, Direct 0.4 mg/dL (0.1-0.3); Bilirubin, Total 0.7 mg/dL (0.2-1.2)
[2023-12-17 04:19] LABS: ALT (SGPT) 111 U/L (8-55); AST (SGOT) 171 U/L (5-34); Albumin 2.9 g/dL (3.4-4.8); Alkaline Phosphatase 358 U/L (40-110); Protein, Total 6.2 g/dL (5.8-8.1)
[2023-12-17] MEDS: Benzonatate 100 MG CAP PO PRN (20:48)
[2023-12-17] MEDS: REMDESIVIR 100 MG in Sodium Chloride 0.9% 250 ML 230 ML IV SCH (20:49)
[2023-12-17] MEDS: Nicotine 14 MG PATCH TD SCH (22:41)
[2023-12-18 06:23] LABS: ALT (SGPT) 150 U/L (8-55); AST (SGOT) 216 U/L (5-34); Alkaline Phosphatase 446 U/L (40-110); Anion Gap 17 mmol/L (10-20); BUN (Urea Nitrogen) 49 mg/dL (9.8-20.1); Bilirubin, Total 0.6 mg/dL (0.2-1.2); Calc. Creatinine Clearance 54 mL/min (70-130); Calcium 9.3 mg/dL (7.8-10.44); Carbon Dioxide 15 mmol/L (23-31); Chloride 114 mmol/L (98-107); Estimated GFR 75; Globulin 3.6 g/dL (2.4-3.5); Glucose 124 mg/dL (83-110); Protein, Total 6.6 g/dL (5.8-8.1); Sodium 141 mmol/L (136-145)
[2023-12-18 06:43] LABS: HBCM Index 0.07 S/CO (0-0.79); HBsAg Index 0.25 S/CO (0-0.99); Hep A IgM AB NONREACTIVE (NonReactive); Hep B Surf Ag NONREACTIVE S/CO (NonReactive); Hep C IgG Ab NONREACTIVE S/CO (NonReactive); Hep C Index 0.61 S/CO (0-0.79); Hepatitis B Core IgM Abs NONREACTIVE S/CO (NonReactive)
[2023-12-18] MEDS: Dexamethasone 10 MG/ML VIAL SLOW IVP SCH (20:10)
[2023-12-19 09:41] LABS: ALT (SGPT) 158 U/L (8-55); AST (SGOT) 121 U/L (5-34); Albumin 3.2 g/dL (3.4-4.8); Alkaline Phosphatase 434 U/L (40-110); Anion Gap 15 mmol/L (10-20); BUN (Urea Nitrogen) 38 mg/dL (9.8-20.1); Bilirubin, Total 0.7 mg/dL (0.2-1.2); Calc. Creatinine Clearance 54 mL/min (70-130); Calcium 9.6 mg/dL (7.8-10.44); Carbon Dioxide 15 mmol/L (23-31); Chloride 116 mmol/L (98-107); Estimated GFR 75; Globulin 3.7 g/dL (2.4-3.5); Glucose 165 mg/dL (83-110); Potassium 4.9 mmol/L (3.5-5.1); Protein, Total 6.9 g/dL (5.8-8.1); Sodium 141 mmol/L (136-145)
[2023-12-19 10:06] LABS: Hematocrit 41.4 % (36.0-47.0); Hemoglobin 13.5 g/dL (12.0-16.0); Mean Corpuscular HGB CONC 32.6 g/dL (32.0-36.0); Mean Corpuscular Hemoglobin 32.1 pg (27.0-31.0); Mean Corpuscular Volume 98.3 fL (78.0-98.0); Mean Platelet Volume 10.6 fL (7.4-10.4); Platelet Count 164 10x3/uL (130-400); RBC Distribution Width 17.7 % (11.5-14.5); Red Blood Cell (RBC) Count 4.21 mill/uL (4.20-5.40)
[2023-12-19] MEDS: Fioricet 325/50/40 mg Tablet PO PRN (10:37)
[2023-12-19 11:14] LABS: Anisocytosis SLIGHT = 6-15 cells HPF (0-5); Burr Cells SLIGHT = 2-5 cells HPF (0-1); Elliptocytes SLIGHT = 2-5 cells HPF (0-1); Large Platelets 5.9 % (0-5); Macrocytosis SLIGHT = 6-15 cells HPF (0-5); Monocytes 6 % (0-10); Neutrophil 94 % (42-75); Ovalocytes SLIGHT = 2-5 cells HPF (0-1); Platelet Adequacy Comment Platelets Normal; Polychromasia SLIGHT = 2-3 cells HPF (0-2); Schistocytes SLIGHT = 2-5 cells HPF (0-1); Smudge Cells 5.9 %; Tear Drops SLIGHT = 2-5 cells HPF (0-1)
[2023-12-19] MEDS: Fluticasone Propionate Nasal Spray 16 gm Bottle NASAL SCH (21:02)
[2023-12-19] MEDS: Sodium Bicarbonate Tab 325 MG TAB PO SCH (21:02)
[2023-12-19] MEDS: Ketorolac Tromethamine 30 MG (1 mL) VIAL IVP SCH (22:37)
[2023-12-19] MEDS: Guaifenesin DM 100-10/5 ML UDCUP PO PRN (22:38)
[2023-12-20 02:17] LABS: Hematocrit 36.1 % (36.0-47.0); Hemoglobin 11.8 g/dL (12.0-16.0); Mean Corpuscular HGB CONC 32.7 g/dL (32.0-36.0); Mean Corpuscular Hemoglobin 32.5 pg (27.0-31.0); Mean Corpuscular Volume 99.4 fL (78.0-98.0); Platelet Count 154 10x3/uL (130-400); RBC Distribution Width 17.2 % (11.5-14.5); Red Blood Cell (RBC) Count 3.63 mill/uL (4.20-5.40)
[2023-12-20 02:52] LABS: ALT (SGPT) 183 U/L (8-55); AST (SGOT) 219 U/L (5-34); Albumin 2.8 g/dL (3.4-4.8); Alkaline Phosphatase 349 U/L (40-110); Anion Gap 16 mmol/L (10-20); BUN (Urea Nitrogen) 39 mg/dL (9.8-20.1); Bilirubin, Direct 0.8 mg/dL (0.1-0.3); Bilirubin, Total 1.3 mg/dL (0.2-1.2); Calc. Creatinine Clearance 57 mL/min (70-130); Carbon Dioxide 14 mmol/L (23-31); Chloride 117 mmol/L (98-107); Estimated GFR 79; Glucose 190 mg/dL (83-110); Potassium 4.6 mmol/L (3.5-5.1); Protein, Total 5.8 g/dL (5.8-8.1); Sodium 142 mmol/L (136-145)
[2023-12-20 02:59] LABS: Anisocytosis SLIGHT = 6-15 cells HPF (0-5); Band 1 % (5-11); Burr Cells SLIGHT = 2-5 cells HPF (0-1); Lymphocytes 7 % (21-51); Macrocytosis SLIGHT = 6-15 cells HPF (0-5); Metamyelocyte 3 % (0-0); Monocytes 6 % (0-10); Neutrophil 83 % (42-75); Ovalocytes SLIGHT = 2-5 cells HPF (0-1); Platelet Adequacy Comment Platelets Normal; Poikilocytosis SLIGHT = 6-15 cells HPF (0-5); Polychromasia SLIGHT = 2-3 cells HPF (0-2); Tear Drops SLIGHT = 2-5 cells HPF (0-1)
[2023-12-20] MEDS ORDERED: Fluticasone Propionate Nasal Spray 16 gm Bottle NASAL SCH (09:00)
[2023-12-20 12:14] LABS: Anion Gap 14 mmol/L (10-20); BUN (Urea Nitrogen) 36 mg/dL (9.8-20.1); Calc. Creatinine Clearance 53 mL/min (70-130); Calcium 9.3 mg/dL (7.8-10.44); Carbon Dioxide 19 mmol/L (23-31); Chloride 116 mmol/L (98-107); Estimated GFR 72; Glucose 204 mg/dL (83-110); Potassium 4.5 mmol/L (3.5-5.1); Sodium 144 mmol/L (136-145)
[2023-12-21] MEDS: Atorvastatin Calcium 20 MG TAB PO SCH (09:37)
[2023-12-21 16:16] LABS: ALT (SGPT) 273 U/L (8-55); AST (SGOT) 175 U/L (5-34); Alkaline Phosphatase 348 U/L (40-110); Anion Gap 14 mmol/L (10-20); BUN (Urea Nitrogen) 30 mg/dL (9.8-20.1); Bilirubin, Direct 0.8 mg/dL (0.1-0.3); Bilirubin, Total 1.6 mg/dL (0.2-1.2); Calc. Creatinine Clearance 63 mL/min (70-130); Calcium 9.6 mg/dL (7.8-10.44); Carbon Dioxide 22 mmol/L (23-31); Chloride 113 mmol/L (98-107); Estimated GFR 90; Glucose 194 mg/dL (83-110); Potassium 4.7 mmol/L (3.5-5.1); Sodium 144 mmol/L (136-145)
[2023-12-21 16:33] LABS: #Basophils 0.07 10x3/uL (0.0-0.2); #Eosinphils Less than 0.03 10x3/uL (0.0-0.7); %Basophils 0.7 % (0.0-1.0); %Lymphocytes 5.4 % (21.0-51.0); %Monocytes 5.6 % (0.0-10.0); %Neutrophils 85.1 % (42.0-75.0); Hematocrit 38.1 % (36.0-47.0); Hemoglobin 12.7 g/dL (12.0-16.0); Mean Corpuscular HGB CONC 33.3 g/dL (32.0-36.0); Mean Corpuscular Hemoglobin 31.4 pg (27.0-31.0); Mean Corpuscular Volume 94.3 fL (78.0-98.0); Mean Platelet Volume 11.9 fL (7.4-10.4); Platelet Count 193 10x3/uL (130-400); RBC Distribution Width 16.9 % (11.5-14.5); Red Blood Cell (RBC) Count 4.04 mill/uL (4.20-5.40)
[2023-12-22 05:27] LABS: Hematocrit 36.1 % (36.0-47.0); Hemoglobin 12.3 g/dL (12.0-16.0); Mean Corpuscular HGB CONC 34.1 g/dL (32.0-36.0); Mean Corpuscular Hemoglobin 32.1 pg (27.0-31.0); Mean Corpuscular Volume 94.3 fL (78.0-98.0); Mean Platelet Volume 10.7 fL (7.4-10.4); Platelet Count 151 10x3/uL (130-400); RBC Distribution Width 16.6 % (11.5-14.5); Red Blood Cell (RBC) Count 3.83 mill/uL (4.20-5.40)
[2023-12-22 05:38] LABS: ALT (SGPT) 232 U/L (8-55); AST (SGOT) 102 U/L (5-34); Albumin 2.9 g/dL (3.4-4.8); Alkaline Phosphatase 312 U/L (40-110); Anion Gap 15 mmol/L (10-20); BUN (Urea Nitrogen) 30 mg/dL (9.8-20.1); Bilirubin, Direct 0.6 mg/dL (0.1-0.3); Bilirubin, Total 1.3 mg/dL (0.2-1.2); Calc. Creatinine Clearance 62 mL/min (70-130); Calcium 9.2 mg/dL (7.8-10.44); Carbon Dioxide 21 mmol/L (23-31); Chloride 111 mmol/L (98-107); Estimated GFR 88; Glucose 236 mg/dL (83-110); Potassium 4.6 mmol/L (3.5-5.1); Protein, Total 5.8 g/dL (5.8-8.1); Sodium 142 mmol/L (136-145)
[2023-12-22 05:53] LABS: Anisocytosis MODERATE=16-30 cells HPF (0-5); Burr Cells MODERATE= 6-15 cells HPF (0-1); Large Platelets 3.9 % (0-5); Lymphocytes 4 % (21-51); Monocytes 6 % (0-10); Neutrophil 90 % (42-75); Ovalocytes SLIGHT = 2-5 cells HPF (0-1); Platelet Adequacy Comment Platelets Normal; Polychromasia SLIGHT = 2-3 cells HPF (0-2); Tear Drops SLIGHT = 2-5 cells HPF (0-1)
[2023-12-22] MEDS: Furosemide 40 MG (4 mL) VIAL SLOW IVP SCH (10:33)
[2023-12-22 20:24] LABS: Troponin I Less than 0.010 ng/mL (< 0.028)
[2023-12-22] MEDS: Oxymetazoline HCl 0.05% (30 ML BOT) NS SCH (21:06)
[2023-12-23 07:47] LABS: Hematocrit 37.3 % (36.0-47.0); Hemoglobin 12.5 g/dL (12.0-16.0); Mean Corpuscular HGB CONC 33.5 g/dL (32.0-36.0); Mean Corpuscular Hemoglobin 31.4 pg (27.0-31.0); Mean Corpuscular Volume 93.7 fL (78.0-98.0); Mean Platelet Volume 12.1 fL (7.4-10.4); Platelet Count 172 10x3/uL (130-400); RBC Distribution Width 16.6 % (11.5-14.5); Red Blood Cell (RBC) Count 3.98 mill/uL (4.20-5.40)
[2023-12-23 08:06] LABS: ALT (SGPT) 248 U/L (8-55); AST (SGOT) 162 U/L (5-34); Albumin 2.9 g/dL (3.4-4.8); Alkaline Phosphatase 294 U/L (40-110); Anion Gap 17 mmol/L (10-20); BUN (Urea Nitrogen) 36 mg/dL (9.8-20.1); Bilirubin, Total 1.8 mg/dL (0.2-1.2); Calc. Creatinine Clearance 57 mL/min (70-130); Calcium 9.2 mg/dL (7.8-10.44); Carbon Dioxide 21 mmol/L (23-31); Chloride 107 mmol/L (98-107); Estimated GFR 79; Glucose 250 mg/dL (83-110); Potassium 4.8 mmol/L (3.5-5.1); Protein, Total 5.9 g/dL (5.8-8.1); Sodium 140 mmol/L (136-145)
[2023-12-23 08:15] LABS: Band 1 % (5-11); Hypersegmented Neutrophil SLIGHT (None Seen); Lymphocytes 3 % (21-51); Monocytes 4 % (0-10); Neutrophil 92 % (42-75); Platelet Adequacy Comment Platelets Normal; Polychromasia SLIGHT = 2-3 cells HPF (0-2)
[2023-12-23 13:15] LABS: Troponin I Less than 0.010 ng/mL (< 0.028)
[2023-12-23] MEDS: Lidocaine 4% Patch TD SCH (14:27)
[2023-12-24] MEDS: Transdermal Patch Removal TOP SCH (01:02)
[2023-12-24 05:52] VITALS: BMI 24.7
[2023-12-24 07:04] LABS: Anion Gap 15 mmol/L (10-20); BUN (Urea Nitrogen) 33 mg/dL (9.8-20.1); Calc. Creatinine Clearance 52 mL/min (70-130); Carbon Dioxide 25 mmol/L (23-31); Chloride 105 mmol/L (98-107); Estimated GFR 73; Glucose 233 mg/dL (83-110); Potassium 4.9 mmol/L (3.5-5.1); Sodium 140 mmol/L (136-145)
[2023-12-24] MEDS: Albuterol 200 PUFF (6.7GM INHALER) INH PRN (07:47)
[2023-12-24 08:12] LABS: #Basophils 0.09 10x3/uL (0.0-0.2); #Eosinphils Less than 0.03 10x3/uL (0.0-0.7); %Basophils 0.8 % (0.0-1.0); %Monocytes 8.4 % (0.0-10.0); %Neutrophils 84.2 % (42.0-75.0); Hematocrit 38.1 % (36.0-47.0); Hemoglobin 12.9 g/dL (12.0-16.0); Mean Corpuscular HGB CONC 33.9 g/dL (32.0-36.0); Mean Corpuscular Hemoglobin 31.9 pg (27.0-31.0); Mean Corpuscular Volume 94.1 fL (78.0-98.0); Mean Platelet Volume 11.5 fL (7.4-10.4); Platelet Count 159 10x3/uL (130-400); RBC Distribution Width 16.8 % (11.5-14.5); Red Blood Cell (RBC) Count 4.05 mill/uL (4.20-5.40)
[2023-12-24] MEDS: Furosemide 20 MG (2 mL) VIAL SLOW IVP SCH (10:13)
[2023-12-25] MEDS: Acetaminophen/Codeine 30-300mg Tablet PO PRN (00:51)
[2023-12-25 04:22] LABS: #Basophils 0.07 10x3/uL (0.0-0.2); #Eosinphils Less than 0.03 10x3/uL (0.0-0.7); %Basophils 0.6 % (0.0-1.0); %Monocytes 13.8 % (0.0-10.0); %Neutrophils 78.6 % (42.0-75.0); Hematocrit 36.2 % (36.0-47.0); Hemoglobin 12.1 g/dL (12.0-16.0); Mean Corpuscular HGB CONC 33.4 g/dL (32.0-36.0); Mean Corpuscular Hemoglobin 32.7 pg (27.0-31.0); Mean Corpuscular Volume 97.8 fL (78.0-98.0); Mean Platelet Volume 12.3 fL (7.4-10.4); Platelet Count 151 10x3/uL (130-400); RBC Distribution Width 16.7 % (11.5-14.5)
[2023-12-25 04:47] LABS: ALT (SGPT) 160 U/L (8-55); AST (SGOT) 35 U/L (5-34); Albumin 2.7 g/dL (3.4-4.8); Alkaline Phosphatase 252 U/L (40-110); Anion Gap 13 mmol/L (10-20); BUN (Urea Nitrogen) 34 mg/dL (9.8-20.1); Bilirubin, Total 0.7 mg/dL (0.2-1.2); Calc. Creatinine Clearance 56 mL/min (70-130); Calcium 9.2 mg/dL (7.8-10.44); Carbon Dioxide 28 mmol/L (23-31); Chloride 105 mmol/L (98-107); Estimated GFR 79; Globulin 3.1 g/dL (2.4-3.5); Glucose 277 mg/dL (83-110); Potassium 4.2 mmol/L (3.5-5.1); Protein, Total 5.8 g/dL (5.8-8.1); Sodium 142 mmol/L (136-145)
[2023-12-25] MEDS: Dexamethasone 4 MG TAB PO SCH (08:32)
[2023-12-25] MEDS: MAGIC MOUTH WASH W/NYSTATIN SUSP 10 ML UDCUP SSP PRN (22:41)
[2023-12-26 04:56] LABS: #Basophils 0.05 10x3/uL (0.0-0.2); #Eosinphils Less than 0.03 10x3/uL (0.0-0.7); %Basophils 0.6 % (0.0-1.0); %Lymphocytes 6.1 % (21.0-51.0); %Monocytes 13.2 % (0.0-10.0); %Neutrophils 77.5 % (42.0-75.0); Hematocrit 34.6 % (36.0-47.0); Hemoglobin 11.4 g/dL (12.0-16.0); Mean Corpuscular HGB CONC 32.9 g/dL (32.0-36.0); Mean Corpuscular Hemoglobin 32.2 pg (27.0-31.0); Mean Corpuscular Volume 97.7 fL (78.0-98.0); Mean Platelet Volume 12.5 fL (7.4-10.4); Platelet Count 122 10x3/uL (130-400); RBC Distribution Width 16.5 % (11.5-14.5); Red Blood Cell (RBC) Count 3.54 mill/uL (4.20-5.40)
[2023-12-26 05:33] LABS: Anion Gap 14 mmol/L (10-20); BUN (Urea Nitrogen) 30 mg/dL (9.8-20.1); Calc. Creatinine Clearance 65 mL/min (70-130); Calcium 9.2 mg/dL (7.8-10.44); Carbon Dioxide 27 mmol/L (23-31); Chloride 104 mmol/L (98-107); Estimated GFR 90; Glucose 252 mg/dL (83-110); Potassium 4.4 mmol/L (3.5-5.1); Sodium 141 mmol/L (136-145)
[2023-12-26] MEDS: Lansoprazole 30 MG/10 ML UDCUP PER TUBE SCH (08:17)
[2023-12-26] MEDS: Diazepam 5 MG TAB PO PRN (19:39)
[2023-12-27 06:15] LABS: Anion Gap 13 mmol/L (10-20); BUN (Urea Nitrogen) 24 mg/dL (9.8-20.1); Calc. Creatinine Clearance 71 mL/min (70-130); Calcium 9.4 mg/dL (7.8-10.44); Carbon Dioxide 30 mmol/L (23-31); Chloride 103 mmol/L (98-107); Estimated GFR 92; Glucose 208 mg/dL (83-110); Potassium 4.8 mmol/L (3.5-5.1); Sodium 141 mmol/L (136-145)
[2023-12-27 06:32] LABS: #Basophils 0.08 10x3/uL (0.0-0.2); #Eosinphils Less than 0.03 10x3/uL (0.0-0.7); %Monocytes 15.8 % (0.0-10.0); %Neutrophils 75.6 % (42.0-75.0); Hematocrit 36.8 % (36.0-47.0); Hemoglobin 12.3 g/dL (12.0-16.0); Mean Corpuscular HGB CONC 33.4 g/dL (32.0-36.0); Mean Corpuscular Volume 95.8 fL (78.0-98.0); Mean Platelet Volume 13.7 fL (7.4-10.4); Platelet Count 106 10x3/uL (130-400); RBC Distribution Width 16.3 % (11.5-14.5); Red Blood Cell (RBC) Count 3.84 mill/uL (4.20-5.40)
[2023-12-28 07:33] LABS: #Basophils 0.08 10x3/uL (0.0-0.2); #Eosinphils Less than 0.03 10x3/uL (0.0-0.7); %Basophils 1.1 % (0.0-1.0); %Lymphocytes 5.4 % (21.0-51.0); %Monocytes 11.8 % (0.0-10.0); %Neutrophils 79.4 % (42.0-75.0); Hematocrit 37.5 % (36.0-47.0); Hemoglobin 12.3 g/dL (12.0-16.0); Mean Corpuscular HGB CONC 32.8 g/dL (32.0-36.0); Mean Corpuscular Hemoglobin 32.4 pg (27.0-31.0); Mean Corpuscular Volume 98.7 fL (78.0-98.0); Mean Platelet Volume 12.3 fL (7.4-10.4); Platelet Count 101 10x3/uL (130-400); RBC Distribution Width 16.2 % (11.5-14.5)
[2023-12-28 07:51] LABS: Anion Gap 15 mmol/L (10-20); BUN (Urea Nitrogen) 24 mg/dL (9.8-20.1); Calc. Creatinine Clearance 63 mL/min (70-130); Calcium 9.4 mg/dL (7.8-10.44); Carbon Dioxide 29 mmol/L (23-31); Chloride 102 mmol/L (98-107); Estimated GFR 88; Glucose 218 mg/dL (83-110); Potassium 4.6 mmol/L (3.5-5.1); Sodium 141 mmol/L (136-145)
[2023-12-28 17:59] VITALS: BMI 25.4
[2023-12-29 10:05] LABS: #Basophils 0.05 10x3/uL (0.0-0.2); #Eosinphils Less than 0.03 10x3/uL (0.0-0.7); %Basophils 0.8 % (0.0-1.0); %Eosinophils 0.2 % (0.0-10.0); Hematocrit 34.5 % (36.0-47.0); Hemoglobin 11.4 g/dL (12.0-16.0); Mean Corpuscular Hemoglobin 32.6 pg (27.0-31.0); Mean Corpuscular Volume 98.6 fL (78.0-98.0); Platelet Count 105 10x3/uL (130-400); RBC Distribution Width 16.1 % (11.5-14.5)
[2023-12-29] MEDS: Magnesium Citrate 300 ML BOT PO SCH (10:37)
[2023-12-29] MEDS: Fleet Saline Enema 133 ML BOT PR SCH (16:17)
[2023-12-29 18:16] LABS: Anion Gap 15 mmol/L (10-20); BUN (Urea Nitrogen) 24 mg/dL (9.8-20.1); Calc. Creatinine Clearance 59 mL/min (70-130); Calcium 8.7 mg/dL (7.8-10.44); Carbon Dioxide 26 mmol/L (23-31); Chloride 99 mmol/L (98-107); Estimated GFR 81; Glucose 383 mg/dL (83-110); Potassium 5.3 mmol/L (3.5-5.1); Sodium 135 mmol/L (136-145)
[2023-12-30 10:14] LABS: Anion Gap 15 mmol/L (10-20); BUN (Urea Nitrogen) 23 mg/dL (9.8-20.1); Calc. Creatinine Clearance 60 mL/min (70-130); Carbon Dioxide 32 mmol/L (23-31); Chloride 97 mmol/L (98-107); Estimated GFR 84; Glucose 257 mg/dL (83-110); Potassium 4.9 mmol/L (3.5-5.1); Sodium 139 mmol/L (136-145)
[2023-12-30] MEDS: Nystatin 500,000 UNITS/5 ML UDCUP SSP SCH (20:04)
[2023-12-31] MEDS: Dexamethasone 1 MG TAB PO SCH (09:59)
[2023-12-31 11:01] LABS: Anion Gap 12 mmol/L (10-20); BUN (Urea Nitrogen) 24 mg/dL (9.8-20.1); Calc. Creatinine Clearance 61 mL/min (70-130); Carbon Dioxide 32 mmol/L (23-31); Chloride 96 mmol/L (98-107); Estimated GFR 85; Glucose 331 mg/dL (83-110); Potassium 4.5 mmol/L (3.5-5.1); Sodium 135 mmol/L (136-145)
[2023-12-31] MEDS ORDERED: Dextrose 50% Abboject 50 ML SYRINGE SLOW IVP PRN (13:15)
[2023-12-31] MEDS ORDERED: Glucagon 1 MG/ML KIT IM PRN (13:15)
[2023-12-31] MEDS ORDERED: Dextrose 5% in Water 1,000 ML IV PRN (13:15)
[2023-12-31] MEDS: Furosemide 40 MG (4 mL) VIAL SLOW IVP SCH (14:07)
[2023-12-31] MEDS: Insulin Glargine 30 UNITS/0.3 ML VIAL SC SCH (14:08)
[2023-12-31] MEDS: Insulin Lispro 100 UNIT/ML 10 ML VIAL SC PRN ×2 (16:46→20:48)
[2023-12-31] MEDS: Diazepam 5 MG TAB PO PRN (20:44)
[2024-01-01 06:45] LABS: Anion Gap 13 mmol/L (10-20); BUN (Urea Nitrogen) 28 mg/dL (9.8-20.1); Calc. Creatinine Clearance 64 mL/min (70-130); Calcium 9.2 mg/dL (7.8-10.44); Carbon Dioxide 32 mmol/L (23-31); Chloride 98 mmol/L (98-107); Estimated GFR 90; Glucose 239 mg/dL (83-110); Potassium 4.3 mmol/L (3.5-5.1); Sodium 139 mmol/L (136-145)
[2024-01-01] MEDS: Insulin Glargine 30 UNITS/0.3 ML VIAL SC SCH (08:37)
[2024-01-01] MEDS: Dexamethasone 1 MG TAB PO SCH (08:52)
[2024-01-01] MEDS: Furosemide 40 MG (4 mL) VIAL SLOW IVP SCH (08:53)
[2024-01-01] MEDS ORDERED: ALBUTEROL SULFATE IH SCH (11:00)
[2024-01-01] MEDS ORDERED: IPRATROPIUM IH SCH (11:00)
[2024-01-01 16:42] VITALS: BP 105/76; TEMP 97.5
== END 2024-01-01 17:26 | DRG 871 ==
LOC: 2NO 22:55 → OBSVTOIN 23:55 → IMCU/EMU 12-18 16:29 → T4-A 12-22 13:52
PROVIDERS: ADMIT Internal Medicine; ATTEND Hospitalist
PROC: XW033E5 Introduction of Remdesivir Anti-infective into Peripheral Vein, Percutaneous Approach, New Technology Group 5 (ICD-10-PCS; principal; 2023-12-15)
PROC: 5A0945A Assistance with Respiratory Ventilation, 24-96 Consecutive Hours, High Flow/Velocity Cannula (ICD-10-PCS; 2023-12-18)
DX: A41.89 Other specified sepsis (principal); J12.82 Pneumonia due to coronavirus disease 2019; U07.1 COVID-19; J96.21 Acute and chronic respiratory failure with hypoxia; I50.32 Chronic diastolic (congestive) heart failure; J44.1 Chronic obstructive pulmonary disease with (acute) exacerbation; J44.0 Chronic obstructive pulmonary disease with (acute) lower respiratory infection; I48.91 Unspecified atrial fibrillation; R65.20 Severe sepsis without septic shock; I25.10 Atherosclerotic heart disease of native coronary artery without angina pectoris; E78.5 Hyperlipidemia, unspecified; I11.0 Hypertensive heart disease with heart failure; E03.9 Hypothyroidism, unspecified; F41.9 Anxiety disorder, unspecified; F32.A Depression, unspecified; G89.29 Other chronic pain; D69.6 Thrombocytopenia, unspecified; R53.81 Other malaise; R74.01 Elevation of levels of liver transaminase levels; G43.909 Migraine, unspecified, not intractable, without status migrainosus; K71.9 Toxic liver disease, unspecified; R73.9 Hyperglycemia, unspecified; Z88.5 Allergy status to narcotic agent; Z79.01 Long term (current) use of anticoagulants; Z79.899 Other long term (current) drug therapy; Z79.51 Long term (current) use of inhaled steroids; Z79.890 Hormone replacement therapy; Z71.6 Tobacco abuse counseling
CPT/HCPCS: 36415; 36416; 71045; 71275; 74174; 76705; 80048; 80053; 80074; 80076; 82550; 82728; 82805; 83036; 83605; 83615; 83880; 84145; 84484; 85025; 85379; 86141; 87040; 93005; 93010; 94640; J0248; J0696; J1100; J1815; J1885; J1940; J3535; J7050; J7620; J8540; Q0162; Q9967; U0002